=== PATIENT | female | born 1990 | race Caucasian/White ===

== ENCOUNTER 2018-07-17 07:29 | Emergency (ER) | payer OTHER, SELFPAY ==
[2018-07-17 07:30] VITALS: BP 161/82; PULSE 102; RESP 18; TEMP 36.6; O2SAT 100; BMI 34.8
--- NOTE | 2018-07-17 08:20 | CT_ITS ---
STUDY: CT BRAIN WITHOUT CONTRAST REASON FOR EXAM: Female, 27 years old. Right parietal swelling and double vision. RADIATION DOSAGE (If Supplied By Facility): CTDIvol = ( 44.99 ) mGy, DLP = ( 846.73 ) mGycm TECHNIQUE: Transaxial CT imaging of the brain was performed without administration of intravenous contrast material. Individualized dose optimization techniques were used for this CT. COMPARISON: Comparison is made with prior study dated May 01, 2011. FINDINGS: Normal soft tissue structures. Normal calvarium. Normal size ventricles and extra-axial spaces for the patient's age. Normal white matter tracts of the cerebral hemispheres. Normal basal ganglia and thalami. Normal brainstem. Normal cerebellum. Once again, there is evidence of a cavum septum pellucidum. This is a normal variant. There is no intracranial hemorrhage. There are no findings of an acute ischemic infarction. Normal visualized paranasal sinuses. CT/Brain/Head without Contrast IMPRESSION: Normal unenhanced CT scan of the brain. Electronically Signed: Salvador Del Real, at 9:32 EST , Service support ,
[2018-07-17 08:57] LABS: Absolute Lymphocyte Count 2.09 X10^3/ul (0.83-4.51); Absolute Neutrophil Count 6.1 X10^3/uL (2.0-7.7); Basophil# 0.09 X10^3/uL; Eosinophil# 0.37 X10^3/uL; Eosinophils% 3.9 % (0-5); Hematocrit 43.9 % (37-47); Hemoglobin 14.2 g/dl (12.0-15.0); Lymphocyte # 2.09 X10^3/ul (4.0); Lymphocyte % 22.2 % (19-41); Mean Corp Hgb Conc 32.3 g/gl (32-36); Mean Corpuscular Hgb 28.3 pg (27.0-32.0); Mean Corpuscular Volume 87.5 fL (81-99); Mean Platelet Vol. 9.4 fl (6.2-12.0); Monocyte# 0.74 X10^3/uL; Monocyte% 7.9 % (0-10); Neutrophil # 6.09 X10^3/uL (2.7-7.7); Neutrophil % 64.8 % (47-70); Platelet Count 173 K/mm3 (150-450); RBC Distribution Width CV 13.3 % (11.6-14.6); RBC Distribution Width SD 42.5 fl (35.1-43.9); Red Blood Count 5.02 M/mm3 (4.2-5.4); White Blood Count 9.4 K/mm3 (4.4-11.0)
[2018-07-17 08:59] LABS: POSITIVE COUNT NO; POSITIVE DIFFERENTIAL NO; POSITIVE MORPHOLOGY NO
[2018-07-17 09:15] LABS: Anion Gap 8 (5-15); BUN 9 mg/dL (7-18); BUN/Creat Ratio 13.9 RATIO (10-20); Calcium,Total 9.1 mg/dL (8.5-10.1); Chloride 109 mmol/L (98-107); Creatinine, Serum 0.65 mg/dL (0.55-1.02); EST Glomerular Filtration Rate 116 mL/min (>60); Est Glom Filt Rate - Afr Amer 141 mL/min (>60); Estimated Creatinine Clearance 145.31 ml/min; Glucose 88 mg/dL (74-106); Potassium 3.6 mmol/L (3.5-5.1); Sodium Level 142 mmol/L (136-145)
--- NOTE | 2018-07-17 09:44 | ED.DCSUM_ITS ---
- ER Visit Summary Date of Service: 07/17/18 Chief Complaint: Knot on the side of my head History of Present Illness: The patient is a 27 F with no primary care physician. She reports that a week ago she noticed that she had a knot on the right side of her head. reported that she she seems out of it. She states that if she tries to concentrate on things that she gets double vision. She states that she does not have any double vision at this time. And that the double vision alternates between horizontal and vertical double vision. She denies any numbness or weakness. No fever or chills. Physical Examination: Vitals: Stable. Afebrile. General: Well-nourished and well-developed. Head: Normocephalic atraumatic. 3 cm firm minimally swollen area right parietal area. There is no erythema or induration. Neck: Supple, no lymphadenopathy. No JVD. Nontender. Cardiovascular: Regular rate and rhythm. No murmurs. Respiratory: No respiratory distress. Clear to auscultation bilaterally. Abdominal: Soft, nontender, nondistended, normal bowel sounds. No guarding, rebound, or peritoneal signs. Back: Nontender. Extremities: Nontender, no edema. Skin: Normal color, no rash. Neurologic: Alert and oriented ?3. Cranial nerves II through XII are intact. Normal strength and sensation. Psych: Normal affect. Test Results: CBC is normal. Chem-7 is more for chloride 109. CT brain is normal. Emergency Department Course and Treatment: Patient's rested comfortably without complaints. She does not have a family history of MS. Treatment Plan: Discussed the patient at this time I do not have an expiration for symptoms. I do not think that is related to the bump on her head. She will be discharged with instructions to follow-up with her primary care physician for further evaluation and treatment. She is also given the phone number for Dr. Parker. We discussed the possibility of this being a presentation for MS initially. Return to the emergency department for any worsening symptoms. Disposition: To home in improved and stable condition. Impression: 1. Scalp pain, uncertain cause. 2. Intermittent diplopia. This note was generated with [employer] software. It may contain incorrect words, spelling, and punctuation that were not noted in review of the chart prior to signing ED Disposition - Plan for ED Patient: Disposition: Home or Assisted Living Instructions: ED Double Vision Referrals: Richard Parker MD [STAFF PHYSICIAN] - As soon as possible
== END 2018-07-17 15:05 | disposition home or self-care (01) ==
LOC: ED 08:08
PROVIDERS: Emergency Provider Emergency Medicine
DX: R51 Headache (principal); H53.2 Diplopia; R11.0 Nausea; R05 Cough; Z72.0 Tobacco use
CPT/HCPCS: 70450; 80048; 85025; 99282; A4216

== ENCOUNTER 2018-12-07 15:35 | Emergency (ER) | payer BC, SELFPAY ==
[2018-12-07 15:36] VITALS: BP 152/90; PULSE 69; RESP 15; TEMP 36.6; O2SAT 99; BMI 34.5
[2018-12-07] MEDS: Ondansetron 4 MG/2 ML Vial IV (16:02)
[2018-12-07] MEDS: Ketorolac 30 MG/ML Syringe IV (16:02)
[2018-12-07] MEDS: 0.9% Normal Saline 1,000 ML 1000 ML IV (16:02)
[2018-12-07 16:10] LABS: Absolute Lymphocyte Count 2.54 X10^3/uL (0.83-4.51); Absolute Neutrophil Count 10.6 X10^3/uL (2.0-7.7); Basophil# 0.07 X10^3/uL; Basophil% 0.5 % (0-1); Eosinophil# 0.08 X10^3/uL; Eosinophils% 0.6 % (0-5); Hematocrit 43.6 % (37-47); Hemoglobin 14.8 g/dL (12.0-15.0); Lymphocyte # 2.54 X10^3/ul (4.0); Lymphocyte % 18.2 % (19-41); Mean Corp Hgb Conc 33.9 g/dL (32-36); Mean Corpuscular Hgb 29.3 pg (27.0-32.0); Mean Corpuscular Volume 86.3 fL (81-99); Mean Platelet Vol. 9.6 fl (6.2-12.0); Monocyte# 0.55 X10^3/uL; Monocyte% 3.9 % (0-10); NRBC Flagged by Analyzer 0 % (0-5); Neutrophil # 10.61 X10^3/uL (2.7-7.7); Neutrophil % 76.1 % (47-70); Platelet Count 265 K/mm3 (150-450); RBC Distribution Width CV 12.2 % (11.6-14.6); RBC Distribution Width SD 39.1 fl (35.1-43.9); Red Blood Count 5.05 M/mm3 (4.2-5.4)
[2018-12-07 16:29] LABS: ALB/GLOB Ratio 1.2 RATIO (0.9-2.4); AST(SGOT) 27 U/L (15-37); Alanine Aminotransfer ALT/SGPT 59 U/L (13-56); Alkaline Phosphatase 83 U/L (45-117); Anion Gap 8 (5-15); BUN 8 mg/dL (7-18); BUN/Creat Ratio 11.7 RATIO (10-20); Calcium,Total 9.3 mg/dL (8.5-10.1); Chloride 106 mmol/L (98-107); Creatinine, Serum 0.68 mg/dL (0.55-1.02); EST Glomerular Filtration Rate 109 mL/min (>60); Est Glom Filt Rate - Afr Amer 132 mL/min (>60); Estimated Creatinine Clearance 137.67 ml/min; Globulin 3.4 g/dL (2.2-4.2); Glucose 102 mg/dL (74-106); Lipase 85 U/L (73-393); Potassium 3.6 mmol/L (3.5-5.1); Protein, Total 7.4 g/dL (6.4-8.2); Sodium Level 139 mmol/L (136-145)
[2018-12-07 16:39] LABS: Bacteria 0 SEEN /hpf (None Seen); Mucous, Urine 0 SEEN /hpf (<or=2+); Red Blood Cells-Urine 0 SEEN /hpf (0-5); White Blood Cells 0 SEEN /hpf (0-5)
[2018-12-07 16:49] LABS: Color, Urine Yellow (Yellow); Glucose, Dipstick Normal (Normal); Ketone-Dipstick Negative (Negative); Leukocyte Esterase-Dipstick Negative /ul (Negative); Nitrite-Dipstick Negative (Negative); Occult Blood-Urine Negative /ul (Negative); Protein-Dipstick Negative (Negative); Urine Bilirubin Dipstick Negative (Negative); Urine Clarity Clear (Clear); Urine Urobilinogen Normal (Normal)
[2018-12-07 16:59] LABS: Squamous Epithelial Cells - UA 0-5 SEEN /hpf (5-10)
[2018-12-07 17:40] VITALS: BP 139/102; PULSE 50; RESP 16; O2SAT 98
--- NOTE | 2018-12-07 17:50 | ED.VISSUMM ---
- ER Visit Summary Date of Service: 12/07/18 Chief Complaint: Abdominal pain History of Present Illness: The patient is a 28 F with no primary care physician. She reports that she has left upper quadrant abdominal pain that began 2 days ago. Is gradually gotten worse. It is a dull, aching pain that is now 10 at worst and 7-10 currently. Is worsened by straightening out her torso. Is relieved by position. She is had nausea without vomiting. No diarrhea. Her last bowel movement was yesterday. No melena or hematochezia. No dysuria or frequency. She is status post hysterectomy. She denies fever. Physical Examination: Vitals: Stable. Afebrile. General: Well-nourished and well-developed. Head: Normocephalic atraumatic. Neck: Supple, no lymphadenopathy. No JVD. Nontender. Cardiovascular: Regular rate and rhythm. No murmurs. Respiratory: No respiratory distress. Clear to auscultation bilaterally. Abdominal: Soft, mild left upper quadrant tenderness to palpation, nondistended, normal bowel sounds. No guarding, rebound, or peritoneal signs. Back: Mild tenderness palpation over lumbar spine and paraspinous musculature in the lumbar region bilaterally. Negative straight leg raise bilaterally. Extremities: Nontender, no edema. Skin: Normal color, no rash. Neurologic: Alert and oriented ?3. Cranial nerves II through XII are intact. Normal strength and sensation. Psych: Normal affect. Test Results: CBC shows a white count of 14.0 with 76 segmented neutrophils and 18 lymphocytes. Chem-7 is normal. LFTs showed ALT of 59. Lipase normal. UA is negative. Emergency Department Course and Treatment: Patient was treated with Toradol and Zofran IV. I did have a discussion with her that I do not have an excellent option for her abdominal pain. She has refused a CT. She also refused nausea or pain medications for home. Treatment Plan: Patient will be discharged instructions follow-up Dr. Garcia in 1 to 2 days if not improving. Return to the emergency department for any worsening symptoms. Disposition: To home in improved and stable condition. Impression: 1. Abdominal pain, uncertain cause. This note was generated with [employer] software. It may contain incorrect words, spelling, and punctuation that were not noted in review of the chart prior to signing ED Disposition - Plan for ED Patient: Disposition: Home or Assisted Living Instructions: ABDOMINAL PAIN, Unknown Cause, (Female) Referrals: Portia Garcia MD [STAFF PHYSICIAN] - 1-2 Days if not improving
[2018-12-07 17:57] VITALS: BP 143/93; PULSE 50; RESP 16; O2SAT 100
--- NOTE | 2018-12-07 17:57 | ED.RN ---
upon d/c patient she became tearful. she was asked if are you okay. she stated yes. I offered to advocated to the dr if there was something else she felt necessary. she stated no. pt left department without further discussion about care or concerns. mandie montenegro rn 1800
--- NOTE | 2018-12-07 18:04 | ED.RN ---
ed d/c instructions found in waste can after pt left in the room. pmi disposed in appropriate container. mandie montenegro, 180
== END 2018-12-07 18:00 | disposition home or self-care (01) ==
LOC: ED 15:59
PROVIDERS: Emergency Provider Emergency Medicine
DX: R10.12 Left upper quadrant pain (principal); R11.0 Nausea; M54.9 Dorsalgia, unspecified; R51 Headache; Z90.710 Acquired absence of both cervix and uterus
CPT/HCPCS: 80053; 81001; 83690; 85025; 96361; 96374; 96375; 99283; J7030; A4216; J2405

== ENCOUNTER 2018-12-08 22:17 | Observation (INO) | payer BC, SELFPAY ==
[2018-12-07 15:36] VITALS: BMI 34.5
[2018-12-08 22:18] VITALS: BP 143/89; PULSE 72; RESP 15; TEMP 36.5; O2SAT 100; BMI 34.2
--- NOTE | 2018-12-08 22:54 | ED.DCSUM_ITS ---
History of Present Illness Chief Complaint: General Illness Informant: Patient Onset: Yesterday Context: Sudden Onset Timing: Continuous Quality: Aching Location: Bilateral lower quadrant Current Severity: Moderate Maximum Severity: Moderate Worsened by: Nothing Relieved by: Nothing Associated Symptoms: Loss of appetite Narrative: Patient is a 28-year-old female status post hysterectomy for endometriosis who presents because of bilateral lower quadrant abdominal pain. She was seen yesterday. Note was reviewed. Work-up was unremarkable. She declined CAT scan. She returns because of persistent pain. She also states the pain is moved. She now states it is aching and not sharp. She does report loss of appetite and slight nausea. She denies fever, chills or night sweats. She denies intolerance to greasy or fried foods. There is no family history of cholelithiasis. She denies dysuria, frequency, urgency or hematuria. She denies vaginal bleeding or discharge. She denies back or flank pain. There is no history of renal or ureterolithiasis. Prior similar symptoms: Yes Recent Illness/Hospitalization: Yes - Past Medical History (1) History of endometriosis Status: Acute Past Medical History - Allergies and Home Meds Allergies/Adverse Reactions: Allergies No Known Allergies Allergy (Verified 12/08/18 22:21) Primary Care Physician: Care Physician,No Primary [Primary Care Provider] - Prior records reviewed: Yes Surgical History: hysterectomy Lives: Spouse/ Significant Other Smoking Status: Former smoker Alcohol: None Drugs: None Review of Systems General: Reports: Chills. Denies: Fever, Malaise, Subjective, Sweats, Weight loss, - Eyes: Denies: Visual changes - bilaterally, Blurred Vision - bilaterally ENT: Denies: Rhinorrhea, Sore throat Cardiovascular: Denies: Chest pain, Palpitations Respiratory: Denies: Dyspnea, Cough, Dyspnea on exertion Gastrointestinal: Reports: Abdominal pain, Nausea, - - She reports anorexia. She states she has not eaten since . Denies: Vomiting, Diarrhea, Constipation, Melena, Hematochezia Genitourinary: Denies: Dysuria, Hematuria, Frequency Musculoskeletal: Denies: Myalgias, Arthralgias, Neck pain, Back pain, Extremity Pain Skin: Denies: Rash, Wounds Neurological: Denies: Headache, Weakness, Parasthesia, Numbness Hematologic: Denies: Easy bruising, Easy bleeding Allergy: Denies: Uticaria, Swelling of the mouth, Swelling of the tongue Physical Exam Vital Signs/Narrative: Vital Signs Temp Pulse Resp BP Pulse Ox 12/08/18 22:18 97.7 F L 72 15 143/89 H 100 Inital Vital Signs reviewed: Yes General: Well nourished, Well developed, - - Appears pale and uncomfortable.. Negative for: Acute Distress Head: Normocephalic, Atraumatic Eyes: Perrl, EOMI. Negative for: Pale conjunctiva, Scleral icterus, - ENT: No rhinorrhea, TM's clear, Dry mucous membranes Neck: Supple, Nontender, No lymphadenopathy, No JVD Cardiovascular: Regular rate, Regular rhythm, No murmurs, Normal S1, Normal S2 Respiratory: No distress, CTA bilaterally, Chest nontender Abdomen: Soft, Nondistended, Normal bowel sounds, No masses, Tender, Guarding, Brewer's sign Back: Nontender, Normal Inspection. Negative for: CVA tenderness Extremities: Nontender, No edema Skin: No rash, No Trauma, Pallor. Negative for: Cyanosis, Diaphoresis, Jaundice Neurological: Alert, Oriented x3, Cranial nerves II-XII grossly intact, Normal Strength, Normal Sensation Psychological: Normal affect, Normal Mood Diagnostic/Tx/Re-eval Laboratory Results 12/08/18 12/08/18 22:50 22:50 WBC 11.7 H RBC 4.80 Hgb 14.0 Hct 41.6 MCV 86.7 MCH 29.2 MCHC 33.7 RDW Std Deviation 39.0 RDW Coeff of Elizabeth 12.2 Plt Count 250 MPV 9.7 Immature Gran % (Auto) 0.900 Neut % (Auto) 65.9 Lymph % (Auto) 25.7 [place] % (Auto) 6.0 Eos % (Auto) 0.9 Baso % (Auto) 0.6 Absolute Neuts (auto) 7.7 Absolute Lymphs (auto) 3.00 Nucleated RBC % 0 Total Bilirubin 0.20 Direct Bilirubin 0.10 AST 27 ALT 61 H Alkaline Phosphatase 80 Total Protein 6.9 Albumin 3.7 Globulin 3.2 Lipase 83 ALT is slightly elevated. Upper end of normal at 56. This is within lab error. Lipase normal. White count slightly elevated. Will reassess patient and determine if patient will need an ultrasound through the emergency department versus outpatient. Also will compare lab results to yesterday's results. White count was 14,000 yesterday. Today's number is an improvement. - Medical Decision Making With pain to palpation right upper quadrant with clinical Brewer sign hepatic, CBC and lipase were obtained. Ultrasound is not available. If needed ability to call grated cheese maker in. Patient was medicated with Zofran and Toradol. Will compare today's labs to yesterday's. Patient was reassessed at 2346. She appears in much more discomfort. 25 mg of Dilaudid was ordered. She has increased tenderness the right upper quadrant. Will attempt to control patient's pain. Will order ultrasound for a.m. Since her white count is slightly elevated and her liver enzymes are essentially unrem arkable and emergent ultrasound is not warranted at this time. Patient was reassessed at 0120. She states the pain is much better after she received the last dose of pain medicine. She does report waxing and waning discomfort. She appears in less discomfort. 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 I was informed of 0308 that patient is requesting more pain medicine. 0.5 mg of Dilaudid was ordered. Patient's history, physical findings and concerns were conveyed to the oncoming physician Dr. Dante Hernandez. He will make disposition once ultrasound has been performed and results made available for review. ED Disposition - Plan for ED Patient: Diagnosis: Biliary colic symptom Referrals: Care Physician,No Primary [Primary Care Provider] -
[2018-12-08] MEDS: Ketorolac 15 MG/ML Vial IV (23:02)
[2018-12-08 23:03] VITALS: BP 138/78; PULSE 74; RESP 14; O2SAT 98
[2018-12-08] MEDS: Ondansetron 4 MG/2 ML Vial IV (23:03)
[2018-12-08 23:07] LABS: Absolute Neutrophil Count 7.7 X10^3/uL (2.0-7.7); Basophil# 0.07 X10^3/uL; Basophil% 0.6 % (0-1); Eosinophil# 0.11 X10^3/uL; Eosinophils% 0.9 % (0-5); Hematocrit 41.6 % (37-47); Lymphocyte % 25.7 % (19-41); Mean Corp Hgb Conc 33.7 g/dL (32-36); Mean Corpuscular Hgb 29.2 pg (27.0-32.0); Mean Corpuscular Volume 86.7 fL (81-99); Mean Platelet Vol. 9.7 fl (6.2-12.0); NRBC Flagged by Analyzer 0 % (0-5); Neutrophil # 7.68 X10^3/uL (2.7-7.7); Neutrophil % 65.9 % (47-70); Platelet Count 250 K/mm3 (150-450); RBC Distribution Width CV 12.2 % (11.6-14.6); White Blood Count 11.7 K/mm3 (4.4-11.0)
[2018-12-08 23:17] LABS: AST(SGOT) 27 U/L (15-37); Alanine Aminotransfer ALT/SGPT 61 U/L (13-56); Albumin, Serum 3.7 g/dL (3.2-5.0); Alkaline Phosphatase 80 U/L (45-117); Globulin 3.2 g/dL (2.2-4.2); Lipase 83 U/L (73-393); Protein, Total 6.9 g/dL (6.4-8.2)
[2018-12-08] MEDS: HYDROmorphone 0.5 MG/0.5 ML SYRINGE IV (23:52)
[2018-12-09] VITALS (10 sets, daily range): BP systolic 115–132; BP diastolic 64–83; PULSE 51–91; RESP 14–18; TEMP 36.5–37.1; O2SAT 96–100; BMI 34.0; BMI 34.6
--- NOTE | 2018-12-09 | US_ITS ---
STUDY: ABDOMINAL ULTRASOUND - RIGHT UPPER QUADRANT REASON FOR VISIT: Female, 28 years old. 5 day history of right upper quadrant pain. TECHNIQUE: Ultrasound evaluation of the right upper quadrant was performed with real-time and static ching-scale imaging. TECHNICAL QUALITY: Adequate. COMPARISON: None. FINDINGS: Liver: The liver is enlarged and measures 20.2 cm. There is increased echogenicity consistent with fatty infiltration. The bile ducts are within normal limits. There is hepatic color flow. The direction of portal flow is hepatopetal. There is no demonstrated mass lesion. Gallbladder: There is a mildly distended gallbladder. The gallbladder wall measures 2.9 mm. There is a positive sonographic Brewer's sign. There is no pericholecystic fluid. There are no gallstones. Sludge is seen in the gallbladder lumen. Common Bile Duct (C.B.D.): The common bile duct measures 4.8 mm. Pancreas: Normal size of the head, body and tail of the pancreas. There is normal echogenicity of the pancreas. There is no demonstrated pancreatic mass or cyst. Right Kidney: Normal size of the right kidney. The right kidney measures 10.5 cm x 5.2 cm x 3.8 cm. Normal renal cortex. The right cortex measures 1.3 cm. There is no demonstrated renal mass or cyst. There is no right hydronephrosis. US/Abdomen Limited IMPRESSION: Hepatomegaly with diffuse fatty infiltration of the liver. Sludge is seen in the gallbladder lumen. Electronically Signed: Salvador Del Real, at 8:23 EDT , Service support ,
[2018-12-09] MEDS: HYDROmorphone 0.5 MG/0.5 ML SYRINGE IV ×2 (03:13→08:32)
--- NOTE | 2018-12-09 09:51 | PCM.HP.STD ---
Problem List (1) Abdominal pain Status: Acute Qualifiers: Abdominal location: generalized Qualified Code(s): R10.84 - Generalized abdominal pain History of Present Illness Date of Admission: 12/09/18 Chief Complaint: Abdominal pain The patient is a 28 year old F in the emergency room for abdominal pain. The patient reports that the pain started 4 days ago. She was in the emergency room yesterday and the day before. 2 days ago she said the pain was in her left upper quadrant today she said the pain was starting in her left lower and right lower quadrant and now it is in her right upper quadrant. The patient cannot give me a good history for exactly where her pain is but she said it is worse when standing straight up. The patient does not note any nausea or vomiting but she said she is intolerant of any food as it causes a lot of abdominal pain. She refused CT scan in the emergency room. She denies any fevers or chills. She denies any history of pain like this in the past. Past Medical History Allergies No Known Allergies Allergy (Verified 12/08/18 22:21) Home Medications: Ambulatory Orders Medication Instructions Recorded NK 12/07/18 Surgical History: hysterectomy Lives: Spouse/ Significant Other Smoking Status: Former smoker Alcohol: None Drugs: None - *Family History Maternal History Items: No pertinent history Review of Systems Constitutional: Reports: Anorexia. Denies: Fever HEENT: Denies: Difficulty Swallowing Cardiovascular: Denies: Chest Pain Respiratory: Denies: Cough, Shortness of Breath Gastrointestinal: Reports: Abdominal Pain. Denies: Constipation, Diarrhea, Hematemesis, Hematochezia, Nausea, Vomiting Genitourinary: Denies: Dysuria Musculoskeletal: Denies: Joint Tenderness Skin: Denies: Jaundice Neurological: Denies: Headaches Hematologic/ Lymphatic: Denies: Anemia VTE Information - Inpt Only VTE Present on Admission: No VTE Mechan Device Prophylaxis: SCD's Patient Problems: Active and Suspected Problems History of endometriosis (Acute) Biliary colic symptom (Acute) Abdominal pain (Acute) - Physical Exam General: Alert, Oriented x3 Neck: No JVD Lungs: Normal air movement Cardiovascular: Regular rate, Regular Rhythm Abdomen: Soft, Non-Distended, Tender - She does have right upper quadrant tenderness but I was not able to appreciate a Brewer sign. Musculoskeletal: No Muscle Wasting Neurological: Cranial nerves II-XII grossly intact Psych/Mental Status: Normal Affect Vital Signs Temp Pulse Resp BP Pulse Ox 97.7 F L 89 18 115/64 99 12/08/18 22:18 12/09/18 09:19 12/09/18 09:19 12/09/18 09:19 12/09/18 09:19 Oxygen Delivery Method Room Air Weight: 245 lb Body Mass Index (BMI) 34.2 Laboratory Tests Past 24 Hrs 12/08/18 12/08/18 22:50 22:50 WBC 11.7 H RBC 4.80 Hgb 14.0 Hct 41.6 MCV 86.7 MCH 29.2 MCHC 33.7 RDW Std Deviation 39.0 RDW Coeff of [place] 12.2 Plt Count 250 MPV 9.7 Immature Gran % (Auto) 0.900 Neut % (Auto) 65.9 Lymph % (Auto) 25.7 [place] % (Auto) 6.0 Eos % (Auto) 0.9 Baso % (Auto) 0.6 Absolute Neuts (auto) 7.7 Absolute Lymphs (auto) 3.00 Nucleated RBC % 0 Total Bilirubin 0.20 Direct Bilirubin 0.10 AST 27 ALT 61 H Alkaline Phosphatase 80 Total Protein 6.9 Albumin 3.7 Globulin 3.2 Lipase 83 Clinical Impression(s) from Imaging Studies Abdomen Ultrasound 12/09/18 00:00 IMPRESSION: Hepatomegaly with diffuse fatty infiltration of the liver. Sludge is seen in the gallbladder lumen. Electronically Signed: Salvador Del Real, at 8:23 EDT , Service support , Assessment/Plan All Active Problems History of endometriosis (Acute) Biliary colic symptom (Acute) Abdominal pain (Acute) Excessive and frequent menstruation with irregular cycle (Acute) 28-year-old female with abdominal pain 1. The patient reports her pain seems to be moving around and generalized. She has a slightly elevated white count with no left shift. Her gallbladder does have sludge but normal wall thickness and no pericholecystic fluid. I was unable to elicit any Brewer sign on my own physical exam. The patient says that this is been going on for 4 days and if she had acute cholecystitis for 4 days I would expect a more elevated white count and thickened gallbladder wall. She says that even water made her abdomen hurt so I am leaning more toward a differential of peptic ulcer disease. I will admit her and start her on Carafate and PPI and clear liquids. I will also give her a GI cocktail. If the pain persists I would heavily recommend a CT scan of the abdomen. At this time I do not believe she has acute cholecystitis. If pain persist tomorrow may consider EGD. Jeanmarie Mireles MD Pager: [facility] [address] [place] [address], [address] [place] [address] Office:
[2018-12-09] MEDS: Sucralfate 1 GM Tablet PO (12:20)
[2018-12-09] MEDS: Pantoprazole Sodium 20 MG Tablet PO ×2 (12:20→22:12)
[2018-12-09] MEDS: Mag Hydrox/Al Hydrox/Simeth 30 ML UDC PO (12:20)
--- NOTE | 2018-12-09 12:22 | NURSING ---
Spoke with René in the pharmacy regarding patient having GI cocktail ordered as well as carafate and protonix. he states the order of meds does not matter. all can ge given at same time.
[2018-12-09] MEDS: 0.9% Normal Saline 1,000 ML 100 ML IV ×2 (12:25→22:11)
[2018-12-09] MEDS: Morphine 2 MG/ML Syringe IV ×3 (13:14→22:07)
--- NOTE | 2018-12-09 17:20 | CT_ITS ---
STUDY: CT ABDOMEN AND PELVIS WITH CONTRAST REASON FOR EXAM: Female, 28 years old. Abdominal pain RADIATION DOSAGE (If Supplied By Facility): DLP = ( 1260.15 ) mGycm TECHNIQUE: Transaxial images were obtained from the dome of the diaphragm to the symphysis pubis with oral contrast. 100 ml of Isovue 300 contrast was administered. Sagittal and coronal images were reconstructed. Individualized dose optimization techniques were used for this CT. COMPARISON: None. FINDINGS: The visualized lung bases are clear. The visualized portions of the heart and pericardium are within normal limits. There are no calcified gallstones present. There is decreased hepatic attenuation. There are no suspicious hepatic lesions. The spleen is normal in size. The pancreas is within normal limits. The adrenal glands are within normal limits. There are no obstructing renal stones. There is no hydronephrosis. There are no focal renal lesions. Normal visualized stomach. There is no bowel obstruction or inflammation. The appendix is normal. The aorta is normal in caliber. There is no abdominal or pelvic free air, free fluid, or fluid collection. There are scattered mildly prominent lymph nodes in the mesentery and right lower quadrant. There are no destructive osseous lesions. There is a small fat-containing umbilical hernia. CT/Abdomen/Pelvis WITH Contrast IMPRESSION: No evidence of acute pathology in the abdomen or pelvis. Normal appendix. Scattered mildly prominent lymph nodes in the mesentery and right lower quadrant, nonspecific although can be associated with mesenteric adenitis. Small fat-containing about the hernia. Fatty liver. Electronically Signed: Theodore Tellez, at 19:43 EDT Tel , Service support ,
[2018-12-09] MEDS: 0.9% NaCl Peripheral Flush Adult/Peds IV ×2 (20:02→22:07)
[2018-12-10] MEDS: Acetaminophen 325 MG Tablet 650 MG PO (04:47)
[2018-12-10 04:52] VITALS: BP 120/80; PULSE 62; RESP 16; TEMP 36.6; O2SAT 99
[2018-12-10] MEDS: 0.9% Normal Saline 1,000 ML 100 ML IV (06:25)
[2018-12-10 06:32] LABS: Absolute Lymphocyte Count 2.29 X10^3/uL (0.83-4.51); Absolute Neutrophil Count 5.9 X10^3/uL (2.0-7.7); Basophil# 0.07 X10^3/uL; Basophil% 0.8 % (0-1); Eosinophil# 0.12 X10^3/uL; Eosinophils% 1.3 % (0-5); Hemoglobin 11.8 g/dL (12.0-15.0); Lymphocyte # 2.29 X10^3/ul (4.0); Lymphocyte % 25.5 % (19-41); Mean Corp Hgb Conc 32.8 g/dL (32-36); Mean Corpuscular Hgb 28.5 pg (27.0-32.0); Mean Platelet Vol. 9.8 fl (6.2-12.0); Monocyte# 0.56 X10^3/uL; Monocyte% 6.2 % (0-10); NRBC Flagged by Analyzer 0 % (0-5); Neutrophil # 5.87 X10^3/uL (2.7-7.7); Neutrophil % 65.5 % (47-70); Platelet Count 192 K/mm3 (150-450); RBC Distribution Width CV 12.5 % (11.6-14.6); RBC Distribution Width SD 39.7 fl (35.1-43.9); Red Blood Count 4.14 M/mm3 (4.2-5.4)
[2018-12-10 06:56] LABS: ALB/GLOB Ratio 1.1 RATIO (0.9-2.4); AST(SGOT) 25 U/L (15-37); Alanine Aminotransfer ALT/SGPT 58 U/L (13-56); Albumin, Serum 3.1 g/dL (3.2-5.0); Alkaline Phosphatase 56 U/L (45-117); Anion Gap 8 (5-15); BUN 8 mg/dL (7-18); BUN/Creat Ratio 14.9 RATIO (10-20); Calcium,Total 8.1 mg/dL (8.5-10.1); Chloride 109 mmol/L (98-107); Creatinine, Serum 0.54 mg/dL (0.55-1.02); EST Glomerular Filtration Rate 144 mL/min (>60); Est Glom Filt Rate - Afr Amer 174 mL/min (>60); Estimated Creatinine Clearance 173.36 ml/min; Globulin 2.7 g/dL (2.2-4.2); Glucose 79 mg/dL (74-106); Potassium 3.5 mmol/L (3.5-5.1); Protein, Total 5.8 g/dL (6.4-8.2); Sodium Level 143 mmol/L (136-145)
[2018-12-10 08:20] VITALS: BP 121/78; PULSE 51; RESP 16; TEMP 36.4; O2SAT 99
[2018-12-10] MEDS: Pantoprazole Sodium 20 MG Tablet PO (08:30)
--- NOTE | 2018-12-10 08:38 | PN.SURG_ITS ---
Patient Problems: Active and Suspected Problems History of endometriosis (Acute) Biliary colic symptom (Acute) Abdominal pain (Acute) Subjective: Patient reports she is feeling slightly better this morning. Still complaining of pain on the right side of the abdomen. - Physical Exam General: Alert, Oriented x3 Neck: No JVD Lungs: Normal air movement Cardiovascular: Regular rate, Regular Rhythm Abdomen: Soft, Non-Distended, Tender - Tender on the right side with no guarding or rebound tenderness. Negative Rovsing sign. No Brewer sign. Musculoskeletal: No Muscle Wasting Vital Signs Temp Pulse Resp BP Pulse Ox 98 F 62 16 120/80 99 12/10/18 04:52 12/10/18 04:52 12/10/18 04:52 12/10/18 04:52 12/10/18 04:52 Oxygen Delivery Method Room Air Weight: 248 lb 3 oz Body Mass Index (BMI) 34.6 Intake and Output for Last 24 Hours 12/08/18 12/09/18 12/10/18 23:59 23:59 23:59 Intake Total 1670 / 1670 747 / 747 Output Total 300 / 300 500 / 500 Balance 1370 / 1370 247 / 247 Laboratory Tests Past 24 Hrs 12/10/18 12/10/18 05:58 05:58 WBC 9.0 RBC 4.14 L Hgb 11.8 L Hct 36.0 L MCV 87.0 MCH 28.5 MCHC 32.8 RDW Std Deviation 39.7 RDW Coeff of Elizabeth 12.5 Plt Count 192 MPV 9.8 Immature Gran % (Auto) 0.700 Neut % (Auto) 65.5 Lymph % (Auto) 25.5 Humphreys % (Auto) 6.2 Eos % (Auto) 1.3 Baso % (Auto) 0.8 Absolute Neuts (auto) 5.9 Absolute Lymphs (auto) 2.29 Nucleated RBC % 0 Sodium 143 Potassium 3.5 Chloride 109 H Carbon Dioxide 26.0 Anion Gap 8 BUN 8 Creatinine 0.54 L Estim Creat Clear Calc 173.36 Est GFR (MDRD) Af Amer 174 Est GFR (MDRD) Non-Af 144 BUN/Creatinine Ratio 14.9 Glucose 79 Calcium 8.1 L Total Bilirubin 0.40 AST 25 ALT 58 H Alkaline Phosphatase 56 Total Protein 5.8 L Albumin 3.1 L Globulin 2.7 Albumin/Globulin Ratio 1.1 Clinical Impression(s) from Imaging Studies Abdomen/Pelvis CT 12/09/18 17:20 IMPRESSION: No evidence of acute pathology in the abdomen or pelvis. Normal appendix. Scattered mildly prominent lymph nodes in the mesentery and right lower quadrant, nonspecific although can be associated with mesenteric adenitis. Small fat-containing about the hernia. Fatty liver. Electronically Signed: Theodore Tellez, at 19:43 EDT Tel , Service support , Medical Necessity - Tobacco Use Smoking Status: Former smoker Tobacco Use: Cigarettes Assessment/Plan All Active Problems History of endometriosis (Acute) Biliary colic symptom (Acute) Abdominal pain (Acute) Excessive and frequent menstruation with irregular cycle (Acute) 28-year-old female with abdominal pain 1. Patient reports she is doing slightly better this morning. She says that she is not having any nausea or vomiting. Her white count remains normal despite having no antibiotics. I think it is unlikely that she has acute cholecystitis. CT scan showed prominent lymph nodes in the right lower quadrant that may be associated with mesenteric adenitis. I described this to her and explained mesenteric adenitis in detail. I also explained the fact that food is making her stomach hurt may be suggestive of peptic ulcer disease. Patient is already on Carafate and PPI. At this time patient does not want to do EGD and she wants to try diet. If diet makes her too painful we will perform EGD tomorrow. Continue PPI and Carafate. Trial of diet today. Jeanmarie Mireles MD Pager: [facility] [address] [place] [address], [address] [place] [address] Office:
[2018-12-10] MEDS: Sucralfate 1 GM Tablet PO (12:01)
[2018-12-10 14:28] VITALS: BP 133/77; PULSE 62; RESP 14; TEMP 36.8; O2SAT 99
--- NOTE | 2018-12-10 14:28 | DCINST_ITS ---
- Discharge Diagnoses Current Active Problems: Current Active and Chronic Problems History of endometriosis (Acute) Biliary colic symptom (Acute) Abdominal pain (Acute) You will use the following diet at home:: No restrictions, Regular Your food should be the consistency of: Regular Your liquids should be the consistency of: Regular/Thin Discharge Activity: No Restrictions Call your doctor if your incision/area has: Increased Pain/ Swelling Call your doctor if you observe: Fever of 101 or Higher Allergies/Adverse Reactions: Allergies No Known Allergies Allergy (Verified 12/08/18 22:21) Medications to take at Discharge Pantoprazole Sodium [Protonix] 20 mg PO BID 30 Days #60 tab 12/10/18 Sucralfate [Carafate] 1 gm PO 1HR_ACHS 30 Days #120 tab 12/10/18 The following prescriptions were given: Sucralfate [Carafate] 1 gm PO 1HR_ACHS 30 Days #120 tab Transmission Status: Pending to [facility] Pantoprazole Sodium [Protonix] 20 mg PO BID 30 Days #60 tab Transmission Status: Pending to [facility] Primary Care Physician: Care Physician,No Primary [Primary Care Provider] - Test Results: Test results from this visit will be discussed in further detail at your follow- up appointment, if applicable. Please Follow Up With: Jeanmarie Mireles MD When: Please call to schedule 2 week follow up appointment. [phone]
== END 2018-12-10 14:52 | disposition home or self-care (01) ==
LOC: ED 22:36 → MS3 12-09 11:17
PROVIDERS: Admitting Provider Surgery; Emergency Provider Emergency Medicine; Visit Provider Surgery
DX: K80.50 Calculus of bile duct without cholangitis or cholecystitis without obstruction (principal); R10.32 Left lower quadrant pain; R10.31 Right lower quadrant pain; Z87.891 Personal history of nicotine dependence; N92.1 Excessive and frequent menstruation with irregular cycle
CPT/HCPCS: 36415; 74177; 76705; 80053; 80076; 83690; 85025; 96361; 96374; 96375; 96376; 99218; 99285; J7030; Q9967; A4216; G0378; J2405

== ENCOUNTER 2018-12-12 01:23 | Emergency (ER) | payer BC, SELFPAY ==
[2018-12-09 10:54] VITALS: BMI 34.6
[2018-12-12 01:24] VITALS: BP 128/78; PULSE 71; RESP 18; TEMP 36.6; O2SAT 99; BMI 35.1
--- NOTE | 2018-12-12 01:56 | CT_ITS ---
HISTORY: SYNCOPE, SOB, C/O BACK PAIN TECHNIQUE: Helically acquired images were obtained of the chest following the intravenous administration of 100ML ml of Isovue 370 Iodinated contrast. as per pulmonary angiogram protocol with 2D MIP reconstructions. A radiation dose optimization technique was used for this scan. COMPARISON: None FINDINGS: # of images incl. paperwork: [id number] Lungs are clear but for trace basilar atelectasis. No effusions. Within the thoracic spinebony alignment is normal. Vertebral body height is normal. Facets are well aligned. No rib lesions are perceived. Heart is not enlarged. Thoracic aorta is normal. No aneurysms, stenoses, dissections, nor occlusions. No axillary or mediastinal adenopathy. No pulmonary emboli. Hepatomegaly and hepatic steatosis CT/CTA Chest W/WO Contrast IMPRESSION: No pulmonary embolism, aortic aneurysm, or aortic dissection. Individualized dose optimization techniques were used for this CT. at 0320 Reported and signed by: Facundo Heard MD Electronically Signed: Facundo Heard MD at 3:18 EDT Tel , Service support ,
--- NOTE | 2018-12-12 01:57 | CT_ITS ---
HISTORY: SYNCOPE, SOB, C/O BACK PAIN TECHNIQUE: Multiple axial images were obtained of the brain without intravenous contrast. A radiation dose optimization technique was used for this scan. COMPARISON: CT scan of the brain from July 17, 2018. FINDINGS: # of images incl. paperwork: 254 Cavum septum lucidum and cavum vergae remain, and are normal developmental variants Visualized portions of the paranasal sinuses and mastoid air cells are free of disease. Brain volume is normal. Mercado-white differentiation is preserved. No hydrocephalus. No acute ischemia. No acute intracranial hemorrhage. CT/Brain/Head without Contrast IMPRESSION: Normal. ASPECT 10. Individualized dose optimization techniques were used for this CT. at 0312 Reported and signed by: Facundo Heard MD Electronically Signed: Facundo Heard MD at 3:11 EDT Tel , Service support ,
--- NOTE | 2018-12-12 01:57 | EKG12_ITS ---
Test Reason : BACK PAIN Blood Pressure : / mmHG Vent. Rate : 060 BPM Atrial Rate : 060 BPM P-R Int : 148 ms QRS Dur : 078 ms QT Int : 452 ms P-R-T Axes : 018 018 024 degrees QTc Int : 452 ms Normal sinus rhythm Normal ECG Confirmed by SARAH BOO, AIDE ([id number]), publications editor HEATHER BARTH ([id number]) on 12/12/2018 1:13:46 PM Referred By: BEAN Confirmed By:DONNIE SMITH MD
--- NOTE | 2018-12-12 01:58 | ED.DCSUM_ITS ---
History of Present Illness Chief Complaint: Back Informant: Patient Onset: Today - JPTA Narrative: Patient was at work tonight. 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 She noticed that the room was tilting and then she felt off balance. She remembers feeling short of breath and having vague chest tightness. She is not sure what happened then, but apparently she passed out and collapsed to the floor. She remembers having a headache at one point that she does not have now. She no longer feels short of breath. She has been having right-sided abdominal and back pain for the last week for which she was seen in the ER twice and admitted once for. She had a negative CT of the abdomen/pelvis, surgery considered performing EGD but they ended up not doing it while she was in the hospital. Pain in her abdomen is still present, she states it never goes away but it does get worse when she eats or drinks. She has also noticed bruising on her abdomen and her right low back, she states she did not injure in either of these areas, have Lovenox shots in them or heparin or any other obvious explanation for bruising in these 2 areas. She has never had any blood clots. She occasionally gets swelling in both of her ankles. She gets tingling in all 4 of her distal extremities off and on for some time that she does not currently have. Blood clots run in her mother's side of the family, she is not aware of any hereditary clotting disorders. No recent long travel or surgery. When she was admitted recently, it was basically overnight. - Past Medical History (1) History of endometriosis Status: Resolved Past Medical History - Allergies and Home Meds Allergies/Adverse Reactions: Allergies No Known Allergies Allergy (Verified 12/08/18 22:21) Primary Care Physician: Care Physician,No Primary [Primary Care Provider] - Surgical History: hysterectomy Smoking Status: Former smoker Drugs: None - Family History Maternal Family History: Reports: - - Blood clots Review of Systems General: Reports: Malaise. Denies: Chills, Fever, Sweats Eyes: Denies: Visual changes - bilaterally, Diplopia ENT: Denies: Rhinorrhea, Sore throat Cardiovascular: Reports: Chest pain - gone. Denies: Palpitations Respiratory: Reports: Dyspnea - gone. Denies: Cough, Dyspnea on exertion Gastrointestinal: Reports: Abdominal pain, Nausea. Denies: Vomiting, Diarrhea, Constipation, Melena, Hematochezia Genitourinary: Denies: Dysuria, Hematuria, Frequency Musculoskeletal: Reports: Back pain. Denies: Extremity Pain Skin: Reports: - - bruising of unk cause. Denies: Rash, Wounds Neurological: Reports: Parasthesia - see HPI. Denies: Headache, Weakness Physical Exam Vital Signs/Narrative: Vital Signs Temp Pulse Resp BP Pulse Ox 12/12/18 01:24 97.8 F 71 18 128/78 H 99 Inital Vital Signs reviewed: Yes General: Well nourished, Well developed, Obese, No Acute Distress Head: Normocephalic, Atraumatic Eyes: Perrl, EOMI ENT: Moist mucous membranes, No rhinorrhea, TM's clear. Negative for: Nasal congestion, Sinus tenderness Neck: Supple, Nontender, No lymphadenopathy, No JVD Cardiovascular: Regular rate, Regular rhythm, No murmurs, Normal S1, Normal S2. Negative for: Tachycardia Respiratory: No distress, CTA bilaterally, Chest nontender Abdomen: Soft, Nondistended, Normal bowel sounds, Tender - mostly at RUQ; less right flank/side and right mid abd at ecchymoses Back: Normal Inspection. Negative for: Nontender - +tender mildly at area of ecchymosis right upper lumbar paraspinal area, CVA tenderness Extremities: Nontender, No edema. Negative for: Calf Tenderness Skin: Normal color, No rash, No Trauma, - - ecchymoses right mid-abd wall, and right low back; appears subacute w/ yellow discoloration Neurological: Alert, Oriented x3, Cranial nerves II-XII grossly intact, Normal Strength, Normal Sensation Psychological: Normal Mood, - - flat affect. frustrated. Diagnostic/Tx/Re-eval Impressions Chest CTA 12/12/18 01:56 IMPRESSION: No pulmonary embolism, aortic aneurysm, or aortic dissection. Individualized dose optimization techniques were used for this CT. at 0320 Reported and signed by: Facundo Heard MD Electronically Signed: Facundo Heard MD at 3:18 EDT Tel , Service support , Brain CT 12/12/18 01:57 IMPRESSION: Normal. ASPECT 10. Individualized dose optimization techniques were used for this CT. at 0312 Reported and signed by: Facundo Heard MD Electronically Signed: Facundo Heard MD at 3:11 EDT Tel , Service support , 12/12/18 01:56 CTA Chest W/WO Contrast [CT] Stat 12/12/18 01:57 CT Brain [Brain/Head without Contrast] [CT] Stat Laboratory Results 12/12/18 12/12/18 12/12/18 02:05 02:05 02:05 WBC 10.5 RBC 4.46 Hgb 12.9 Hct 38.3 MCV 85.9 MCH 28.9 MCHC 33.7 RDW Std Deviation 39.0 RDW Coeff of Elizabeth 12.5 Plt Count 247 MPV 9.5 Immature Gran % (Auto) 0.900 Neut % (Auto) 72.4 H Lymph % (Auto) 18.4 L [place] % (Auto) 6.4 Eos % (Auto) 1.2 Baso % (Auto) 0.7 Absolute Neuts (auto) 7.6 Absolute Lymphs (auto) 1.93 Nucleated RBC % 0 PT 12.8 INR 1.0 APTT 27.5 Sodium 142 Potassium 3.4 L Chloride 111 H Carbon Dioxide 26.0 Anion Gap 5 BUN 6 L Creatinine 0.64 Estim Creat Clear Calc 146.27 Est GFR (MDRD) Af Amer 141 Est GFR (MDRD) Non-Af 117 BUN/Creatinine Ratio 9.3 L Glucose 103 Calcium 8.9 Total Bilirubin 0.40 Direct Bilirubin 0.17 AST 27 ALT 64 H Alkaline Phosphatase 65 Troponin I < 0.015 Total Protein 6.7 Albumin 3.8 Globulin 2.9 Urine Color Urine Clarity Urine pH Ur Specific [place] Urine Protein Urine Glucose (UA) Urine Ketones Urine Occult Blood Urine Nitrite Urine Bilirubin Urine Urobilinogen Ur Leukocyte Esterase Urine RBC Urine WBC Ur Squamous Epith Cells Urine Bacteria Urine Mucus Urine Opiates Screen Urine Methadone Screen Ur Barbiturates Screen Ur Phencyclidine Scrn Ur Amphetamines Screen U Methamphetamin-MDMA U Benzodiazepines Scrn Urine Cocaine Screen U Cannabinoids Screen Ur Drug Screen Comment 12/12/18 12/12/18 02:05 02:05 WBC RBC Hgb Hct MCV MCH MCHC RDW Std Deviation RDW Coeff of Elizabeth Plt Count MPV Immature Gran % (Auto) Neut % (Auto) Lymph % (Auto) [place] % (Auto) Eos % (Auto) Baso % (Auto) Absolute Neuts (auto) Absolute Lymphs (auto) Nucleated RBC % PT INR APTT Sodium Potassium Chloride Carbon Dioxide Anion Gap BUN Creatinine Estim Creat Clear Calc Est GFR (MDRD) Af Amer Est GFR (MDRD) Non-Af BUN/Creatinine Ratio Glucose Calcium Total Bilirubin Direct Bilirubin AST ALT Alkaline Phosphatase Troponin I Total Protein Albumin Globulin Urine Color Yellow Urine Clarity Clear Urine pH 8.0 Ur Specific [place] 1.015 Urine Protein Negative Urine Glucose (UA) Normal Urine Ketones Negative Urine Occult Blood Negative Urine Nitrite Negative Urine Bilirubin Negative Urine Urobilinogen Normal Ur Leukocyte Esterase 25 H Urine RBC 0 SEEN Urine WBC 0-5 SEEN Ur Squamous Epith Cells 5-10 SEEN Urine Bacteria 0 SEEN Urine Mucus 0 SEEN Urine Opiates Screen NEGATIVE Urine Methadone Screen NEGATIVE Ur Barbiturates Screen NEGATIVE Ur Phencyclidine Scrn NEGATIVE Ur Amphetamines Screen NEGATIVE U Methamphetamin-MDMA NEGATIVE U Benzodiazepines Scrn NEGATIVE Urine Cocaine Screen NEGATIVE U Cannabinoids Screen NEGATIVE Ur Drug Screen Comment - Medical Decision Making Given the patient's symptoms, my concern was for pulmonary embolus, so we obtain CT angiography of the chest. It is normal and negative for pulmonary embolus. Also obtained a CT of the head, she was having a headache and syncope, looking for alternative diagnoses, it was also negative. The rest of her work-up was also unremarkable. Notably, with regards to her recent admission for abdominal pain and possibly having biliary colic, I obtain liver enzymes near normal. I gave her Zofran and meclizine for her symptoms. On reexamination, asking how she was doing, she honestly was very difficult and fairly short with me. I asked her if her dizziness and nausea were better after we treated those symptoms, she said that she was sitting and it was hard to tell. I advised her that we would get her up and around prior to discharge to see how she was feeling, and when the nurse went in to do this, she told her that she was up and walked around and was fine and just to get her out of here. I do not think she needs to be admitted for any this right now. It is possible she had vertigo and collapsed and actually did not have a syncopal episode. I recommend following up with Dr. Mireles, since if her pains in her abdomen persist, they were going to do EGD. Her bruising is of unknown cause. Her coags are normal. She just had a CT abdomen/pelvis that was unremarkable 4 days ago and I do not think that necessarily needs to be repeated since those symptoms really are no different. Will discharge her on meclizine and Zofran to use as needed and advised close outpatient follow-up. ED Disposition - Plan for ED Patient: Disposition: Home or Assisted Living Diagnosis: Syncope, Peripheral vertigo, unspecified, Cephalgia, Right-sided abdominal pain of unknown cause Instructions: SYNCOPE, Unk Cause, VERTIGO, Unspecified Prescriptions: Meclizine HCl 25 mg PO Q8H PRN #16 tab PRN Reason: Vertigo Prescription Printed Ondansetron [Zofran] 8 mg PO Q8H PRN #12 tab PRN Reason: Nausea/Vomiting Prescription Printed Referrals: Jeanmarie Mireles MD [STAFF PHYSICIAN] - (call for appt) Ten Eason MD [STAFF PHYSICIAN] - (call for appt)
[2018-12-12 02:13] LABS: Absolute Lymphocyte Count 1.93 X10^3/uL (0.83-4.51); Absolute Neutrophil Count 7.6 X10^3/uL (2.0-7.7); Bacteria 0 SEEN /hpf (None Seen); Basophil# 0.07 X10^3/uL; Basophil% 0.7 % (0-1); Eosinophil# 0.13 X10^3/uL; Eosinophils% 1.2 % (0-5); Hematocrit 38.3 % (37-47); Hemoglobin 12.9 g/dL (12.0-15.0); Lymphocyte # 1.93 X10^3/ul (4.0); Lymphocyte % 18.4 % (19-41); Mean Corp Hgb Conc 33.7 g/dL (32-36); Mean Corpuscular Hgb 28.9 pg (27.0-32.0); Mean Corpuscular Volume 85.9 fL (81-99); Mean Platelet Vol. 9.5 fl (6.2-12.0); Monocyte# 0.67 X10^3/uL; Monocyte% 6.4 % (0-10); Mucous, Urine 0 SEEN /hpf (<or=2+); NRBC Flagged by Analyzer 0 % (0-5); Neutrophil # 7.61 X10^3/uL (2.7-7.7); Neutrophil % 72.4 % (47-70); Platelet Count 247 K/mm3 (150-450); RBC Distribution Width CV 12.5 % (11.6-14.6); Red Blood Cells-Urine 0 SEEN /hpf (0-5); Red Blood Count 4.46 M/mm3 (4.2-5.4); White Blood Count 10.5 K/mm3 (4.4-11.0)
[2018-12-12 02:14] LABS: Vista UDS pH Range 7
[2018-12-12 02:17] LABS: Color, Urine Yellow (Yellow); Glucose, Dipstick Normal (Normal); Ketone-Dipstick Negative (Negative); Leukocyte Esterase-Dipstick 25 /ul (Negative); Nitrite-Dipstick Negative (Negative); Occult Blood-Urine Negative /ul (Negative); Protein-Dipstick Negative (Negative); Specific Gravity, Urine 1.015 (1.002-1.030); Urine Bilirubin Dipstick Negative (Negative); Urine Clarity Clear (Clear); Urine Urobilinogen Normal (Normal)
[2018-12-12 02:21] LABS: Partial Thromboplast Time 27.5 Seconds (24.1-36.2); Prothrombin Time (Protime)PT. 12.8 SECONDS (11.7-14.9)
[2018-12-12 02:23] LABS: Squamous Epithelial Cells - UA 5-10 SEEN /hpf (5-10); White Blood Cells 0-5 SEEN /hpf (0-5)
[2018-12-12 02:28] LABS: Amphetamine Urine VISTA NEGATIVE (<1000 ng/mL); Barbiturate Urine VISTA NEGATIVE (< 200 ng/mL); Benzodiazepine Urine VISTA NEGATIVE (< 200 ng/mL); Cocaine Urine VISTA NEGATIVE (< 300 ng/mL); Ecstacy Urine VISTA NEGATIVE (< 500 ng/mL); Methadone Urine VISTA NEGATIVE (< 300 ng/mL); PCP Urine VISTA NEGATIVE (< 25 ng/mL); THC Urine VISTA NEGATIVE (< 50 ng/mL)
[2018-12-12 02:35] LABS: AST(SGOT) 27 U/L (15-37); Alanine Aminotransfer ALT/SGPT 64 U/L (13-56); Albumin, Serum 3.8 g/dL (3.2-5.0); Alkaline Phosphatase 65 U/L (45-117); Anion Gap 5 (5-15); BUN 6 mg/dL (7-18); BUN/Creat Ratio 9.3 RATIO (10-20); Bilirubin, Direct 0.17 mg/dL (0.00-0.30); Calcium,Total 8.9 mg/dL (8.5-10.1); Chloride 111 mmol/L (98-107); Creatinine, Serum 0.64 mg/dL (0.55-1.02); EST Glomerular Filtration Rate 117 mL/min (>60); Est Glom Filt Rate - Afr Amer 141 mL/min (>60); Estimated Creatinine Clearance 146.27 ml/min; Globulin 2.9 g/dL (2.2-4.2); Glucose 103 mg/dL (74-106); Potassium 3.4 mmol/L (3.5-5.1); Protein, Total 6.7 g/dL (6.4-8.2); Sodium Level 142 mmol/L (136-145)
--- NOTE | 2018-12-12 04:08 | ED.RN ---
THIS RN ATTEMPTED TO WALK PATIENT PER DOCTOR REQUEST. PT STATES I'M FINE. I HAVE ALREADY BEEN UP. THIS RN NOTIFIED MD. MD STATES PROCEED WITH DISCHARGING PATIENT
[2018-12-12 04:30] VITALS: RESP 14
== END 2018-12-12 04:30 | disposition home or self-care (01) ==
PROVIDERS: Emergency Provider Emergency Medicine
DX: R55 Syncope and collapse (principal); H81.399 Other peripheral vertigo, unspecified ear; R10.9 Unspecified abdominal pain; R51 Headache; M54.9 Dorsalgia, unspecified; Z87.891 Personal history of nicotine dependence
CPT/HCPCS: 70450; 71275; 80048; 80076; 80307; 81001; 84484; 85025; 85610; 85730; 93005; 99285; Q9967; A4216

== ENCOUNTER 2019-11-16 20:43 | Observation (INO) | payer BC, SELFPAY ==
[2019-07-10 18:00] VITALS: BMI 35.1
[2019-11-16 20:44] VITALS: BP 133/64; PULSE 89; RESP 16; TEMP 36.5; O2SAT 99; BMI 34.3
[2019-11-16 20:49] VITALS: BMI 34.3
--- NOTE | 2019-11-16 20:50 | CT_ITS ---
STUDY: CT BRAIN WITHOUT CONTRAST REASON FOR EXAM: Female, 29 years old. AT WORK AND BODY STARTED TWITCHING, DIFFICULTY GETTING WORDS OUT, UNRESPONSIVE TO EMS, A and amp;O ON ARRIVAL RADIATION DOSAGE (If Supplied By Facility): CTDIvol = ( 44.99 ) mGy, DLP = ( 1209.77 ) mGycm TECHNIQUE: Transaxial CT imaging of the brain was performed without administration of intravenous contrast material. Study is degraded by motion artifact Individualized dose optimization techniques were used for this CT. COMPARISON: 12/12/2018 FINDINGS: Study is degraded by motion artifact. Cavum septum callosum again noted. Normal soft tissue structures. Normal calvarium. Normal size ventricles and extra-axial spaces for the patient''s age. Normal white matter tracts of the cerebral hemispheres. Normal basal ganglia and thalami. Normal brainstem. Normal cerebellum. There is no intracranial hemorrhage. There are no findings of an acute ischemic infarction. Normal visualized paranasal sinuses. CT/Brain/Head without Contrast IMPRESSION: No acute intracranial abnormality, no interval change Electronically Signed: Hai Noble MD at 21:23 EDT , Service support ,
--- NOTE | 2019-11-16 20:50 | EKG12_ITS ---
Test Reason : DYSRHYTHMIA Blood Pressure : / mmHG Vent. Rate : 076 BPM Atrial Rate : 076 BPM P-R Int : 150 ms QRS Dur : 082 ms QT Int : 384 ms P-R-T Axes : 004 015 016 degrees QTc Int : 432 ms Normal sinus rhythm Normal ECG Confirmed by JUAN BOO, SHUKRI ([id number]), supervising film or videotape editor HEATHER BARTH ([id number]) on 11/18/2019 11:02:05 AM Referred By: CL Confirmed By:SHUKRI MARTINEZ MD
--- NOTE | 2019-11-16 20:55 | ED.RN ---
mother called in and updated on patient condition at this time
[2019-11-16] MEDS: 0.9% Normal Saline 1,000 ML 999 ML IV (21:00)
[2019-11-16] MEDS: LORazepam 2 MG/ML Syringe 0.5 MG IV ×2 (21:00→22:04)
[2019-11-16 21:05] LABS: Absolute Lymphocyte Count 2.79 X10^3/uL (0.83-4.51); Absolute Neutrophil Count 6.6 X10^3/uL (2.0-7.7); Basophil# 0.08 X10^3/uL; Basophil% 0.8 % (0-1); Eosinophil# 0.23 X10^3/uL; Eosinophils% 2.2 % (0-5); Hematocrit 41.8 % (37-47); Hemoglobin 13.8 g/dL (12.0-15.0); Lymphocyte # 2.79 X10^3/ul (4.0); Lymphocyte % 26.9 % (19-41); Mean Corpuscular Hgb 29.2 pg (27.0-32.0); Mean Corpuscular Volume 88.6 fL (81-99); Monocyte# 0.61 X10^3/uL; Monocyte% 5.9 % (0-10); NRBC Flagged by Analyzer 0 % (0-5); Neutrophil # 6.64 X10^3/uL (2.7-7.7); Neutrophil % 63.9 % (47-70); Platelet Count 228 K/mm3 (150-450); RBC Distribution Width CV 12.3 % (11.6-14.6); RBC Distribution Width SD 40.3 fl (35.1-43.9); Red Blood Count 4.72 M/mm3 (4.2-5.4); White Blood Count 10.4 K/mm3 (4.4-11.0)
--- NOTE | 2019-11-16 21:06 | ED.DCSUM_ITS ---
History of Present Illness Chief Complaint: Neuro S/Sx Informant: Patient Narrative: 29-year-old female with past medical history of endometriosis presents with concern for syncope. Patient states that she was at work whenever she felt like she could not focus on what was in front of her and then had an episode of syncope. States that since that time she has had twitching. States that she has had twitching before in the past. Usually it is not persistent. States that she did have an episode like this at work 1 year ago. Denies any recent head injury. Denies any chest pain, shortness of breath, lightheadedness, dizziness, nausea, vomiting, abdominal pain, urinary symptoms. Patient states that she had a partial hysterectomy secondary to endometriosis. Past Medical History - Allergies and Home Meds Allergies/Adverse Reactions: Allergies No Known Allergies Allergy (Verified 11/16/19 20:52) Past Medical History: - - endometriosis Surgical History: hysterectomy Smoking Status: Current every day smoker Alcohol: None Drugs: None - Family History Maternal Family History: Reports: - - Blood clots Review of Systems General: Denies: Chills, Fever, Sweats Eyes: Reports: Visual changes - bilaterally. Denies: Diplopia ENT: Denies: Rhinorrhea, Sore throat Cardiovascular: Denies: Chest pain, Palpitations Respiratory: Denies: Dyspnea, Cough, Dyspnea on exertion Gastrointestinal: Denies: Abdominal pain, Nausea, Vomiting, Diarrhea, Melena, Hematochezia Genitourinary: Denies: Dysuria, Hematuria, Frequency Musculoskeletal: Denies: Back pain, Extremity Pain Skin: Denies: Rash, Wounds Neurological: Reports: - - syncope and twitching. Denies: Headache, Weakness, Numbness Physical Exam Vital Signs/Narrative: Vital Signs Temp Pulse Resp BP Pulse Ox 11/16/19 20:44 97.7 F L 89 16 133/64 H 99 Inital Vital Signs reviewed: Yes General: Well nourished, Well developed, No Acute Distress, - - twitching intermittently. Head: Normocephalic, Atraumatic Eyes: Perrl, EOMI ENT: Moist mucous membranes, No rhinorrhea Neck: Supple, Nontender Cardiovascular: Regular rate, Regular rhythm, No murmurs Respiratory: No distress, CTA bilaterally, Chest nontender Abdomen: Soft, Nontender, Nondistended, Normal bowel sounds Back: Nontender, Normal Inspection Extremities: Nontender, No edema Skin: Normal color, No rash Neurological: Alert, Oriented x3, Cranial nerves II-XII grossly intact, Normal Strength, Normal Sensation, - - No FND. Psychological: Normal affect, Normal Mood Diagnostic/Tx/Re-eval Clinical Impression(s) from Imaging Studies Brain CT 11/16/19 20:50 IMPRESSION: No acute intracranial abnormality, no interval change Electronically Signed: Hai Noble MD at 21:23 EDT , Service support , Head/Neck CTA 11/16/19 21:46 IMPRESSION: Normal CTA Head and neck with contrast. Electronically Signed: Hai Noble MD at 23:02 EDT , Service support , Laboratory Data 11/16/19 11/16/19 11/16/19 20:57 20:57 20:57 WBC 10.4 RBC 4.72 Hgb 13.8 Hct 41.8 MCV 88.6 MCH 29.2 MCHC 33.0 RDW Std Deviation 40.3 RDW Coeff of Elizabeth 12.3 Plt Count 228 MPV 10.0 Immature Gran % (Auto) 0.300 Neut % (Auto) 63.9 Lymph % (Auto) 26.9 [place] % (Auto) 5.9 Eos % (Auto) 2.2 Baso % (Auto) 0.8 Absolute Neuts (auto) 6.6 Absolute Lymphs (auto) 2.79 Nucleated RBC % 0 Sodium 142 Potassium 3.4 L Chloride 113 H Carbon Dioxide 23.0 Anion Gap 6 BUN 7 Creatinine 0.76 Estim Creat Clear Calc 122.08 Est GFR (MDRD) Af Amer 116 Est GFR (MDRD) Non-Af 96 BUN/Creatinine Ratio 9.2 L Glucose 97 Calcium 8.8 Total Bilirubin 0.20 AST 16 ALT 45 Alkaline Phosphatase 68 Troponin I < 0.015 Total Protein 6.7 Albumin 3.9 Globulin 2.8 Albumin/Globulin Ratio 1.4 Urine Color Urine Clarity Urine pH Ur Specific [place] Urine Protein Urine Glucose (UA) Urine Ketones Urine Occult Blood Urine Nitrite Urine Bilirubin Urine Urobilinogen Ur Leukocyte Esterase Urine RBC Urine WBC Ur Squamous Epith Cells Urine Bacteria Urine Mucus Urine Opiates Screen Urine Methadone Screen Ur Barbiturates Screen Ur Phencyclidine Scrn Ur Amphetamines Screen U Methamphetamin-MDMA U Benzodiazepines Scrn Urine Cocaine Screen U Cannabinoids Screen Ur Drug Screen Comment Ethyl Alcohol < 3.0 11/16/19 11/16/19 22:45 22:45 WBC RBC Hgb Hct MCV MCH MCHC RDW Std Deviation RDW Coeff of [place] Plt Count MPV Immature Gran % (Auto) Neut % (Auto) Lymph % (Auto) [place] % (Auto) Eos % (Auto) Baso % (Auto) Absolute Neuts (auto) Absolute Lymphs (auto) Nucleated RBC % Sodium Potassium Chloride Carbon Dioxide Anion Gap BUN Creatinine Estim Creat Clear Calc Est GFR (MDRD) Af Amer Est GFR (MDRD) Non-Af BUN/Creatinine Ratio Glucose Calcium Total Bilirubin AST ALT Alkaline Phosphatase Troponin I Total Protein Albumin Globulin Albumin/Globulin Ratio Urine Color Yellow Urine Clarity Sl. Cloudy Urine pH 7.0 Ur Specific [place] 1.005 Urine Protein Negative Urine Glucose (UA) Normal Urine Ketones Negative Urine Occult Blood Negative Urine Nitrite Negative Urine Bilirubin Negative Urine Urobilinogen Normal Ur Leukocyte Esterase Negative Urine RBC 0 SEEN Urine WBC 0 SEEN Ur Squamous Epith Cells 0-5 SEEN Urine Bacteria 0 SEEN Urine Mucus 0 SEEN Urine Opiates Screen NEGATIVE Urine Methadone Screen NEGATIVE Ur Barbiturates Screen NEGATIVE Ur Phencyclidine Scrn NEGATIVE Ur Amphetamines Screen NEGATIVE U Methamphetamin-MDMA NEGATIVE U Benzodiazepines Scrn NEGATIVE Urine Cocaine Screen NEGATIVE U Cannabinoids Screen NEGATIVE Ur Drug Screen Comment Ethyl Alcohol - Rhythm Strip Rhythm Strip: Sinus Rhythm Rate: 76 Ectopy: None - EKG Initial EKG Interpretation: Sinus Rhythm - Normal sinus rhythm at 76 bpm. LA interval 150 ms. QTC of 432 ms. No evidence of ST elevation or depression. Compared to previous done in December 2018 and without change. - Medical Decision Making Patient appears well nontoxic. No focal neurologic deficit. Patient has evidence of twitching as well as stuttering on exam. CT/CTA both negative. Lab work within normal limits. EKG shows no acute ischemia. Patient was given 2 separate doses of Ativan which did not resolve her symptoms. Spoke with hospitalist who will admit the patient with concern for possible focal seizures. Patient will be seen by neurologist. Patient agreeable to admission and admitted in stable condition. ED Disposition - Plan for ED Patient: Disposition: Acute Care Hospital [facility] Diagnosis: Twitching, Stuttering
[2019-11-16 21:25] LABS: ALB/GLOB Ratio 1.4 RATIO (0.9-2.4); AST(SGOT) 16 U/L (15-37); Alanine Aminotransfer ALT/SGPT 45 U/L (13-56); Albumin, Serum 3.9 g/dL (3.2-5.0); Alkaline Phosphatase 68 U/L (45-117); Anion Gap 6 (5-15); BUN 7 mg/dL (7-18); BUN/Creat Ratio 9.2 RATIO (10-20); Calcium,Total 8.8 mg/dL (8.5-10.1); Chloride 113 mmol/L (98-107); Creatinine, Serum 0.76 mg/dL (0.55-1.02); EST Glomerular Filtration Rate 96 mL/min (>60); Est Glom Filt Rate - Afr Amer 116 mL/min (>60); Estimated Creatinine Clearance 122.08 ml/min; Globulin 2.8 g/dL (2.2-4.2); Glucose 97 mg/dL (74-106); Potassium 3.4 mmol/L (3.5-5.1); Protein, Total 6.7 g/dL (6.4-8.2); Sodium Level 142 mmol/L (136-145)
[2019-11-16 21:31] VITALS: BP 128/76; PULSE 79; RESP 16; O2SAT 100
[2019-11-16 21:37] LABS: Alcohol, Blood (Medical)-Serum < 3.0 mg/dL
--- NOTE | 2019-11-16 21:46 | CT_ITS ---
STUDY: CTA HEAD AND NECK WITH CONTRAST REASON FOR EXAM: Female, 29 years old. TWITCHING, DIFFICULTY GETTING WORDS OUT RADIATION DOSAGE (If Supplied By Facility): CTDIvol = ( 25.88 ) mGy, DLP = ( 738.10 ) mGycm TECHNIQUE: CT angiography was performed with a multi-detector CT scanner. Data acquisition was obtained from the skull base through the vertex following intravenous administration of 100ML ISOVUE 370. MIP images were reconstructed from the axial data set. Post-processing of the angiographic images was performed, with multiplanar reformation and 3D reconstruction. Individualized dose optimization techniques were used for this CT. COMPARISON: No relevant priors. FINDINGS: Normal bilateral petrous carotid arteries. Normal right cavernous carotid artery with a normal supraclinoid bifurcation. Normal left cavernous carotid artery with a normal supraclinoid bifurcation. Normal right A1 segments of the anterior cerebral artery. Normal left A1 segments of the anterior cerebral artery. Normal intact anterior communicating artery (ACOM). Normal bilateral A2 segments of the anterior cerebral arteries. Normal right M1 and M2 segments of the middle cerebral arteries, with a normal M1 bifurcation. Normal left M1 and M2 segments of the middle cerebral arteries, with a normal M1 bifurcation. Normal right posterior communicating artery (PCOM). Normal left posterior communicating artery (PCOM). Normal bilateral vertebral arteries. Normal basilar artery with a normal basilar bifurcation. The visualized bilateral superior cerebellar (SCA) arteries are normal. Normal bilateral P1, P2 and visualized P3 segments of the posterior cerebral arteries. There is no demonstrated aneurysm of the [place]. There is no demonstrated abnormality of the visualized brain. AORTIC ARCH: Normal visualized aortic arch. Normal origins of the brachiocephalic, left common carotid, and left subclavian arteries. RIGHT CAROTID ARTERIES: Normal right common carotid artery (CCA). Normal right common carotid bulb. Normal origin of the right internal carotid (ICA) artery without a hemodynamically significant stenosis. Normal visualized cervical portion of the right internal carotid artery. Normal origin of the right external carotid artery (ECA). LEFT CAROTID ARTERIES: Normal left common carotid artery (CCA). Normal left common carotid bulb. Normal origin of the left internal carotid (ICA) artery without a hemodynamically significant stenosis. Normal visualized cervical portion of the left internal carotid artery. Normal origin of the left external carotid artery (ECA). VERTEBRAL ARTERIES: There is enhancement within the bilateral vertebral arteries with a small right vertebral artery, and a dominant left vertebral artery. CT/CTA Head AND Neck W/ Contrast IMPRESSION: Normal CTA Head and neck with contrast. Electronically Signed: Hai Noble MD at 23:02 EDT , Service support ,
[2019-11-16 22:08] VITALS: BP 121/69; PULSE 75; RESP 14; O2SAT 100
[2019-11-16 22:55] LABS: Bacteria 0 SEEN /hpf (None Seen); Color, Urine Yellow (Yellow); Glucose, Dipstick Normal (Normal); Ketone-Dipstick Negative (Negative); Leukocyte Esterase-Dipstick Negative /ul (Negative); Mucous, Urine 0 SEEN /hpf (<or=2+); Nitrite-Dipstick Negative (Negative); Occult Blood-Urine Negative /ul (Negative); Protein-Dipstick Negative (Negative); Red Blood Cells-Urine 0 SEEN /hpf (0-5); Specific Gravity, Urine 1.005 (1.002-1.030); Urine Bilirubin Dipstick Negative (Negative); Urine Clarity Sl. Cloudy (Clear); Urine Urobilinogen Normal (Normal); White Blood Cells 0 SEEN /hpf (0-5)
[2019-11-16 23:04] LABS: Squamous Epithelial Cells - UA 0-5 SEEN /hpf (5-10)
[2019-11-16 23:07] LABS: Amphetamine Urine VISTA NEGATIVE (<1000 ng/mL); Barbiturate Urine VISTA NEGATIVE (< 200 ng/mL); Benzodiazepine Urine VISTA NEGATIVE (< 200 ng/mL); Cocaine Urine VISTA NEGATIVE (< 300 ng/mL); Ecstacy Urine VISTA NEGATIVE (< 500 ng/mL); Methadone Urine VISTA NEGATIVE (< 300 ng/mL); PCP Urine VISTA NEGATIVE (< 25 ng/mL); THC Urine VISTA NEGATIVE (< 50 ng/mL); Vista UDS pH Range 6
[2019-11-16 23:14] VITALS: BP 127/75; PULSE 64; RESP 21
--- NOTE | 2019-11-16 23:19 | PCM.HP.STD ---
Problem List (1) Twitching Status: Acute (2) Stuttering Status: Acute History of Present Illness Date of Admission: 11/16/19 Chief Complaint: Syncope The patient is a 29 year old F with a significant history of tobacco abuse who presents emergency department with syncope. Reportedly patient had a syncopal episode at work and she was minimally responsive. Also she had a change in his vision. At emergency department patient was found to stuttering and had persistent twitches. Emergent department doctor ordered Ativan for probable seizures. However the Ativan did not help reduce her twitches. Patient reports that occasionally she has some twitches at night. She denies a history of stuttering Brain CT and head and neck CT at emergency departments was unremarkable. Past Medical History Medical History: Medical History (Last Updated 07/10/19 @ 16:41 by Radha De Leon) Abnormal bruising R23.8 Limb weakness R29.898 Chronic neck and back pain M54.2, M54.9, G89.29 Allergies No Known Allergies Allergy (Verified 11/16/19 20:52) Home Medications: Ambulatory Orders Medication Instructions Recorded NK 11/16/19 Surgical History: Surgical History (Last Updated 07/10/19 @ 16:42 by Radha De Leon) History of hysterectomy Z90.710 History of tubal ligation Z98.51 Surgical History: hysterectomy Smoking Status: Current every day smoker Tobacco Use: Cigarettes Alcohol: None Drugs: None - *Family History Maternal History Items: - - Blood clots Paternal History Items: - - Denies knowledge of paternal medical history Review of Systems Constitutional: Denies: Chills, Fever, Weight Change HEENT: Denies: Head Aches, Sinus Congestion, Sinus Drainage Cardiovascular: Denies: Chest Pain, Palpitations Respiratory: Denies: Cough, Shortness of breath at rest, Sputum production Gastrointestinal: Denies: Abdominal Pain, Nausea, Vomiting Genitourinary: Denies: Dysuria Musculoskeletal: Denies: Joint Pain, Joint Tenderness Skin: Denies: Rash, Wounds Neurological: Reports: Change in Speech. Denies: Focal weakness, Numbness, Tingling Psychiatric: Denies: Anxiety, Depression, Homicidal Ideations, Suicidal Ideations Hematologic/ Lymphatic: Denies: Easy Bruising, Easy Bleeding VTE Information - Inpt Only VTE Present on Admission: No VTE Mechan Device Prophylaxis: SCD's VTE Pharm Prophylaxis ordered?: No Patient Problems: Active and Suspected Problems (Last Updated 07/10/19 @ 16:41 by Radha De Leon) Twitching (Acute) Stuttering (Acute) - Physical Exam Vitals/I&O's: Vital Signs Temp Pulse Resp BP Pulse Ox 97.7 F L 64 21 H 127/75 H 100 11/16/19 20:44 11/16/19 23:14 11/16/19 23:14 11/16/19 23:14 11/16/19 22:08 Oxygen Delivery Method Room Air Weight: 111.69 kg Body Mass Index (BMI) 34.3 Intake and Output for Last 24 Hours 11/14/19 11/15/19 11/16/19 23:59 23:59 23:59 Intake Total 1000 / 1000 Balance 1000 / 1000 General: Alert, Oriented x3, Well developed, Well nourished, - - Generalized body twitching. HEENT: Atraumatic, PERRLA, EOMI, Normocephalic Neck: Supple, No JVD, Negative Carotid Bruits Lungs: Clear to auscultation, Normal air movement, No rhonchi, No wheeze, No rales Cardiovascular: Regular rate, Regular Rhythm, Normal S1, Normal S2, No murmurs Abdomen: Bowel Sounds Present, Soft, Non Tender Extremities: No edema, Capillary Refill Less than 3 Seconds Skin: No rashes, No breakdown Musculoskeletal: No Tenderness to Palpation of Joints or Extremities Neurological: Cranial nerves II-XII grossly intact - Except that patient is stuttering Psych/Mental Status: Depressed Laboratory Results 11/16/19 20:57: WBC 10.4, RBC 4.72, Hgb 13.8, Hct 41.8, MCV 88.6, MCH 29.2, MCHC 33.0, RDW Std Deviation 40.3, RDW Coeff of [place] 12.3, Plt Count 228, MPV 10.0, Immature Gran % (Auto) 0.300, Neut % (Auto) 63.9, Lymph % (Auto) 26.9, [place] % (Auto) 5.9, Eos % (Auto) 2.2, Baso % (Auto) 0.8, Absolute Neuts (auto) 6.6, Absolute Lymphs (auto) 2.79, Nucleated RBC % 0 11/16/19 20:57: Sodium 142, Potassium 3.4 L, Chloride 113 H, Carbon Dioxide 23.0, Anion Gap 6, BUN 7, Creatinine 0.76, Estim Creat Clear Calc 122.08, Est GFR (MDRD) Af Amer 116, Est GFR (MDRD) Non-Af 96, BUN/Creatinine Ratio 9.2 L, Glucose 97, Calcium 8.8, Total Bilirubin 0.20, AST 16, ALT 45, Alkaline Phosphatase 68, Troponin I < 0.015, Total Protein 6.7, Albumin 3.9, Globulin 2.8, Albumin/Globulin Ratio 1.4 11/16/19 20:57: Ethyl Alcohol < 3.0 11/16/19 22:45: Urine Opiates Screen NEGATIVE, Urine Methadone Screen NEGATIVE, Ur Barbiturates Screen NEGATIVE, Ur Phencyclidine Scrn NEGATIVE, Ur Amphetamines Screen NEGATIVE, U Methamphetamin-MDMA NEGATIVE, U Benzodiazepines Scrn NEGATIVE, Urine Cocaine Screen NEGATIVE, U Cannabinoids Screen NEGATIVE, Ur Drug Screen Comment 11/16/19 22:45: Urine Color Yellow, Urine Clarity Sl. Cloudy, Urine pH 7.0, Ur Specific [place] 1.005, Urine Protein Negative, Urine Glucose (UA) Normal, Urine Ketones Negative, Urine Occult Blood Negative, Urine Nitrite Negative, Urine Bilirubin Negative, Urine Urobilinogen Normal, Ur Leukocyte Esterase Negative, Urine RBC 0 SEEN, Urine WBC 0 SEEN, Ur Squamous Epith Cells 0-5 SEEN, Urine Bacteria 0 SEEN, Urine Mucus 0 SEEN Assessment/Plan All Active Problems (Last Updated 07/10/19 @ 16:41 by Radha De Leon) Twitching (Acute) Stuttering (Acute) History of endometriosis (Resolved) The patient is a 29 year old F with a significant history of tobacco abuse who presents to the emergency department with syncope; stuttering and persistent twitches Syncope; stuttering and persistent twitches Etiology of her symptoms is unclear at this time. If it were as seizures Ativan should have helped. Ativan did not help at emergency department. However because there is no clear explanation will order EEG and start patient on Keppra. Consider neurology recommendation. Nurse reported that when patient appears to be sleeping there is no twitches but when she (nurse) talks to patient and patient awakens then patient began to twitches begin again. For this reason cannot rule out psychogenic cause. MRI brain and CT a head and neck at the emergency department was nonrevealing. Get MRI brain. Check a prolactin and CPK Check iron and lead level Urine drug screen was unremarkable Get an echocardiogram because of syncope. Orthostatic per protocol for syncope. EKG was unremarkable. Hypokalemia Mild Normal saline with 40 mEq of potassium for 1 L ordered. Tobacco abuse Counseled Declined nicotine patch. DVT prophylaxis SCD. OBSV E&M: [id number] Initial observation care L3
[2019-11-17] VITALS (9 sets, daily range): BP systolic 113–134; BP diastolic 68–82; PULSE 48–93; RESP 16–18; TEMP 36.6–37.1; O2SAT 97–99; BMI 34.0; BMI 35.8
--- NOTE | 2019-11-17 00:29 | ECHOD_ITS ---
Reason For Study: Syncope/Near Syncope Procedure This was a 2D Doppler, Color Flow transthoracic echocardiogram. Exam performed portable in patient room. Left Ventricle Normal LV size. Left ventricular systolic function is normal. The estimated ejection fraction is 55 %. Normal diastology for age. No regional wall motion abnormalities noted. Right Ventricle Normal RV size. Normal systolic function. Atria Normal left atrium. Normal right atrium. Mitral Valve Normal mitral valve. Mild (1+) eccentric mitral valve insufficiency. Tricuspid Valve Normal tricuspid valve. Mild tricuspid valve insufficiency. Pulmonary artery systolic pressure is 22 mmHg. Aortic Valve Trisinus/trileaflet aortic valve. Pulmonic Valve Normal pulmonic valve. Great Vessels Normal aortic root. The pulmonary artery is normal size. Normal inferior vena cava. Pericardium/Pleural No pericardial effusion. MMode/2D Measurements & Calculations LVIDd: 4.6 cm IVSd: 0.99 cm LA dimension: 3.7 cm LVIDs: 2.9 cm LVPWd: 1.1 cm FS: 36.2 % LAV(MOD-bp): 64.2 ml LA A4 area: 21.9 cm2 RA A4 area: 17.1 cm2 LAV(MOD-bp) Indexed: 27.9 ml/m2 LAV(MOD-sp2): 53.1 ml LAV(MOD-sp4): 59.8 ml Time Measurements MV dec time: 0.27 sec Doppler Measurements & Calculations MV E max felix: 88.6 cm/sec Lat Peak E' Felix: 15.2 cm/sec MV V2 max: 94.4 cm/sec MV A max felix: 51.3 cm/sec E/E' lat: 5.8 MV max P.6 mmHg MV E/A: 1.7 MV V2 mean: 43.0 cm/sec MV mean P.92 mmHg MV V2 VTI: 40.0 cm MV P1/2t max felix: 96.3 cm/sec Ao V2 max: 147.3 cm/sec LV V1 max: 104.0 cm/sec MV P1/2t: 77.0 msec Ao max P.7 mmHg LV V1 max P.3 mmHg MV dec slope: 366.1 cm/sec2 MVA(P1/2t): 2.9 cm2 PA V2 max: 90.5 cm/sec TR max felix: 212.2 cm/sec TR max P.0 mmHg Interpretation Summary Normal LV size. Left ventricular systolic function is normal. The estimated ejection fraction is 55 %. Normal diastology for age. Structurally normal valves. Ordering Physician: Tello Back Referring Physician: Marleni PCP Performed By: Dirk Pozo RCS
--- NOTE | 2019-11-17 00:29 | MRI_ITS ---
STUDY: MRI BRAIN WITHOUT CONTRAST REASON FOR EXAM: Female, 29 years old. seizure, UNCONTROLLED JERKING MOVEMENTS, SPEECH DIFFICULTY TECHNIQUE: Standardized multiplanar fat and water weighted pulse sequences were obtained. COMPARISON: 11/16/2019 CT of the head. FINDINGS: Normal size of the ventricles and extra-axial spaces for the patient''s age. Normal white matter tracts of the supratentorial brain. Normal bilateral basal ganglia. Normal thalami. There is no extra-axial fluid accumulation. Normal flow voids within the major intracranial circulation suggesting patency by spin echo criteria. Normal sella turcica, pituitary gland, infundibular stalk, optic chiasm and hypothalamus. Normal tectal plate and pineal gland. Normal midbrain, lang and medulla. Normal cerebellum. MRI/Brain without Contrast IMPRESSION: Unremarkable unenhanced MRI of the brain. Electronically Signed: Yajaira Powell MD at 10:20 EDT Tel , Service support ,
[2019-11-17 00:50] LABS: Prolactin 27.9 ng/mL
[2019-11-17] MEDS: Acetaminophen 325 MG Tablet 650 MG PO (01:17)
[2019-11-17] MEDS: Potassium Chloride 40 MEQ in 0.9% Normal Saline 1,000 ML 100 MEQ IV (01:24)
[2019-11-17 02:10] LABS: Iron 72 ug/dL (50-170)
[2019-11-17 05:46] LABS: Absolute Lymphocyte Count 2.76 X10^3/uL (0.83-4.51); Absolute Neutrophil Count 5.7 X10^3/uL (2.0-7.7); Basophil# 0.06 X10^3/uL; Basophil% 0.6 % (0-1); Eosinophil# 0.21 X10^3/uL; Eosinophils% 2.3 % (0-5); Hematocrit 40.2 % (37-47); Lymphocyte # 2.76 X10^3/ul (4.0); Lymphocyte % 29.6 % (19-41); Mean Corp Hgb Conc 32.3 g/dL (32-36); Mean Corpuscular Hgb 29.5 pg (27.0-32.0); Mean Corpuscular Volume 91.2 fL (81-99); Mean Platelet Vol. 10.1 fl (6.2-12.0); Monocyte# 0.57 X10^3/uL; Monocyte% 6.1 % (0-10); NRBC Flagged by Analyzer 0 % (0-5); Neutrophil # 5.69 X10^3/uL (2.7-7.7); Neutrophil % 61.1 % (47-70); Platelet Count 201 K/mm3 (150-450); RBC Distribution Width CV 12.6 % (11.6-14.6); RBC Distribution Width SD 41.6 fl (35.1-43.9); Red Blood Count 4.41 M/mm3 (4.2-5.4); White Blood Count 9.3 K/mm3 (4.4-11.0)
[2019-11-17 06:04] LABS: Anion Gap 6 (5-15); BUN 5 mg/dL (7-18); BUN/Creat Ratio 8.6 RATIO (10-20); Calcium,Total 8.2 mg/dL (8.5-10.1); Chloride 114 mmol/L (98-107); Creatinine, Serum 0.58 mg/dL (0.55-1.02); EST Glomerular Filtration Rate 130 mL/min (>60); Est Glom Filt Rate - Afr Amer 157 mL/min (>60); Estimated Creatinine Clearance 159.96 ml/min; Glucose 91 mg/dL (74-106); Potassium 3.8 mmol/L (3.5-5.1); Sodium Level 143 mmol/L (136-145)
[2019-11-17] MEDS: LORazepam 2 MG/ML Syringe 1 MG IV (08:30)
--- NOTE | 2019-11-17 10:40 | CASEMGMT ---
According to the [facility] website, the following are in-network tertiary facilities: [facility], [place], [facility], [place], [facility], [facility], [facility], [place], [facility], and . Vern JOINER CM
--- NOTE | 2019-11-17 11:38 | DCINST_ITS ---
- Discharge Diagnoses Current Active Problems: Current Active and Chronic Problems (Last Updated 07/10/19 @ 16:41 by Radha De Leon) Twitching (Acute) Stuttering (Acute) You will use the following diet at home:: No restrictions Your food should be the consistency of: Regular Your liquids should be the consistency of: Regular/Thin Discharge Activity: Return to Normal Activity Call your doctor if you observe: Dizziness, Fainting spells Allergies/Adverse Reactions: Allergies No Known Allergies Allergy (Verified 11/16/19 20:52) Medications to take at Discharge NK 11/16/19 Primary Care Physician: Care Physician,No Primary [Primary Care Provider] - Test Results: Test results from this visit will be discussed in further detail at your follow- up appointment, if applicable.
--- NOTE | 2019-11-17 11:40 | DS.PCM_ITS ---
Discharge Date and Diagnosis - Problem List Patient Problems: Active and Suspected Problems (Last Updated 07/10/19 @ 16:41 by Radha De Leon) Twitching (Acute) Stuttering (Acute) Date of Admission: 11/16/19 Date of Discharge: 11/17/19 - Primary Discharge Diagnosis Acute Problems: Active Problems (Last Updated 07/10/19 @ 16:41 by Radha De Leon) Twitching (Acute) Stuttering (Acute) Hospital Course and Treatment Imaging Results: STUDY: MRI BRAIN WITHOUT CONTRAST REASON FOR EXAM: Female, 29 years old. seizure, UNCONTROLLED JERKING MOVEMENTS, SPEECH DIFFICULTY TECHNIQUE: Standardized multiplanar fat and water weighted pulse sequences were obtained. COMPARISON: 11/16/2019 CT of the head. FINDINGS: Normal size of the ventricles and extra-axial spaces for the patient''s age. Normal white matter tracts of the supratentorial brain. Normal bilateral basal ganglia. Normal thalami. There is no extra-axial fluid accumulation. Normal flow voids within the major intracranial circulation suggesting patency by spin echo criteria. Normal sella turcica, pituitary gland, infundibular stalk, optic chiasm and hypothalamus. Normal tectal plate and pineal gland. Normal midbrain, lang and medulla. Normal cerebellum. MRI/Brain without Contrast IMPRESSION: Unremarkable unenhanced MRI of the brain. Pt deferred Neuro consult Procedures: EKG, - - MRI, EEG Summary of Care Provided: Ms Dickson is a 29 year old F with a significant history of tobacco abuse who presented to the emergency department with syncope. She reportedly patient had a syncopal episode at work and she was minimally responsive. She reported a change in her vision as well. In the ED she was found to stuttering and had persistent twitches. She was given Ativan for questionable seizures, however the Ativan did not help reduce her twitches. She reported that she occasionally she has some twitches at night. She denied a history of stuttering Brain CT and head and neck CT in the ED was unremarkable. She was placed on tele and has no abnormalities other than bradycardia. An ECHO was done and showed an EF of 55% and no abnormalities. An MRI was done and showed no abnormalities. Her EEG showed no abnormalities and many documented twitches were noted. Her Lab work was unremarkable. Upon exam today she had persistent stuttering and twitching. She was very resistant to talk to me after we reviewed her results. I informed her that I wanted to have a neurologist see her and states that she just want to go home. She was told she will need to s/o AMA and risks were reviewed. She states that is what she wants to do. I encouraged her to come back to the ED if her sx persist or don't improve. Patient Problems: Active and Suspected Problems (Last Updated 07/10/19 @ 16:41 by Radha De Leon) Twitching (Acute) Stuttering (Acute) - Physical Exam Vitals/I&O's: Vital Signs Temp Pulse Resp BP Pulse Ox 98.7 F 58 L 16 113/68 98 11/17/19 06:10 11/17/19 07:30 11/17/19 06:10 11/17/19 06:10 11/17/19 07:20 Oxygen Delivery Method Room Air Weight: 116.5 kg Body Mass Index (BMI) 35.8 Intake and Output for Last 24 Hours 11/15/19 11/16/19 11/17/19 23:59 23:59 23:59 Intake Total 1000 / 1000 1196.67 / 1196.67 Balance 1000 / 1000 1196.67 / 1196.67 General: Alert, Oriented x3, Well developed, Well nourished, Non-Cooperative, - - tearful at times HEENT: Atraumatic, PERRLA, EOMI, Normocephalic, EAC Clear Oral: Moist Mucosa, No Gingival or Mucosal Lesions/ Ulcerations Lungs: Clear to auscultation, Normal air movement, No rhonchi, No wheeze, No rales Cardiovascular: Regular rate, Regular Rhythm, Normal S1, Normal S2, No murmurs, No rub noted, No Gallop Abdomen: Bowel Sounds Present, Non Tender, Non-Distended, No hernias noted Extremities: No clubbing, No cyanosis, No edema, Capillary Refill Less than 3 Seconds, No Calf Tenderness, Peripheral Pulses Normal Skin: No rashes, No breakdown Musculoskeletal: No Tenderness to Palpation of Joints or Extremities Neurological: Deep Tendon Reflexes 2+/4 and Symmetrical, - - A&O x 4 Psych/Mental Status: Flat Affect, Depressed, - - tearful Laboratory Results 11/16/19 20:57: WBC 10.4, RBC 4.72, Hgb 13.8, Hct 41.8, MCV 88.6, MCH 29.2, MCHC 33.0, RDW Std Deviation 40.3, RDW Coeff of Elizabeth 12.3, Plt Count 228, MPV 10.0, Immature Gran % (Auto) 0.300, Neut % (Auto) 63.9, Lymph % (Auto) 26.9, [place] % (Auto) 5.9, Eos % (Auto) 2.2, Baso % (Auto) 0.8, Absolute Neuts (auto) 6.6, Absolute Lymphs (auto) 2.79, Nucleated RBC % 0 11/16/19 20:57: Sodium 142, Potassium 3.4 L, Chloride 113 H, Carbon Dioxide 23.0, Anion Gap 6, BUN 7, Creatinine 0.76, Estim Creat Clear Calc 122.08, Est GFR (MDRD) Af Amer 116, Est GFR (MDRD) Non-Af 96, BUN/Creatinine Ratio 9.2 L, Glucose 97, Calcium 8.8, Total Bilirubin 0.20, AST 16, ALT 45, Alkaline Phosphatase 68, Troponin I < 0.015, Total Protein 6.7, Albumin 3.9, Globulin 2.8, Albumin/Globulin Ratio 1.4 11/16/19 20:57: Ethyl Alcohol < 3.0 11/16/19 20:57: CK Isoenzymes Pending, CK-MM (CK-3) Pending, CK-MB (CK-2) Pending, CK-BB (CK-1) Pending 11/16/19 20:57: Prolactin 27.9 11/16/19 20:57: Iron 72 11/16/19 22:45: Urine Opiates Screen NEGATIVE, Urine Methadone Screen NEGATIVE, Ur Barbiturates Screen NEGATIVE, Ur Phencyclidine Scrn NEGATIVE, Ur Amphetamines Screen NEGATIVE, U Methamphetamin-MDMA NEGATIVE, U Benzodiazepines Scrn NEGATIVE, Urine Cocaine Screen NEGATIVE, U Cannabinoids Screen NEGATIVE, Ur Drug Screen Comment 11/16/19 22:45: Urine Color Yellow, Urine Clarity Sl. Cloudy, Urine pH 7.0, Ur Specific [place] 1.005, Urine Protein Negative, Urine Glucose (UA) Normal, Urine Ketones Negative, Urine Occult Blood Negative, Urine Nitrite Negative, Urine Bilirubin Negative, Urine Urobilinogen Normal, Ur Leukocyte Esterase Negative, Urine RBC 0 SEEN, Urine WBC 0 SEEN, Ur Squamous Epith Cells 0-5 SEEN, Urine Bacteria 0 SEEN, Urine Mucus 0 SEEN 11/17/19 05:26: WBC 9.3, RBC 4.41, Hgb 13.0, Hct 40.2, MCV 91.2, MCH 29.5, MCHC 32.3, RDW Std Deviation 41.6, RDW Coeff of Elizabeth 12.6, Plt Count 201, MPV 10.1, Immature Gran % (Auto) 0.300, Neut % (Auto) 61.1, Lymph % (Auto) 29.6, [place] % (Auto) 6.1, Eos % (Auto) 2.3, Baso % (Auto) 0.6, Absolute Neuts (auto) 5.7, Absolute Lymphs (auto) 2.76, Nucleated RBC % 0 11/17/19 05:26: Sodium 143, Potassium 3.8, Chloride 114 H, Carbon Dioxide 23.0, Anion Gap 6, BUN 5 L, Creatinine 0.58, Estim Creat Clear Calc 159.96, Est GFR (MDRD) Af Amer 157, Est GFR (MDRD) Non-Af 130, BUN/Creatinine Ratio 8.6 L, Glucose 91, Calcium 8.2 L 11/17/19 05:26: Lead Pending Current Medications Acetaminophen (Tylenol) 650 mg PO Q6H PRN PRN PRN Reason: Pain Score 1-10/Temp > 100.7 F Last Admin: 11/17/19 01:17 Dose: 650 mg Documented by: Dextrose ([id number] Syringe) 0 gm IV X1 PRN; Protocol PRN Reason: Hypoglycemia Glucagon () 1 mg IM .X1 PRN PRN Reason: Hypoglycemia Levetiracetam 500 mg/ Sodium (Chloride) 105 mls @ 400 mls/hr IV Q12 ALAN Last Infusion: 11/17/19 11:32 Dose: Infused Documented by: Ondansetron HCl (Zofran) 4 mg IV Q8H PRN PRN PRN Reason: NAUSEA/VOMITING Sodium Chloride () 10 - 40 ml IV UD PRN PRN Reason: SALINE FLUSH Discharge Activity: Return to Normal Activity Call your doctor if you observe: Dizziness, Fainting spells Home Medications: Medications to take at Discharge NK 11/16/19 Primary Care Physician: Care Physician,No Primary [Primary Care Provider] - Medical Necessity - Tobacco Use Smoking Status: Current every day smoker Tobacco Use: Cigarettes Meaningful Use Info Meaningful Use Diagnoses (Choose all that apply): None applicable
[2019-11-18 16:08] LABS: Creatine Kinase MB 0 % (0-3); Creatine Kinase MM 100 % (97-100); Macro I 0 % (Not Observed); Macro II 0 % (Not Observed)
[2019-11-18 20:36] LABS: Creatine Kinase BB 0 % (0); Creatine Kinase,Total,Serum 114 U/L (32-182)
[2019-11-19 04:56] LABS: Lead, Blood Adult 16+yrs < 1.0 ug/dL (0-4)
== END 2019-11-17 11:39 | disposition left against medical advice (07) ==
LOC: ED 21:26 → PCU 11-17 00:22
PROVIDERS: Admitting Provider Hospitalist; Emergency Provider Emergency Medicine; Visit Provider Internal Medicine
DX: R55 Syncope and collapse (principal); R25.3 Fasciculation; R47.89 Other speech disturbances; F17.210 Nicotine dependence, cigarettes, uncomplicated; E87.6 Hypokalemia
CPT/HCPCS: 36415; 70450; 70496; 70498; 70551; 80048; 80053; 80307; 80320; 81001; 82550; 82552; 83540; 83655; 84146; 84484; 85025; 93005; 93306; 95819; 96361; 96365; 96366; 96375; 96376; 99218; 99285; J7030; Q9957; Q9967; A4216; G0378; G0480

== ENCOUNTER → 2020-04-26 22:36 | Emergency (ER) | payer OTHER, BC, SELFPAY ==
[2019-11-17 00:46] VITALS: BMI 35.8
[2020-04-26 22:37] VITALS: BP 140/77; PULSE 104; RESP 18; TEMP 35.8; O2SAT 100; BMI 33.5
--- NOTE | 2020-04-26 22:43 | RAD_ITS ---
STUDY: X-RAY - RIGHT HAND REASON FOR EXAM: Female, 29 years old. RIGHT HAND INJURY 2 WEEKS AGO AT WORK. PAIN AND SWELLING HASN''T GONE DOWN. TECHNIQUE: 3 view(s) of the hand. COMPARISON: None. FINDINGS: Normal radiocarpal articulation. Normal distal radioulnar joint. Normal visualized carpal bones. Normal carpal articulations Normal carpometacarpal articulation of the thumb. Normal second through fifth carpometacarpal joints. Normal metacarpi. Normal metacarpophalangeal joint of the thumb. Normal interphalangeal joint of the thumb. Normal proximal and distal phalanges of the thumb. Normal metacarpophalangeal joints of the second through fifth fingers. Normal proximal and distal interphalangeal joints of the second through fifth fingers. Normal phalanges of the second through fifth fingers. The soft tissue structures are unremarkable. RAD/Hand Min 3 Views IMPRESSION: Normal x-ray examination of the hand. Electronically Signed: Helga Colon MD at 23:13 EST Tel , Service support ,
--- NOTE | 2020-04-26 23:20 | ED.DCSUM_ITS ---
History of Present Illness Chief Complaint: Upper Extremity Injury Narrative: 29-year-old female states that a little over a week ago she was at work at [employer] pulling a liver down with her right hand when she felt a pop. 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 states it has been discolored over the dorsum of her hand since. 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 She notes increased pain. She has an appointment on with her doctor. Past Medical History - Allergies and Home Meds Allergies/Adverse Reactions: Allergies No Known Allergies Allergy (Verified 11/16/19 20:52) Primary Care Physician: Care Physician,No Primary [Primary Care Provider] - Surgical History: hysterectomy Smoking Status: Current every day smoker - Family History Maternal Family History: Reports: - - Blood clots Paternal Family History: Reports: - - Denies knowledge of paternal medical history Review of Systems General: Denies: Chills, Fever, Sweats Eyes: Denies: Visual changes - bilaterally, Diplopia ENT: Denies: Rhinorrhea, Sore throat Cardiovascular: Denies: Chest pain, Palpitations Respiratory: Denies: Dyspnea, Cough, Dyspnea on exertion Gastrointestinal: Denies: Abdominal pain, Nausea, Vomiting, Diarrhea, Melena, Hematochezia Genitourinary: Denies: Dysuria, Hematuria, Frequency Musculoskeletal: Reports: Swelling, Extremity Pain. Denies: Back pain Skin: Denies: Rash, Wounds Neurological: Denies: Headache, Weakness, Numbness Physical Exam Vital Signs/Narrative: Vital Signs Temp Pulse Resp BP Pulse Ox 04/26/20 22:37 96.5 F L 104 H 18 140/77 H 100 Inital Vital Signs reviewed: Yes General: Well nourished, Well developed, No Acute Distress Head: Normocephalic, Atraumatic Eyes: Perrl, EOMI ENT: Moist mucous membranes, No rhinorrhea Neck: Supple, Nontender Cardiovascular: Regular rate, Regular rhythm, No murmurs Respiratory: No distress, CTA bilaterally, Chest nontender Abdomen: Soft, Nontender, Nondistended, Normal bowel sounds Back: Nontender, Normal Inspection Extremities: No edema, - - Peers to be a hematoma of the dorsum of the right hand along the second metacarpal. There is a mix of different colored skin some greenish-yellow and some purple. Skin: Normal color, No rash Neurological: Alert, Oriented x3, Cranial nerves II-XII grossly intact, Normal Strength, Normal Sensation Psychological: Normal affect, Normal Mood Diagnostic/Tx/Re-eval Clinical Impression(s) from Imaging Studies Hand X-Ray 04/26/20 22:43 IMPRESSION: Normal x-ray examination of the hand. Electronically Signed: Helga Colon MD at 23:13 EST Tel , Service support , - Medical Decision Making Interpretation of the three-view plain films of the left hand are negative for fracture. Use an Jose wrap and continued ice. She has an appointment already scheduled with her Workmen's Comp. doctor on . She is already on limited use of hand instructions and she can follow those guidelines. ED Disposition - Plan for ED Patient: Disposition: Home or Assisted Living Diagnosis: Spontaneous hematoma of hand Instructions: ED Hematoma Additional Instructions: Follow-up with your Workmen's Comp. doctors as scheduled on
== END | disposition home or self-care (01) ==
PROVIDERS: Emergency Provider Emergency Medicine
DX: S60.222A Contusion of left hand, initial encounter (principal); X50.9XXA Other and unspecified overexertion or strenuous movements or postures, initial encounter; Y93.9 Activity, unspecified; Y92.9 Unspecified place or not applicable; Y99.0 Civilian activity done for income or pay; F17.200 Nicotine dependence, unspecified, uncomplicated
CPT/HCPCS: 73130; 99282

== ENCOUNTER → 2020-05-31 06:30 | Outpatient (CLI) | payer OTHER, SELFPAY ==
[2020-04-26 22:37] VITALS: BMI 33.5
--- NOTE | 2020-05-31 06:40 | MRI_ITS ---
STUDY: MRI RIGHT HAND REASON FOR EXAM: Right hand contusion, bruising at first metacarpal, pain with bending finger. TECHNIQUE: Standardized fat and water weighted pulse sequences were obtained in all 3 orthogonal planes. COMPARISON: Radiographs 04/26/2020. FINDINGS: Normal metacarpals and visualized phalanges. Normal flexor and extensor tendons. Normal carpometacarpal joints. Normal metacarpophalangeal joints. Normal second through fifth proximal interphalangeal joints and interphalangeal joint of the first digit. There is mild edema in the abductor pollicis brevis muscle (inversion recovery axial images 5-8). There is mild edema in the subcutis adipose space dorsal to the first and second carpometacarpal articulations and proximal first and second metacarpals. There is no hematoma. MRI/Upper Ext/No Jt/ wo IMPRESSION: Low-grade strain of the abductor pollicis brevis muscle. Mild edema in the dorsal radial subcutis adipose space of the proximal right hand. Otherwise, unremarkable MRI of the right hand. Electronically Signed: Chon Au MD at 8:40 EST Tel , Service support ,
== END ==
PROVIDERS: Referring Provider Family Medicine; Visit Provider Family Medicine
DX: S60.221A Contusion of right hand, initial encounter (principal); X58.XXXA Exposure to other specified factors, initial encounter; Y93.9 Activity, unspecified; Y92.9 Unspecified place or not applicable; Y99.9 Unspecified external cause status
CPT/HCPCS: 73218

== ENCOUNTER 2020-08-19 23:09 | Emergency (ER) | payer OTHER, SELFPAY ==
[2020-04-26 22:37] VITALS: BMI 33.5
[2020-08-19 23:09] VITALS: BP 144/84; PULSE 88; RESP 16; TEMP 36.4; O2SAT 100; BMI 34.9
--- NOTE | 2020-08-19 23:34 | RAD_ITS ---
STUDY: X-RAY - RIGHT CLAVICLE REASON FOR EXAM: Female, 29 years old. trauma TECHNIQUE: 2 view(s) of the clavicle. COMPARISON: None. FINDINGS: Normal clavicle. Normal acromioclavicular articulation. Normal visualized sternoclavicular articulation. Normal visualized pulmonary apex. RAD/Clavicle IMPRESSION: Normal x-ray examination of the clavicle. Electronically Signed: Perry Ponce DO at 0:03 EDT Tel , Service support ,
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
== END 2020-08-19 23:50 | disposition home or self-care (01) ==
PROVIDERS: Emergency Provider Emergency Medicine
DX: S20.211A Contusion of right front wall of thorax, initial encounter (principal); W50.0XXA Accidental hit or strike by another person, initial encounter; Y93.9 Activity, unspecified; Y92.9 Unspecified place or not applicable; Y99.9 Unspecified external cause status; F17.200 Nicotine dependence, unspecified, uncomplicated
CPT/HCPCS: 73000; 99282

== ENCOUNTER 2023-02-02 02:20 | Observation (INO) | payer BC, SELFPAY ==
[2023-02-02] VITALS (10 sets, daily range): BP systolic 104–131; BP diastolic 60–81; PULSE 46–90; RESP 14–20; TEMP 36.2–36.8; O2SAT 96–100; BMI 32.3; BMI 30.7
--- NOTE | 2023-02-02 02:43 | CT_ITS ---
INDICATION: Seizure EXAMINATION: CT BRAIN - CT Head or Brain W/O Contrast Injection TECHNIQUE: Multiple axial images were obtained of the head without intravenous contrast. A radiation dose optimization technique was used for this scan. IV Contrast dosage and agent: None. RADIATION DOSAGE (If Supplied By Facility): CTDIvol = ( 44.99 ) mGy, DLP = ( 846.73 ) mGycm COMPARISON: CT head 11/16/2019 FINDINGS: BRAIN: No acute bleed. No edema. Mercado-white matter differentiation is maintained. VENTRICLES AND SULCI: Not dilated. EXTRA-AXIAL: No hemorrhage, fluid collection, or mass. CALVARIUM / SKULL BASE: Unremarkable. FACE/SINUSES: Unremarkable. SOFT TISSUES: Unremarkable. CT/Brain/Head without Contrast IMPRESSION: No acute abnormality. Electronically Signed: Dina Corona MD at 3:22 EDT ,
--- NOTE | 2023-02-02 02:44 | EKG12_ITS ---
Test Reason : SEIZURE Blood Pressure : / mmHG Vent. Rate : 066 BPM Atrial Rate : 066 BPM P-R Int : 182 ms QRS Dur : 082 ms QT Int : 408 ms P-R-T Axes : 044 009 017 degrees QTc Int : 427 ms Normal sinus rhythm with sinus arrhythmia Normal ECG Confirmed by SARAH BOO, AIDE ([id number]), associate editor FILI TEIXEIRA ([id number]) on 02/06/2023 11:36:22 AM Referred By: Confirmed By:DONNIE SMITH MD
--- NOTE | 2023-02-02 02:45 | EDS_ITS ---
HPI History of Present Illness Chief Complaint: Seizure Narrative Narrative: 32-year-old female presents via EMS with questionable seizure activity. Her history and physical is limited secondary to postictal state and the fact that she received 5 of Versed. Her is at the bedside currently. He states that she has had history of these seizure-like activities. She has had at least 12 in the last week. There are periods of time where she goes without having them, but they come back. He states that she had work-up including EEG and sleep study as she sometimes twitches in her sleep, which did not show any irregularities. EMS states that they were called for seizure activity. She was sitting in a chair, but was found on the ground. She had her eyes forced closed, but was twitching so she was administered Versed. While in the emergency department during examination she will open her eyes and she uttered an obscenity. [facility] Medical History Abnormal bruising Chronic neck and back pain Limb weakness Home Medications NK 02/02/23 [History Last Taken Unknown] Allergy/AdvReac Type Severity Reaction Status Date / Time No Known Allergies Allergy Verified 02/02/23 03:43 Surgical History History of hysterectomy History of tubal ligation Social History Smoking Status: Never smoker alcohol intake: current ROS ROS ED ROS Narrative Limited secondary to drowsiness and possible postictal state. Constitutional: No fever, no chills. HEENT: No sore throat. No neck pain. No loss of vision. No rhinorrhea. Cardiovascular: No chest pain. No palpitations. No pedal edema. Respiratory: No cough, no shortness of breath. Abdominal: No abdominal pain. No nausea. No vomiting. Genitourinary: No dysuria. No hematuria. Musculoskeletal: No myalgias. No arthralgias. Neurologic: No headaches. No dizziness. No lightheadedness. Reported seizure activity. Skin: No rash. No change in color. Psychiatric: No depression. No anxiety. EXAM Physical Exam Narrative Exam Narrative: Afebrile. Vital signs noted. HEENT: Normocephalic. Atraumatic. PERRL, EOMI. Neck soft and supple. No point tenderness or step off. Cardiovascular: Regular rate and rhythm. No murmurs, rubs, or gallops marisela reciated. Respiratory: No tachypnea. Lungs clear to auscultation bilaterally. Gastrointestinal: Abdomen soft, nontender, with normoactive bowel sounds. No rebound or guarding. Neurological: Drowsy. Will open eyes. Possibly postictal. Nonfocal, nonlateralizing. Skin: No rash. Normal color. No pallor. Musculoskeletal: No pedal edema. Full range of motion extremities. Const Vital Signs: 02/02/23 02:21 02/02/23 03:43 Temperature 97.1 F L Temperature Source Temporal Pulse Rate 90 59 L Respiratory Rate 17 15 Blood Pressure 128/79 H 113/80 Blood Pressure Mean 95 91 Pulse Ox 98 100 Oxygen Delivery Method Room Air MDM MDM MDM Narrative Medical decision making narrative: I reviewed the patient's prior records. She was admitted back in 2019 for twitc justine episodes and syncopal episode while at work. I did review her EEG at that time which was unremarkable although she did have twitching episodes during it. In the differential diagnosis is seizure activity versus syncope versus pseudoseizure/psychogenic seizures. I reviewed her laboratory work from today and she has normal white count of 9.8, hemoglobin normal at 12.3, platelet count normal at 239. Her electrolyte panel shows sodium normal at 142 and hypokalemia of 3.0 which was replaced orally. Chloride is slightly elevated at 111 which I think is nonspecific, BUN normal at 8, creatinine 0.71, lactic acid is elevated 2.3 but prolactin is normal at 35.5. AST low at 10 which I also think is nonspecific. Upon repeat examination, around 3:15 in the morning, RN informed me that patient is awake and talking. EKG was obtained and interpreted by myself independently as normal sinus rhythm with sinus arrhythmia at 66 bpm without ectopy or acute ST changes. No STEMI. I reviewed the radiology report of the CT of her brain which shows no evidence of acute hemorrhage or fracture. No mass. Her urinalysis is pending, but microanalysis shows no evidence of infection. Urine for drugs of abuse is also pending, but it has been negative in the past. In discussion with the patient and her , she states that she was told that it is all in my head but given her increasing seizure like activity over the past week, I do feel that since she has not had an EEG since 2019 that she needs to be observed with probable neurological consultation. I discussed patient with Dr. Obregon for assignment to observation on [facility]. Patient is in stable condition. History & Record Review Discussion w/independent historian: Patient and Family Additional record(s) reviewed:: Prior ED visit and Prior labs Lab Data Attestation: I reviewed the patient's lab results. Labs: Laboratory Results - last 24 hr 02/02/23 02/02/23 02:39 03:35 WBC 9.8 RBC 4.16 L Hgb 12.3 Hct 36.9 L MCV 88.7 MCH 29.6 MCHC 33.3 RDW Std Deviation 41.2 RDW Coeff of Elizabeth 12.7 Plt Count 239 MPV 9.7 Immature Gran % (Auto) 0.400 Neut % (Auto) 65.2 Lymph % (Auto) 25.5 [place] % (Auto) 5.5 Eos % (Auto) 2.6 Baso % (Auto) 0.8 Absolute Neuts (auto) 6.4 Absolute Lymphs (auto) 2.49 Nucleated RBC % 0 Sodium 142 Potassium 3.0 L Chloride 111 H Carbon Dioxide 25.0 Anion Gap 6 BUN 8 Creatinine 0.71 Estim Creat Clear Calc 123.01 Est GFR (MDRD) Af Amer 122 Est GFR (MDRD) Non-Af 101 BUN/Creatinine Ratio 11.3 Glucose 120 H Lactic Acid 2.3 H* Calcium 8.8 Total Bilirubin 0.30 AST 10 L ALT 26 Alkaline Phosphatase 56 Total Protein 6.5 Albumin 3.8 Globulin 2.7 Albumin/Globulin Ratio 1.4 Prolactin 35.5 Serum , Qual NEGATIVE Urine Color Yellow Urine Clarity Clear Urine pH 7.0 Ur Specific [place]ub[place] 1.005 Urine Protein Negative Urine Glucose (UA) Normal Urine Ketones Negative Urine Occult Blood Negative Urine Nitrite Negative Urine Bilirubin Negative Urine Urobilinogen Normal Ur Leukocyte Esterase Negative Urine RBC 0 SEEN Urine WBC 0 SEEN Ur Squamous Epith Cells 0 SEEN Urine Bacteria 0 SEEN Urine Mucus 0 SEEN Ur Drug Screen Comment Radiography Diagnostic Testing: Clinical Impression(s) from Imaging Studies Brain CT 02/02/23 02:43 IMPRESSION: No acute abnormality. Electronically Signed: Dina Corona MD at 3:22 EDT , Management Discussion w/another healthcare provider: Hospitalist (Dr. Obregon) Discharge Plan Dx/Rx/DC Orders Clinical Impression: Seizure-like activity, Hypokalemia, Lactic acidosis Disposition Disposition: Acute Care Hospital [facility] [place]
[2023-02-02] MEDS: 0.9% Normal Saline (1000mL) 1,000 ML 1000 ML IV (02:50)
[2023-02-02 02:52] LABS: Absolute Lymphocyte Count 2.49 X10^3/uL (0.83-4.51); Absolute Neutrophil Count 6.4 X10^3/uL (2.0-7.7); Basophil# 0.08 X10^3/uL; Basophil% 0.8 % (0-1); Eosinophil# 0.25 X10^3/uL; Eosinophils% 2.6 % (0-5); Hematocrit 36.9 % (37-47); Hemoglobin 12.3 g/dL (12.0-15.0); Lymphocyte # 2.49 X10^3/ul (0.83-4.51); Lymphocyte % 25.5 % (19-41); Mean Corp Hgb Conc 33.3 g/dL (32-36); Mean Corpuscular Hgb 29.6 pg (27.0-32.0); Mean Corpuscular Volume 88.7 fL (81-99); Mean Platelet Vol. 9.7 fl (6.2-12.0); Monocyte# 0.54 X10^3/uL; Monocyte% 5.5 % (0-10); NRBC Flagged by Analyzer 0 % (0-5); Neutrophil # 6.36 X10^3/uL (2.7-7.7); Neutrophil % 65.2 % (47-70); Platelet Count 239 K/mm3 (150-450); RBC Distribution Width CV 12.7 % (11.6-14.6); RBC Distribution Width SD 41.2 fl (35.1-43.9); Red Blood Count 4.16 M/mm3 (4.2-5.4); White Blood Count 9.8 K/mm3 (4.4-11.0)
[2023-02-02 03:15] LABS: ALB/GLOB Ratio 1.4 RATIO (0.9-2.4); AST(SGOT) 10 U/L (15-37); Alanine Aminotransfer ALT/SGPT 26 U/L (13-56); Albumin, Serum 3.8 g/dL (3.2-5.0); Alkaline Phosphatase 56 U/L (45-117); Anion Gap 6 (5-15); BUN 8 mg/dL (7-18); BUN/Creat Ratio 11.3 RATIO (10-20); Calcium,Total 8.8 mg/dL (8.5-10.1); Chloride 111 mmol/L (98-107); Creatinine, Serum 0.71 mg/dL (0.55-1.02); EST Glomerular Filtration Rate 101 mL/min (>60); Est Glom Filt Rate - Afr Amer 122 mL/min (>60); Estimated Creatinine Clearance 123.01 ml/min; Globulin 2.7 g/dL (2.2-4.2); Glucose 120 mg/dL (74-106); Prolactin 35.5 ng/mL; Protein, Total 6.5 g/dL (6.4-8.2); Sodium Level 142 mmol/L (136-145)
[2023-02-02 03:20] LABS: Lactic Acid 2.3 mmol/L (0.4-1.9)
[2023-02-02 03:23] LABS: Internal QC Validated? YES +Cl - CLEAR BKGD; Pregnancy, Serum, hCG Quali. NEGATIVE Negative
[2023-02-02 03:40] LABS: Bacteria 0 SEEN /hpf (None Seen); Mucous, Urine 0 SEEN /hpf (<or=2+); Red Blood Cells-Urine 0 SEEN /hpf (0-5); Squamous Epithelial Cells - UA 0 SEEN /hpf (5-10); White Blood Cells 0 SEEN /hpf (0-5)
[2023-02-02] MEDS: Potassium Chloride Oral Tablet 20 MEQ 40 MEQ PO (03:40)
[2023-02-02] MEDS: 0.9% Normal Saline (1000mL) 1,000 ML 999 ML IV (03:41)
[2023-02-02 04:00] LABS: Color, Urine Yellow (Yellow); Glucose, Dipstick Normal (Normal); Ketone-Dipstick Negative (Negative); Leukocyte Esterase-Dipstick Negative /ul (Negative); Nitrite-Dipstick Negative (Negative); Occult Blood-Urine Negative /ul (Negative); Protein-Dipstick Negative (Negative); Specific Gravity, Urine 1.005 (1.002-1.030); Urine Bilirubin Dipstick Negative (Negative); Urine Clarity Clear (Clear); Urine Urobilinogen Normal (Normal)
--- NOTE | 2023-02-02 04:18 | HP.PCM.HOS_ITS ---
HPI - General General Date of Admission: 02/02/23 Date of Service: 02/02/23 Chief Complaint: Seizure-like activity HPI Narrative GALE NEVILLE, is a 32 F with no significant past medical history who presented to [facility] ED on 10/02/2022 with concern for seizure-like activity. Patient seen at bedside, present. Patient sitting up in bed, alert but appears fatigued. Mildly slow responses with apparent decreased concentration, but patient notably was just given Versed for possible seizure activity. Patient was able to discuss with me some of her past medical history with regard to her seizure-like activity. Otherwise, most history was obtained from patient's . Patient had episodes like this back in 2019. Work-up for true seizure disorder at that time was negative. He does not think he was ever put on antiepileptic medications. Had minimal concerns for few years, but now has a recurrence of what appears to be seizure activity over the last several weeks to a few months. states that she will close her eyes tightly, have significant twitching of her arms followed by what appears to be poor muscle tone. She then seems to be foggy and fatigued after this for some time. He is concerned about the increased frequency of these events that she is having. He otherwise denies any acute concerns for the patient. States she has no history of drug use. Does not take any medications. No other acute concerns at this time. Vitals in ED unremarkable. Labs with mild hypokalemia 3.0, lactate 2.3, otherwise benign. UA was negative. CT head without contrast with no acute abnormalities. [facility] Medical History Abnormal bruising Chronic neck and back pain Limb weakness Home Medications NK 02/02/23 [History Last Taken Unknown] Allergy/AdvReac Type Severity Reaction Status Date / Time No Known Allergies Allergy Verified 02/02/23 03:43 Surgical History History of hysterectomy History of tubal ligation Social History Smoking Status: Never smoker alcohol intake: current ROS Review of Systems ROS Unobtainable: due to mental status Vital Signs Vital Signs Vital Signs: 02/02/23 02:21 02/02/23 03:43 Temperature 97.1 F L Temperature Source Temporal Pulse Rate 90 59 L Respiratory Rate 17 15 Blood Pressure 128/79 H 113/80 Blood Pressure Mean 95 91 Pulse Ox 98 100 Oxygen Delivery Method Room Air Weight Weight: 102.4 kg Body Mass Index (BMI) 32.3 Physical Exam Const alert Constitutional Narrative: Alert but fatigued appearing, short answers to questions, sitting comfortably in bed, no acute distress. General Appearance: cooperative and comfortable HEENT normocephalic, head/scalp atraumatic, hearing grossly normal bilaterally, nasal mucous membranes and turbinates normal and moist oral mucous membranes Eyes PERRL, EOMs intact bilaterally and conjunctivae normal Neck full ROM, no lymphadenopathy and supple Lymph Lymphatic: no lymphadenopathy noted Chest inspection of chest normal Resp normal respiratory effort, normal air movement, no use of accessory muscles and clear to auscultation bilaterally Cardio regular rate, regular rhythm, no murmurs and peripheral pulses 2+ throughout GI normal to inspection, nondistended, normoactive bowel sounds, soft to palpation, non-tender and non-distended Back/Spine normal ROM Extremity normal to inspection, full ROM and no pedal edema Skin no rashes or lesions noted Psych mental status grossly normal Results Lab / Micro Data 02/02/23 02:39 02/02/23 02:39 Labs: Laboratory Results - last 24 hr 02/02/23 02:39: WBC 9.8, RBC 4.16 L, Hgb 12.3, Hct 36.9 L, MCV 88.7, MCH 29.6, MCHC 33.3, RDW Std Deviation 41.2, RDW Coeff of Elizabeth 12.7, Plt Count 239, MPV 9.7, Immature Gran % (Auto) 0.400, Neut % (Auto) 65.2, Lymph % (Auto) 25.5, [place] % (Auto) 5.5, Eos % (Auto) 2.6, Baso % (Auto) 0.8, Absolute Neuts (auto) 6.4, Absolute Lymphs (auto) 2.49, Nucleated RBC % 0, Sodium 142, Potassium 3.0 L, Chloride 111 H, Carbon Dioxide 25.0, Anion Gap 6, BUN 8, Creatinine 0.71, Estim Creat Clear Calc 123.01, Est GFR (MDRD) Af Amer 122, Est GFR (MDRD) Non-Af 101, BUN/Creatinine Ratio 11.3, Glucose 120 H, Lactic Acid 2.3 H*, Calcium 8.8, Total Bilirubin 0.30, AST 10 L, ALT 26, Alkaline Phosphatase 56, Total Protein 6.5, Albumin 3.8, Globulin 2.7, Albumin/Globulin Ratio 1.4, Prolactin 35.5, Serum , Qual NEGATIVE 02/02/23 03:35: Urine Color Yellow, Urine Clarity Clear, Urine pH 7.0, Ur Specific [place] 1.005, Urine Protein Negative, Urine Glucose (UA) Normal, Urine Ketones Negative, Urine Occult Blood Negative, Urine Nitrite Negative, Urine Bilirubin Negative, Urine Urobilinogen Normal, Ur Leukocyte Esterase Negative, Urine RBC 0 SEEN, Urine WBC 0 SEEN, Ur Squamous Epith Cells 0 SEEN, Urine Bacteria 0 SEEN, Urine Mucus 0 SEEN, Ur Drug Screen Comment Radiology Impression Brain CT 02/02/23 02:43 IMPRESSION: No acute abnormality. Electronically Signed: Dina Corona MD at 3:22 EDT , Assessment & Plan Assessment/Plan (1) Seizure-like activity: PLAN: Plan Patient is a 32-year-old female with no significant past medical history who presented to [facility] ED on 10/02/2022 with concern for seizure-like activity. 1. Concern for seizure-like activity Patient able to answer most questions appropriately on my interview but was somewhat slowed responses. helped for gathering history. Patient had history of what appeared to be a multiple episodes of seizures back in 2019. Saw a neurologist at that time, true seizures were ruled out, was not started on any antiepileptic medication. now states that patient has had about 12 episodes of possible seizure activity in the last week. Patient will close her eyes tightly and has significant twitching, followed by abating of twitching with apparent significant fatigue and possible postictal state. Last episode was this evening while she was working. Labs notable for lactate 2.3. Brain CT showed no acute abnormalities. ? Admit under observation status to [facility]. Neurology consulted. Spot EEG ordered. PT/OT/case management consulted. DVT prophylaxis: Ambulation CODE STATUS: Full code, verified Expected disposition: Home, 1 to 2 days Total clinical time spent by myself addressing the patient's medical issues, reviewing all the data, and collaborating with patient's care team: 40 minutes. Charges/Coding Visit Charges Inpatient E&M: 80995 Init Hosp L1
[2023-02-02] MEDS: Ibuprofen 600 MG Tablet PO (04:49)
[2023-02-02 04:50] LABS: Amphetamine Urine VISTA NEGATIVE (<1000 ng/mL); Barbiturate Urine VISTA NEGATIVE (< 200 ng/mL); Benzodiazepine Urine VISTA POSITIVE (< 200 ng/mL); Cocaine Urine VISTA NEGATIVE (< 300 ng/mL); Ecstacy Urine VISTA NEGATIVE (< 500 ng/mL); Methadone Urine VISTA NEGATIVE (< 300 ng/mL); PCP Urine VISTA NEGATIVE (< 25 ng/mL); THC Urine VISTA NEGATIVE (< 50 ng/mL); Vista UDS pH Range 7
[2023-02-02 04:55] LABS: Magnesium 2.3 mg/dL (1.6-2.6)
[2023-02-02 06:49] LABS: Reflex Lactate? Y
[2023-02-02] MEDS: levETIRAcetam IV 500 MG in 0.9% Normal Saline (100mL Bag) 100 ML 400 MG IV ×2 (10:13→21:18)
[2023-02-02] MEDS: 0.9% Saline Lock 10 ML Syringe IV (10:17)
--- NOTE | 2023-02-02 14:08 | PN_ITS ---
Subjective Subjective Patient seen and examined. She had no active complaints. She was admitted with a complaint of seizure like activity. Patient doesnt have much recollection of what happened. She hasnt had any such seizure activity since admission. She is awaiting neurology evaluation. Objective Data Objective Data Vital Signs: Vital Signs Temp Pulse Resp BP Pulse Ox O2 Del Method 98.3 F 55 L 18 127/76 H 99 Room Air 02/02/23 07:56 02/02/23 07:56 02/02/23 07:56 02/02/23 07:56 02/02/23 07:56 02/02/23 07:56 Oxygen Delivery Method Room Air Weight: 225 lb 12.054 oz Body Mass Index (BMI) 32.3 Intake & Output: Intake and Output for Last 24 Hours 01/31/23 02/01/23 02/02/23 23:59 23:59 23:59 Intake Total 1999 Balance 1999 Lab / Micro Data 02/02/23 02:39 02/02/23 02:39 Labs: Laboratory Results - last 24 hr 02/02/23 02:39: WBC 9.8, RBC 4.16 L, Hgb 12.3, Hct 36.9 L, MCV 88.7, MCH 29.6, MCHC 33.3, RDW Std Deviation 41.2, RDW Coeff of Elizabeth 12.7, Plt Count 239, MPV 9.7, Immature Gran % (Auto) 0.400, Neut % (Auto) 65.2, Lymph % (Auto) 25.5, [place] % (Auto) 5.5, Eos % (Auto) 2.6, Baso % (Auto) 0.8, Absolute Neuts (auto) 6.4, Absolute Lymphs (auto) 2.49, Nucleated RBC % 0, Sodium 142, Potassium 3.0 L, Chloride 111 H, Carbon Dioxide 25.0, Anion Gap 6, BUN 8, Creatinine 0.71, Estim Creat Clear Calc 123.01, Est GFR (MDRD) Af Amer 122, Est GFR (MDRD) Non-Af 101, BUN/Creatinine Ratio 11.3, Glucose 120 H, Lactic Acid 2.3 H*, Calcium 8.8, Magnesium 2.3, Total Bilirubin 0.30, AST 10 L, ALT 26, Alkaline Phosphatase 56, Total Protein 6.5, Albumin 3.8, Globulin 2.7, Albumin/Globulin Ratio 1.4, Prolactin 35.5, Serum , Qual NEGATIVE 02/02/23 03:35: Urine Color Yellow, Urine Clarity Clear, Urine pH 7.0, Ur Specific [place] 1.005, Urine Protein Negative, Urine Glucose (UA) Normal, Urine Ketones Negative, Urine Occult Blood Negative, Urine Nitrite Negative, Urine Bilirubin Negative, Urine Urobilinogen Normal, Ur Leukocyte Esterase Negative, Urine RBC 0 SEEN, Urine WBC 0 SEEN, Ur Squamous Epith Cells 0 SEEN, Urine Bacteria 0 SEEN, Urine Mucus 0 SEEN, Urine Opiates Screen NEGATIVE, Urine Methadone Screen NEGATIVE, Ur Barbiturates Screen NEGATIVE, Ur Phencyclidine Scrn NEGATIVE, Ur Amphetamines Screen NEGATIVE, MDMA (Ecstasy) Screen NEGATIVE, U Benzodiazepines Scrn POSITIVE H, Urine Cocaine Screen NEGATIVE, U Cannabinoids Screen NEGATIVE, Ur Drug Screen Comment Radiography Diagnostic Testing: Radiology Impression Brain CT 02/02/23 02:43 IMPRESSION: No acute abnormality. Electronically Signed: Dina Corona MD at 3:22 EDT , Physical Exam Const alert, oriented x3 and no apparent distress General Appearance: cooperative and well developed HEENT normocephalic, head/scalp atraumatic, moist oral mucous membranes and oropharynx normal Eyes PERRL and EOMs intact bilaterally Neck no lymphadenopathy, supple and no JVD Lymph Lymphatic: no lymphadenopathy noted and no lymphedema noted Resp normal respiratory effort, normal air movement and clear to auscultation bilaterally Cardio regular rate, regular rhythm, S1 normal heart sound, S2 normal heart sound and no murmurs Palpation: normal PMI GI normal to inspection, nondistended, normoactive bowel sounds, soft to palpation, non-tender and non-distended Extremity normal capillary refill, no clubbing, cyanosis or edema and no calf tenderness Skin General Skin Exam: no breakdown and turgor normal Neuro CN's II-XII intact bilaterally, no focal motor deficits, no sensory deficits noted and deep tendon reflexes 2+ bilaterally Motor Exam: strength 5/5 throughout and general weakness Psych thought process normal, cooperative and affect normal Appearance: appropriate Assessment & Plan Assessment/Plan (1) Seizure-like activity: PLAN: #Seizure like activity * Had seizure-like activity at work. Patient has no recollection of this. * Seems she had similar episodes back in 2027 and saw a neurologist. Seizures were ruled out and she had not been started on any seizure-like medications. * Placed on IV Keppra 5 5 mg twice daily. * CT of the brain shows no acute intracranial pathology. Neurology consulted. Await recs. * EEG ordered and pending. * Fall precautions. Seizure precautions * * #Hypokalemia: K is 3. Was replaced in the ED. Will trend. #Lactic acidosis: likely due to seizure like activity. Should resolve with hydration with IVF. DVT prophylaxis; SCDs Charges/Coding Visit Charges Inpatient E&M: 31768 Subs Hosp L2
[2023-02-03] MEDS: Acetaminophen 325 MG Tablet 650 MG PO (02:30)
[2023-02-03 03:00] VITALS: BP 136/79; PULSE 44; RESP 16; TEMP 36.4; O2SAT 100
[2023-02-03 08:43] LABS: Absolute Lymphocyte Count 3.59 X10^3/uL (0.83-4.51); Absolute Neutrophil Count 4.9 X10^3/uL (2.0-7.7); Basophil# 0.09 X10^3/uL; Eosinophil# 0.28 X10^3/uL; Hematocrit 38.4 % (37-47); Hemoglobin 12.3 g/dL (12.0-15.0); Lymphocyte # 3.59 X10^3/ul (0.83-4.51); Lymphocyte % 38.4 % (19-41); Mean Corpuscular Hgb 29.2 pg (27.0-32.0); Mean Corpuscular Volume 91.2 fL (81-99); Monocyte# 0.48 X10^3/uL; Monocyte% 5.1 % (0-10); NRBC Flagged by Analyzer 0 % (0-5); Neutrophil # 4.88 X10^3/uL (2.7-7.7); Neutrophil % 52.1 % (47-70); Platelet Count 220 K/mm3 (150-450); RBC Distribution Width CV 13.1 % (11.6-14.6); RBC Distribution Width SD 43.5 fl (35.1-43.9); Red Blood Count 4.21 M/mm3 (4.2-5.4); White Blood Count 9.4 K/mm3 (4.4-11.0)
[2023-02-03 09:03] LABS: Anion Gap 4 (5-15); BUN 6 mg/dL (7-18); BUN/Creat Ratio 9.8 RATIO (10-20); Calcium,Total 8.6 mg/dL (8.5-10.1); Chloride 115 mmol/L (98-107); Creatinine, Serum 0.61 mg/dL (0.55-1.02); EST Glomerular Filtration Rate 120 mL/min (>60); Est Glom Filt Rate - Afr Amer 145 mL/min (>60); Estimated Creatinine Clearance 147.98 ml/min; Glucose 89 mg/dL (74-106); Potassium 3.8 mmol/L (3.5-5.1); Sodium Level 143 mmol/L (136-145)
[2023-02-03 09:20] VITALS: BP 127/78; PULSE 65; RESP 16; TEMP 36; O2SAT 97
[2023-02-03 09:27] LABS: Thyroid Stim Hormone (TSH) 1.96 uIU/mL (0.358-3.74)
--- NOTE | 2023-02-03 11:32 | MRI_ITS ---
EXAM: MR HEAD WITHOUT AND WITH INTRAVENOUS CONTRAST CLINICAL INDICATION: seizure LIKE ACTIVITY LOST CONSCIOUSNESS AT WORK TECHNIQUE: Multiplanar and multisequence MR images of the brain were obtained without and with intravenous contrast. CONTRAST: IV 20ml CLARISCAN COMPARISON: No relevant prior studies available. FINDINGS: BRAIN AND EXTRA-AXIAL SPACES: Cavum septi pellucidi and cavum vergae noted which are normal variants. Small focus of increased T2 signal intensity within the bifrontal white matter are nonspecific and of uncertain etiology. No abnormal contrast enhancement. No evidence of mesial temporal sclerosis. No intra- or extra-axial hemorrhage. No evidence of acute infarct. No intracranial mass or mass effect. There is preservation of the ching/white matter interface. Posterior fossa structures are unremarkable. Ventricles are appropriate for age. No hydrocephalus. Basal cisterns are patent. SELLA: Normal. Normal sella turcica, pituitary gland, infundibular stalk, optic chiasm and hypothalamus. AUDITORY SYSTEM: Normal. The internal auditory canals are patent. BONES/JOINTS: Intact calvarium. SINUSES: Unremarkable as visualized. Clear. MASTOID AIR CELLS: Unremarkable as visualized. Clear. ORBITS: Unremarkable as visualized. Both globes, extraocular muscles, optic nerves and retrobulbar fat appear unremarkable. VASCULATURE: Unremarkable as visualized. Normal flow voids in the major intracranial circulation. MRI/Brain W/WO Contrast IMPRESSION: No acute intracranial abnormality. As above. Electronically Signed: Tre Ceja MD at 14:16 EDT ,
--- NOTE | 2023-02-03 14:00 | PN_ITS ---
Subjective Subjective Patient seen and examined. She had no complaints and had an uneventful night. Review of systems is otherwise negative. She was reviewed by neurology yesterday and recommendation was for her to be on Keppra. Patient however refusing to take keppra because she says she has read about the side effects and doesnt want to take it. She wants an alternative medication. Objective Data Objective Data Vital Signs: Vital Signs Temp Pulse Resp BP Pulse Ox O2 Del Method 96.8 F L 65 16 127/78 H 97 Room Air 02/03/23 09:20 02/03/23 09:20 02/03/23 09:20 02/03/23 09:20 02/03/23 09:20 02/03/23 09:20 Oxygen Delivery Method Room Air Weight: 220 lb 7.396 oz Body Mass Index (BMI) 30.7 Intake & Output: Intake and Output for Last 24 Hours 02/01/23 02/02/23 02/03/23 23:59 23:59 23:59 Intake Total 2965 / 2965 120 / 120 Balance 2965 / 2965 120 / 120 Lab / Micro Data 02/03/23 07:23 02/03/23 07:23 Labs: Laboratory Results - last 24 hr 02/03/23 07:23: WBC 9.4, RBC 4.21, Hgb 12.3, Hct 38.4, MCV 91.2, MCH 29.2, MCHC 32.0, RDW Std Deviation 43.5, RDW Coeff of Elizabeth 13.1, Plt Count 220, MPV 10.0, Immature Gran % (Auto) 0.400, Neut % (Auto) 52.1, Lymph % (Auto) 38.4, [place] % (Auto) 5.1, Eos % (Auto) 3.0, Baso % (Auto) 1.0, Absolute Neuts (auto) 4.9, Absolute Lymphs (auto) 3.59, Nucleated RBC % 0, Sodium 143, Potassium 3.8, Chloride 115 H, Carbon Dioxide 24.0, Anion Gap 4 L, BUN 6 L, Creatinine 0.61, Estim Creat Clear Calc 147.98, Est GFR (MDRD) Af Amer 145, Est GFR (MDRD) Non-Af 120, BUN/Creatinine Ratio 9.8 L, Glucose 89, Calcium 8.6, TSH 1.96 Physical Exam Const alert, oriented x3 and no apparent distress General Appearance: cooperative HEENT normocephalic, head/scalp atraumatic, hearing grossly normal bilaterally, nasal mucous membranes and turbinates normal, moist oral mucous membranes and oropharynx normal Eyes PERRL, EOMs intact bilaterally and conjunctivae normal Neck full ROM, no lymphadenopathy, supple and no JVD Lymph Lymphatic: no lymphadenopathy noted and no lymphedema noted Chest inspection of chest normal Resp normal respiratory effort, normal air movement, no use of accessory muscles and clear to auscultation bilaterally Cardio regular rate, regular rhythm, S1 normal heart sound, S2 normal heart sound, no murmurs and peripheral pulses 2+ throughout Palpation: normal PMI GI normal to inspection, nondistended, normoactive bowel sounds, soft to palpation, non-tender and non-distended Back/Spine normal ROM Extremity normal to inspection, full ROM, normal capillary refill, no clubbing, cyanosis or edema, no calf tenderness and no pedal edema Skin no rashes or lesions noted General Skin Exam: no breakdown and turgor normal Neuro CN's II-XII intact bilaterally, no focal motor deficits, no sensory deficits noted and deep tendon reflexes 2+ bilaterally Motor Exam: strength 5/5 throughout and general weakness Psych mental status grossly normal, thought process normal, cooperative and affect normal Appearance: appropriate Assessment & Plan Assessment/Plan (1) Seizure-like activity: PLAN: #Seizure like activity * Had seizure-like activity at work. Patient has no recollection of this. * Seems she had similar episodes back in 2027 and saw a neurologist. Seizures were ruled out and she had not been started on any seizure-like medications. * Placed on IV Keppra 5 5 mg twice daily. * CT of the brain shows no acute intracranial pathology. Neurology consulted. Await recs. * EEG showed no evidence of seizures. * MRI of brain ordered and pending * Fall precautions. Seizure precautions * neurology consulted again to give rec's about meds. * #Hypokalemia: resolved. K is 3.8 today #Lactic acidosis: likely due to seizure like activity. Should resolve with hydration with IVF. DVT prophylaxis; SCDs Disposition: for likely dc today once neurology gives rec's about medication. Charges/Coding Visit Charges Inpatient E&M: 49098 Subs Hosp L2
[2023-02-03 17:50] VITALS: BP 130/66; PULSE 61; RESP 16; TEMP 36.2; O2SAT 100
--- NOTE | 2023-02-03 17:55 | NURSING ---
Pt questioning why she is not getting discharged this evening. Explained that MD states she is going to discuss options with her tomorrow related to medication because the neurologist is recommending that the pt stay on keppra. Pt is dissatisfied she has to stay another night just to talk with the MD tomorrow. This RN stating that unfortunately I cannot career guidance counselor her on medication options. Presented pt with the choice to leave AMA or stay. She is contemplating. Dr. Crowder stating via backline that a phone conversation would not be sufficient as the pt may not be able to understand her properly.
[2023-02-03 23:15] VITALS: BP 139/75; PULSE 52; RESP 16; TEMP 36.7; O2SAT 100
[2023-02-03] MEDS: LORazepam 2 MG/ML Syringe IV (23:15)
[2023-02-03] MEDS: levETIRAcetam IV 500 MG in 0.9% Normal Saline (100mL Bag) 100 ML 400 MG IV (23:16)
--- NOTE | 2023-02-03 23:31 | CT_ITS ---
INDICATION: Fall, rule out intracranial bleed EXAMINATION: CT BRAIN - CT Head or Brain W/O Contrast Injection TECHNIQUE: Multiple axial images were obtained of the head without intravenous contrast. A radiation dose optimization technique was used for this scan. IV Contrast dosage and agent: None. RADIATION DOSAGE (If Supplied By Facility): CTDIvol = ( 44.99 ) mGy, DLP = ( 863.60 ) mGycm COMPARISON: CT head 02/02/2023 FINDINGS: BRAIN: No acute bleed. No edema. [place]-white matter differentiation is maintained. VENTRICLES AND SULCI: Not dilated. EXTRA-AXIAL: No hemorrhage, fluid collection, or mass. CALVARIUM / SKULL BASE: Unremarkable. FACE/SINUSES: Unremarkable. SOFT TISSUES: Unremarkable. CT/Brain/Head without Contrast IMPRESSION: No acute abnormality. Electronically Signed: Dina Corona MD at 0:16 EDT ,
[2023-02-04 00:02] LABS: Bedside Glucose 99 mg/dL (74-106)
[2023-02-04 04:10] VITALS: BP 117/72; PULSE 58; RESP 15; TEMP 36.4; O2SAT 99
[2023-02-04 05:00] LABS: Absolute Lymphocyte Count 3.44 X10^3/uL (0.83-4.51); Absolute Neutrophil Count 6.6 X10^3/uL (2.0-7.7); Basophil# 0.09 X10^3/uL; Basophil% 0.8 % (0-1); Eosinophil# 0.24 X10^3/uL; Eosinophils% 2.2 % (0-5); Hematocrit 37.1 % (37-47); Hemoglobin 12.3 g/dL (12.0-15.0); Lymphocyte # 3.44 X10^3/ul (0.83-4.51); Lymphocyte % 31.1 % (19-41); Mean Corp Hgb Conc 33.2 g/dL (32-36); Mean Corpuscular Hgb 29.4 pg (27.0-32.0); Mean Corpuscular Volume 88.8 fL (81-99); Mean Platelet Vol. 9.7 fl (6.2-12.0); Monocyte# 0.67 X10^3/uL; Monocyte% 6.1 % (0-10); NRBC Flagged by Analyzer 0 % (0-5); Neutrophil # 6.59 X10^3/uL (2.7-7.7); Neutrophil % 59.4 % (47-70); Platelet Count 238 K/mm3 (150-450); RBC Distribution Width CV 12.7 % (11.6-14.6); RBC Distribution Width SD 41.8 fl (35.1-43.9); Red Blood Count 4.18 M/mm3 (4.2-5.4); White Blood Count 11.1 K/mm3 (4.4-11.0)
[2023-02-04 06:05] LABS: Anion Gap 4 (5-15); BUN 7 mg/dL (7-18); BUN/Creat Ratio 11.5 RATIO (10-20); Calcium,Total 8.5 mg/dL (8.5-10.1); Chloride 114 mmol/L (98-107); Creatinine, Serum 0.61 mg/dL (0.55-1.02); EST Glomerular Filtration Rate 121 mL/min (>60); Est Glom Filt Rate - Afr Amer 147 mL/min (>60); Estimated Creatinine Clearance 147.98 ml/min; Glucose 89 mg/dL (74-106); Potassium 3.7 mmol/L (3.5-5.1); Sodium Level 142 mmol/L (136-145)
[2023-02-04 10:30] VITALS: BP 140/83; PULSE 69; RESP 16; TEMP 36.4; O2SAT 100
--- NOTE | 2023-02-04 15:10 | PN_ITS ---
Subjective Subjective Patient seen and examined. She had no active complaints. Nurse tells me there was concern that she had a seizure overnight, as she was found down on the floor in the bathroom. Review of systems is otherwise negative. I did speak to patient and let her know that I spoke to the neurologist yesterday who still recommended that she should be on Keppra due to the reduced side effects profile. Patient however still insisting that she will not take it because her took Keppra and had a change in his personality and she really does not want to take Keppra. We will consult neurology to review patient to give alternate recommendations. Objective Data Objective Data Vital Signs: Vital Signs Temp Pulse Resp BP Pulse Ox O2 Del Method 97.5 F L 69 16 140/83 H 100 Room Air 02/04/23 10:30 02/04/23 10:30 02/04/23 10:30 02/04/23 10:30 02/04/23 10:30 02/04/23 10:30 Oxygen Delivery Method Room Air Weight: 220 lb 7.396 oz Body Mass Index (BMI) 30.7 Intake & Output: Intake and Output for Last 24 Hours 02/02/23 02/03/23 02/04/23 23:59 23:59 23:59 Intake Total 2965 / 2965 465 / 465 Balance 2965 / 2965 465 / 465 Lab / Micro Data 02/04/23 04:35 02/04/23 04:35 Labs: Laboratory Results - last 24 hr 02/03/23 23:40: POC Glucose 99 02/04/23 04:35: WBC 11.1 H, RBC 4.18 L, Hgb 12.3, Hct 37.1, MCV 88.8, MCH 29.4, MCHC 33.2, RDW Std Deviation 41.8, RDW Coeff of Elizabeth 12.7, Plt Count 238, MPV 9.7, Immature Gran % (Auto) 0.400, Neut % (Auto) 59.4, Lymph % (Auto) 31.1, [place] % (Auto) 6.1, Eos % (Auto) 2.2, Baso % (Auto) 0.8, Absolute Neuts (auto) 6.6, Absolute Lymphs (auto) 3.44, Nucleated RBC % 0, Sodium 142, Potassium 3.7, Chloride 114 H, Carbon Dioxide 24.0, Anion Gap 4 L, BUN 7, Creatinine 0.61, Estim Creat Clear Calc 147.98, Est GFR (MDRD) Af Amer 147, Est GFR (MDRD) Non-Af 121, BUN/Creatinine Ratio 11.5, Glucose 89, Calcium 8.5 Radiography Diagnostic Testing: Radiology Impression Brain CT 02/03/23 23:31 IMPRESSION: No acute abnormality. Electronically Signed: Dina Corona MD at 0:16 EDT , Physical Exam Const alert, oriented x3 and no apparent distress General Appearance: cooperative, comfortable and well developed HEENT normocephalic, head/scalp atraumatic, hearing grossly normal bilaterally, nasal mucous membranes and turbinates normal, moist oral mucous membranes and oropharynx normal Eyes PERRL, EOMs intact bilaterally and conjunctivae normal Neck full ROM, no lymphadenopathy, supple and no JVD Lymph Lymphatic: no lymphadenopathy noted and no lymphedema noted Chest inspection of chest normal Resp normal respiratory effort, normal air movement, no use of accessory muscles and clear to auscultation bilaterally Cardio regular rate, regular rhythm, S1 normal heart sound, S2 normal heart sound, no murmurs and peripheral pulses 2+ throughout Palpation: normal PMI GI normal to inspection, nondistended, normoactive bowel sounds, soft to palpation, non-tender and non-distended Back/Spine normal ROM Extremity normal to inspection, full ROM, normal capillary refill, no clubbing, cyanosis or edema, no calf tenderness and no pedal edema Skin no rashes or lesions noted General Skin Exam: no breakdown and turgor normal Neuro CN's II-XII intact bilaterally, no focal motor deficits, no sensory deficits noted and deep tendon reflexes 2+ bilaterally Motor Exam: strength 5/5 throughout and general weakness Psych mental status grossly normal, thought process normal, cooperative and affect normal Appearance: appropriate Assessment & Plan Assessment/Plan (1) Seizure-like activity: PLAN: #Seizure like activity * Had seizure-like activity at work. Patient has no recollection of this. * Seems she had similar episodes back in 2027 and saw a neurologist. Seizures were ruled out and she had not been started on any seizure-like medications. * Placed on IV Keppra 500 mg twice daily. * CT of the brain shows no acute intracranial pathology. Neurology consulted. Await recs. * EEG showed no evidence of seizures. * MRI of brain showed no acute pathology * Fall precautions. Seizure precautions * neurology consulted again to give rec's about meds. I spoke to the sawyer rologist on the phone yesterday and he still recommended that patient should be on Keppra. I spoke to patient about this but she is adamant that she does not want to take Keppra. In light of her having a questionable seizure again overnight. And patient's absolute refusal to take Keppra on outpatient basis, neurology consulted to review patient and discussed with her about the seizure medications. * #Hypokalemia: resolved. #Lactic acidosis: likely due to seizure like activity. Respolved DVT prophylaxis; SCDs Disposition: for likely dc today once neurology gives rec's about medication. Charges/Coding Visit Charges Inpatient E&M: 91740 Subs Hosp L2
[2023-02-04 16:04] VITALS: BP 132/76; PULSE 54; RESP 16; TEMP 36.5; O2SAT 100
[2023-02-04] MEDS: levETIRAcetam IV 500 MG in 0.9% Normal Saline (100mL Bag) 100 ML 400 MG IV (21:02)
[2023-02-04 21:05] VITALS: BP 127/72; PULSE 60; RESP 16; TEMP 36.7; O2SAT 100
[2023-02-04] MEDS: LORazepam 2 MG/ML Syringe IV (23:37)
[2023-02-04 23:40] VITALS: BP 128/78; PULSE 62; RESP 18; TEMP 36.7; O2SAT 98
[2023-02-04] MEDS: 0.9% Saline Lock 10 ML Syringe IV (23:42)
[2023-02-05] MEDS: Acetaminophen 325 MG Tablet 650 MG PO (03:03)
[2023-02-05 03:05] VITALS: BP 119/74; PULSE 59; RESP 16; TEMP 36.6; O2SAT 99
[2023-02-05 06:55] LABS: Absolute Lymphocyte Count 3.37 X10^3/uL (0.83-4.51); Absolute Neutrophil Count 6.6 X10^3/uL (2.0-7.7); Basophil# 0.08 X10^3/uL; Basophil% 0.7 % (0-1); Eosinophil# 0.23 X10^3/uL; Eosinophils% 2.1 % (0-5); Hematocrit 38.8 % (37-47); Hemoglobin 12.7 g/dL (12.0-15.0); Lymphocyte # 3.37 X10^3/ul (0.83-4.51); Lymphocyte % 30.7 % (19-41); Mean Corp Hgb Conc 32.7 g/dL (32-36); Mean Corpuscular Hgb 29.1 pg (27.0-32.0); Mean Corpuscular Volume 88.8 fL (81-99); Mean Platelet Vol. 9.9 fl (6.2-12.0); Monocyte# 0.68 X10^3/uL; Monocyte% 6.2 % (0-10); NRBC Flagged by Analyzer 0 % (0-5); Neutrophil # 6.57 X10^3/uL (2.7-7.7); Neutrophil % 59.8 % (47-70); Platelet Count 252 K/mm3 (150-450); RBC Distribution Width CV 12.6 % (11.6-14.6); Red Blood Count 4.37 M/mm3 (4.2-5.4)
[2023-02-05 07:19] LABS: Anion Gap 7 (5-15); BUN 6 mg/dL (7-18); BUN/Creat Ratio 9.9 RATIO (10-20); Calcium,Total 8.7 mg/dL (8.5-10.1); Chloride 112 mmol/L (98-107); EST Glomerular Filtration Rate 122 mL/min (>60); Est Glom Filt Rate - Afr Amer 148 mL/min (>60); Estimated Creatinine Clearance 150.45 ml/min; Glucose 79 mg/dL (74-106); Potassium 3.6 mmol/L (3.5-5.1); Sodium Level 143 mmol/L (136-145)
[2023-02-05 09:38] VITALS: BP 125/82; PULSE 65; RESP 16; TEMP 36.6; O2SAT 99
[2023-02-05] MEDS: Thiamine Hydrochloride 100 MG Tablet PO (09:40)
[2023-02-05] MEDS: levETIRAcetam IV 500 MG in 0.9% Normal Saline (100mL Bag) 100 ML 400 MG IV (11:03)
[2023-02-05] MEDS: 0.9% Saline Lock 10 ML Syringe IV (11:04)
--- NOTE | 2023-02-05 12:04 | DCINST_ITS ---
Discharge Instructions Diet Discharge Diet: No restrictions Activity Discharge Activity: - (Seizure precautions: included) Follow Up Care Test Results: Test results from this visit will be discussed in further detail at your follow- up appointment, if applicable. Discharge Plan Admission Admit Date/Time: 02/02/23 04:26 Primary Reason for Your Visit: Seizures Attending Provider: Cynthia Wheeler Primary Care Provider: Care Physician,No Primary Consulting Providers: Dinesh Obregon; Flori Crowder Instructions Patient Instructions: ED Seizure New Onset Unknown ... Additional Instructions / Restrictions: DISCHARGE INSTRUCTIONS PLEASE READ *Please take this with you to your next doctors appointment* -You will be discharged on [id number] mg twice daily -Please follow-up with neurology upon discharge, please call Dr. Greer's office upon discharge to schedule an establish care appointment for your seizures ( [phone]) SEIZURE DISCHARGE INSTRUCTIONS: - Seizures are unpredictable. Do not do anything that might cause danger to you or other people if you have another seizure. Do not drive, ride a bike, climb ladders/heights, hold a baby or operate dangerous equipment etc. - Do not drive until you are cleared to do so by your doctor -Avoid unsupervised activities that may pose danger of sudden loss of consciousness including bathing, swimming alone, working at heights, and/or operating heavy machinery. - Do not take a bath alone. Take shower instead - Do not spend time alone until your healthcare provider says that you are no longer in danger of having another seizure - Tell your close friends and relatives about your seizure. Teach them what to do for you if it happens again - Take your medicine as prescribed, missing doses increases your risk of having repeat seizure -Follow regular sleep schedule such that you get at least 60 hours of restful sleep every night. This is especially important when you are sick or have a cold, flu, or another type of infection - Do not drink alcoholic beverages until your doctor says it is okay. Do not ever use recreational drugs -For future seizures if you are alone: If you feel a seizure coming on, lie down on a bed or the floor or with something soft under your head and lie on your left side, not in your back. Also make sure you are not near any objects that may injure you during seizure. Call 911 if you can. - For future seizures if someone is with you: Depression should help you get into a safe position and then they should call 911. They should not try to force anything into your mouth once the seizure begins. They should not put their fingers in your mouth. -After seizure you may be drowsy or confused. That person should stay with you until you are fully awake. That person should not offer you anything to eat or drink during that time. Call 911 or go to the emergency department. -Call your healthcare provider right away if you have any of these: Another seizure, a fever of 100.4 ?F or higher, abnormal irritability, drowsiness, or confusion, head or neck pain that gets worse -Please call your primary care provider's office upon discharge to schedule a hospital follow up within 1 week. -If you do not have a primary care physician of list of local primary care physicians can be provided for you upon discharge. Please ask for this list prior to discharge -For any concerning signs or symptoms please call 911 or proceed to the nearest emergency department Discharge Orders/Prescriptions Prescriptions: New levetiracetam [Keppra] 500 mg tablet 500 mg PO BID Qty: 30 1RF Referrals / Follow Up: Cain Greer MD [Non-Staff -Ordering Privileges] - ( -Please follow-up with neurology upon discharge, please call Dr. Greer's office upon discharge to schedule an establish care appointment for your seizures (ph [phone])) Care Physician,No Primary [Primary Care Provider] - ( -If you do not have a primary care physician of list of local primary care physicians can be provided for you upon discharge. Please ask for this list prior to discharge ) Disposition Disposition (needs filled in before D/C Order can be placed): Home, Self Care
--- NOTE | 2023-02-05 12:08 | PCM.DC.SUM ---
Providers Date of Admission: 02/02/23 Date of Discharge: 02/05/23 Primary Care Physician: No Primary Care Phys Reason For Visit: SEIZURE LIKE ACTIVITY Diagnosis Discharge Diagnosis (1) Seizure disorder: Status: Acute Code(s): G40.909 - Epilepsy, unspecified, not intractable, without status epilepticus Plan #Seizure d/o #Hx hysterectomy and endometriosis Medications at Discharge Home Medications levetiracetam 500 mg tablet (Keppra) 500 mg PO BID #30 tabs 02/05/23 Hospital Course Summary of Care Provided Minutes Spent on Discharge: 32 Hospital Course: GALE NEVILLE, is a 32 F with no significant past medical history who presented to [facility] ED on 02/02/2023 with concern for seizure-like activity. She had seizure-like activity at work and had no recollection of that, had been seen by neurology back in 2018 and they did not find any seizures so she has not started medication. Given the activity she was started on Keppra 500 mg IV twice daily and neurology consulted, CT and MRI with no acute brain pathology, EEG with no evidence of seizures however they do think that underlying pathology was seizure. Patient reported knowing multiple people who had adverse reactions to Keppra and was very against taking this, neurology reconsulted and refused to make additional recommendations for seizure medications given her age and side effect profile so they were reconsulted. Patient had 2 more seizure-like episodes when she refused the Keppra and ultimately was agreeable to taking this. Patient does not want to take this long-term, discussed with her in the morning and she reports that given that she cannot be late for work tonight or of any further delays she would like to be discharged with a prescription for Keppra which she will take in the short-term with plan ultimately for transitioning with an outpatient provider which is reasonable. Suspect that Depakote was avoided given she has a reproductive age however she has a hysterectomy and this could be considered moving forward but after risks and benefits discussed with patient she will DC home with Keppra and seizure precautions. On day of discharge she had no physical complaints. Discharge instructions as follows: -You will be discharged on [id number] mg twice daily -Please follow-up with neurology upon discharge, please call Dr. Greer's office upon discharge to schedule an establish care appointment for your seizures (ph [phone]) SEIZURE DISCHARGE INSTRUCTIONS: - Seizures are unpredictable. Do not do anything that might cause danger to you or other people if you have another seizure. Do not drive, ride a bike, climb ladders/heights, hold a baby or operate dangerous equipment etc. - Do not drive until you are cleared to do so by your doctor -Avoid unsupervised activities that may pose danger of sudden loss of consciousness including bathing, swimming alone, working at heights, and/or operating heavy machinery. - Do not take a bath alone. Take shower instead - Do not spend time alone until your healthcare provider says that you are no longer in danger of having another seizure - Tell your close friends and relatives about your seizure. Teach them what to do for you if it happens again - Take your medicine as prescribed, missing doses increases your risk of having repeat seizure -Follow regular sleep schedule such that you get at least 60 hours of restful sleep every night. This is especially important when you are sick or have a cold, flu, or another type of infection - Do not drink alcoholic beverages until your doctor says it is okay. Do not ever use recreational drugs -For future seizures if you are alone: If you feel a seizure coming on, lie down on a bed or the floor or with something soft under your head and lie on your left side, not in your back. Also make sure you are not near any objects that may injure you during seizure. Call 911 if you can. - For future seizures if someone is with you: Depression should help you get into a safe position and then they should call 911. They should not try to force anything into your mouth once the seizure begins. They should not put their fingers in your mouth. -After seizure you may be drowsy or confused. That person should stay with you until you are fully awake. That person should not offer you anything to eat or drink during that time. Call 911 or go to the emergency department. -Call your healthcare provider right away if you have any of these: Another seizure, a fever of 100.4 ?F or higher, abnormal irritability, drowsiness, or confusion, head or neck pain that gets worse -Please call your primary care provider's office upon discharge to schedule a hospital follow up within 1 week. -If you do not have a primary care physician of list of local primary care physicians can be provided for you upon discharge. Please ask for this list prior to discharge -For any concerning signs or symptoms please call 911 or proceed to the nearest emergency department Physical Exam Narrative General: Alert, oriented, no apparent distress HEENT: Atraumatic, normocephalic Eyes: Anicteric, normal conjunctiva, extraocular movements grossly intact Neck: Supple Respiratory: Clear to auscultation bilaterally, normal respiratory effort Cardiovascular: Regular rate and rhythm GI: Soft, nontender, nondistended Extremities: No edema Musculoskeletal: Moving all extremities Neuro: No overt focal neurological deficits Skin: No rashes appreciated Psych: Cooperative Weight / BMI Weight Weight: 100 kg Body Mass Index (BMI) 30.7 ABG / Lab / Microbiology Data 02/05/23 05:43 02/05/23 05:43 Laboratory: Laboratory Results - last 24 hr 02/05/23 05:43: WBC 11.0, RBC 4.37, Hgb 12.7, Hct 38.8, MCV 88.8, MCH 29.1, MCHC 32.7, RDW Std Deviation 41.0, RDW Coeff of Elizabeth 12.6, Plt Count 252, MPV 9.9, Immature Gran % (Auto) 0.500, Neut % (Auto) 59.8, Lymph % (Auto) 30.7, Ida % (Auto) 6.2, Eos % (Auto) 2.1, Baso % (Auto) 0.7, Absolute Neuts (auto) 6.6, Absolute Lymphs (auto) 3.37, Nucleated RBC % 0, Sodium 143, Potassium 3.6, Chloride 112 H, Carbon Dioxide 24.0, Anion Gap 7, BUN 6 L, Creatinine 0.60, Estim Creat Clear Calc 150.45, Est GFR (MDRD) Af Amer 148, Est GFR (MDRD) Non-Af 122, BUN/Creatinine Ratio 9.9 L, Glucose 79, Calcium 8.7 D/C Instructions Discharge Diet: No restrictions Meaningful Use Info Meaningful Use Diagnoses (Choose all that apply): None applicable Discharge Plan Admission Admit Date/Time: 02/02/23 04:26 Primary Reason for Your Visit: Seizures Attending Provider: Cynthia Wheeler Primary Care Provider: Care Physician,No Primary Consulting Providers: Dinesh Obregon; Flori Crowder Instructions Patient Instructions: ED Seizure New Onset Unknown ... Additional Instructions / Restrictions: DISCHARGE INSTRUCTIONS PLEASE READ *Please take this with you to your next doctors appointment* -You will be discharged on [id number] mg twice daily -Please follow-up with neurology upon discharge, please call Dr. Greer's office upon discharge to schedule an establish care appointment for your seizures ) SEIZURE DISCHARGE INSTRUCTIONS: - Seizures are unpredictable. Do not do anything that might cause danger to you or other people if you have another seizure. Do not drive, ride a bike, climb ladders/heights, hold a baby or operate dangerous equipment etc. - Do not drive until you are cleared to do so by your doctor -Avoid unsupervised activities that may pose danger of sudden loss of consciousness including bathing, swimming alone, working at heights, and/or operating heavy machinery. - Do not take a bath alone. Take shower instead - Do not spend time alone until your healthcare provider says that you are no longer in danger of having another seizure - Tell your close friends and relatives about your seizure. Teach them what to do for you if it happens again - Take your medicine as prescribed, missing doses increases your risk of having repeat seizure -Follow regular sleep schedule such that you get at least 60 hours of restful sleep every night. This is especially important when you are sick or have a cold, flu, or another type of infection - Do not drink alcoholic beverages until your doctor says it is okay. Do not ever use recreational drugs -For future seizures if you are alone: If you feel a seizure coming on, lie down on a bed or the floor or with something soft under your head and lie on your left side, not in your back. Also make sure you are not near any objects that may injure you during seizure. Call 911 if you can. - For future seizures if someone is with you: Depression should help you get into a safe position and then they should call 911. They should not try to force anything into your mouth once the seizure begins. They should not put their fingers in your mouth. -After seizure you may be drowsy or confused. That person should stay with you until you are fully awake. That person should not offer you anything to eat or drink during that time. Call 911 or go to the emergency department. -Call your healthcare provider right away if you have any of these: Another seizure, a fever of 100.4 ?F or higher, abnormal irritability, drowsiness, or confusion, head or neck pain that gets worse -Please call your primary care provider's office upon discharge to schedule a hospital follow up within 1 week. -If you do not have a primary care physician of list of local primary care physicians can be provided for you upon discharge. Please ask for this list prior to discharge -For any concerning signs or symptoms please call 911 or proceed to the nearest emergency department Discharge Orders/Prescriptions Prescriptions: New levetiracetam [Keppra] 500 mg tablet 500 mg PO BID Qty: 30 1RF Referrals / Follow Up: Cain Greer MD [Non-Staff -Ordering Privileges] - ( -Please follow-up with neurology upon discharge, please call Dr. Greer's office upon discharge to schedule an establish care appointment for your seizures (ph [phone])) Care Physician,No Primary [Primary Care Provider] - ( -If you do not have a primary care physician of list of local primary care physicians can be provided for you upon discharge. Please ask for this list prior to discharge ) Disposition Disposition (needs filled in before D/C Order can be placed): Home, Self Care Charges/Coding Visit Charges Inpatient E&M: 32001 Disch Hosp >30min
--- NOTE | 2023-02-05 13:39 | PHA.DC.MC.R ---
Pharmacy [facility] has performed discharge medication reconciliation and counseling for this patient. The patient's discharge medication list was reviewed for discrepancies and discrepancies were resolved. The patient was counseled on the following discharge medications and changes in medications for homegoing were reviewed. The Reason for Use, instructions for use, and potential side effects were reviewed for all new medications. The patient's questions regarding all of their medications were answered. 1. Levetiracetam 500 mg PO BID The patient and patient's were able to verbally demonstrate an understanding of their discharge medications. Medications at Discharge Home Medications levetiracetam 500 mg tablet (Keppra) 500 mg PO BID #30 tabs 02/05/23
[2023-02-05 13:50] VITALS: BP 116/75; PULSE 83; RESP 16; O2SAT 100
== END 2023-02-05 14:03 | disposition home or self-care (01) ==
LOC: ED 04:22 → MS3 06:38 → PCU 16:27
PROVIDERS: Student in an Organized Health Care Education/Training Program; Admitting Provider Hospitalist; Emergency Provider Emergency Medicine; Visit Provider Internal Medicine
DX: G40.909 Epilepsy, unspecified, not intractable, without status epilepticus (principal); E87.6 Hypokalemia; E87.20 Acidosis, unspecified; Z79.899 Other long term (current) drug therapy
CPT/HCPCS: 36415; 70450; 70553; 80048; 80053; 80307; 81001; 82962; 83605; 83735; 84146; 84443; 84703; 85025; 92610; 93005; 95819; 96361; 96365; 96366; 96375; 96376; 99221; 99285; A9575; J7030; A4216; G0378

== ENCOUNTER 2023-06-28 03:51 | Emergency (ER) | payer BC, SELFPAY ==
[2023-06-28 03:53] VITALS: BP 142/81; PULSE 102; RESP 18; TEMP 36.3; O2SAT 100; BMI 35.4
--- NOTE | 2023-06-28 04:17 | RAD_ITS ---
INDICATION: seizure EXAMINATION/TECHNIQUE: X-RAY - XR Chest 1 View AP portable. 4:27 AM COMPARISON: None. FINDINGS: LINES/DEVICES: None. LUNGS: No consolidation. No pneumothorax. MEDIASTINUM: Unremarkable. CARDIAC SILHOUETTE: Not enlarged. BONES AND SOFT TISSUES: No acute abnormalities. RAD/Chest 1 View (Portable) IMPRESSION: No evidence of active intrathoracic disease. Electronically Signed: Dina Corona MD at 4:58 EST ,
[2023-06-28] MEDS: 0.9% Normal Saline (1000mL) 1,000 ML 999 ML IV (04:26)
[2023-06-28 04:33] LABS: Absolute Lymphocyte Count 2.77 X10^3/uL (0.83-4.51); Absolute Neutrophil Count 6.9 X10^3/uL (2.0-7.7); Basophil# 0.06 X10^3/uL; Basophil% 0.6 % (0-1); Eosinophil# 0.08 X10^3/uL; Eosinophils% 0.8 % (0-5); Hemoglobin 13.1 g/dL (12.0-15.0); Lymphocyte # 2.77 X10^3/ul (0.83-4.51); Lymphocyte % 26.5 % (19-41); Mean Corp Hgb Conc 32.8 g/dL (32-36); Mean Corpuscular Hgb 28.6 pg (27.0-32.0); Mean Corpuscular Volume 87.3 fL (81-99); Mean Platelet Vol. 9.7 fl (6.2-12.0); Monocyte# 0.61 X10^3/uL; Monocyte% 5.8 % (0-10); NRBC Flagged by Analyzer 0 % (0-5); Neutrophil # 6.89 X10^3/uL (2.7-7.7); Platelet Count 247 K/mm3 (150-450); RBC Distribution Width CV 12.3 % (11.6-14.6); RBC Distribution Width SD 39.3 fl (35.1-43.9); Red Blood Count 4.58 M/mm3 (4.2-5.4); White Blood Count 10.4 K/mm3 (4.4-11.0)
--- OUTSIDE RECORDS SUMMARY | 2023-06-28 04:38 | XMS RPT_ITS | CCD ---
Author Name Unknown Address [address] [place] [address] Organization [facility] Care Team Providers Care Refrigeration Service Inspector Name Role Phone JOHANNA CRUZ Attending Unavailable JOHANNA CRUZ Referring Unavailable NO PRIMARY CARE, Primary Care Unavailable MIRTA DRAKE DO Admitting Unavailable MIRTA DRAKE DO Attending Unavailable MIRTA DRAKE DO Primary Care Unavailable NO, DOCTOR ON Consulting Unavailable NO, DOCTOR ON Referring Unavailable SILVER JIMÉNEZ Attending Unavailable SILVER JIMÉNEZ Primary Care Unavailable SILVER JIMÉNEZ Admitting Unavailable Unavailable Primary Care Provider Unavailgeneva e RYLEE MONAE Attending Unavailable OMAYRA ADDISON Referring Unavailable OMAYRA ADDISON Attending Unavailable RYLEE MONAE Referring Unavailable Medications Current Medications Medication Drug Class(es) Dates Sig (Normalized) Sig (Original) levETIRAcetam 1000 mg oral tablet (4 sources) Start: 04-18-2023 End: 10-15-2023 take 1 tablet by mouth twice daily levETIRAcetam (KEPPRA) 1,000 mg tablet Indications: Convulsions, unspecified convulsion type (HCC) Take 1 tablet by mouth two times a day. 180 tablet 1 04/18/2023 10/15/2023 Active Problems Active Problems Problem Classification Problem Date Documented Da te Episodic/Chronic Epilepsy; convulsions (6 sources) Seizure; Translations: [Unspecified convulsions] Onset: 02-06-2023 03-26-2023 Episodic Miscellaneous mental health disorders (3 sources) Dissociative convulsions; Translations: [Conversion disorder with seizures or convulsions] Onset: 11-22-2019 11-24-2019 Chronic Other nutritional; endocrine; and metabolic disorders (3 sources) Obesity; Translations: [Obesity, unspecified] Onset: 11-23-2019 11-24-2019 Chronic Residual codes; unclassified (1 source) Amnesia; Translations: [Other amnesia] 04-27-2023 Episodic Substance-related disorders (3 sources) Tobacco dependence syndrome; Translations: [Nicotine dependence, cigarettes, with unspecified nicotine-induced disorders] Onset: 11-20-2013 05-09-2021 Chronic Past or Other Problems Problem Classification Problem Date Documented Da te Episodic/Chronic Other lower respiratory disease (3 sources) H/O: asthma; Translations: [Personal history of other diseases of the respiratory system] Onset: 11-20-2013 05-09-2021 Episodic Other non-traumatic joint disorders (3 sources) Pain in right knee; Translations: [Pain in joint, lower leg] Onset: 10-28-2013 10-28-2013 Episodic Results Test Name Value Interpretation Reference Range Facil ity Encounters Encounter Date Encounter Type Care Provider Facility Start: 04-27-2023 Emergency department patient visit Facility:[facility] Start: 04-27-2023 End: 04-27-2023 [facility] Facility:[facility] Start: 04-27-2023 End: 04-27-2023 Patient encounter procedure Nuha BENDER Work Phone: [facility] Procedures Date Procedure Procedure Detail Performing Clinician Start: 03-26-2023 Follow-up visit Follow Up OMAYRA SINGH Plan of Treatment Date Care Activity Detail Author Start: 03-26-2023 End: 06-25-2023 levETIRAcetam [Mass/volume] in Serum or Plasma LEVETIRACETAM Lab Routine Convulsions, unspecified convulsion type (HCC) Expected: 03/26/2023, Expires: 06/25/2023 [facility] Work Phone: Immunizations Immunization Date Immunization Notes Care Provider Fa ciliguillermo 12-12-2001 chicken pox (disease) Omayra Addison PA-C Work Phone: [facility] Work Phone: 11-15-2001 diphtheria and tetan us toxoids, adsorbed for pediatric use Omayra Addison PA-C Work Phone: [facility] Work Phone: 01-06-1997 measles, mumps and rubella virus vaccine Omayra Addison PA-C Work Phone: [facility] Work Phone: 01-06-1997 trivalent poliovirus vaccine, live, oral Omayra Addison PA-C Work Phone: [facility] Work Phone: 11-15-1993 diphtheria, tetanus toxoids and pertussis vaccine Omayra Addison PA-C Work Phone: [facility] Work Phone: 11-15-1993 haemophilus influenz ae type b vaccine, HbOC conjugate Omayra Addison PA-C Work Phone: [facility] Work Phone: 11-15-1993 trivalent poliovirus vaccine, live, oral Omayra Addison PA-C Work Phone: [facility] Work Phone: 09-18-1991 diphtheria, tetanus toxoids and pertussis vaccine Omayra Addison PA-C Work Phone: [facility] Work Phone: 09-18-1991 haemophilus influenz ae type b vaccine, HbOC conjugate Omayra Addison PA-C Work Phone: [facility] Work Phone: 09-18-1991 trivalent poliovirus vaccine, live, oral Omayra Addison PA-C Work Phone: [facility] Work Phone: 05-14-1991 chicken pox (disease) Omayra Addison PA-C Work Phone: [facility] Work Phone: 1990 diphtheria, tetanus toxoids and pertussis vaccine Omayra Addison PA-C Work Phone: [facility] Work Phone: 1990 haemophilus influenz ae type b vaccine, HbOC conjugate Omayra Addison PA-C Work Phone: [facility] Work Phone: 1990 trivalent poliovirus vaccine, live, oral Omayra Addison PA-C Work Phone: [facility] Work Phone: 1990 diphtheria, tetanus toxoids and acellular pertussis vaccine Omayra Addison PA-C Work Phone: [facility] Work Phone: Payers Date Payer Category Payer Unknown [employer] PPO [id number] 2021-Present [phone] [address] [place] [address] PPO [id number] 2021 Unknown [id number] 1990 Unknown [id number] 1990 Unknown [id number] Unknown [id number] Unknown [id number] Social History Date Type Detail Facility [facility]11[facility] Start: 11-11-2013 History of tobacco use Cigarette Smo ker [facility] Start: 02-06-2023 Tobacco use and exposure Forme r smokeless tobacco user [facility] History of tobacco use [facility] Start: 02-06-2023 End: 04-27-2023 Alcohol intake Current non-drinker of alcohol (finding) [facility] Start: 02-06-2023 End: 03-19-2023 History of Social function [facility] Start: 02-06-2023 End: 03-19-2023 Tobacco use panel [facility] Adult Depression Scr eening Assessment 0 [facility] Start: 02-06-2023 Tobacco Comment smokes 2-3 pac ks per week [facility] Start: 1990 Sex Assigned At Not on file [facility] Start: 04-27-2023 [facility] Start: 11-11-2013 History of tobacco use Current smoke r [facility] Start: 04-27-2023 Tobacco use and exposure User of smokeless tobacco [facility] Start: 04-27-2023 Tobacco Comment Nicotine pouches [facility] Clinical Notes 02-05-2015 to 04-27-2023 Nuha Day PA - 04/27/2023 7:48 AM ESTPatient Omayra Otero PA-C - 03/26/2023 8:30 AM EST Note Date & Type Note Facility 04-27-2023 Note HNO ID: [id number] Author: Nuha Day PA Service: ? Author Type: Physician Studio Operator Type: Progress Notes Filed: 04/27/2023 7:50 AM Note Text: 32-year-old female with history of seizure disorder presents for seizure and some memory loss. Patient states she had a seizure at work 4 days ago. She fell and hit her head on the ground. She states that the next day during work, she forgot 6 hours of it and does not recall working for 6 hours. No numbness, tingling, weakness, vision changes or headache. Due to memory loss, head injury and seizure, recommended patient be evaluated in the emergency room. Discussed EMS, but patient's friend states she will drive her. Patient is neurologically intact here. Normal gait. Patient unsure which ER they are going to go to. [facility] 04-27-2023 History of Presen t illness Narrative 32-year-old female with history of seizure disorder presents for seizure and some memory loss. Patient states she had a seizure at work 4 days ago. She fell and hit her head on the ground. She states that the next day during work, she forgot 6 hours of it and does not recall working for 6 hours. No numbness, tingling, weakness, vision changes or headache. Due to memory loss, head injury and seizure, recommended patient be evaluated in the emergency room. Discussed EMS, but patient's friend states she will drive her. Patient is neurologically intact here. Normal gait. Patient unsure which ER they are going to go to. documented in this encounter [facility] 03-26-2023 Note HNO ID: [id number] Author: Omayra Addison PA-C Service: ? Author Type: Physician Studio Operator Type: Progress Notes Filed: 03/26/2023 8:54 AM Note Text: [facility] Patient Name: Gale Dickson Date of : 1990 ESTABLISHED EPILEPSY CLINIC NOTE 03/26/2023 8:30 AM Reason for Visit: Follow Up and Seizures Clinical Summary: Ms. Dickson is a 32 year old right-handed female seen in [facility]. We had a visit using: Independent Space I received consent from the patient to perform the visit using this platform. There is no one accompanying the patient during today's visit. HISTORY OF PRESENT ILLNESS Handedness: right-handed Age of onset: 29 years Interval History Seizure medication: Keppra 500mg BID Side effects: none Seizures: She had a couple episodes at work one night, but missed her medication that evening. She does not remember them, and only remembers she felt strange before she had STEPHANIE. She looked at her fitbit and her HR decreased at the time she felt strange. Her coworker saw her pass out, and her micrographics services supervisor said she was convulsing, foaming at the mouth, and it clustered x2. She recovered in ~5 minutes and she finished out her shift. Her said she also had a couple last night. She does not remember, but woke up today sore and tongue hurt (the back). She had a drink the day before, and had not been drinking since these seizures started. Other health: She has noticed the drop in HR around her seizures. No drop in HR otherwise. She has not seen cardiology in the past. No other new health concerns. Total # of Current Anti-seizure Medications: 1 Side Effects to Current Anti-seizure Medications: none Seizure Frequency at First Visit: 2 per week Number of seizure types: 1 Hx of generalized tonic-clonic seizures: No Tongue bite: No Urine or Bowel Incontinence: No Postictal Deficits: No Status Epilepticus or clusters: No Postictal Agitation: No Seizure-related driving accidents: No Driving: No Lives Alone: No ED Visits in Last 3 Months: No Hospitalizations in Last 3 Months: No Highest Level of Education: High school graduate (includes GED) Current Vocation: She works 3rd shift at a [employer] CURRENT OUTPATIENT ANTISEIZURE MEDICATIONS (as of the start of the encounter) levETIRAcetam (KEPPRA) 500 mg tablet Take 1 tablet by mouth two times a day. Prior Anti-seizure Therapies: Trial Adequacy: Max Daily Dose Achieved: Side Effects: Effectiveness: Comments: Levetiracetam Episode Description: SEIZURE TYPE 1: Paroxysmal event Description: Non epileptic spell- EMU confirmed. Loss of awareness: Duration: Frequency: Last occurred: Patient Entered Data: EPILEPSY SCORE 03/19/2023 4:39 PM 03/19/2023 4:32 PM PHQ-9 SCORE 3 [None-Minimal Depression] - ART 2 SCORE 0 [Negative Anxiety Screen] - ART 7 SCORE - - QOLIE-10 SCORE (0=worst; 100=best QoL - higher scores represent better function) 14 - LSSS SCORE (0- no seizures 100- most severe possible seizures) 45 - C-SSRS SCREEN - - On average, how many hours of sleep do you get in a 24-hour period? 4 - PROMIS Sleep Disturbance T-SCORE - 62 [moderate] Have you been diagnosed with Sleep Apnea? 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 Those resolved after diagnosis without CBT, however in summer 2022 she developed new episodes different than her previously diagnosed PNES. Now, she described convulsive episodes lasting several minutes with loss of awareness and no warning whereas before, she would have episodes of jerking/movements with retained awareness and some warning prior. She was started on Keppra, and her episodes responded. No side effects to Keppra. She had follow up monitoring with VEEG, but no episodes or interictal activity was recorded. She was continued on Keppra for potential seizure treatment. Interval Impression: Since discharge aGle was doing well, except two evenings of breakthrough seizures, one in relation to missing Keppra and another possibly secondary to alcohol consumption. We discussed possibly a little extra protection with increased Keppra dosing would be warranted. If episodes continue or worsen, further monitoring for diagnosis may be needed. PLAN: - Increase Keppra to 750mg BID. Rx escripted. - LAB: LEV level 1 week after increase - Seizure safety/precautions - Further monitoring for diagnosis if seizures continue/ increase in frequency - Follow up: [address] Ray Foote I discussed the risks, benefits and alternatives of the medical plan with the patient. Questions were answered. The patient agreed with the plan as discussed. FOLLOW-UP: Return in about 3 months (around 06/26/2023). I spent a total of 25 minutes on the date of the service which included: prep (more content not included)... [facility] 03-26-2023 Instructions Omayra Addison PA-C - 03/26/2023 8:51 AM EST Please increase Keppra to 750mg twice daily: -You can use up your 500mg tabs by taking 1.5 tablets twice daily -[facility] - once you pick those up you will take 1 pill twice daily Please stop into a [facility] lab to have your level drawn in ~1 week, around 04/02/2023 Let the office know if you have further seizures or issues with medication documented in this encounter [facility] 03-26-2023 History of Presen t illness Narrative [facility] Patient Name: Gale Dickson Date of : 1990 ESTABLISHED EPILEPSY CLINIC NOTE 03/26/2023 8:30 AM Reason for Visit: Follow Up and Seizures Clinical Summary: Ms. Dickson is a 32 year old right-handed female seen in [facility]. We had a visit using: Independent Space I received consent from the patient to perform the visit using this platform. There is no one accompanying the patient during today's visit. HISTORY OF PRESENT ILLNESS Handedness: right-handed Age of onset: 29 years Interval History Seizure medication: Keppra 500mg BID Side effects: none Seizures: She had a couple episodes at work one night, but missed her medication that evening. She does not remember them, and only remembers she felt strange before she had STEPHANIE. She looked at her fitbit and her HR decreased at the time she felt strange. Her coworker saw her pass out, and her micrographics services supervisor said she was convulsing, foaming at the mouth, and it clustered x2. She recovered in ~5 minutes and she finished out her shift. Her said she also had a couple last night. She does not remember, but woke up today sore and tongue hurt (the back). She had a drink the day before, and had not been drinking since these seizures started. Other health: She has noticed the drop in HR around her seizures. No drop in HR otherwise. She has not seen cardiology in the past. No other new health concerns. Total # of Current Anti-seizure Medications: 1 Side Effects to Current Anti-seizure Medications: none Seizure Frequency at First Visit: 2 per week Number of seizure types: 1 Hx of generalized tonic-clonic seizures: No Tongue bite: No Urine or Bowel Incontinence: No Postictal Deficits: No Status Epilepticus or clusters: No Postictal Agitation: No Seizure-related driving accidents: No Driving: No Lives Alone: No ED Visits in Last 3 Months: No Hospitalizations in Last 3 Months: No Highest Level of Education: High school graduate (includes GED) Current Vocation: She works 3rd shift at a [employer] CURRENT OUTPATIENT ANTISEIZURE MEDICATIONS (as of the start of the encounter) levETIRAcetam (KEPPRA) 500 mg tablet Take 1 tablet by mouth two times a day. Prior Anti-seizure Therapies: Trial Adequacy: Max Daily Dose Achieved: Side Effects: Effectiveness: Comments: Levetiracetam Episode Description: SEIZURE TYPE 1: Paroxysmal event Description: Non epileptic spell- EMU confirmed. Loss of awareness: Duration: Frequency: Last occurred: Patient Entered Data: EPILEPSY SCORE 03/19/2023 4:39 PM 03/19/2023 4:32 PM PHQ-9 SCORE 3 [None-Minimal Depression] - ART 2 SCORE 0 [Negative Anxiety Screen] - ART 7 SCORE - - QOLIE-10 SCORE (0=worst; 100=best QoL - higher scores represent better function) 14 - LSSS SCORE (0- no seizures 100- most severe possible seizures) 45 - C-SSRS SCREEN - - On average, how many hours of sleep do you get in a 24-hour period? 4 - PROMIS Sleep Disturbance T-SCORE - 62 [moderate] Have you been diagnosed with Sleep Apnea? 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 Those resolved after diagnosis without CBT, however in summer 2022 she developed new episodes different than her previously diagnosed PNES. Now, she described convulsive episodes lasting several minutes with loss of awareness and no warning whereas before, she would have episodes of jerking/movements with retained awareness and some warning prior. She was started on Keppra, and her episodes responded. No side effects to Keppra. She had follow up monitoring with VEEG, but no episodes or interictal activity was recorded. She was continued on Keppra for potential seizure treatment. Interval Impression: Since discharge Gale was doing well, except two evenings of breakthrough seizures, one in relation to missing Keppra and another possibly secondary to alcohol consumption. We discussed possibly a little extra protection with increased Keppra dosing would be warranted. If episodes continue or worsen, further monitoring for diagnosis may be needed. PLAN: - Increase Keppra to 750mg BID. Rx escripted. - LAB: LEV level 1 week after increase - Seizure safety/precautions - Further monitoring for diagnosis if seizures continue/ increase in frequency - Follow up: [address] Ray Foote I discussed the risks, benefits and alternatives of the medical plan with the patient. Questions were answered. The patient agreed with the plan as discussed. FOLLOW-UP: Return in about 3 months (around 06/26/2023). I spent a total of 25 minutes on the date of the service which included: preparing to see the patient [id number] patient care completing clinical documentation ordering medications, tests, or procedures Omayra Addison PA-C documented in this encounter [facility] 02-24-2023 Note HNO ID: [id number] Author: Note, Interface Service: ? Author Type: ? Type: Progress Notes Filed: 02/24/2023 1:55 AM Note Text: Epic Scheduled Downtime: 02/24/2023 1:00:00 AM to 02/24/2023 1:28:00 AM [facility] 02-18-2023 Note HNO ID: [id number] Author: Karyn Varela MD Service: Neurology Adult Epilepsy Author Type: Physician Type: Progress Notes Filed: 02/18/2023 9:45 PM Note Text: NEUROLOGY EPILEPSY MONITORING UNIT (EMU) PROGRESS NOTE SERVICE DATE: 02/18/2023 SERVICE TIME: 8:47 AM Subjective No complaints. No seizures overnight. Sleep deprived until 5 AM. New Problems Since Admission: None Home Anti-Epileptic Drugs: LEV 500 mg BID Anti Epileptic Drugs Here: None Objective 02/17/23 1605 02/17/23 1929 02/17/23 2316 02/18/23 0448 BP: 120/73 127/65 126/89 108/64 Pulse: (!) 46 (!) 58 65 (!) 54 Resp: 16 16 16 16 Temp: 36.8 ?C (98.3 ?F) 36.9 ?C (98.4 ?F) 36.4 ?C (97.6 ?F) 36.5 ?C (97.7 ?F) TempSrc: Oral Oral Oral Oral SpO2: 100% 100% 100% 100% Weight: Height: EKG, Telemetry, EEG, Monitors AND Alarms are on: Yes Written order: Remains standing. Seizure Detection Software on: Yes channel layer has been Notified: Yes labeling associate has been Notified: Yes EXAM: Mental Status: Alert and oriented to person, place and time. Able to follow 1 and 2 step commands. Cranial Nerves: Pupils equal and reactive to light, extraocular muscles intact. No nystagmus, face symmetric. Motor: Moves all extremities equally. Sensation: Intact to light touch. Coordination: No dysmetria Exam otherwise unchanged. DATA: Diagnostic tests reviewed for today's visit: Most recent labs and imaging results. Assessment Active Hospital Problems Seizure-like activity (HCC) (POA: Yes) Assessment: Gale Dickson 32 year old right handed female with a PMH of headaches and PNES admitted for diagnostic evaluation of new seizure-like episodes. Patient of Dr. Foote last seen on 02/06/2023 by Rylee Monae CNP.Was previously admitted to the EMU from 11/22/2019- 11/24/2019 which captured 2 typical events without EEG change and was diagnosed with PNES. Now having new episodes described as cessation of activity and staring with loss of awareness followed by fall to the ground with movement of her upper body like she is doing crunches lasting between 2.5 minutes up to 15 minutes. She estimates a total of 25 episodes since onset with last episode two weeks ago. Was recently admitted to [facility] for these episodes and started on LEV 500 mg BID. Since starting LEV she has not had any additional episodes. Plan: - Continuous VEEG for seizure monitoring - ASM plan: LEV 500 mg BID - HELD on admission - Seizure rescue plan: Ativan 2 mg IV for seizure >3 minutes or 3 or more seizures in 8 hours (if NO IV access give Midazolam 5 mg intramuscular) - Seizure and fall precautions - Neurochecks and vitals Q4H - Continuous telemetry and pulse ox monitoring - Admission labs pending - DVT ppx: ICPs bilaterally Plan of care discussed with Provider, RN, Patient . SIGNATURE: Tiny Espinosa PA-C PATIENT NAME: Gale Dickson DATE: February 18, 2023 TIME: 8:47 AM EPILEPSY CENTER STAFF NOTE [facility] [place] STAFF PHYSICIAN NOTE OF PERSONAL INVOLVEMENT IN CARE Patient seen on rounds this morning. I have reviewed the progress note obtained and documented by the physician behavioral modification assistant and I personally participated in the dougherty components. I have discussed the case and management of the patient's care. The following comments revise or confirm relevant dougherty components of the note. S: No seizures overnight. The day's recording was personally reviewed and the results of the evaluation to date are summarized below. VIDEO-EEG MONITORING PRELIMINARY SUMMARY: Interictal findings: normal Ictal findings: none IMPRESSION: This is a 32yo RH woman with headache, prior diagnosis of PNES in 2020, here with new episodes which she has no memory of, cannot describe. She feels levetiracetam has decreased the frequency of her episodes. She requests discharge tomorrow. PLAN: Continue video-EEG as we restart levetiracetam 500 mg BID for possible seizures, as this video-EEG evaluation as been inconclusive and episodes seem to have responded to levetiracetam. She will f/u with Dr. Foote in Epilepsy Clinic. Anticipate discharge tomorrow by 10am. If patient is having seizures or seizure-like episodes, ictal EEG changes should be confirmed before administering Ativan: call EEG reader on-call ([phone]) or EEG fellow on-call (pager [phone]). For clinical issues, call Epilepsy On-Call Pager [phone]. Karyn Varela MD Epilepsy Staff Date of Service: 02/18/2023 [facility] 02-17-2023 Note HNO ID: [id number] Author: Karyn Varela MD Service: Neurology Adult Epilepsy Author Type: Physician Type: Progress Notes Filed: 02/17/2023 8:41 PM Note Text: NEUROLOGY EPILEPSY MONITORING UNIT ([facility]) PROGRESS NOTE SERVICE DATE: 02/17/2023 SERVICE TIME: 11:38 AM Subjective No complaints. No seizures overnight. New Problems Since Admission: None Home Anti-Epileptic Drugs: LEV 500 mg BID Anti Epileptic Drugs Here: NONE - Held 10/7 PM Objective 02/17/23 0400 02/17/23 0747 02/17/23 1118 02/17/23 1121 BP: 123/64 123/71 Pulse: (!) 42 (!) 40 (!) 43 Resp: 16 17 Temp: 36.3 ?C (97.3 ?F) 36.8 ?C (98.2 ?F) TempSrc: Oral Oral SpO2: 99% 100% 100% Weight: 94 kg (207 lb 3.7 oz) Height: EKG, Telemetry, EEG, Monitors AND Alarms are on: Yes Written order: Remains standing. Seizure Detection Software on: Yes channel layer has been Notified: Yes labeling associate has been Notified: Yes EXAM: Mental Status: Alert and oriented to person, place and time. Able to follow 1 and 2 step commands. Cranial Nerves: Pupils equal and reactive to light, extraocular muscles intact. No nystagmus, face symmetric. Motor: Moves all extremities equally. Sensation: Intact to light touch. Coordination: No dysmetria Exam otherwise unchanged. DATA: Component Latest Ref Rng AND Units 02/16/2023 02/17/2023 WBC 3.70 - 11.00 k/uL 10.73 RBC 3.90 - 5.20 m/uL 4.21 Hemoglobin 11.5 - 15.5 g/dL 12.5 Hematocrit 36.0 - 46.0 % 36.5 MCV 80.0 - 100.0 fL 86.7 MCH 26.0 - 34.0 pg 29.7 MCHC 30.5 - 36.0 g/dL 34.2 RDW-CV 11.5 - 15.0 % 12.7 Platelet Count 150 - 400 k/uL 243 MPV 9.0 - 12.7 fL 9.8 Neut% % 60.8 Abs Neut (ANC) 1.45 - 7.50 k/uL 6.52 Lymph% % 29.9 Abs Lymph 1.00 - 4.00 k/uL 3.21 [place]% % 6.6 Abs [place] <0.87 k/uL 0.71 Eosin% % 1.5 Abs Eosin <0.46 k/uL 0.16 Baso% % 0.7 Abs Baso <0.11 k/uL 0.08 Immature Gran % % 0.5 IMMATURE GRANS (ABS) <0.10 k/uL 0.05 NRBC /100 WBC 0.0 Absolute nRBC <0.01 k/uL <0.01 DTYPE Auto Protein, Total 6.3 - 8.0 g/dL 5.9 (L) Albumin 3.9 - 4.9 g/dL 4.1 Calcium 8.5 - 10.2 mg/dL 9.1 Bilirubin, Total 0.2 - 1.3 mg/dL 0.6 Alkaline Phosphatase 34 - 123 U/L 58 AST 13 - 35 U/L 14 ALT 7 - 38 U/L 10 Glucose 74 - 99 mg/dL 80 BUN 7 - 21 mg/dL 6 (L) Creatinine 0.58 - 0.96 mg/dL 0.63 Sodium 136 - 144 mmol/L 141 Potassium 3.7 - 5.1 mmol/L 3.8 Chloride 97 - 105 mmol/L 106 (H) CO2 22 - 30 mmol/L 23 Anion Gap 9 - 18 mmol/L 12 eGFR >=60 mL/min/1.73mA? 121 Magnesium 1.7 - 2.3 mg/dL 2.3 Phosphorus 2.7 - 4.8 mg/dL 3.7 HCG Qualitative, Urine Negative Negative Diagnostic tests reviewed for today's visit: Most recent labs Assessment Active Hospital Problems Seizure-like activity (HCC) (POA: Yes) Assessment: Gale Dickson 32 year old right handed female with a PMH of headaches and PNES admitted for diagnostic evaluation of new seizure-like episodes. Patient of Dr. Foote last seen on 02/06/2023 by Rylee Monea CNP.Was previously admitted to the EMU from 11/22/2019- 11/24/2019 which captured 2 typical events without EEG change and was diagnosed with PNES. Now having new episodes described as cessation of activity and staring with loss of awareness followed by fall to the ground with movement of her upper body like she is doing crunches lasting between 2.5 minutes up to 15 minutes. She estimates a total of 25 episodes since onset with last episode two weeks ago. Was recently admitted to [facility] for these episodes and started on LEV 500 mg BID. Since starting LEV she has not had any additional episodes. Plan: - Continuous VEEG for seizure monitoring - ASM plan: LEV 500 mg BID - HELD on admission - Seizure rescue plan: Ativan 2 mg IV for seizure >3 minutes or 3 or more seizures in 8 hours (if NO IV access give Midazolam 5 mg intramuscular) - Seizure and fall precautions - Neurochecks and vitals Q4H - Continuous telemetry and pulse ox monitoring - Admission labs pending - DVT ppx: ICPs bilaterally Plan of care discussed with Provider, RN, Patient . SIGNATURE: Robin Malloy PA-C PATIENT NAME: Gale Dickson DATE: February 17, 2023 TIME: 11:39 AM [facility] STAFF NOTE [facility] STAFF PHYSICIAN NOTE OF PERSONAL INVOLVEMENT IN CARE Patient seen on rounds this morning. I have reviewed the progress note obtained and documented by the physician behavioral modification assistant and I personally participated in the dougherty components. I have discussed the case and management of the patient's care. The following comments revise or confirm relevant dougherty components of the note. S: No seizures overnight. The day's recording was personally reviewed and the results of the evaluation to date are summarized below. VIDEO-EEG MONITORING PRELIMINARY SUMMARY: Interictal findings: normal Ictal findings: none (more content not included)... [facility] 02-06-2023 Note HNO ID: [id number] Author: Rylee Monae APRN.DIRECTOR SOCIAL SERVICE Service: ? Author Type: Nurse Practitioner Type: Progress Notes Filed: 02/06/2023 11:05 AM Note Text: Please route this encounter to the EMU Scheduling Pool ( P EMU ) or PMU Scheduling Pool ( P PMU ) through LOS AND Follow up PHASE 1.0 AND 1.5 ORDER SYNOPSIS Patient: Gale Dickson ([id number]) Best contact number: [phone] Insurance: Payor: JEROD / Plan: BLUE ACCESS PPO / Product Type: PPO / ----- Scheduling Team: Please call for adult patients: Vilma Alicea ([phone]) Siobhan Quinn ([phone]) Geri Nova ([phone]) Nitza Tan([phone]) Georgiana Mtz([phone]) Please call for pediatric patients: Nitza Tan ([phone]) Vilma Alicea ([phone]) Siobhan Quinn ([phone]) Geri Nova ([phone]),Georgiana Mtz([phone]) ----- 02/06/2023 Admission Type EMU Adult Number of Days requested 4 Location [facility] Admit Priority Routine PURPOSE 02/06/2023 Patient Being Considered for Epilepsy Surgery? No VEEG recommended to assess seizure burden, address new AND concerning syymptom-sign complex, and/or clarify syndromic epilepsy diagnosis? Yes 02/06/2023 Sphenoidal monitoring No Electrode placement Standard Appointments and Tests EPIL VEEG ADMIT TO EMU/PMU Comments: If patient cannot find time to schedule EMU admission, we can consider at-home Stratus Consultations None Please route this encounter to the EMU Scheduling pool ( P EMU ) or PMU Scheduling pool ( P PMU ) through LOS AND Follow up Scheduling coordinators: For all VNS patients being scheduled for [facility], please schedule VNS off/on office visits. [facility] 02-06-2023 Note HNO ID: [id number] Author: Rylee Monae APRN.KEITH Service: ? Author Type: Nurse Practitioner Type: Progress Notes Filed: 02/06/2023 10:50 AM Note Text: [facility] Patient Name: Gale Dickson Date of : 1990 ESTABLISHED EPILEPSY CLINIC NOTE 02/06/2023 10:00 AM Reason for Visit: Seizures Clinical Summary: Ms. Dickson is a 32 year old right-handed female seen in [facility]. At today's visit, the patient is accompanied by: her friend, nikos Classification Summary HISTORY OF PRESENT ILLNESS Handedness: right-handed Age of onset: 29 years Seizure History and Evolution 29 year old woman evaluated for spells. Two episodes she describes- first was evaluated at [facility]- records sent over this AM and scanned into the record. The first episode she felt things were moving side to side and could not focus. She had a feeling of numbness in the back of her neck and she had problem where she could not stop her hands/arm and legs jerking. This started at 8 PM Sunday and continued till 10 AM the next morning. She also associated with it she had problem getting words out and talking. She had another episode- she was coming home from work. She felt thinks moving side to side in her vision. She felt like she could not focus and paresthesias in the back of her head and she could not control her arms and legs and that went away, the symptoms lasted about 1 hour or so. She was aware and did not lose awareness. The first episode her boss was concerned that she may have transiently pass out and was unresponsive. No prior history of similar episodes. No associated with headache or pain. No specific triggers that she identifies. No prior history of fainting, seizures or neurological problems. In the third grade she did get dizzy spells at that time. No family history of neurological disease. No family history of syncope or fainting. No positional orthostatic provocation of the symptoms. Interval Seizure History Ms. Dickson was last seen in January [address] Foote following an EMU admission from 11/22/2019- 11/24/2019 that confirmed PNES. During that evaluation, she had 2 typical events without EEG change: 1E on 11/22 at 1528: bilateral upper extremity jerking and 2E on 11/22 at 2051: states different parts of her head fall asleep> vision vibrating> bilateral upper extremity jerking. After this evaluation, the diagnosis and follow up with Psychology was discussed. Today, Ms. Dickson states that over the past 4 weeks, she estimates that she has had at least 25 seizures. She was recently admitted to [facility] for the same, discharged yesterday. She does not recall her seizures, her best friend describes that she will stop interacting with people, gets a blank stare and then starts convulsing. The next thing she knows, she is surrounded by people. 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 She states that her previous episodes were preceded being a feeling that one was going to occur, and she would often retain her awareness during them. Now she is having episodes that occur without warning and during which she loses awareness. No loss of bowel or bladder. She has hit her hit against the floor during these seizures, bit the inside of her lip but denies any tongue bites. After her evaluation in 2019 and subsequent diagnosis of PNES, she denies pursuing any CBT treatment as recommended but does endorse that her episodes improved. She went almost 3 years without any episodes until her current episodes began about 1 month ago. She denies any clear life changes that correlate with these new episodes. She continues to work at her same job, take her of 2 kids (ages 8 and 7). She lives with her . No recent illness, no changes in diet, no new medications though she was started on Keppra 500mg BID at the [facility] this week. Of note, her had tried LEV for seizures and gave him mood side effects so she is concerned for the same in her. Total # of Current Anti-seizure Medications: Side Effects to Current Anti-seizure Medications: Seizure Frequency at First Visit: 2 per week Longest Seizure-free Interval: Number of seizure types: 1 Hx of generalized tonic-clonic seizures: No Tongue bite: No Urine or Bowel Incontinence: No Postictal Deficits: No Status Epilepticus or clusters: No Postictal Agitation: No Seizure-related driving accidents: No Driving: No Lives Alone: No Highest Level of Education: High school graduate (includes GED) CURRENT OUTPATIENT ANTISEIZURE MEDICATIONS (as of the start of the encounter) None Prior Anti-seizure Therapies: Trial Adequacy: Max Daily Dose Achieved: Side Effects: Effectiveness: Comments: Comorbidities: Episode Description: SEIZURE TYPE 1: Paroxysma (more content not included)... [facility] documented as of this encounter (statuses as of 03/26/2023) [facility] History of Past illness Narrative* Problem Noted Date Diagnosed Date Resolved Date Short interval between pregn ancies affecting in first trimester, antepartum 02/05/2015 11/23/2019 Encounter for supervision of normal first in first trimester 02/05/2015 04/13/2015 Dizziness 08/13/2014 11/23/2019 Last Assessment & Plan: Started 5/6 days ago, Was taking care of the baby when she noticed some dizziness and then she felt unstable And the room spinning around her Like she is going to fall down Sometimes she feels like she is going to puke This happens every times she moves her head too fast. Or if she changes direction when she walks. She does not have any leg pain, no vaginal bleeding Breast feeding but drinks a lot of water. She is not very stressed at this point. Recent hemoglobin was 14. She has no chest pain or SOB above her normal. Anemia in 05/19/2014 11/23/19 20 Nausea and vomiting in 11/20/2013 12/08/2013 Overview: 11/20/2013Patient is complaining of nausea and vomiting in . Advised patient to call/come in if she is unable to keep any food or fluids down in a 24-hour period. Patient declines a prescription for the nausea. Recommended vitamin B6 100 mg daily.TKRN documented as of this encounter (statuses as of 04/17/2023) [facility] History of Past illness Narrative* Problem Noted Date Diagnosed Date Resolved Date Short interval between pregn ancies affecting in first trimester, antepartum 02/05/2015 11/23/2019 Encounter for supervision of normal first in first trimester 02/05/2015 04/13/2015 Dizziness 08/13/2014 11/23/2019 Last Assessment & Plan: Started 5/6 days ago, Was taking care of the baby when she noticed some dizziness and then she felt unstable And the room spinning around her Like she is going to fall down Sometimes she feels like she is going to puke This happens every times she moves her head too fast. Or if she changes direction when she walks. She does not have any leg pain, no vaginal bleeding Breast feeding but drinks a lot of water. She is not very stressed at this point. Recent hemoglobin was 14. She has no chest pain or SOB above her normal. Anemia in 05/19/2014 11/23/19 20 Nausea and vomiting in 11/20/2013 12/08/2013 Overview: 11/20/2013Patient is complaining of nausea and vomiting in . Advised patient to call/come in if she is unable to keep any food or fluids down in a 24-hour period. Patient declines a prescription for the nausea. Recommended vitamin B6 100 mg daily.TKRN documented as of this encounter (statuses as of 04/27/2023) [facility] Convulsions, unspecified convulsion type (HCC)- Primary [facility] encounter [facility] Diagnosis Seizures (HCC)- Primary Other convulsions Memory loss documented in this encounter [facility] Summary Purpose Family History No Family History Records FoundNo Family History Records FoundNo Family History Records FoundNo Family History Records FoundNo Family History Records FoundNo Family History Records Found Advance Directives No Advanced Directives Records FoundNo Advanced Directives Records FoundNo Advanced Directives Records FoundNo Advanced Directives Records FoundNo Advanced Directives Records FoundNo Advanced Directives Records Found Additional Source Comments INFORMATION SOURCE (unrecogn ized section and content) DATE CREATED AUTHOR AUTHOR'S ORGANIZ ATION 12/05/2019 [facility] DATE CREATED AUTHOR AUTHOR'S ORGANIZ ATION 12/05/2019 [facility] DATE CREATED AUTHOR AUTHOR'S ORGANIZ ATION 05/18/2020 [facility] DATE CREATED AUTHOR AUTHOR'S ORGANIZ ATION 04/29/2023 [facility] DATE CREATED AUTHOR AUTHOR'S ORGANIZ ATION 04/29/2023 [facility] Source Comments (unrecognize d section and content) In the event this informatio n is protected by the Federal Confidentiality of Alcohol and Drug Abuse Patient Records regulations: The Federal rules restrict any use of the information to criminally investigate or prosecute any alcohol or drug abuse patient.[facility] the event this information is protected by the Federal Confidentiality of Alcohol and Drug Abuse Patient Records regulations: The Federal rules restrict any use of the information to criminally investigate or prosecute any alcohol or drug abuse patient.[facility] the event this information is protected by the Federal Confidentiality of Alcohol and Drug Abuse Patient Records regulations: The Federal rules restrict any use of the information to criminally investigate or prosecute any alcohol or drug abuse patient.[facility] Reason for Visit (unrecogniz ed section and content) FOR RECORDS PERTAINING TO PATIENTS WHO ARE OR HAVE BEEN ENROLLED IN A CHEMICAL DEPENDENCY/SUBSTANCEABUSE PROGRAM, SOME INFORMATION MAY BE OMITTED. This clinical summary was aggregated from multiple sources. Caution should be exercised in using it in the provision of clinical care. This summary normalizes information from multiple sources, and as a consequence, information in this document may materially change the coding, format and clinical context of patient data. In addition, data may be omitted in some cases. CLINICAL DECISIONS SHOULD BE BASED ON THE PRIMARY CLINICAL RECORDS. [facility]. provides no warranty or guarantee of the accuracy or completeness of information in this document.
[2023-06-28 04:50] LABS: Anion Gap 6 (5-15); BUN 8 mg/dL (7-18); BUN/Creat Ratio 9.3 RATIO (10-20); Calcium,Total 9.2 mg/dL (8.5-10.1); Chloride 108 mmol/L (98-107); Creatinine, Serum 0.86 mg/dL (0.55-1.02); EST Glomerular Filtration Rate 81 mL/min (>60); Est Glom Filt Rate - Afr Amer 97 mL/min (>60); Glucose 105 mg/dL (74-106); Potassium 3.5 mmol/L (3.5-5.1); Sodium Level 141 mmol/L (136-145)
[2023-06-28 04:51] VITALS: BP 121/73; PULSE 91; RESP 16; O2SAT 97
[2023-06-28 04:55] LABS: Lactic Acid 1.9 mmol/L (0.4-1.9)
[2023-06-28 05:33] LABS: Bacteria 0 SEEN /hpf (None Seen); Mucous, Urine 0 SEEN /hpf (<or=2+); Red Blood Cells-Urine 0 SEEN /hpf (0-5); White Blood Cells 0 SEEN /hpf (0-5)
--- NOTE | 2023-06-28 05:35 | EDS_ITS ---
HPI History of Present Illness Chief Complaint: Seizure Informant: patient and EMS Narrative Narrative: Patient is a 32-year-old female with past medical history of seizure-like activity. Reportedly she was at work this evening where and she began having bouts of shaking and confusion concerning for breakthrough seizure. Secondary to his EMS was called and they provide Valium. Upon arrival to the ER the patient is lethargic but will answer questions and there is no Active seizure activity noted. Patient states has been taking her Keppra as directed and otherwise denies any history of injury or sick symptoms [facility] Medical History (Updated 06/28/23 @ 05:[address] Carlos Duarte, DO) Abnormal bruising Chronic neck and back pain Lactic acidosis Limb weakness Home Medications levetiracetam 500 mg tablet (Keppra) 500 mg PO BID #30 tabs 02/05/23 [Rx Last Taken Unknown] Allergy/AdvReac Type Severity Reaction Status Date / Time No Known Allergies Allergy Verified 06/28/23 03:58 Surgical History History of dental surgery History of hysterectomy History of tubal ligation Social History Smoking Status: Never smoker alcohol intake: current ROS ROS ED Constitutional Constitutional ED: Denies chills or fever(s) ENT ENT ED: Denies rhinorrhea or sore throat Cardiovascular Cardiovascular: Denies chest pain or palpitations Respiratory/Chest Respiratory/Chest: Denies cough or dyspnea Gastrointestinal Gastrointestinal: Denies abdominal pain, diarrhea, nausea or vomiting Genitourinary Genitourinary ED: Denies dysuria Musculoskeletal Musculoskeletal: Denies back pain, myalgias or neck pain Integumentary Denies rash Neurologic Neurologic: Reports other Details: Positive seizure ; Denies headache(s) Hematologic/Lymphatic Hematologic/Lymphatic: Denies easy bleeding or easy bruising EXAM Physical Exam Const Vital Signs: 06/28/23 03:53 06/28/23 04:51 06/28/23 05:40 Temperature 97.4 F L 97.2 F L Temperature Source Oral Pulse Rate 102 H 91 91 Respiratory Rate 18 16 15 Blood Pressure 142/81 H 121/73 H 104/68 Blood Pressure Mean 101 89 80 Pulse Ox 100 97 98 Oxygen Delivery Method Room Air Room Air Positive well nourished and well developed General Appearance ED: well developed; Negative for pallor HEENT Reports moist mucous membranes HEENT Narrative: No signs of infection noted in the posterior pharynx No tongue or cheek biting noted Eyes EOMs intact bilaterally Eyes Narrative: Pupils are dilated and slightly sluggish to respond to light consistent with a recent Versed administration Neck supple Neck Narrative: No nuchal rigidity or meningeal signs No bony deformity or step-off of the cervical spine no midline pain on palpation Chest Wall palpation of chest normal Resp normal respiratory effort and clear to auscultation bilaterally Cardio regular rate and regular rhythm Rate: other Other Details: Radial and carotid pulses are equal and symmetric No carotid bruit noted GI normal to inspection, nondistended, normoactive bowel sounds, non-tender, non- distended and no masses Auscultation: normoactive bowel sounds Palpation: soft Back/Spine Back/Spine Narrative: No bony deformity or step-off of the thoracic or lumbar spine no midline pain on palpation Extremity normal to inspection Extremity Narrative: No bony deformity or joint effusion or signs of trauma Neuro oriented x3 and CN's II-XII intact bilaterally Neuro Narrative: Patient is obtunded with GCS of 14 but will awake to voice. Otherwise cranial nerves II through XII are grossly intact without focal neurologic deficit Sensorium / Orientation: orientation impaired Psych Psych Narrative: Patient has a depressed/flat affect Skin no rashes or lesions noted Skin Narrative: No overlying soft tissue changes to suggest trauma or infection General Skin Exam: Negative for jaundice or pallor MDM MDM MDM Narrative Medical decision making narrative: Patient arrived to the ER mildly hypertensive and tachycardic and was obtunded with GCS of 14 but protecting her airway so there is no need for emergent intubation. This is consistent with potential postictal phase as well as recent administration of Versed. Based on report from EMS the patient had breakthrough seizures there is concern for infective process as a cause versus [place] abnormality versus medication noncompliance. Secondary to this basic labs were obtained which revealed no clinically significant findings. Chart review revealed that patient was admitted to the hospital January of 2023 for similar event and at that time had a normal CT MRI and EEG. 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 As time passed the patient's mental status returned to baseline she had a GCS of 15 and her neuroexam was normal. Therefore at this time with improvement of mental status negative workup stable vitals and the fact that she has undergone studies for this in the past without obvious finding did not feel there is need for admission and patient will be discharged home History & Record Review Discussion w/independent historian: EMS personnel and Patient Lab Data Attestation: I reviewed the patient's lab results. Labs: Laboratory Results - last 24 hr 06/28/23 06/28/23 06/28/23 04:03 04:25 05:29 WBC 10.4 RBC 4.58 Hgb 13.1 Hct 40.0 MCV 87.3 MCH 28.6 MCHC 32.8 RDW Std Deviation 39.3 RDW Coeff of [place] 12.3 Plt Count 247 MPV 9.7 Immature Gran % (Auto) 0.300 Neut % (Auto) 66.0 Lymph % (Auto) 26.5 [place] % (Auto) 5.8 Eos % (Auto) 0.8 Baso % (Auto) 0.6 Absolute Neuts (auto) 6.9 Absolute Lymphs (auto) 2.77 Nucleated RBC % 0 Sodium 141 Potassium 3.5 Chloride 108 H Carbon Dioxide 27.0 Anion Gap 6 BUN 8 Creatinine 0.86 Estim Creat Clear Calc 111.70 Est GFR (MDRD) Af Amer 97 Est GFR (MDRD) Non-Af 81 BUN/Creatinine Ratio 9.3 L Glucose 105 Lactic Acid 1.9 Calcium 9.2 Urine Color Yellow Urine Clarity Sl. Cloudy Urine pH 6.5 Ur Specific [place] 1.020 Urine Protein Negative Urine Glucose (UA) Normal Urine Ketones Negative Urine Occult Blood Negative Urine Nitrite Negative Urine Bilirubin Negative Urine Urobilinogen Normal Ur Leukocyte Esterase Negative Urine RBC 0 SEEN Urine WBC 0 SEEN Ur Squamous Epith Cells 5-10 SEEN Urine Bacteria 0 SEEN Urine Mucus 0 SEEN Urine Opiates Screen NEGATIVE Urine Methadone Screen NEGATIVE Ur Barbiturates Screen NEGATIVE Ur Phencyclidine Scrn NEGATIVE Ur Amphetamines Screen NEGATIVE MDMA (Ecstasy) Screen NEGATIVE U Benzodiazepines Scrn POSITIVE H Urine Cocaine Screen NEGATIVE U Cannabinoids Screen NEGATIVE Ur Drug Screen Comment Radiography Diagnostic Testing: Clinical Impression(s) from Imaging Studies Chest X-Ray 06/28/23 04:17 IMPRESSION: No evidence of active intrathoracic disease. Electronically Signed: Dina oCrona MD at 4:58 EST , Chest x-ray as interpreted by the emergency medicine physician reveals no acute infiltrate pneumothorax or pleural effusion Discharge Plan Triage Chief Complaint: Seizure ED Provider: Carlos Duarte Dx/Rx/DC Orders Clinical Impression: Breakthrough seizure Instructions: How Seizures Affect the Body, Self-Care for Seizures Prescriptions: No Action levetiracetam [Keppra] 500 mg tablet 500 mg PO BID Qty: 30 1RF Primary Care Provider: Care Physician,No Primary Referrals: Cain Greer MD [Non-Staff -Ordering Privileges] - Care Physician,No Primary [Primary Care Provider] - Activity Restrictions/Additional Instructions: Please continue your Keppra as directed by your doctor and follow-up with neurology for repeat evaluation. If you have any further concerns or worsening of symptoms please return for repeat evaluation Disposition Disposition: Home, Self Care Discharge Date/Time: 06/28/23 05:41
[2023-06-28 05:40] VITALS: BP 104/68; PULSE 91; RESP 15; TEMP 36.2; O2SAT 98
[2023-06-28 05:47] LABS: Color, Urine Yellow (Yellow); Glucose, Dipstick Normal (Normal); Ketone-Dipstick Negative (Negative); Leukocyte Esterase-Dipstick Negative /ul (Negative); Nitrite-Dipstick Negative (Negative); Occult Blood-Urine Negative /ul (Negative); Protein-Dipstick Negative (Negative); Urine Bilirubin Dipstick Negative (Negative); Urine Clarity Sl. Cloudy (Clear); Urine Urobilinogen Normal (Normal); Urine pH 6.5 (5.0 - 8.0)
[2023-06-28 05:51] LABS: Squamous Epithelial Cells - UA 5-10 SEEN /hpf (5-10)
[2023-06-28 06:00] LABS: Amphetamine Urine VISTA NEGATIVE (<1000 ng/mL); Barbiturate Urine VISTA NEGATIVE (< 200 ng/mL); Benzodiazepine Urine VISTA POSITIVE (< 200 ng/mL); Cocaine Urine VISTA NEGATIVE (< 300 ng/mL); Ecstacy Urine VISTA NEGATIVE (< 500 ng/mL); Methadone Urine VISTA NEGATIVE (< 300 ng/mL); PCP Urine VISTA NEGATIVE (< 25 ng/mL); THC Urine VISTA NEGATIVE (< 50 ng/mL); Vista UDS pH Range 6
== END 2023-06-28 05:41 | disposition home or self-care (01) ==
PROVIDERS: Emergency Provider Emergency Medicine; Visit Provider Emergency Medicine
DX: R56.9 Unspecified convulsions (principal); F32.A Depression, unspecified; Z79.899 Other long term (current) drug therapy
CPT/HCPCS: 71045; 80048; 80177; 80307; 81001; 83605; 85025; 96360; 99283; J7030; A4216

== ENCOUNTER 2024-03-25 02:27 | Emergency (ER) | payer BC, SELFPAY ==
[2024-03-25 02:31] VITALS: BP 122/70; PULSE 72; RESP 16; TEMP 36.6; O2SAT 99; BMI 21.2
[2024-03-25 03:53] LABS: Anion Gap 8 (5-15); BUN 5 mg/dL (7-18); Calcium,Total 8.8 mg/dL (8.5-10.1); Chloride 112 mmol/L (98-107); Creatinine, Serum 0.72 mg/dL (0.55-1.02); EST Glomerular Filtration Rate 99 mL/min (>60); Est Glom Filt Rate - Afr Amer 120 mL/min (>60); Estimated Creatinine Clearance 104.04 ml/min; Glucose 123 mg/dL (74-106); Potassium 2.6 mmol/L (3.5-5.1); Sodium Level 142 mmol/L (136-145)
[2024-03-25] MEDS: Potassium Chloride Oral Tablet 20 MEQ 40 MEQ PO (04:16)
[2024-03-25 04:23] LABS: Magnesium 1.9 mg/dL (1.6-2.6)
[2024-03-25 04:49] VITALS: BP 113/77; PULSE 88; RESP 19; TEMP 36.8; O2SAT 98
== END 2024-03-25 04:50 | disposition home or self-care (01) ==
PROVIDERS: Emergency Provider Emergency Medicine; PCP Nurse Practitioner Family; Visit Provider Emergency Medicine
DX: R40.4 Transient alteration of awareness (principal); R00.2 Palpitations; R20.2 Paresthesia of skin; E87.6 Hypokalemia
CPT/HCPCS: 80048; 83735; 93005; 99285

== ENCOUNTER → 2024-06-09 | Outpatient (CLI) | payer BC, SELFPAY ==
[2024-06-09 10:04] LABS: ALB/GLOB Ratio 1.2 RATIO (0.9-2.4); AST(SGOT) 16 U/L (15-37); Alanine Aminotransfer ALT/SGPT 18 U/L (13-56); Albumin, Serum 3.9 g/dL (3.2-5.0); Alkaline Phosphatase 55 U/L (45-117); Anion Gap 8 (5-15); BUN 8 mg/dL (7-18); BUN/Creat Ratio 11.3 RATIO (10-20); Calcium,Total 9.4 mg/dL (8.5-10.1); Chloride 110 mmol/L (98-107); Creatinine, Serum 0.71 mg/dL (0.55-1.02); EST Glomerular Filtration Rate 101 mL/min (>60); Est Glom Filt Rate - Afr Amer 122 mL/min (>60); Globulin 3.2 g/dL (2.2-4.2); Glucose 95 mg/dL (74-106); Potassium 3.5 mmol/L (3.5-5.1); Protein, Total 7.1 g/dL (6.4-8.2); Sodium Level 141 mmol/L (136-145)
== END | disposition home or self-care (01) ==
LOC: LAB 08:51
PROVIDERS: PCP Nurse Practitioner Family; Referring Provider Internal Medicine Cardiovascular Disease; Visit Provider Internal Medicine Cardiovascular Disease
DX: R55 Syncope and collapse (principal); R00.0 Tachycardia, unspecified; Z86.39 Personal history of other endocrine, nutritional and metabolic disease
CPT/HCPCS: 36415; 80053; 84443

== ENCOUNTER → 2024-06-26 | Outpatient (CLI) | payer BC, SELFPAY ==
--- NOTE | 2024-06-26 12:39 | STRESSREP ---
Stress Test Report Date: 06/26/2024 Procedure: Exercise tolerance test/imaging study Indications: Syncope Consent: Per the patient Procedure: The patient exercised on a Cole protocol for 9 minutes achieving a peak heart rate of 176 bpm (94% predicted maximal heart rate) with a peak blood pressure 162/64 mmHg and a peak MET capacity of 10.1 METs. The baseline ECG demonstrated sinus rhythm. The peak exercise ECG demonstrated no ischemic changes. Rare PVCs noted during exercise and in recovery. The functional capacity was considered good. There was no complaint of chest discomfort during exercise or recovery. The examination was discontinued secondary to target heart rate being achieved. The patient was injected with 11.8 mCi of technetium 99m Cardiolite and subsequently rest SPECT Cardiolite nuclear imaging was obtained in the horizontal long, vertical long, and short axis views. Post-exercise, the patient was injected with 34.4 mCi of technetium 99m Cardiolite and subsequently stress SPECT Cardiolite nuclear imaging was obtained in the horizontal long, vertical long, and short axis views. A gated Cardiolite study at peak stress was obtained. Rest and stress SPECT Cardiolite nuclear imaging status post realignment, normalization, and attenuation correction, demonstrates the appearance of relative uniform tracer uptake and myocardial perfusion appearing within normal limits. There is end systolic thickening and brightening. The gated Cardiolite study demonstrates myocardial thickening and inward wall motion. The reported LVEF is 66%. Impression: 1. Technically adequate (percent predicted maximal heart rate greater than 85%) exercise tolerance test 2. Peak exercise ECG with no ischemic changes 3. Rare PVCs during exercise and in recovery including a couplet. 4. Rest and stress SPECT Cardiolite nuclear imaging demonstrate relative uniform tracer uptake and myocardial perfusion appearing within normal limits. 5. The gated Cardiolite study reports an LVEF of 66%. This note was generated with [email or web address] software. It may contain incorrect words, spelling, and punctuation that were not noted in checking the note before signing.
== END | disposition home or self-care (01) ==
LOC: CVS 06:43
PROVIDERS: PCP Nurse Practitioner Family; Referring Provider Internal Medicine Cardiovascular Disease; Visit Provider Internal Medicine Cardiovascular Disease
DX: R42 Dizziness and giddiness (principal); R55 Syncope and collapse; R00.2 Palpitations; R00.0 Tachycardia, unspecified
CPT/HCPCS: 78452; 93017; A9500; A4216

== ENCOUNTER → 2024-07-29 | Outpatient (CLI) | payer BC, SELFPAY ==
[2024-07-29 09:35] LABS: Absolute Lymphocyte Count 2.43 X10^3/uL (0.83-4.51); Absolute Neutrophil Count 6.9 X10^3/uL (2.0-7.7); Basophil# 0.11 X10^3/uL; Basophil% 1.1 % (0-1); Hematocrit 40.7 % (37-47); Hemoglobin 13.5 g/dL (12.0-15.0); Lymphocyte # 2.43 X10^3/ul (0.83-4.51); Lymphocyte % 24.1 % (19-41); Mean Corp Hgb Conc 33.2 g/dL (32-36); Mean Corpuscular Hgb 29.3 pg (27.0-32.0); Mean Corpuscular Volume 88.3 fL (81-99); Mean Platelet Vol. 9.2 fl (6.2-12.0); Monocyte# 0.49 X10^3/uL; Monocyte% 4.9 % (0-10); NRBC Flagged by Analyzer 0 % (0-5); Neutrophil # 6.86 X10^3/uL (2.7-7.7); Neutrophil % 68.1 % (47-70); Platelet Count 285 K/mm3 (150-450); RBC Distribution Width CV 12.7 % (11.6-14.6); RBC Distribution Width SD 41.1 fl (35.1-43.9); Red Blood Count 4.61 M/mm3 (4.2-5.4); White Blood Count 10.1 K/mm3 (4.4-11.0)
[2024-07-29 10:18] LABS: Anion Gap 9 (5-15); BUN 8 mg/dL (4-19); BUN/Creat Ratio 11.2 RATIO (10-20); Calcium,Total 9.5 mg/dL (7.6-11.0); Carbon Dioxide 23.9 mmol/L (21.0-32.0); Chloride 106 mmol/L (98-108); Creatinine, Serum 0.68 mg/dL (0.70-1.20); EST Glomerular Filtration Rate 118 (>60); Glucose 94 mg/dL (70-99); Potassium 3.7 mmol/L (3.3-5.1); Sodium Level 139 mmol/L (133-145)
--- NOTE | 2024-07-30 07:36 | PCM.TILTTABL ---
Staff Staff: Kayli Winn and Shelley Yates Summary Pre Test Resting HR: 71 Pre Test Resting BP: 103/69 Minimum Test HR: 62 Maximum Test HR: 144 Minimum Test BP: 105/66 Maximum Test BP: 127/83 Reason for Test Termination: Reached Maximum Test Time Physician Tilt Table Report Patient's Physicians Primary Care Physician: Linnette Reed Indications/Diagnosis: Recurrent syncope Procedure Comments: The patient was brought to the noninvasive lab in the postabsorptive nonsedated state. Initial vitals were obtained. Initial EKG demonstrated sinus rhythm with a rate of 71 bpm and blood pressure of 119/72 mmHg. Occasional premature ventricular complexes were noted. The patient was then put in the 70 degree head upright tilt position the patient maintained sinus rhythm throughout the recording with normal blood pressures. Patient did not demonstrate any significant symptomatology. Patient was maintained in this position for 20 minutes. After that the patient was put back in the recumbent position and given 0.4 mg of sublingual nitroglycerin and put in the head upright tilt position. Heart rate went up from 103 244 with a blood pressure briefly dropping from 135 systolic 214 systolic. No symptoms were noted. After 10 minutes the patient was put back in the recumbent position and recovered. Continuous EKG monitoring was performed. EKG monitoring demonstrated sinus rhythm with sinus tachycardia and mild upsloping ST depression. No other symptomatology was noted. The peak blood pressure was noted. Summary: Negative head upright tilt table test.
[2024-07-30 07:40] VITALS: BP 103/69; BP 105/66; BP 127/83
== END | disposition home or self-care (01) ==
LOC: CVS 08:53
PROVIDERS: PCP Nurse Practitioner Family; Referring Provider Internal Medicine Cardiovascular Disease; Visit Provider Internal Medicine Cardiovascular Disease
DX: R42 Dizziness and giddiness (principal); R55 Syncope and collapse; R00.0 Tachycardia, unspecified
CPT/HCPCS: 36415; 80048; 85025; 93660; A4216

== ENCOUNTER → 2024-09-03 | Outpatient (CLI) | payer BC, SELFPAY ==
[2024-09-03 15:31] LABS: Basophil# 0.07 X10^3/uL; Basophil% 0.7 % (0-1); Eosinophil# 0.06 X10^3/uL; Eosinophils% 0.6 % (0-5); Hematocrit 38.5 % (37-47); Hemoglobin 12.9 g/dL (12.0-15.0); Lymphocyte % 23.3 % (19-41); Mean Corp Hgb Conc 33.5 g/dL (32-36); Mean Corpuscular Hgb 29.8 pg (27.0-32.0); Mean Corpuscular Volume 88.9 fL (81-99); Mean Platelet Vol. 9.6 fl (6.2-12.0); Monocyte# 0.47 X10^3/uL; Monocyte% 4.8 % (0-10); NRBC Flagged by Analyzer 0 % (0-5); Neutrophil # 6.96 X10^3/uL (2.7-7.7); Neutrophil % 70.3 % (47-70); Platelet Count 282 K/mm3 (150-450); RBC Distribution Width CV 12.7 % (11.6-14.6); RBC Distribution Width SD 41.5 fl (35.1-43.9); Red Blood Count 4.33 M/mm3 (4.2-5.4); White Blood Count 9.9 K/mm3 (4.4-11.0)
[2024-09-03 15:38] LABS: Ferritin 99 ng/mL (22-378); Iron 80 ug/dL (50-170); Magnesium 2.3 mg/dL (1.5-2.2)
[2024-09-03 15:41] LABS: ALB/GLOB Ratio 2.2 RATIO (0.9-2.4); AST(SGOT) 20 U/L (<=31); Alanine Aminotransfer ALT/SGPT 15 U/L (<=34); Albumin, Serum 4.6 g/dL (3.5-5.0); Alkaline Phosphatase 56 U/L (35-104); Anion Gap 14 (5-15); BUN 10 mg/dL (4-19); BUN/Creat Ratio 14.6 RATIO (10-20); Calcium,Total 9.5 mg/dL (7.6-11.0); Carbon Dioxide 21.3 mmol/L (21.0-32.0); Chloride 106 mmol/L (98-108); Creatinine, Serum 0.68 mg/dL (0.70-1.20); EST Glomerular Filtration Rate 118 (>60); Globulin 2.1 g/dL (2.2-4.2); Glucose 87 mg/dL (70-99); Potassium 3.9 mmol/L (3.3-5.1); Protein, Total 6.7 g/dL (5.9-8.4); Sodium Level 141 mmol/L (133-145); Total Bilirubin 0.38 mg/dL (0.00-1.30)
== END | disposition home or self-care (01) ==
LOC: BFHLAB 13:35
PROVIDERS: PCP Nurse Practitioner Family; Visit Provider Nurse Practitioner Family
DX: Z00.01 Encounter for general adult medical examination with abnormal findings (principal); R55 Syncope and collapse
CPT/HCPCS: 36415; 80053; 82728; 83540; 83735; 84439; 84443; 85025

== ENCOUNTER 2024-10-27 00:01 | Emergency (ER) | payer BC, SELFPAY ==
[2024-10-27] VITALS (9 sets, daily range): BP systolic 86–106; BP diastolic 39–65; PULSE 40–52; RESP 14–18; TEMP 36.5–36.7; O2SAT 98–100; BMI 24.7
--- NOTE | 2024-10-27 00:05 | EKG12_ITS ---
Test Reason : DYSRHYTHMIA Blood Pressure : */* mmHG Vent. Rate : 42 BPM Atrial Rate : 42 BPM P-R Int : 168 ms QRS Dur : 90 ms QT Int : 524 ms P-R-T Axes : 0 12 7 degrees QTcB Int : 437 ms Marked sinus bradycardia with sinus arrhythmia Abnormal ECG Confirmed by SHUKRI MARTINEZ MD ([id number]), metropolitan editor HEATHER BARTH ([id number]) on 10/28/2024 7:38:17 AM Referred By: EVAN Confirmed By: SHUKRI MARTINEZ MD
--- NOTE | 2024-10-27 00:33 | EDS_ITS ---
HPI History of Present Illness Chief Complaint: Syncope Informant: patient Onset/Context/Timing Onset: Today Current Severity: Gone Maximum Severity: Moderate Narrative Narrative: 34-year-old female past medical history of syncope. She tells me she has passed out 2030 times in the last several years. Currently is undergoing a workup for that. Prior emergency department workups have been negative. She recently wore an event monitor for a week or so. She is seeing Dr. Adorno of cardiology. Said she had a similar episode 2 weeks ago. Tonight she was at work on break felt coming on she said her heart rate gets low she is lightheaded. She was laying down so she did not fall or injure herself. She has never done this while she was driving. She has no other cardiac history. Denies any chest pain. No recent illness. Prior similar symptoms: Yes Recent Illness/Hospitalization: No PFSH PFSH Medical History Unspecified convulsions Short interval between pregnancies affecting in first trimester, antepartum Psychogenic nonepileptic seizure Dizziness Asthma Anemia in Tobacco use Dependent edema Tachycardia Overweight (BMI 25.0-29.9) BMI 26.0-26.9,adult Lactic acidosis Chronic neck and back pain Limb weakness Abnormal bruising Home Medications ?Medication ?Instructions ?Recorded ?Last Taken ?Type NK 08/12/24 Unknown History Allergy/AdvReac Type Severity Reaction Status Date / Time levetiracetam Allergy Intermediate Rash Verified 10/27/24 00:02 Family History Grandmother Cancer Aunt Cancer Mother Asthma Diabetes prediabetic Father Asthma Brother Asthma Surgical History History of dental surgery History of hysterectomy History of tubal ligation Social History Smoking Status: Former smoker alcohol intake: current caffeine: Yes Type: coffee ROS ROS ED ROS Narrative Denies recent illness. Constitutional Constitutional ED: Denies chills or fever(s) Eyes Eyes: Denies blurry vision ENT ENT ED: Denies ear pain Cardiovascular Cardiovascular: Denies chest pain Respiratory/Chest Respiratory/Chest: Denies cough Gastrointestinal Gastrointestinal: Denies abdominal pain Genitourinary Genitourinary ED: Denies dysuria Musculoskeletal Musculoskeletal: Denies arthralgias Integumentary Denies abscess Neurologic Neurologic: Denies headache(s) Psychiatric Psychiatric: Denies anxiety Endocrine Endocrinology: Denies cold intolerance Hematologic/Lymphatic Hematologic/Lymphatic: Reports none Allergic/Immunologic Allergic/Immunologic ED: Denies mouth swelling, tongue swelling or urticaria EXAM Physical Exam Narrative Exam Narrative: Failure female vital signs stable afebrile. Currently her blood pressure is 106/58. Her heart rates 40s but while he is in the room examiner went from 40 to about 60. HEENT exam pupils round react to light. Mytrex membranes. No trauma. Neck nontender no trauma. Back nontender no trauma. Lungs clear. Heart initially was sinus bradycardia analysis normal sinus rhythm rate of 60. No murmur. Chest wall ribs nontender. Abdomen soft nontender. Moving all 4 extremities. Nontender no edema. Normal strength. Normal range of motion. Neurologically she is awake alert. No focal motor deficits. Benign exam. Const Vital Signs: 10/27/24 00:01 10/27/24 00:01 10/27/24 01:33 Temperature 97.7 F L Temperature Source Oral Pulse Rate 40 L 41 L Respiratory Rate 16 14 Respiratory Effort Normal Non-Labored Respiratory Pattern Normal Blood Pressure 106/58 L Blood Pressure Mean 74 Pulse Ox 98 100 Oxygen Delivery Method Room Air 10/27/24 02:02 Temperature Temperature Source Pulse Rate 43 L Respiratory Rate 18 Respiratory Effort Respiratory Pattern Blood Pressure 91/52 L Blood Pressure Mean 65 Pulse Ox 100 Oxygen Delivery Method Room Air Positive well nourished and well developed; Negative for obese, cachectic, contractures or unkempt General Appearance ED: well developed and NAD; Negative for unkempt, cachectic, contractures, cyanotic, diaphoretic or pallor Nutritional Appearance: Negative for cachectic or obese HEENT Reports moist mucous membranes Negative for trauma or tenderness Eyes PERRL and EOMs intact bilaterally General Eye ED: Negative for pale conjunctiva or scleral icterus Neck no lymphadenopathy, supple and no JVD General: Negative for tenderness Chest Wall inspection of chest normal and palpation of chest normal Resp normal respiratory effort and clear to auscultation bilaterally Cardio S1 normal heart sound, S2 normal heart sound and no murmurs Rate: bradycardia GI normal to inspection, nondistended, normoactive bowel sounds, non-tender, non- distended and no masses Auscultation: normoactive bowel sounds Palpation: soft; Negative for tender, guarding or rebound tenderness present Back/Spine no CVA tenderness General Back: Negative for CVA tenderness Cervical Spine: Negative for cervical spine tenderness Thoracic Spine / Upper Back: Negative for thoracic spinal tenderness or para spinal muscle tenderness Lumbar Spine / Lower Back: Negative for lumbar spinal tenderness Extremity normal to inspection General Extremety ED: Negative for edema or tenderness General Extremity: Negative for edema Neuro oriented x3 and CN's II-XII intact bilaterally Sensorium / Orientation: alert; Negative for orientation impaired, lethargic or stuporous Motor Exam: strength 5/5 throughout Psych mental status grossly normal Appearance: Negative for unkempt Attitude: No agitated Mood & Affect: Negative for depressed, anxious or tearful Skin no rashes or lesions noted, no wounds and skin turgor normal General Skin Exam: elasticity normal; Negative for jaundice or pallor Lesions: No lesion noted Rashes: No rashes noted Trauma: Negative for abrasion Wounds: Negative for wounds noted MDM MDM MDM Narrative Medical decision making narrative: 34-year-old female history of syncopal episodes of the last several years multiple episodes. She was bradycardic when initially presented now she is in a sinus rhythm. Her prior labs CBC and chemistries have all been unremarkable. EKG tonight initially was a sinus bradycardia rate of 42. Currently she is a sinus rhythm in the 60s. I do not really think labs are be of any benefit tonight. She has had this worked up multiple times. She is currently seeing cardiology. Repeat exam patient is doing well at 2:37 AM. Currently her heart rates between 40 and 60. Blood pressures around the 100. When I get her up and ambulate her and see how she does if she does well should be discharged to home. She has had 20-30 of the syncopal episodes. She has a known history of bradycardia. 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 History & Record Review Discussion w/independent historian: Patient Additional record(s) reviewed:: Prior inpatient record, Prior outpatient record, Prior ED visit and Prior labs Rhythm Strip Rhythm Strip: Sinus bradycardia Rate: 42 Ectopy: None EKG Initial EKG: Attestation: I personally reviewed and interpreted this EKG as follows: Interpretation: Sinus Rhythm and No Acute Injury Pattern Comments: Sinus bradycardia rate of 42 no acute signs of DE or ischemia. Discharge Plan Triage Chief Complaint: Syncope ED Provider: Cm Jimenez Dx/Rx/DC Orders Clinical Impression: Syncope, Bradycardia Instructions: ED Bradycardia Prescriptions: No Action NK Primary Care Provider: Kayli Machado Referrals: Levy Adorno MD [Med Staff - Active Staff] - As soon as possible Kayli Machado, [employer] [Primary Care Provider] - Activity Restrictions/Additional Instructions: Follow-up with your manpower development specialist manager. Need to discuss with them if they would consider a pacemaker. I am not saying you need 1 but he cannot keep passing out. This seems to be secondary to your heart rate dropping which caused your blood pressure to drop and you pass out. I would not drive for the time being in case this would happen while you are driving nor when I swim. Print Language: Chilean Disposition Disposition: Home, Self Care
--- OUTSIDE RECORDS SUMMARY | 2024-10-27 00:33 | XMS RPT_ITS | CCD ---
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 Dinesh Obregon Attending Provider [phone] Dr. Dinesh Obregon Admit Provider Dr. Dinesh Obregon Other Provider Dr. Flori Crowder Attending Provider Dr. Flori Crowder Other Provider Unavailable Primary Care Provider Unavailgeneva e GAMA ADDISON Attending Unavailable RYLEE MONAE Referring Unavailable RYLEE MONAE Attending Unavailable SELF Referring Unavailable SHELBY FOOTE Attending Unavailable GAMA ADDISON Referring Unavailable Unavailable Primary Care Provider Unavailabl e Unavailable Primary Care Provider Unavailabl e UNGERER, LINNETTE MICROWAVE TECHNICIAN Admitting Unavailable UNGERER, LINNETTE MICROWAVE TECHNICIAN Primary Care Unavailable UNGERER, LINNETTE MICROWAVE TECHNICIAN Consulting Unavailable UNGERER, LINNETTE MICROWAVE TECHNICIAN Attending Unavailable PROVIDER, UNKNOWN Consulting Unavailable UNGERER, LINNETTE MICROWAVE TECHNICIAN Admitting Unavailable UNGERER, LINNETTE MICROWAVE TECHNICIAN Primary Care Unavailable UNGERER, LINNETTE MICROWAVE TECHNICIAN Consulting Unavailable UNGERER, LINNETTE MICROWAVE TECHNICIAN Attending Unavailable PROVIDER, UNKNOWN Consulting Unavailable UNGERER, LNINETTE MICROWAVE TECHNICIAN Admitting Unavailable UNGERER, LINNETTE MICROWAVE TECHNICIAN Primary Care Unavailable UNGERER, LINNETTE MICROWAVE TECHNICIAN Consulting Unavailable UNGERER, LINNETTE MICROWAVE TECHNICIAN Attending Unavailable PROVIDER, UNKNOWN Consulting Unavailable Ungerer MICROWAVE TECHNICIAN-C, MICROWAVE TECHNICIAN. Linnette Primary Care Provider Ungerer MICROWAVE TECHNICIAN-C, MICROWAVE TECHNICIANRobby Linnette Referring Provider [phone] Kyree BOO, Dr. Lockett Attending Provider Kyree BOO, Dr. Lockett Referring Provider Kyree BOO, Dr. Lockett Other Provider [phone] Julián BOO, Dr. Martinez Attending Provider Kyree, Levy Consulting Unavailable Ungerer, Linnette Primary Care Unavailable Julián, Juan Attending Unavailable Kyree, Levy Referring Unavailable Kyree, Levy Attending Unavailable Kyree, Levy Consulting Unavailable Kyree, Levy Referring Unavailable Ungerer, Linnette Primary Care Unavailable Kyree, Levy Attending Unavailable Ungerer, Linnette Primary Care Unavailable Ungerer, Linnette Referring Unavailable Julián, [place] Referring Unavailable Julián, Juan Attending Unavailable Carter, Gale Primary Care Unavailable Kyree, Levy Referring Unavailable Kyree, Levy Attending Unavailable Ungerer, Linnette Primary Care Unavailable Carter, Gale Attending Unavailable Carter, Gale Primary Care Unavailable Kyree, Levy Attending Unavailable Ungerer, Linnette Primary Care Unavailable Kyree, Levy Referring Unavailable Kyree, Levy Referring Unavailable Kyree, Levy Attending Unavailable Ungerer, Linnette Primary Care Unavailable Estuardo Roland Attending Unavailable Ungerer, Linnette Primary Care Unavailable Ungerer, Linnette Referring Unavailable Kyree, Levy Attending Unavailable Ungerer, Linnette Primary Care Unavailable Ungerer, Linnette Primary Care Unavailable Julián, Juan Attending Unavailable Kyree, Levy Referring Unavailable Allergies Allergy Classification Reported Allergen(s) Allergy Type Date of Onset Reaction(s) Facility (1 source) levETIRAcetam Drug Allergy 06-05-2024 Rash [facility] (1 source) levETIRAcetam Drug Allergy 08-12-2024 [facility] Repository Medications Current Medications Medication Drug Class(es) Dates Sig (Normalized) Sig (Original) levETIRAcetam 1000 mg oral tablet (12 sources) Start: 08-03-2023 End: 08-02-2024 take 2 tablets by mouth twice daily levETIRAcetam (KEPPRA) 1,000 mg tablet Indications: Convulsions, unspecified convulsion type (HCC) Take 2 tablets by mouth two times a day. 360 tablet 3 08/03/2023 08/02/2024 Active Start: 04-27-2023 End: 08-03-2023 take 1.5 tablets by mouth twice daily levETIRAcetam (KEPPRA) 1,000 mg tablet Indications: Convulsions, unspecified convulsion type (HCC) Take 1.5 tablets by mouth two times a day. 270 tablet 1 04/27/2023 08/03/2023 Discontinued Start: 04-18-2023 End: 10-15-2023 take 1 tablet by mouth twice daily levETIRAcetam (KEPPRA) 1,000 mg tablet Indications: Convulsions, unspecified convulsion type (HCC) Take 1 tablet by mouth two times a day. 180 tablet 1 04/18/2023 10/15/2023 Active Start: 03-26-2023 End: 03-25-2024 take 1 tablet by mouth twice daily levETIRAcetam (KEPPRA) 750 mg tablet Indications: Convulsions, unspecified convulsion type (HCC) Take 1 tablet by mouth two times a day. 180 tablet 3 03/26/2023 03/25/2024 Active Start: 02-05-2023 End: 05-08-2024 take 1 tablet by mouth twice daily Levetiracetam (Keppra) 500 mg tablet Discontinued 500 mg PO TWICE A DAY February 05, 2023 12:00am May 08, 2024 5:26pm Comment on above: Take 1 tablet by lyn two times a day. Take 2 tablets by mo [facility] two times a day. Take 1.5 tablets by mouth two times a day. [place] (Nk) (1 source) Start: 02-02-2023 [place] (Nk) Active February 02, 2023 12:00am zonisamide 100 mg oral capsule (3 sources) Anti-epileptic Agent Start: 08-15-2023 take 1 capsule by mouth once daily zonisamide (ZONEGRAN) 100 mg capsule Take 1 capsule by mouth once daily. 30 capsule 3 08/15/2023 Active Comment on above: Take 1 capsule by mo [facility] once daily. Completed/Discontinued Medications Medication Drug Class(es) Dates Sig (Normalized) Sig (Original) azithromycin 250 mg oral tablet (4 sources) Macrolide Antimicrobial Start: 10-01-2022 End: 02-02-2023 Azithromycin (Zithromax Z-Roberto) 250 mg tablet Discontinued 0 PO .COMPLEX 6 October 01, 2022 12:00am February 02, 2023 3:43am For 250 mg dose pack: take 500 mg today (day 1), then 250 mg for 4 days (days 2-5) PO meclizine hydrochloride 25 mg oral tablet (4 sources) Antiemetic Start: 12-12-2018 End: 07-10-2019 take 1 tablet by mouth every eight hours as needed Meclizine 25 MG tablet Discontinued 25 mg PO Q8H as needed for Vertigo December 12, 2018 12:00am July 10, 2019 5:40pm ondansetron 8 mg oral tablet (4 sources) Serotonin-3 Receptor Antagonist Start: 12-12-2018 End: 07-10-2019 take 1 tablet by mouth every eight hours as needed for nausea Ondansetron Hcl 8 MG tablet Discontinued 8 mg PO Q8H as needed for Nausea/Vomiting December 12, 2018 12:00am July 10, 2019 5:40pm oseltamivir 75 mg oral capsule (4 sources) Neuraminidase Inhibitor Start: 07-10-2019 End: 07-15-2019 take 1 capsule by mouth twice daily Oseltamivir 75 mg capsule Discontinued 75 mg PO TWICE A DAY 10 5 July 10, 2019 1:00am July 14, 2019 1:00am July 15, 2019 1:09am pantoprazole 20 mg delayed release oral tablet (4 sources) Proton Pump Inhibitor Start: 12-10-2018 End: 07-10-2019 take 1 tablet by mouth twice daily Pantoprazole 20 MG tablet Discontinued 20 mg PO TWICE A DAY 60 December 10, 2018 12:00am July 10, 2019 5:40pm polymyxin b [id number] unt/ml / trimethoprim 1 mg/ml ophthalmic solution (4 sources) Dihydrofolate Reductase Inhibitor Antibacterial, Polymyxin-class Antibacterial Start: 10-01-2022 End: 10-11-2022 Polymyxin B Sulf-Trimethoprim 10,000 unit- 1 mg/mL drops Discontinued 1 - 2 NMA OPHTHALMIC .Q3-6H 10 October 01, 2022 12:00am October 10, 2022 12:00am October 11, 2022 12:04am while awake; do not exceed 6 doses in 24 hours potassium chloride 20 meq extended release oral tablet (1 source) Start: 03-25-2024 End: 05-08-2024 take 2 tablets by mouth once daily Potassium Chloride 20 mEq tablet extended release Discontinued 40 meq PO DAILY 10 March 25, 2024 1:00am May 08, 2024 5:26pm sucralfate 1000 mg oral tablet (4 sources) Aluminum Complex Start: 12-10-2018 End: 01-11-2019 take 1 tablet by mouth 1 hour(s) before mealtime Sucralfate 1 GM tablet Discontinued 1 g PO ONE HOURS BEFORE MEALS & BED 120 December 10, 2018 12:00am January 08, 2019 12:00am January 11, 2019 12:08am Problems Active Problems Problem Classification Problem Date Documented Date Episodic/Chronic Abdominal pain (8 sources) Abdominal pain - cause unknown; Translations: [Unspecified abdominal pain] 12-13-2018 Episodic Asthma (1 source) Asthma; Translations: [Unspecified asthma, uncomplicated] 05-08-2024 Chronic Biliary tract disease (4 sources) Biliary colic; Translations: [Calculus of bile duct without cholangitis or cholecystitis without obstruction] 11-17-2019 Episodic Cardiac dysrhythmias (8 sources) Tachycardia, unspecified; Translations: [Palpitations] Onset: 03-22-2024 06-05-2024 Episodic Coagulation and hemorrhagic disorders (4 sources) Hematoma; Translations: [Spontaneous ecchymoses] 04-30-2020 Episodic Conditions associated with dizziness or vertigo (8 sources) Peripheral vertigo; Translations: [Other peripheral vertigo, unspecified ear] Onset: 08-13-2014 Resolved: 11-23-2019 12-13-2018 Episodic Developmental disorders (4 sources) Stuttering; Translations: [Childhood onset fluency disorder] 11-17-2019 Chronic Epilepsy; convulsions (4 sources) Seizure disorder; Translations: [Epilepsy, unspecified, intractable, without status epilepticus] 06-28-2023 Chronic Epilepsy; convulsions (19 sources) Neurological finding; Translations: [Unspecified convulsions] Onset: 09-26-2023 09-22-2023 Episodic Fluid and electrolyte disorders (14 sources) Hypokalemia; Translations: [Hypokalemia] Onset: 04-02-2024 02-02-2023 Episodic Headache; including migraine (4 sources) Headache; Translations: [Headache] 12-13-2018 Episodic Heart valve disorders (3 sources) Cardiac murmur, unspecified; Translations: [Cardiac murmur, unspecified] Onset: 03-22-2024 Episodic Inflammation; infection of eye (except that caused by tuberculosis or sexually transmitteddisease) (4 sources) Conjunctivitis; Translations: [Unspecified conjunctivitis] 10-01-2022 Episodic Influenza (4 sources) Influenza due to Influenza B virus; Translations: [Influenza due to other identified influenza virus with other respiratory manifestations] 11-17-2019 Episodic Menstrual disorders (4 sources) Menometrorrhagia; Translations: [Excessive and frequent menstruation with irregular cycle] 11-17-2019 Chronic Miscellaneous mental health disorders (9 sources) Dissociative convulsions; Translations: [Conversion disorder with seizures or convulsions] Onset: 11-22-2019 11-24-2019 Chronic Other female genital disorders (4 sources) History of gynecological disorder; Translations: [Personal history of other diseases of the female genital tract] 12-12-2018 Episodic Other nervous system disorders (4 sources) Spasmodic movement; Translations: [Fasciculation] 11-17-2019 Episodic Other nervous system disorders (1 source) Paresthesia; Translations: [Paresthesia of skin] 04-02-2024 Episodic Other nutritional; endocrine; and metabolic disorders (7 sources) Obesity; Translations: [Obesity, unspecified] Onset: 11-23-2019 11-24-2019 Chronic Other nutritional; endocrine; and metabolic disorders (2 sources) H/O: metabolic disorder; Translations: [Personal history of other endocrine, nutritional and metabolic disease] 06-05-2024 Episodic Other nutritional; endocrine; and metabolic disorders (1 source) Body mass index 25-29 - overweight; Translations: [Overweight] 05-08-2024 Episodic Other nutritional; endocrine; and metabolic disorders (1 source) Overweight in adulthood with body mass index of 25 or more but less than 30; Translations: [Body mass index (BMI) 26.0-26.9, adult] 05-08-2024 Episodic Other nutritional; endocrine; and metabolic disorders (1 source) Overweight; Translations: [Overweight] Onset: 08-15-2024 Episodic Other upper respiratory infections (4 sources) Upper respiratory infection; Translations: [Acute upper respiratory infection, unspecified] 10-01-2022 Episodic Residual codes; unclassified (1 source) Amnesia; Translations: [Other amnesia] 04-27-2023 Episodic Residual codes; unclassified (1 source) Unresponsive ; Translations: [Transient alteration of awareness] 04-02-2024 Episodic Residual codes; unclassified (1 source) Dependent edema; Translations: [Edema, unspecified] 05-08-2024 Episodic Residual codes; unclassified (1 source) Tobacco use and exposure - finding; Translations: [Tobacco use] 05-08-2024 Episodic Substance-related disorders (7 sources) Tobacco dependence syndrome; Translations: [Nicotine dependence, cigarettes, with unspecified nicotine-induced disorders] Onset: 11-20-2013 05-09-2021 Chronic Superficial injury; contusion (4 sources) Contusion of chest; Translations: [Contusion of unspecified front wall of thorax, initial encounter] 08-20-2020 Episodic Syncope (7 sources) Syncope; Translations: [Syncope and collapse] Onset: 08-07-2024 12-13-2018 Episodic Past or Other Problems Problem Classification Problem Date Documented Da te Episodic/Chronic Other complications of (1 source) Anemia of ; Translations: [Anemia complicating , unspecified trimester] Onset: 05-19-2014 Resolved: 11-23-2019 11-23-2019 Chronic Other complications of (1 source) Vomiting of , unspecified; Translations: [Unspecified vomiting of , unspecified as to episode of care or not applicable] Onset: 11-20-2013 Resolved: 12-08-2013 05-09-2021 Episodic Other complications of (1 source) Complication occurring during ; Translations: [Supervision of other high risk pregnancies, first trimester] Onset: 02-05-2015 Resolved: 11-23-2019 11-23-2019 Episodic Other lower respiratory disease (7 sources) H/O: asthma; Translations: [Personal history of other diseases of the respiratory system] Onset: 11-20-2013 05-09-2021 Episodic Other non-traumatic joint disorders (7 sources) Pain in right knee; Translations: [Pain in joint, lower leg] Onset: 10-28-2013 10-28-2013 Episodic Other and delivery including normal (1 source) Normal ; Translations: [Encounter for supervision of normal first , first trimester] Onset: 02-05-2015 Resolved: 04-13-2015 04-13-2015 Episodic Residual codes; unclassified (1 source) Transient alteration of awareness; Translations: [Transient alteration of awareness] Onset: 04-20-2024 Episodic Results Test Name Value Interpretation Reference Range Facility CBC W/Diff, Automatedon 08-13 Absolute Lymph 2.30 X10 3/uL Normal 0.83-4.51 [facility] Comment on above: Performed By: #### L 500.4050, L503.6150, L501.9520, L100.0100, L503.6550, L501.5200, L506.0400 #### [facility] [address] [place], [address] Absolute Neut 7.0 X10 3/uL Normal 2.0-7.7 [facility] Comment on above: Performed By: #### L 500.4050, L503.6150, L501.9520, L100.0100, L503.6550, L501.5200, L506.0400 #### [facility] [address] [place], [address] Basophils/100 WBC (Bld) 0.7 % Normal 0-1 [facility] Comment on above: Performed By: #### L 500.4050, L503.6150, L501.9520, L100.0100, L503.6550, L501.5200, L506.0400 #### [facility] [address] [place], [address] Eosinophils/100 WBC (Bld) 0.6 % Normal 0-5 [facility] Comment on above: Performed By: #### L 500.4050, L503.6150, L501.9520, L100.0100, L503.6550, L501.5200, L506.0400 #### [facility] [address] [place], [address] Erythrocyte distribution width (RBC) [Ratio] 12.7 % Normal 11.6-14.6 [facility] Comment on above: Performed By: #### L 500.4050, L503.6150, L501.9520, L100.0100, L503.6550, L501.5200, L506.0400 #### [facility] [address] [place], [address] Hematocrit (Bld) [Volume fraction] 38.5 % Normal 37-47 [facility] Comment on above: Performed By: #### L 500.4050, L503.6150, L501.9520, L100.0100, L503.6550, L501.5200, L506.0400 #### [facility] [address] [place], [address] Hemoglobin (Bld) [Mass/Vol] 12.9 g/dL Normal 12.0-15.0 [facility] Comment on above: Performed By: #### L 500.4050, L503.6150, L501.9520, L100.0100, L503.6550, L501.5200, L506.0400 #### [facility] [address] [place], [address] IG% 0.300 Normal 0.0-0.9 [facility] Comment on above: Result Comment: IG% - Immature Granulocytes (promyelocytes, myelocytes and metamyelocytes) > 1% indicates that a LEFT SHIFT is Present. Performed By: #### L 500.4050, L503.6150, L501.9520, L100.0100, L503.6550, L501.5200, L506.0400 #### [facility] [address] [place], [address] Lymphocytes/100 WBC (Bld) 23.3 % Normal 19-41 [facility] Comment on above: Performed By: #### L 500.4050, L503.6150, L501.9520, L100.0100, L503.6550, L501.5200, L506.0400 #### [facility] [address] [place], [address] MCH (RBC) [Entitic mass] 29.8 pg Normal 27.0-32.0 [facility] Comment on above: Performed By: #### L 500.4050, L503.6150, L501.9520, L100.0100, L503.6550, L501.5200, L506.0400 #### [facility] [address] [place], [address] MCHC (RBC) [Mass/Vol] 33.5 g/dL Normal 32-36 [facility] Comment on above: Performed By: #### L 500.4050, L503.6150, L501.9520, L100.0100, L503.6550, L501.5200, L506.0400 #### [facility] [address] [place], [address] MCV (RBC) [Entitic vol] 88.9 fL Normal 81-99 [facility] Comment on above: Performed By: #### L 500.4050, L503.6150, L501.9520, L100.0100, L503.6550, L501.5200, L506.0400 #### [facility] [address] [place], [address] Monocytes/100 WBC (Bld) 4.8 % Normal 0-10 [facility] Comment on above: Performed By: #### L 500.4050, L503.6150, L501.9520, L100.0100, L503.6550, L501.5200, L506.0400 #### [facility] [address] [place], [address] Neutrophils/100 WBC (Bld) 70.3 % High 47-70 [facility] Comment on above: Performed By: #### L 500.4050, L503.6150, L501.9520, L100.0100, L503.6550, L501.5200, L506.0400 #### [facility] [address] [place], [address] Nucleated RBC (Bld) [#/Vol] 0 10*3/uL Normal 0-5 [facility] Comment on above: Performed By: #### L 500.4050, L503.6150, L501.9520, L100.0100, L503.6550, L501.5200, L506.0400 #### [facility] [address] [place], [address] Platelet mean volume (Bld) [Entitic vol] 9.6 fL Normal 6.2-12.0 [facility] Comment on above: Performed By: #### L 500.4050, L503.6150, L501.9520, L100.0100, L503.6550, L501.5200, L506.0400 #### [facility] [address] [place], [address] Platelets (Bld) [#/Vol] 282 10*3/uL Normal 150-450 [facility] Comment on above: Performed By: #### L 500.4050, L503.6150, L501.9520, L100.0100, L503.6550, L501.5200, L506.0400 #### [facility] [address] [place], [address] RBC (Bld) [#/Vol] 4.33 10*6/uL Normal 4.2-5.4 [facility] Comment on above: Performed By: #### L 500.4050, L503.6150, L501.9520, L100.0100, L503.6550, L501.5200, L506.0400 #### [facility] [address] [place], [address] RDW SD 41.5 fl Normal 35.1-43.9 [facility] Comment on above: Performed By: #### L 500.4050, L503.6150, L501.9520, L100.0100, L503.6550, L501.5200, L506.0400 #### [facility] [address] [place], [address] WBC (Bld) [#/Vol] 9.9 10*3/uL Normal 4.4-11.0 [facility] Comment on above: Performed By: #### L 500.4050, L503.6150, L501.9520, L100.0100, L503.6550, L501.5200, L506.0400 #### [facility] [address] [place], [address] Comprehensive Metabolic Prof [facility] 09-03-2024 Albumin [Mass/Vol] 4.6 g/dL Normal 3.5-5.0 [facility] Comment on above: Performed By: #### L 500.4050, L503.6150, L501.9520, L100.0100, L503.6550, L501.5200, L506.0400 ####[facility] [address] [place], [address] Albumin/Globulin [Mass ratio] 2.2 {ratio} Normal 0.9-2.4 [facility] Comment on above: Performed By: #### L 500.4050, L503.6150, L501.9520, L100.0100, L503.6550, L501.5200, L506.0400 ####[facility] [address] [place], [address] ALK PHOS 56 U/L Normal 35-104 [facility] Comment on above: Performed By: #### L 500.4050, L503.6150, L501.9520, L100.0100, L503.6550, L501.5200, L506.0400 ####[facility] [address] [place], [address] ALT [Catalytic activity/Vol] 15 U/L Normal <=34 [facility] Comment on above: Performed By: #### L 500.4050, L503.6150, L501.9520, L100.0100, L503.6550, L501.5200, L506.0400 ####[facility] [address] [place], [address] AST [Catalytic activity/Vol] 20 U/L Normal <=31 [facility] Comment on above: Performed By: #### L 500.4050, L503.6150, L501.9520, L100.0100, L503.6550, L501.5200, L506.0400 ####[facility] [address] [place], [address] Bilirubin [Mass/Vol] 0.38 mg/dL Normal 0.00-1.30 [facility] Comment on above: Performed By: #### L 500.4050, L503.6150, L501.9520, L100.0100, L503.6550, L501.5200, L506.0400 ####[facility] [address] [place], [address] BUN/CRE 14.6 RATIO Normal 10-20 [facility] Comment on above: Performed By: #### L 500.4050, L503.6150, L501.9520, L100.0100, L503.6550, L501.5200, L506.0400 ####[facility] [address] [place], [address] Calcium [Mass/Vol] 9.5 mg/dL Normal 7.6-11.0 [facility] Comment on above: Performed By: #### L 500.4050, L503.6150, L501.9520, L100.0100, L503.6550, L501.5200, L506.0400 ####[facility] [address] [place], [address] Chloride [Moles/Vol] 106 mmol/L Normal 98-108 [facility] Comment on above: Performed By: #### L 500.4050, L503.6150, L501.9520, L100.0100, L503.6550, L501.5200, L506.0400 ####[facility] [address] [place], [address] CO2 [Moles/Vol] 21.3 mmol/L Normal 21.0-32.0 [facility] Comment on above: Performed By: #### L 500.4050, L503.6150, L501.9520, L100.0100, L503.6550, L501.5200, L506.0400 ####[facility] [address] [place], [address] Creatinine [Mass/Vol] 0.68 mg/dL Low 0.70-1.20 [facility] Comment on above: Performed By: #### L 500.4050, L503.6150, L501.9520, L100.0100, L503.6550, L501.5200, L506.0400 ####[facility] [address] [place], [address] GAP 14 Normal 5-15 [facility] Comment on above: Performed By: #### L 500.4050, L503.6150, L501.9520, L100.0100, L503.6550, L501.5200, L506.0400 ####[facility] [address] [place], [address] GFR/1.73 sq M.predicted among non-blacks MDRD (S/P/Bld) [Vol rate/Area] 118 mL/min/{1.73_m2} Normal >60 [facility] Comment on above: Result Comment: mL/m in/1.73m2 CKD-EPI Creatinine Equation (2020) Performed By: #### L 500.4050, L503.6150, L501.9520, L100.0100, L503.6550, L501.5200, L506.0400 ####[facility] [address] [place], [address] Globulin (S) [Mass/Vol] 2.1 g/dL Low 2.2-4.2 [facility] Comment on above: Performed By: #### L 500.4050, L503.6150, L501.9520, L100.0100, L503.6550, L501.5200, L506.0400 ####[facility] [address] [place], [address] Glucose [Mass/Vol] 87 mg/dL Normal 70-99 [facility] Comment on above: Performed By: #### L 500.4050, L503.6150, L501.9520, L100.0100, L503.6550, L501.5200, L506.0400 ####[facility] [address] [place], [address] Potassium [Moles/Vol] 3.9 mmol/L Normal 3.3-5.1 [facility] Comment on above: Result Comment: Hemo lysis present, Results??could be affected. ?? Performed By: #### L 500.4050, L503.6150, L501.9520, L100.0100, L503.6550, L501.5200, L506.0400 ####[facility] [address] [place], [address] Sodium [Moles/Vol] 141 mmol/L Normal 133-145 [facility] Comment on above: Performed By: #### L 500.4050, L503.6150, L501.9520, L100.0100, L503.6550, L501.5200, L506.0400 ####[facility] [address] [place], [address] T PROT 6.7 g/dL Normal 5.9-8.4 [facility] Comment on above: Performed By: #### L 500.4050, L503.6150, L501.9520, L100.0100, L503.6550, L501.5200, L506.0400 ####[facility] [address] [place], [address] Urea nitrogen [Mass/Vol] 10 mg/dL Normal 4-19 [facility] Comment on above: Performed By: #### L 500.4050, L503.6150, L501.9520, L100.0100, L503.6550, L501.5200, L506.0400 ####[facility] [address] [place], [address] Ferritinon 09-03-2024 Ferritin [Mass/Vol] 99 ng/mL Normal 22-378 [facility] Comment on above: Performed By: #### L 500.4050, L503.6150, L501.9520, L100.0100, L503.6550, L501.5200, L506.0400 ####[facility] [address] [place], [address] Ironon 09-03-2024 Iron [Mass/Vol] 80 ug/dL Normal 50-170 [facility] Comment on above: Performed By: #### L 500.4050, L503.6150, L501.9520, L100.0100, L503.6550, L501.5200, L506.0400 ####[facility] [address] [place], [address] Magnesiumon 09-03-2024 Magnesium [Mass/Vol] 2.3 mg/dL High 1.5-2.2 [facility] Comment on above: Performed By: #### L 500.4050, L503.6150, L501.9520, L100.0100, L503.6550, L501.5200, L506.0400 ####[facility] [address] [place], [address] T4 Free Directon 09-03-2024 T4 FREE DIRECT 1.30 ng/dL Normal 0.76-1.46 [facility] Comment on above: Performed By: #### L 500.4050, L503.6150, L501.9520, L100.0100, L503.6550, L501.5200, L506.0400 ####[facility] [address] [place], [address] Thyroid Stim Hormone (TSH)on 09-03-2024 TSH 2.250 uIU/mL Normal 0.300-4.200 [facility] Comment on above: Performed By: #### L 500.4050, L503.6150, L501.9520, L100.0100, L503.6550, L501.5200, L506.0400 ####[facility] [address] [place], [address] Cardiology Visit Reporton Cardiology Visit Report [facility] [address] [place], [place] [address] OFFICE VISIT Date of Service: 08/12/24 MR#: [id number] Acct: [id number] Name: GALE DICKSON Rep #: [id number] : 1990 Provider: Dr. Levy Adorno MD Age/Sex: 33/F Location[place] [facility] Status: Signed HPI HPI History of Present Illness Details: This lady with history of syncopal episodes is here for follow-up visit. Since he last saw us, he has had 1 syncopal episode. According to her, she felt tingling and weak and then passed out. No seizures. Patient has had a negative tilt table test reported. Echocardiogram showed normal left ventricular and right ventricular systolic function. No major valvular abnormalities were noted. She has had a normal exercise stress Myoview. She walked on the treadmill for 9 minutes according to the Cole protocol. Rare PVCs were noted during exercise. Denies any chest pains or shortness of breath. 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 Accompanied by: Friend Is patient in pain?: No Allergies levetiracetam Allergy (Intermediate, Verified 08/12/24 14:37) Rash Medications ???Medication ???Instructions ???Recorded ???Confirmed ???Type NK 08/12/24 08/12/24 History Have you fallen in the past year?: Yes (syncope) [facility] Medical History Abnormal bruising Anemia in Asthma BMI 26.0-26.9,adult Chronic neck and back pain Dependent edema Dizziness Lactic acidosis Limb weakness Overweight (BMI 25.0-29.9) Psychogenic nonepileptic seizure Short interval between pregnancies affecting in first trimester, antepartum Tachycardia Tobacco use Unspecified convulsions Surgical History History of dental surgery History of hysterectomy History of tubal ligation Family History Grandmother Cancer Aunt Cancer Mother Asthma Diabetes prediabetic Father Asthma Brother Asthma Social History Smoking Status: Current every day smoker alcohol intake: current caffeine: Yes Type: coffee ROS Const Const: Positive for weight loss (not trying); Negative for fatigue, weakness, headache(s) or weight gain ENT ENT: Negative for headache(s), dizziness, Nosebleed/epistaxis or balance problems Cardio Chest Pain: No Character: tightness Palpitations: No Edema: Bilateral (BLE) Muscle aches with walking: None Resp Respiratory: Positive for SOB with activity, SOB at rest and SOB orthopnea SOB lying down GI GI: Positive for nausea; Negative vomiting or heartburn Musc Musc: Negative for muscle aches/ myalgia, muscle weakness, joint pain or balance problems Neuro Neuro: Positive for lightheadedness, near syncope and syncope; Negative for dizziness, headache(s) or weakness Endo Endo: Negative for fatigue Cardiology Exam Const Appearance: comfortable and no acute distress Nutritional Appearance: well nourished Neck Neck: no JVD Carotids: Negative bruit Chest Auscultation: Bilateral: Clear to Auscultation Cardio Rate: regular rate Rhythm: regular rhythm Heart sounds: S1 normal and S2 normal Neuro General: patient alert, patient awake and patient oriented x3 Extremities Lower Extremity Edema: None: Bilateral Assessment and Plan Assessment and Plan (1) Syncope: Status: Chronic Plan: Normal LV systolic function on echocardiogram. Normal tilt table test. Event monitoring report from PCPs office describes patient with symptoms of lightheadedness when he had sinus tachycardia at a heart rate of 110-1 15. Fainted when heart rate was sinus bradycardia at heart rate of 40 to 50 bpm. Discussed with patient in detail. Her workup so far has been negative. I believe her syncopal episodes are likely vasovagal. However I offered her a loop recorder to definitively rule out significant cardiac arrhythmias. Per patient, she is going to think about it. (2) Palpitations: Status: Chronic Plan: No major arrhythmias noted on event monitoring. Plan Details Follow Up: 6 Months Coding Level of Care Code Off vis,est,level 3 Diagnoses Syncope R55 Palpitations R00.2 Coding Level of Care Code Off vis,est,level 3 Diagnoses Syncope R55 Palpitations R00.2 Clinical Quality Measures Falls Risk Screening/Assistive Devices Have you fallen in the past year?: Yes (syncope) 08/12/24 6452 (more content not included)... Normal [facility] Tilt Tableon 07-30-2024 Tilt Table [facility] [address] [place] [address] 07/30/24 0736 MR#: [id number] Acct: [id number] Name: GALE DICKSON Rep #: [id number] : 1990 33 From: Juan Gallego MD Attending Dr: Dr. Levy Adorno MD Status: REG CLI Ordering Dr: Levy Adorno MD Date: 07/30/24 Location: [facility] Sex: F C Admitted: Staff Staff: Gale Winn and Fili Yates Summary Pre Test Resting HR: 71 Pre Test Resting BP: 103/69 Minimum Test HR: 62 Maximum Test HR: 144 Minimum Test BP: 105/66 Maximum Test BP: 127/83 Reason for Test Termination: Reached Maximum Test Time Physician Tilt Table Report Patient's Physicians Primary Care Physician: Linnette Lopez Indications/Diagnosis: Recurrent syncope Procedure Comments: The patient was brought to the noninvasive lab in the postabsorptive nonsedated state. Initial vitals were obtained. Initial EKG demonstrated sinus rhythm with a rate of 71 bpm and blood pressure of 119/72 mmHg. Occasional premature ventricular complexes were noted. The patient was then put in the 70 degree head upright tilt position the patient maintained sinus rhythm throughout the recording with normal blood pressures. Patient did not demonstrate any significant symptomatology. Patient was maintained in this position for 20 minutes. After that the patient was put back in the recumbent position and given 0.4 mg of sublingual nitroglycerin and put in the head upright tilt position. Heart rate went up from 103 244 with a blood pressure briefly dropping from 135 systolic 214 systolic. No symptoms were noted. After 10 minutes the patient was put back in the recumbent position and recovered. Continuous EKG monitoring was performed. EKG monitoring demonstrated sinus rhythm with sinus tachycardia and mild upsloping ST depression. No other symptomatology was noted. The peak blood pressure was noted. Summary: Negative head upright tilt table test. 07/30/24 0740 Date Juan Gallego MD CC: MICROWAVE TECHNICIAN-C MICROWAVE TECHNICIAN. Linnette Lopez; Dr. Levy Adorno MD Date Dictated: 07/30/24735 Date Transcribed: 07/30/24735 [employer] Member: [place] Signed Normal [facility] Absolute neutrophil countOrd ered By: Levy Adorno on 07-29-2024 Neutrophils (Bld) [#/Vol] 6.9 10*3/uL 2.0-7.7 [facility] Anion gap in Serum or Plasma Ordered By: Levy Adorno on 07-29-2024 Anion gap [Moles/Vol] 9 mmol/L - [facility] BUN/creatinine ratioOrdered By: Levy Adorno on 07-29-2024 Urea nitrogen/Creatinine [Mass ratio] 11.2 mg/mg 03-02 [facility] Basic Metabolic Profile (BMP )on 07-29-2024 BUN/CRE 11.2 RATIO Normal 03-02 [facility] Comment on above: Order Comment: for t ilt table Performed By: #### L 500.2500, L100.0100 #### [facility] [address] [place], [address] Calcium [Mass/Vol] 9.5 mg/dL Normal 7.6-11.0 [facility] Comment on above: Order Comment: for t ilt table Performed By: #### L 500.2500, L100.0100 #### [facility] [address] [place], [address] Chloride [Moles/Vol] 106 mmol/L Normal 98-108 [facility] Comment on above: Order Comment: for t ilt table Performed By: #### L 500.2500, L100.0100 #### [facility] [address] [place], [address] CO2 [Moles/Vol] 23.9 mmol/L Normal 21.0-32.0 [facility] Comment on above: Order Comment: for t ilt table Performed By: #### L 500.2500, L100.0100 #### [facility] [address] [place], [address] Creatinine [Mass/Vol] 0.68 mg/dL Low 0.70-1.20 [facility] Comment on above: Order Comment: for t ilt table Performed By: #### L 500.2500, L100.0100 #### [facility] [address] [place], [address] GAP 9 Normal 5-15 [facility] Comment on above: Order Comment: for t ilt table Performed By: #### L 500.2500, L100.0100 #### [facility] [address] [place], [address] GFR/1.73 sq M.predicted among non-blacks MDRD (S/P/Bld) [Vol rate/Area] 118 mL/min/{1.73_m2} Normal >60 [facility] Comment on above: Order Comment: for t ilt table Result Comment: mL/m in/1.73m2 CKD-EPI Creatinine Equation (2020) Performed By: #### L 500.2500, L100.0100 #### [facility] [address] [place], [address] Glucose [Mass/Vol] 94 mg/dL Normal 70-99 [facility] Comment on above: Order Comment: for t ilt table Performed By: #### L 500.2500, L100.0100 #### [facility] [address] [place], [address] Potassium [Moles/Vol] 3.7 mmol/L Normal 3.3-5.1 [facility] Comment on above: Order Comment: for t ilt table Performed By: #### L 500.2500, L100.0100 #### [facility] [address] [place], [address] Sodium [Moles/Vol] 139 mmol/L Normal 133-145 [facility] Comment on above: Order Comment: for t ilt table Performed By: #### L 500.2500, L100.0100 #### [facility] [address] [place], [address] Urea nitrogen [Mass/Vol] 8 mg/dL Normal 4-19 [facility] Comment on above: Order Comment: for t ilt table Performed By: #### L 500.2500, L100.0100 #### [facility] [address] [place], [address] Basophil percentageOrdered B y: Levy Adorno on 07-29-2024 Basophils/100 WBC (Bld) 1.1 % High 0-1 [facility] CBC W/Diff, Automatedon 07-12 Absolute Lymph 2.43 X10 3/uL Normal 0.83-4.51 [facility] Comment on above: Order Comment: Comme nts: for tilt table Performed By: #### L 500.2500, L100.0100 #### [facility] [address] [place], [address] Absolute Neut 6.9 X10 3/uL Normal 2.0-7.7 [facility] Comment on above: Order Comment: Comme nts: for tilt table Performed By: #### L 500.2500, L100.0100 #### [facility] [address] [place], [address] Basophils/100 WBC (Bld) 1.1 % High 0-1 [facility] Comment on above: Order Comment: Comme nts: for tilt table Performed By: #### L 500.2500, L100.0100 #### [facility] [address] [place], [address] Eosinophils/100 WBC (Bld) 1.0 % Normal 0-5 [facility] Comment on above: Order Comment: Comme nts: for tilt table Performed By: #### L 500.2500, L100.0100 #### [facility] [address], [address] Erythrocyte distribution width (RBC) [Ratio] 12.7 % Normal 11.6-14.6 [facility] Comment on above: Order Comment: Comme nts: for tilt table Performed By: #### L 500.2500, L100.0100 #### [facility] [address] [place], [address] Hematocrit (Bld) [Volume fraction] 40.7 % Normal 37-47 [facility] Comment on above: Order Comment: Comme nts: for tilt table Performed By: #### L 500.2500, L100.0100 #### [facility] [address] [place], [address] Hemoglobin (Bld) [Mass/Vol] 13.5 g/dL Normal 12.0-15.0 [facility] Comment on above: Order Comment: Comme nts: for tilt table Performed By: #### L 500.2500, L100.0100 #### [facility] [address] [place], [address] IG% 0.800 Normal 0.0-0.9 [facility] Comment on above: Order Comment: Comme nts: for tilt table Result Comment: IG% - Immature Granulocytes (promyelocytes, myelocytes and metamyelocytes) > 1% indicates that a LEFT SHIFT is Present. Performed By: #### L 500.2500, L100.0100 #### [facility] [address] [place], [address] Lymphocytes/100 WBC (Bld) 24.1 % Normal 19-41 [facility] Comment on above: Order Comment: Comme nts: for tilt table Performed By: #### L 500.2500, L100.0100 #### [facility] [address] [place], [address] MCH (RBC) [Entitic mass] 29.3 pg Normal 27.0-32.0 [facility] Comment on above: Order Comment: Comme nts: for tilt table Performed By: #### L 500.2500, L100.0100 #### [facility] [address] [place], [address] MCHC (RBC) [Mass/Vol] 33.2 g/dL Normal 32-36 [facility] Comment on above: Order Comment: Comme nts: for tilt table Performed By: #### L 500.2500, L100.0100 #### [facility] [address] [place], [address] MCV (RBC) [Entitic vol] 88.3 fL Normal 81-99 [facility] Comment on above: Order Comment: Comme nts: for tilt table Performed By: #### L 500.2500, L100.0100 #### [facility] [address] [place], [address] Monocytes/100 WBC (Bld) 4.9 % Normal 0-10 [facility] Comment on above: Order Comment: Comme nts: for tilt table Performed By: #### L 500.2500, L100.0100 #### [facility] [address] [place], [address] Neutrophils/100 WBC (Bld) 68.1 % Normal 47-70 [facility] Comment on above: Order Comment: Comme nts: for tilt table Performed By: #### L 500.2500, L100.0100 #### [facility] [address] [place], [address] Nucleated RBC (Bld) [#/Vol] 0 10*3/uL Normal 0-5 [facility] Comment on above: Order Comment: Comme nts: for tilt table Performed By: #### L 500.2500, L100.0100 #### [facility] [address] [place], [address] Platelet mean volume (Bld) [Entitic vol] 9.2 fL Normal 6.2-12.0 [facility] Comment on above: Order Comment: Comme nts: for tilt table Performed By: #### L 500.2500, L100.0100 #### [facility] [address] [place], [address] Platelets (Bld) [#/Vol] 285 10*3/uL Normal 150-450 [facility] Comment on above: Order Comment: Comme nts: for tilt table Performed By: #### L 500.2500, L100.0100 #### [facility] [address] [place], [address] RBC (Bld) [#/Vol] 4.61 10*6/uL Normal 4.2-5.4 [facility] Comment on above: Order Comment: Comme nts: for tilt table Performed By: #### L 500.2500, L100.0100 #### [facility] [address] [place], [address] RDW SD 41.1 fl Normal 35.1-43.9 [facility] Comment on above: Order Comment: Comme nts: for tilt table Performed By: #### L 500.2500, L100.0100 #### [facility] [address] [place], [address] WBC (Bld) [#/Vol] 10.1 10*3/uL Normal 4.4-11.0 [facility] Comment on above: Order Comment: Comme nts: for tilt table Performed By: #### L 500.2500, L100.0100 #### [facility] [address] [place], [address] Carbon dioxide, total [Moles /volume] in Central venous bloodOrdered By: Levy Adorno on 07-29-2024 CO2 [Moles/Vol] 23.9 mmol/L 21.0-32.0 [facility] Chloride assayOrdered By: John Adorno on 07-29-2024 Chloride [Moles/Vol] 106 mmol/L 98-108 [facility] Eosinophil percentageOrdered By: Levy Adorno on 07-29-2024 Eosinophils/100 WBC (Bld) 1.0 % 0-5 [facility] Erythrocyte distribution wid th ratioOrdered By: Levy Adorno on 07-29-2024 Erythrocyte distribution width (RBC) [Ratio] 12.7 % 11.6-14.6 [facility] Erythrocyte distribution wid th standard deviationOrdered By: Levy Adorno on 07-29-2024 Erythrocyte distribution width (RBC) [Entitic vol] 41.1 fL 35.1-43.9 [facility] GFR/1.73 sq M.predicted bertha g non-blacks MDRD (S/P/Bld) [Vol rate/Area]Ordered By: Levy Adorno on 07-29-2024 Estimated GFR (MDRD) Non-Af Amer 118 >60 [facility] Comment on above: mL/min/1.73m2 CKD-EP I Creatinine Equation (2020) Hematocrit Auto (Bld) [Volum e fraction]Ordered By: Levy Adoron on 07-29-2024 Hematocrit (Bld) [Volume fraction] 40.7 % 37-47 [facility] Hemoglobin measurementOrdere d By: Levyyumiko Adorno on 07-29-2024 Hemoglobin (Bld) [Mass/Vol] 13.5 g/dL 12.0-15.0 [facility] Immature granulocytes/100 WB C Auto (Bld)Ordered By: eLvy Adorno on 07-29-2024 Immature granulocytes/100 WBC (Bld) 0.800 % 0.0-0.9 [facility] Comment on above: IG% - Immature Granu locytes (promyelocytes, myelocytes and metamyelocytes) > 1% indicates that a LEFT SHIFT is Present. Lymphocytes Auto (Unsp spec) [#/Vol]Ordered By: Levy Adorno on 07-29-2024 Lymphocytes (Bld) [#/Vol] 2.43 10*3/uL 0.83-4.51 [facility] Lymphocytes/100 WBC Auto (Un sp spec)Ordered By: Levy Adorno on 07-29-2024 Lymphocytes/100 WBC (Bld) 24.1 % 19-41 [facility] MCV (mean corpuscular volume ) determinationOrdered By: Levy Adorno on 07-29-2024 MCV (RBC) [Entitic vol] 88.3 fL 81-99 [facility] Mean corpuscular hemoglobin (MCH) determinationOrdered By: Levy Adorno on 07-29-2024 MCH (RBC) [Entitic mass] 29.3 pg 27.0-32.0 [facility] Mean corpuscular hemoglobin concentration (MCHC) determinationOrdered By: Levy Adorno on 07-29-2024 MCHC (RBC) [Mass/Vol] 33.2 g/dL 32-36 [facility] Mean platelet volume determi nationOrdered By: Levy Adorno on 07-29-2024 Platelet mean volume (Bld) [Entitic vol] 9.2 fL 6.2-12.0 [facility] Monocyte percentageOrdered B y: Levy Adorno on 07-29-2024 Monocytes/100 WBC (Bld) 4.9 % 0-10 [facility] Neutrophil percentageOrdered By: Levy Adorno on 07-29-2024 Neutrophils/100 WBC (Bld) 68.1 % 47-70 [facility] Nucleated red blood cell per centageOrdered By: Levy Adorno on 07-29-2024 Nucleated RBC/100 WBC (Bld) [Ratio] 0 % 0-5 [facility] Platelet countOrdered By: John Adorno on 07-29-2024 Platelets (Bld) [#/Vol] 285 10*3/uL 150-450 [facility] Potassium (Unsp spec) [Mass/ Vol]Ordered By: Levy Adorno on 07-29-2024 Potassium [Moles/Vol] 3.7 mmol/L 3.3-5.1 [facility] RBC Auto (Bld) [#/Vol]Ordere d By: Levy Adorno on 07-29-2024 RBC (Bld) [#/Vol] 4.61 10*6/uL 4.2-5.4 [facility] Serum creatinine measurement (mass/volume)Ordered By: Levy Adorno on 07-29-2024 Creatinine [Mass/Vol] 0.68 mg/dL Low 0.70-1.20 [facility] Serum glucose measurement (m ass/volume)Ordered By: Levy Adorno on 07-29-2024 Glucose [Mass/Vol] 94 mg/dL 70-99 [facility] Serum or plasma calcium buddy urement (mass/volume)Ordered By: Levy Adorno on 07-29-2024 Calcium [Mass/Vol] 9.5 mg/dL 7.6-11.0 [facility] Serum or plasma urea nitroge n measurement (mass/volume)Ordered By: Levy Adorno on 07-29-2024 Urea nitrogen [Mass/Vol] 8 mg/dL 4-19 [facility] Sodium levelOrdered By: Yared Adorno on 07-29-2024 Sodium [Moles/Vol] 139 mmol/L 133-145 [facility] White blood cell (WBC) count Ordered By: Levy Adorno on 07-29-2024 WBC (Bld) [#/Vol] 10.1 10*3/uL 4.4-11.0 [facility] Stress Reporton 06-26-2024 Stress Report [facility] [address] [place] [address] MR#: [id number] Acct: [id number] Name: GALE DICKSON Rep #: [id number] : 1990 33 From: Levy Adorno MD Primary Care: MICROWAVE TECHNICIANSARA JaureguiC Status: REG CLI Referring Dr: Levy Adorno MD Sex: F C Stress Test Report Date: 06/26/2024 Procedure: Exercise tolerance test/imaging study Indications: Syncope Consent: Per the patient Procedure: The patient exercised on a Cole protocol for 9 minutes achieving a peak heart rate of 176 bpm (94% predicted maximal heart rate) with a peak blood pressure 162/64 mmHg and a peak MET capacity of 10.1 METs. The baseline ECG demonstrated sinus rhythm. The peak exercise ECG demonstrated no ischemic changes. Rare PVCs noted during exercise and in recovery. The functional capacity was considered good. There was no complaint of chest discomfort during exercise or recovery. The examination was discontinued secondary to target heart rate being achieved. The patient was injected with 11.8 mCi of technetium 99m Cardiolite and subsequently rest SPECT Cardiolite nuclear imaging was obtained in the horizontal long, vertical long, and short axis views. Post-exercise, the patient was injected with 34.4 mCi of technetium 99m Cardiolite and subsequently stress SPECT Cardiolite nuclear imaging was obtained in the horizontal long, vertical long, and short axis views. A gated Cardiolite study at peak stress was obtained. Rest and stress SPECT Cardiolite nuclear imaging status post realignment, normalization, and attenuation correction, demonstrates the appearance of relative uniform tracer uptake and myocardial perfusion appearing within normal limits. There is end systolic thickening and brightening. The gated Cardiolite study demonstrates myocardial thickening and inward wall motion. The reported LVEF is 66%. Impression: 1. Technically adequate (percent predicted maximal heart rate greater than 85%) exercise tolerance test 2. Peak exercise ECG with no ischemic changes 3. Rare PVCs during exercise and in recovery including a couplet. 4. Rest and stress SPECT Cardiolite nuclear imaging demonstrate relative uniform tracer uptake and myocardial perfusion appearing within normal limits. 5. The gated Cardiolite study reports an LVEF of 66%. This note was generated with [employer] software. It may contain incorrect words, spelling, and punctuation that were not noted in checking the note before signing. 06/26/24 1241 Date Levy Adorno MD CC: MICROWAVE TECHNICIANKaryC BECK. Linnette Lopez; Dr. Levy Adorno MD Date Dictated: 06/26/24 1239 Date Transcribed: 06/26/24 1239 [employer] Member: JOHN Signed Normal [facility] Albumin to globulin ratioOrd ered By: Levy Adorno on 06-09-2024 Albumin/Globulin [Mass ratio] 1.2 {ratio} Normal 0.9-2.4 [facility] Comment on above: Performed By: #### L 501.9520, L500.4050 #### [facility] [address] [place], [address] Bilirubin, totalOrdered By: Levy Adorno on 06-09-2024 Bilirubin [Mass/Vol] 0.60 mg/dL Normal 0.20-1.00 [facility] Comment on above: For patients on eltr ombopag therapy, use of [facility] [place] TBIL is not recommended. Result Comment: For patients on eltrombopag therapy, use of [facility] [place] TBIL is not recommended. Performed By: #### L 501.9520, L500.4050 #### [facility] [address] [place], [address] Blood urea nitrogen (BUN)/cr eatinine ratioOrdered By: Levy Adorno on 06-09-2024 Urea nitrogen/Creatinine [Mass ratio] 11.3 mg/mg 03-02 [facility] Carbon dioxide measurementOr dered By: Levy Adorno on 06-09-2024 CO2 [Moles/Vol] 23.0 mmol/L Normal 21.0-32.0 [facility] Comment on above: Performed By: #### L 501.9520, L500.4050 #### [facility] [address] [place], [address] Chloride measurementOrdered By: Levy Adorno on 06-09-2024 Chloride [Moles/Vol] 110 mmol/L High 98-107 [facility] Comment on above: Performed By: #### L 501.9520, L500.4050 #### [facility] [address] [place], [address] Comprehensive Metabolic Prof ilon 06-09-2024 ALK P 55 U/L Normal 45-117 [facility] Comment on above: Performed By: #### L 501.9520, L500.4050 #### [facility] [address] [place], [address] BUN/CRE 11.3 RATIO Normal 03-02 [facility] Comment on above: Performed By: #### L 501.9520, L500.4050 #### [facility] [address] [place], [address] CA,Total 9.4 mg/dL Normal 8.5-10.1 [facility] Comment on above: Performed By: #### L 501.9520, L500.4050 #### [facility] [address] [place], [address] EST GFR - AA 122 mL/min Normal >60 [facility] Comment on above: Result Comment: Afri can Faroese GFR Calc Performed By: #### L 501.9520, L500.4050 #### [facility] [address] [place], [address] GAP 8 Normal 5-15 [facility] Comment on above: Performed By: #### L 501.9520, L500.4050 #### [facility] [address] [place], [address] GFR/1.73 sq M.predicted among non-blacks MDRD (S/P/Bld) [Vol rate/Area] 101 mL/min/{1.73_m2} Normal >60 [facility] Comment on above: Result Comment: Non- GFR Calc Performed By: #### L 501.9520, L500.4050 #### [facility] [address] [place], [address] T PROT 7.1 g/dL Normal 6.4-8.2 [facility] Comment on above: Performed By: #### L 501.9520, L500.4050 #### [facility] [address] [place], [address] Comprehensive Metabolic Prof ilOrdered By: Levy Adorno on 06-09-2024 AST [Catalytic activity/Vol] 16 U/L Normal 15-37 [facility] Comment on above: Performed By: #### L 501.9520, L500.4050 #### [facility] [address] [place], [address] Estimated glomerular filtrat ion rate (GFR) AmericanOrdered By: Levy Adorno on 06-09-2024 Estimated GFR (MDRD) Amer 122 mL/min >60 [facility] Comment on above: GFR Calc Glomerular filtration rate ( GFR) estimationOrdered By: Levy Adorno on 06-09-2024 Estimated GFR (MDRD) Non-Af Amer 101 mL/min >60 [facility] Comment on above: Non- GFR Calc Glucose measurementOrdered B y: Levy Adorno on 06-09-2024 Glucose [Mass/Vol] 95 mg/dL Normal 74-106 [facility] Comment on above: Performed By: #### L 501.9520, L500.4050 #### [facility] [address] [place], [place], [address] Potassium measurementOrdered By: Levy Adorno on 06-09-2024 Potassium [Moles/Vol] 3.5 mmol/L Normal 3.5-5.1 [facility] Comment on above: Performed By: #### L 501.9520, L500.4050 #### [facility] [address] [place], [place], [id number] Serum anion gap measurementO rdered By: Levy Adorno on 06-09-2024 Anion gap [Moles/Vol] 8 mmol/L 5-15 [facility] Serum globulin measurementOr dered By: Levy Adorno on 06-09-2024 Globulin (S) [Mass/Vol] 3.2 g/dL Normal 2.2-4.2 [facility] Comment on above: Performed By: #### L 501.9520, L500.4050 #### [facility] [address] [place], [address] Serum or plasma alanine gross otransferase (ALT) measurementOrdered By: Levy Adorno on 06-09-2024 ALT [Catalytic activity/Vol] 18 U/L Normal 13-56 [facility] Comment on above: Performed By: #### L 501.9520, L500.4050 #### [facility] [address] [place], [address] Serum or plasma albumin buddy urement (mass/volume)Ordered By: Levy Adorno on 06-09-2024 Albumin [Mass/Vol] 3.9 g/dL Normal 3.2-5.0 [facility] Comment on above: Performed By: #### L 501.9520, L500.4050 #### [facility] [address] [place], [address] Serum or plasma alkaline lorin sphatase measurementOrdered By: Levy Adorno on 06-09-2024 ALP [Catalytic activity/Vol] 55 U/L 45-117 [facility] Serum or plasma calcium buddy urement (mass/volume)Ordered By: Levy Adorno on 06-09-2024 Calcium [Mass/Vol] 9.4 mg/dL 8.5-10.1 [facility] Serum or plasma creatinine m easurement (mass/volume)Ordered By: Levy Adorno on 06-09-2024 Creatinine [Mass/Vol] 0.71 mg/dL Normal 0.55-1.02 [facility] Comment on above: The validity of the calculated GFR & GFRAA in patients over 70 years has not been determined. Clinical correlation is essential. Result Comment: The validity of the calculated GFR GFRAA in patients over 70 years has not been determined. Clinical correlation is essential. Performed By: #### L 501.9520, L500.4050 #### [facility] [address] [place], [address] Serum or plasma urea nitroge n measurement (mass/volume)Ordered By: Levy Adorno on 06-09-2024 Urea nitrogen [Mass/Vol] 8 mg/dL Normal 7-18 [facility] Comment on above: Performed By: #### L 501.9520, L500.4050 #### [facility] [address] [place], [address] Sodium levelOrdered By: Yared Adorno on 06-09-2024 Sodium [Moles/Vol] 141 mmol/L Normal 136-145 [facility] Comment on above: Performed By: #### L 501.9520, L500.4050 #### [facility] [address] [place], [place], [address] TSH QnOrdered By: Levy bruner on 06-09-2024 Thyroid Stimulating Hormone (TSH) 2.570 uIU/mL 0.358-3.740 [facility] Thyroid Stim Hormone (TSH)on 06-09-2024 TSH 2.570 uIU/mL Normal 0.358-3.740 [facility] Comment on above: Performed By: #### L 501.9520, L500.4050 #### [facility] [address] [place], [place], [address] Total proteinOrdered By: Rukhsana Adorno on 06-09-2024 Protein [Mass/Vol] 7.1 g/dL 6.4-8.2 [facility] 12 Lead EKG performed by [facility] on 06-05-2024 12 Lead EKG performed by [facility] [address] [place] [address] 12 Lead EKG performed by [facility] 06/05/24 0837 MR#: [id number] Acct: [id number] Name: GALE DICKSON Rep #: [id number] : 1990 33 From: Levy Adorno MD Attending Dr: Dr. Levy Adorno MD Status: DEP AMB Ordering Dr: Levy Adorno MD Date: 06/05/24 [place] [facility] Sex: F C Admitted: BMS/12 Lead EKG performed by [facility] ECG Report Interpretation Sinus Rhythm -RSR(V1) -nondiagnostic. -Left atrial enlargement. - Negative precordial T-waves -Normal for age. BORDERLINEElectronically signed on 06/09/2024 at 11:[address] Levy Adorno [employer] Version [employer]10 06/09/24 1140 Date Levy Adorno MD CC: MICROWAVE TECHNICIAN-C MICROWAVE TECHNICIANRobby Linnette Lopez Date Dictated: 06/05/24836 Date Transcribed: 06/05/24836 [employer] Member: JOHN Signed Normal [facility] Cardiology Visit Reporton Cardiology Visit Report [facility] [address] [place] [address] OFFICE VISIT Date of Service: 06/05/24 MR#: [id number] Acct: [id number] Name: GALE DICKSON Rep #: [id number] : 1990 Provider: Dr. Levy Adorno MD Age/Sex: 33/F Location[place] [facility] Status: Signed HPI HPI History of Present Illness Details: This lady has no significant past medical history. She was previously worked up for possible seizure disorder. According to the patient, she had workup done by neurology and was told that she did not have any seizure disorder. Patient has been referred to us for her history of recurrent syncopal episodes. According to the patient, for the past 2 years or so, she has been having recurrent syncopal episodes. According to her, lately these have been happening 2-3 times a week. Per her, she feels her heart racing and then feels tingling/numbness in her hands and face. Subsequent to that, she passes out. According to her, she has had a few falls but now that she is very well aware of her symptoms, she lays herself down. According to her, she usually regains consciousness in 2 to 3 minutes. No history of bladder or bowel incontinence. She does admit to having tongue bite on a few occasions. Denies any chest pains either at rest or with exertion. She does complain of palpitations almost on a daily basis. According to her, she has had her rhythm monitored for couple of weeks late last year. No orthopnea. No PND. Occasional ankle edema. Denies EtOH or illicit substance abuse. Patient has had echocardiogram done March of last year. It showed normal LV systolic function. No major valvular abnormalities were noted. 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 Required: No Accompanied by: Self Is patient in pain?: No Allergies levetiracetam Allergy (Intermediate, Verified 06/05/24 09:49) Rash Have you fallen in the past year?: Yes (multiple; no major injury) [facility] Medical History Abnormal bruising Anemia in Asthma BMI 26.0-26.9,adult Chronic neck and back pain Dependent edema Dizziness Lactic acidosis Limb weakness Overweight (BMI 25.0-29.9) Psychogenic nonepileptic seizure Short interval between pregnancies affecting in first trimester, antepartum Tachycardia Tobacco use Unspecified convulsions Surgical History History of dental surgery History of hysterectomy History of tubal ligation Family History Grandmother Cancer Aunt Cancer Mother Asthma Diabetes prediabetic Father Asthma Brother Asthma Social History Smoking Status: Current every day smoker alcohol intake: current caffeine: Yes Type: coffee ROS Const Const: Positive for headache(s); Negative for fatigue, weakness or weight gain ENT ENT: Positive for headache(s); Negative for dizziness, Nosebleed/epistaxis or balance problems Cardio Chest Pain: No Palpitations: Yes (variable symptoms, persistent) feels like its: fast, skipping and thumping Edema: Bilateral Muscle aches with walking: None Resp Respiratory: Positive for other (SOB with elevated HR per pt); Negative for SOB with activity, SOB at rest or SOB orthopnea SOB lying down GI GI: Positive for nausea (occasional); Negative vomiting or heartburn Musc Musc: Positive for muscle aches/ myalgia; Negative for muscle weakness, joint pain or balance problems Neuro Neuro: Positive for lightheadedness (1-3x weekly; no clear precipitating factor), near syncope, syncope and headache(s); Negative for dizziness or weakness Endo Endo: Negative for fatigue Cardiology Exam Const Appearance: comfortable and no acute distress Nutritional Appearance: well nourished Neck Neck: no JVD Carotids: Negative bruit Chest Auscultation: Bilateral: Clear to Auscultation Cardio Rate: regular rate Rhythm: regular rhythm Heart sounds: S1 normal and S2 normal Neuro General: patient alert, patient awake and patient oriented x3 Extremities Lower Extremity Edema: None: Bilateral Supplemental Info Supplemental Information Echocardiogram 04/02/2024: Conclusion: 1. Left ventricle is normal in size and thickness. Systolic ejection fraction 55-60% with normal wall motion. 2. Aortic valve is trileaflet. There is mild thickening of the leaflets. There is no ob (more content not included)... Normal [facility] 36on 04-08-2024 36 Patient has been rescheduled Normal [facility] 36 Lm for patient to [facility] the office back, please transfer her back to the office when she calls back. Normal [facility] 36on 04-07-2024 36 Lm for patient to [facility] the office back, please transfer her back to the office when she calls back. Normal [facility] BMP with eGFRon 04-02-2024 AGE 33 years Normal [facility] Comment on above: Performed By: #### 2 [id number] #### [facility],[address] [place] [address] Anion gap [Moles/Vol] 14 mmol/L Normal - [facility] Comment on above: Performed By: #### 2 49452 #### [facility],[address] [place] [address] BMP with eGFR Normal [facility] Comment on above: Result Comment: BASI C METABOLIC PANEL Performed By: #### 2 79826 #### [facility],[address] [place] [address] Calcium [Mass/Vol] 9.4 mg/dL Normal 8.5 - 10.1 [facility] Comment on above: Performed By: #### 2 59189 #### [facility],[address] [place] [address] Chloride [Moles/Vol] 106 mmol/L Normal 98 - 107 [facility] Comment on above: Performed By: #### 2 71293 #### [facility],[address] [place] [address] CO2 [Moles/Vol] 27.1 mmol/L Normal 21.0 - 32.0 [facility] Comment on above: Performed By: #### 2 53982 #### [facility],[address] [place], [place] [address] Creatinine [Mass/Vol] 0.76 mg/dL Normal 0.55 - 1.02 [facility] Comment on above: Performed By: #### 2 98887 #### [facility],[address] [place], [place] [address] GFR/1.73 sq M.predicted among non-blacks MDRD (S/P/Bld) [Vol rate/Area] mL/min/{1.73_m2} Normal 60 - 999 [facility] Comment on above: Performed By: #### 2 12623 #### [facility],[address] [place] [address] Result Comment: ACCO RDING TO THE NATIONAL KIDNEY DISEASE EDUCATION PROGRAM(NKDE), A NORMAL eGFR IS A VALUE GREATER THAN OR EQUAL TO 60 ML/MIN/1.73 SQ METERS. CHRONIC KIDNEY DISEASE: <60mL/MIN/1.73 SQ METERS KIDNEY FAILURE: <15mL/MIN/1.73 SQ METERS THIS TEST SHOULD ONLY BE USED FOR PATIENTS 18 YEARS OF AGE AND OLDER. Glucose [Mass/Vol] 87 mg/dL Normal 74 - 106 [facility] Comment on above: Performed By: #### 2 93609 #### [facility],[address] [place] [address] Potassium [Moles/Vol] 4.0 mmol/L Normal 3.5 - 5.1 [facility] Comment on above: Performed By: #### 2 23578 #### [facility],[address] [place] [address] Sodium [Moles/Vol] 143 mmol/L Normal 136 - 145 [facility] Comment on above: Performed By: #### 2 03531 #### [facility],[address] [place] [address]013 Urea nitrogen [Mass/Vol] 5 mg/dL Low 7 - 18 [facility] Comment on above: Performed By: #### 2 51922 #### [facility],[address] [place] [address]94 CV ECHO COMPLETE CV ECHO COMPLETE [address] [address] Patient: GALE DICKSON Phone#: : 1990 Age: 33 Gender: F Pt. Type: Out Account: [id number] Location: [facility] Ordering: LINNETTE LOPEZ Exam Date: 04/02/2024/8:04 Family Phys: Charge Code: 079013 Physician: Furnas Order #: [id number] Dose#: PROCEDURE: ECHOCARDIOGRAM WITH DOPPLER AND COLOR FLOW HISTORY: Patient is a 33-year-old female with murmur INDICATIONS: MURMUR COMPARISON: None. TECHNIQUE: A 2-D ultrasound, color spectral Doppler and M-mode evaluation of the heart and great vessels. PATIENT MEASUREMENTS: Height (in.): 71 BSA: 2.3 Weight (lbs.): 185 BP: 137/77 Creative Assistant: MCKENZIE M MODE 2D MEASUREMENTS AND CALCULATIONS: LVIDd: 5.03 cm LVIDs: 2.83 cm IVSd: 0.67 cm LVPWd: 0.83 cm LVOT diam: 2.2 cm FS: 43.77 % Ao Root diam: 2.58 cm LA diam: 3.5 cm LA Volume Index: 27.1 mL/m2 LA A4 Area: 19.81 cm2 RA A4 Area: 15.3 cm2 RVDd: 3.13 cm TAPSE: 22 mm DOPPLER MEASUREMENTS AND CALCULATIONS MITRAL MV E MAX lizzette: 0.69 m/s MV A MAX lizzette: 0.35 m/s MV E-A ratio: 2.00 MV V2 max: 0.82 m/s MV max P.68 mm[Hg] MV V2 mean: 0.41 m/s MV mean P.83 mm[Hg] Continued Report - Page 2 of 3 Patient: GALE DICKSON Phone#: : 1990 Age: 33 Gender: F Pt. Type: Out Account: [id number] Location: 052 Ordering: LINNETTE CASTBeckie Exam Date: 04/02/2024/8:04 Family Phys: Charge Code: 296504 Physician: Furnas Order #: [id number] Dose#: MV V2 VTI: 29.05 cm Lat Peak E' Lizzette 16 cm/sec Septal Peak E' LIZZETTE 12 cm/sec E/E' lateral 4.23 E/E' medial 6 AORTIC Ao V2 max: 1.53 m/s Ao max P.34 mm[Hg] Ao V2 mean: 1.10 m/s Ao mean P.51 mm[Hg] Ao V2 VTI: 35.17 cm LV V1 Max 1.14 m/s LV V1 Max PG 5.15 mm[Hg] LV V1 Mean PG 3.13 mm[Hg] LV V1 mean 0.83 m/s LV V1 VTI 25.72 cm PULMONIC PA V2 Max 0.99 m/s PA Max PG 3.94 mm[Hg] TRICUSPID TR Max Lizzette 2.18 m/s TR max PG 18.94 mm[Hg] RVSP 22 mm Hg 2D/M-MODE AND COLOR FLOW LEFT VENTRICLE: Left ventricle is normal in size and thickness. Systolic ejection fraction 55-60% with normal wall motion. Diastolic function is normal. WALL MOTION: 1 - Basal anterior: Normal. 7 - Mid anterior: Normal. 13 - Apical anterior: Normal. 2 - Basal anteroseptal: Normal. 8 - Mid anteroseptal: Normal. 14 - Apical septal: Normal. 3 - Basal inferoseptal: Normal. 9 - Mid inferoseptal: Normal. 15 - Apical inferior: Normal. 4 - Basal inferior: Normal. 10-Mid inferior: Normal. 16 - Apical lateral: Normal. 5 - Basal inferolateral: Normal. 11-Mid inferolateral: Normal. 6 - Basal anterolateral: Normal. 12-Mid anterolateral: Normal. RIGHT VENTRICLE: Right ventricle is normal in size and systolic function LEFT ATRIUM: Left atrium is normal in size RIGHT ATRIUM: Right atrium is normal size ATRIAL SEPTUM: There is no large interatrial shunt seen. PFO was not assessed MITRAL VALVE: Mitral valve appears normal structure. There is trivial regurgitation no stenosis seen. Continued Report - Page 3 of 3 Patient: GALE DICKSON Phone#: : 1990 Age: 33 Gender: F Pt. Type: Out Account: [id number] Location: [facility] Ordering: LINNETTE LOPEZ Exam Date: 04/02/2024/8:04 Family Phys: Charge Code: 968013 Physician: Furnas Order #: [id number] Dose#: TRICUSPID VALVE: Tricuspid valve is normal structure. There is trivial regurgitation no stenosis seen AORTIC VALVE: Aortic valve is trileaflet. There is mild thickening of the leaflets. There is no obvious mass seen. There is no stenosis or regurgitation seen. PULMONIC VALVE: Pulmonic valve is normal structure. There is no regurgitation or stenosis seen AORTIC ROOT: Aortic root is normal in size. AORTIC ARCH: Aortic arch is normal in size. DESC THORACIC AORTA: Descending aorta is normal size. Doppler shows normal systolic diastolic flow IVC/SVC: IVC is normal in size with more than 50% collapse of inspiration. Estimated atrial pressure is 3 mm Hg. PULMONARY VEINS: Normal pulmonic vein flow. PERICARDIUM: There is small loculated pericardial effusion seen in the posterior right and left ventricle CONCLUSION: 1. Left ventricle is normal in size and thickness. Systolic ejection fraction 55-60% with normal wall motion. 2. Aortic valve is trileaflet. There is mild thickening of the leaflets. There is no obvious mass is seen. There is no aortic valve dysfunction seen. 3. Right ventricle is normal in size and systolic function. 4. Estimated right ventricular systolic pressure is 22 mm Hg. Dictated by: VENESSA OG MD on 04/02/2024 at 11:13 Approved by: VENESSA OG MD on 04/02/2024 at 12:09 Normal [facility] 12 Lead EKGon 03-25-2024 12 Lead EKG [facility] [address] [place] [address] 12 Lead EKG 03/25/24 0412 MR#: [id number] Acct: [id number] Name: GALE DICKSON Rep #: [id number] : 1990 33 From: Juan Gallego MD Attending Dr: Status: DEP ER Ordering Dr: Estuardo Roland DO Date: 03/25/24 Location: ED Sex: F C Admitted: Test Reason : DYSRHYTHMIA Blood Pressure : */* mmHG Vent. Rate : 57 BPM Atrial Rate : 57 BPM P-R Int : 160 ms QRS Dur : 78 ms QT Int : 428 ms P-R-T Axes : 25 36 32 degrees QTcB Int : 416 ms Sinus bradycardia Otherwise normal ECG Confirmed by JUAN GALLEGO MD ([id number]), order editor FILI YATES ([id number]) on 03/25/2024 6:43:27 AM Referred By: Confirmed By: JUAN GALLEGO MD 03/25/24 0643 Date Juan Gallego MD CC: MICROWAVE TECHNICIAN-C BECK. Linnette Lopez; Dr. Estuardo Roland DO Signed Normal [facility] Basic Metabolic Profile (BMP )on 03-25-2024 BUN/CRE 7.0 RATIO Low 10-20 [facility] Comment on above: Performed By: #### L 500.2500 #### [facility] [address] [place], [address] CA,Total 8.8 mg/dL Normal 8.5-10.1 [facility] Comment on above: Performed By: #### L 500.2500 #### [facility] [address] [place], [address] Chloride [Moles/Vol] 112 mmol/L High 98-107 [facility] Comment on above: Performed By: #### L 500.2500 #### [facility] [address] [place], [address] CO2 [Moles/Vol] 22.0 mmol/L Normal 21.0-32.0 [facility] Comment on above: Performed By: #### L 500.2500 #### [facility] [address] [place], [address] Creatinine [Mass/Vol] 0.72 mg/dL Normal 0.55-1.02 [facility] Comment on above: Result Comment: The validity of the calculated GFR GFRAA in patients over 70 years has not been determined. Clinical correlation is essential. Performed By: #### L 500.2500 #### [facility] [address] [place], [address] ECRCL 104.04 ml/min Normal [facility] Comment on above: Performed By: #### L 500.2500 #### [facility] [address] [place], [address] EST GFR - AA 120 mL/min Normal >60 [facility] Comment on above: Result Comment: Afri can Faroese GFR Calc Performed By: #### L 500.2500 #### [facility] [address] [place], [address] GAP 8 Normal 5-15 [facility] Comment on above: Performed By: #### L 500.2500 #### [facility] [address] [place], [address] GFR/1.73 sq M.predicted among non-blacks MDRD (S/P/Bld) [Vol rate/Area] 99 mL/min/{1.73_m2} Normal >60 [facility] Comment on above: Result Comment: Non- GFR Calc Performed By: #### L 500.2500 #### [facility] [address] [place], [address] Glucose [Mass/Vol] 123 mg/dL High 74-106 [facility] Comment on above: Result Comment: Fast ing Glucose result from 100 to 125 mg/dL suggests IMPAIRED HOMEOSTASIS per A.D.A. criteria. Performed By: #### L 500.2500 #### [facility] [address] [place], [address] Potassium [Moles/Vol] 2.6 mmol/L Invalid Interpretation Code 3.5-5.1 [facility] Comment on above: Result Comment: Crit ical Result(s) Called at: 03:50:06 03/25/2024 by: Nancy REGALADO. Results read back by same. Performed By: #### L 500.2500 #### [facility] [address] [place], [address] Sodium [Moles/Vol] 142 mmol/L Normal 136-145 [facility] Comment on above: Performed By: #### L 500.2500 #### [facility] [address] [place], [address] Urea nitrogen [Mass/Vol] 5 mg/dL Low 7-18 [facility] Comment on above: Performed By: #### L 500.2500 #### [facility] [address] [place], [place], [address] Emergency Department Summary on 03-25-2024 Emergency Department Summary [facility] Medical Records Department [address] [place] [address] Emergency Department Summary 03/25/24 MR#: [id number] Acct: [id number] Name: GALE DICKSON Rep #: [id number] : 1990 33 From: Estuardo Roland DO PCP: ASHOK Gorman Status:DEP ER Location: ED HPI History of Present Illness Chief Complaint: Seizure Informant: patient and EMS Narrative Narrative: 3-year-old female presenting to the emergency room with possible seizure. Patient states that she was at work when she had another one of her episodes. She states that she began to feel her heart racing for about an hour and then gets tingling of her face and her hands. She states she usually sits down and then loses responsiveness during which time some people say that she twitches. She states that she is not confused afterwards and is usually able to continue on about her day. Tonpoly she had 2 episodes within a couple hours while at work and EMS was called both times. Patient states that she was taking Keppra up until several months ago when she developed a rash so she stopped taking it. She has been seeing her doctor who feels that this may not be seizure activity and she is supposed to see a neurologist at the end of April. She states that she has had EEGs but never showed seizure activity. She has never lost control of bowel or bladder or injured herself. She states that she recently had blood work done on the ninth of this month that showed a slightly low potassium at 3.3 and she has not yet had a chance to fill that prescription. She does not really wish to be on any seizure medication. She would like to get going soon because she needs to get her children on the bus (currently 0300 hrs.). [facility] Medical History Lactic acidosis Chronic neck and back pain Limb weakness Abnormal bruising Home Medications ???Medication ???Instructions ???Recorded ???Last Taken ???Type levetiracetam 500 mg tablet 500 mg PO BID #30 tabs 02/05/23 Unknown Rx (Keppra) potassium chloride 20 mEq 40 meq (2 x 20 mEq) PO DAILY 5 03/25/24 Unknown Rx tablet,extended release days #10 tabs Allergy/AdvReac Type Severity Reaction Status Date / Time levetiracetam Allergy Intermediate Rash Verified 03/25/24 02:33 Surgical History History of dental surgery History of hysterectomy History of tubal ligation Social History Smoking Status: Never smoker alcohol intake: current ROS ROS ED Constitutional Constitutional ED: Denies chills or weight loss Eyes Eyes: Denies change in vision or diplopia ENT ENT ED: Denies ear pain, rhinorrhea or sore throat Cardiovascular Cardiovascular: Reports racing heartbeat and other Details: See history of present illness ; Denies chest pain, orthopnea or palpitations Respiratory/Chest Respiratory/Chest: Denies cough, dyspnea or orthopnea Gastrointestinal Gastrointestinal: Denies abdominal pain, diarrhea, nausea or vomiting Genitourinary Genitourinary ED: Denies dysuria, hematuria or urinary frequency Musculoskeletal Musculoskeletal: Denies arthralgias or myalgias Integumentary Denies abscess or rash Neurologic Neurologic: Reports paresthesias; Denies headache(s) or weakness Psychiatric Psychiatric: Denies anxiety, depression, suicidal ideation or suicidal thoughts Endocrine Endocrinology: Denies polydipsia, polyphagia or polyuria Allergic/Immunologic Allergic/Immunologic ED: Denies mouth swelling, tongue swelling or urticaria EXAM Physical Exam Const Vital Signs: 03/25/24 02:31 03/25/24 04:49 Temperature 98 F 98.2 F Temperature Source Oral Pulse Rate 72 88 Respiratory Rate 16 19 H Blood Pressure 122/70 H 113/77 Blood Pressure Mean 87 89 Pulse Ox 99 98 Oxygen Delivery Method Room Air Positive well nourished and well developed General Appearance ED: well developed HEENT Reports normocephalic, head/scalp atraumatic and moist mucous membranes Eyes PERRL and EOMs intact bilaterally Neck no lymphadenopathy, supple and no JVD Resp normal respiratory effort and clear to auscultation bilaterally Cardio regular rate, regular rhythm and no murmurs GI normal to inspection, nondistended, normoactive bowel sounds and non-tender Palpation: soft Back/Spine no CVA tenderness and normal ROM Extremity normal to inspection General Extremety ED: Negative for edema General Extremity: Negative for edema Neuro oriented x3 and CN's II-XII intact bilaterally Sensorium / Orientation: alert Motor Exam: strength 5/5 throughout Psych mental status grossly normal Mood Affect: Negative for depressed or tearful Skin n (more content not included)... Normal [facility] Magnesiumon 03-25-2024 Magnesium [Mass/Vol] 1.9 mg/dL Normal 1.6-2.6 [facility] Comment on above: Performed By: #### L [phone] #### [facility] [address] [place], [place], [id number] CBC + DIFFon 03-22-2024 Baso # 0.02 x10EE3/UL Normal 0.00 - 0.10 [facility] Comment on above: Performed By: #### 2 88184 #### [facility],[address] [place] [address] 14520 Basophils/100 WBC (Bld) 0.3 % Normal 0.0 - 2.0 [facility] Comment on above: Performed By: #### 2 05418 #### [facility],[address] [place] [address] 38378 CBC + DIFF Normal [facility] Comment on above: Result Comment: CBC- COMPLETE BLOOD COUNT Performed By: #### 2 12140 #### [facility],[address] [place] [address] 17910 EO # 0.10 x10EE3/UL Normal 0.00 - 0.50 [facility] Comment on above: Performed By: #### 2 91839 #### [facility],[address] [place] [address] 28634 Eosinophils/100 WBC (Bld) 1.5 % Normal 0.0 - 7.0 [facility] Comment on above: Performed By: #### 2 88754 #### [facility],[address] [place] [address] 76591 Erythrocyte distribution width (RBC) [Ratio] 14.2 % Normal 12.0 - 15.6 [facility] Comment on above: Performed By: #### 2 18654 #### [facility],[address] [place] [address] 81396 Hematocrit (Bld) [Volume fraction] 40.0 % Normal 34.0 - 46.0 [facility] Comment on above: Performed By: #### 2 37879 #### [facility],[address] [place] [address] 52600 Hemoglobin (Bld) [Mass/Vol] 13.2 g/dL Normal 12.0 - 16.0 [facility] Comment on above: Performed By: #### 2 13180 #### [facility],[address] [place] [address] Lymph # 2.85 x10EE3/UL High 0.80 - 2.80 [facility] Comment on above: Performed By: #### 2 56507 #### [facility],[address] [place] [address] Lymphocytes/100 WBC (Bld) 40.5 % Normal 20.0 - 45.0 [facility] Comment on above: Performed By: #### 2 95996 #### [facility],[address] [place] [address] MANUAL DIFF N/A Normal [facility] Comment on above: Performed By: #### 2 83902 #### [facility],[address] [place], [place] [phone] MCH (RBC) [Entitic mass] 29 pg Normal 27 - 33 [facility] Comment on above: Performed By: #### 2 89939 #### [facility],[address] [place] [address] MCHC 33 X10 3 Normal 32 - 36 [facility] Comment on above: Performed By: #### 2 09591 #### [facility],[address] [place] [address] 84223 MCV (RBC) [Entitic vol] 88 fL Normal 80 - 99 [facility] Comment on above: Performed By: #### 2 34586 #### [facility],[address] [place] [address] 82433 Yell # 0.45 x10EE3/UL Normal 0.20 - 1.00 [facility] Comment on above: Performed By: #### 2 29068 #### [facility],[address] [place] [address] 41471 MONOS % 6.4 % Normal 0.0 - 10.0 [facility] Comment on above: Performed By: #### 2 91940 #### [facility],[address] [place] [address] 59575 Morphology Nye (Bld) [Interp] N/A Normal [facility] Comment on above: Performed By: #### 2 79156 #### [facility],[address] [place] [address] 50997 Neut # 3.60 x10EE3/UL Normal 1.50 - 7.10 [facility] Comment on above: Performed By: #### 2 98275 #### [facility],[address] [place] [address] 32055 Neutrophils/100 WBC (Bld) 51.3 % Normal 46.0 - 76.0 [facility] Comment on above: Performed By: #### 2 26317 #### [facility],[address] [place] [address] 44964 PLATELET 265 x10EE3/UL Normal 150 - 450 [facility] Comment on above: Performed By: #### 2 85024 #### [facility],[address] [place] [address] 37955 Platelet mean volume (Bld) [Entitic vol] 7.3 fL Normal 6.6 - 10.5 [facility] Comment on above: Result Comment: AUTO MATED DIFFERENTIAL Performed By: #### 2 95519 #### [facility],[address] [place] [address] 51783 RBC 4.56 x 10EE6/UL Normal 4.10 - 5.30 [facility] Comment on above: Performed By: #### 2 09099 #### [facility],[address] [place] [address] 91460 WBC 7.0 x 10EE3/UL Normal 4.5 - 10.8 [facility] Comment on above: Performed By: #### 2 91914 #### [facility],[address] [place] [address] 45021 CMP with eGFRon 03-22-2024 AGE 33 years Normal [facility] Comment on above: Performed By: #### 2 43817 #### [facility],[address] [place] [address] 41064 Albumin [Mass/Vol] 3.8 g/dL Normal 3.4 - 5.0 [facility] Comment on above: Performed By: #### 2 03671 #### [facility],[address] [place] [address] 14287 Albumin/Globulin [Mass ratio] 1.4 {ratio} Normal 0.9 - 1.6 [facility] Comment on above: Performed By: #### 2 84871 #### [facility],[address] [place] [address] 61833 ALK PHOS 50 U/L Normal 46 - 116 [facility] Comment on above: Performed By: #### 2 12792 #### [facility],[address] [place] [address] 68424 ALT [Catalytic activity/Vol] 22 U/L Normal 16 - 63 [facility] Comment on above: Performed By: #### 2 28959 #### [facility],[address] [place] [address] 13707 Anion gap [Moles/Vol] 10 mmol/L Normal 10 - 20 [facility] Comment on above: Performed By: #### 2 36327 #### [facility],[address] [place] [address] 75167 AST [Catalytic activity/Vol] 12 U/L Low 13 - 39 [facility] Comment on above: Performed By: #### 2 43262 #### [facility],[address] [place] [address] 50281 B/C RATIO 6 ratio Normal 0 - 30 [facility] Comment on above: Performed By: #### 2 23298 #### [facility],[address] [place] [address] 15832 Bilirubin [Mass/Vol] 0.6 mg/dL Normal 0.2 - 1.0 [facility] Comment on above: Performed By: #### 2 71265 #### [facility],[address] [place] [address] 98860 Calcium [Mass/Vol] 9.3 mg/dL Normal 8.5 - 10.1 [facility] Comment on above: Performed By: #### 2 62297 #### [facility],[address] [place] [address] 32314 Chloride [Moles/Vol] 109 mmol/L High 98 - 107 [facility] Comment on above: Performed By: #### 2 99765 #### [facility],[address] [place], [place] [phone] CMP with eGFR Normal [facility] Comment on above: Result Comment: COMP REHENSIVE METABOLIC PANEL Performed By: #### 2 06784 #### [facility],[address] [place] [address] 34972 CO2 [Moles/Vol] 27.5 mmol/L Normal 21.0 - 32.0 [facility] Comment on above: Performed By: #### 2 72018 #### [facility],[address] [place], [place] [phone] Creatinine [Mass/Vol] 0.72 mg/dL Normal 0.55 - 1.02 [facility] Comment on above: Performed By: #### 2 23476 #### [address] [address] GFR/1.73 sq M.predicted among non-blacks MDRD (S/P/Bld) [Vol rate/Area] mL/min/{1.73_m2} Normal 60 - 999 [facility] Comment on above: Performed By: #### 2 69486 #### [facility],[address] [place], [place] [id number] Result Comment: ACCO RDING TO THE NATIONAL KIDNEY DISEASE EDUCATION PROGRAM(NKDE), A NORMAL eGFR IS A VALUE GREATER THAN OR EQUAL TO 60 ML/MIN/1.73 SQ METERS. CHRONIC KIDNEY DISEASE: <60mL/MIN/1.73 SQ METERS KIDNEY FAILURE: <15mL/MIN/1.73 SQ METERS THIS TEST SHOULD ONLY BE USED FOR PATIENTS 18 YEARS OF AGE AND OLDER. Globulin (S) [Mass/Vol] 2.7 g/dL Normal 1.5 - 3.8 [facility] Comment on above: Performed By: #### 2 73245 #### [address] [address] Glucose [Mass/Vol] 94 mg/dL Normal 74 - 106 [facility] Comment on above: Performed By: #### 2 55311 #### [address] [address] Potassium [Moles/Vol] 3.3 mmol/L Low 3.5 - 5.1 [facility] Comment on above: Performed By: #### 2 05888 #### [address] [address] Protein [Mass/Vol] 6.5 g/dL Normal 6.4 - 8.2 [facility] Comment on above: Performed By: #### 2 56445 #### [address] [address] Sodium [Moles/Vol] 143 mmol/L Normal 136 - 145 [facility] Comment on above: Performed By: #### 2 13135 #### [address] [address] Urea nitrogen [Mass/Vol] 4 mg/dL Low 7 - 18 [facility] Comment on above: Performed By: #### 2 67056 #### [address] [address] T4-FREE (FREE THYROXINE)on 05-22-2023 Free T4 [Mass/Vol] 0.98 ng/dL Normal 0.76 - 1.46 [facility] Comment on above: Result Comment: P otential of falsely elevated results when biotin concentrations are > 10 ng/mL. Performed By: #### 2 56497 #### [facility],[address] [place] [address] 73685 TSHon 03-22-2024 TSH Qn 2.70 m[IU]/L Normal 0.35 - 3.74 [facility] Comment on above: Performed By: #### 2 39816 #### [facility],[address] [place] [address] 34637 36on 02-22-2024 36 I spoke with pt Having our staff contact pts to get her scheduled with Dr. Gore [facility] 36on 02-21-2024 36 Name of Caller: Balwinder calderon Contact Reason for Appointment: Seizures Thien states that at his last appointment with Herlinda they discussed the patient's seizures and Herlinda advised to call the office to schedule an appointment for the patient to be seen. Thien states that the patient has had several seizures in few months and has called twice to schedule. Thien states that each time the patient called she was advised that the providers are not accepting new patients. Thien states that he would like to know if Herlinda would be willing to take the patient and if so call either the patient or Thien to schedule. Please advise. [place] [facility] [place] CNPNon 08-24-2023 CNPN Telephone (NIQ) -- GALE DICKSON ([id number]) 1990 F Date Time Provider Department 08/24/23 SHELBY FOOTE NIQ During your visit today, we recorded the following information about you: Teresa Boswell 08/24/2023 10:57 AM Signed Good Morning Sharonda Kraus emailed us to confirm that they should proceed with this stratus EEG with no video. Can you please confirm the ?no video? request for 120 hour AEEG. Typically we do all in-home AEEG?s with video unless patient refuses, despite education on the benefit for the interpreting physician reading the exam and the pruning remanufacturing technician reviews. Thank you Teresa Allergies As of Date: 08/24/2023 (No Known Allergies) Date Reviewed: 04/27/2023 Reviewed by: Dena Lou RN - Fully Assessed Reason for Visit: Orders [681] Primary Visit Diagnosis:Seizure-like activity (HCC) [R56.9] Order(s):EPIL AMBULATORY EEG [[id number]] Order #: [id number]: 1 FUTURE Prescriptions as of 08/28/2023 - zonisamide (ZONEGRAN) 100 mg capsule Take 1 capsule by mouth once daily. - levETIRAcetam (KEPPRA) 1,000 mg tablet Take 2 tablets by mouth two times a day. Problem List As Of Date 08/24/2023 Noted Resolved Right knee pain [M25.561] 10/28/2013 History of asthma [Z87.09] 11/20/2013 Cigarette nicotine dependence with nicotine-ind*11/20/2013 Nausea and vomiting in [O21.9] 11/20/2013 12/08/2013 Anemia in [O99.019] 05/19/2014 11/23/2019 Dizziness [R42] 08/13/2014 11/23/2019 Short interval between pregnancies affecting pr*02/05/2015 11/23/2019 Encounter for supervision of normal first pregn*02/05/2015 04/13/2015 Psychogenic nonepileptic seizure [F44.5] 11/22/2019 Class 1 obesity in adult [E66.9] 11/23/2019 Seizure-like activity (HCC) [R56.9] 02/16/2023 Encounter Status:Closed by TERESA BOSWELL on 08/28/23 [facility] 36on 08-23-2023 36 Called Gale to reschedule her appointment with Dr. Salguero from 08/20/2023. No answer. LVM instructing her to call back and reschedule. [facility] 36on 08-14-2023 36 Called Gale regard ing request to reschedule her new patient appointment from 08/20/[address] Salguero. No answer. Unable to LVM. Normal [facility] Absolute lymphocyte countOrd ered By: Carlos Duarte on 06-28-2023 Lymphocytes Auto (Unsp spec) [#/Vol] 2.77 10*3/uL 0.83-4.51 [facility] Automated lymphocyte count a s percentage of total leukocytesOrdered By: Carlos Duarte on 06-28-2023 Lymphocytes/100 WBC Auto (Unsp spec) 26.5 % 19-41 [facility] Basophil percentageOrdered B y: Carlos Duarte on 06-28-2023 Lactate [Moles/Vol] 1.9 mmol/L 0.4-2.0 [facility] Basophils/100 WBC (Bld) 0.6 % 0-1 [facility] Chloride [Moles/Vol] 108 mmol/L 98-107 [facility] Eosinophils/100 WBC (Bld) 0.8 % 0-5 [facility] Glucose [Mass/Vol] 105 mg/dL 74-106 [facility] Comment on above: Fasting Glucose resu lt from 100 to 125 mg/dL suggests IMPAIRED HOMEOSTASIS per A.D.A. criteria. Hemoglobin (Bld) [Mass/Vol] 13.1 g/dL 12.0-15.0 [facility] Monocytes/100 WBC (Bld) 5.8 % 0-10 [facility] Neutrophils (Bld) [#/Vol] 6.9 10*3/uL 2.0-7.7 [facility] Neutrophils/100 WBC (Bld) 66.0 % 47-70 [facility] Potassium [Moles/Vol] 3.5 mmol/L 3.5-5.1 [facility] Sodium [Moles/Vol] 141 mmol/L 136-145 [facility] WBC (Bld) [#/Vol] 10.4 10*3/uL 4.4-11.0 [facility] Determination of erythrocyte mean corpuscular volume (MCV)Ordered By: Carlos Duarte on 06-28-2023 MCV (RBC) [Entitic vol] 87.3 fL 81-99 [facility] Erythrocyte distribution wid th ratioOrdered By: Carlos Duarte on 06-28-2023 Erythrocyte distribution width (RBC) [Ratio] 12.3 % 11.6-14.6 [facility] Erythrocyte distribution wid th standard deviationOrdered By: Carlos Duarte on 06-28-2023 Erythrocyte distribution width (RBC) [Entitic vol] 39.3 fL 35.1-43.9 [facility] Hematocrit Auto (Bld) [Volum e fraction]Ordered By: Carlos Duarte on 06-28-2023 Hematocrit (Bld) [Volume fraction] 40.0 % 37-47 [facility] Immature granulocytes/100 WB C Auto (Bld)Ordered By: Carlos Duarte on 06-28-2023 Immature granulocytes/100 WBC (Bld) 0.300 % 0.0-0.9 [facility] Comment on above: IG% - Immature Granu locytes (promyelocytes, myelocytes and metamyelocytes) > 1% indicates that a LEFT SHIFT is Present. Laboratory - Chemistry and C hemistry - challengeOrdered By: Carlos Duarte on 06-28-2023 CO2 [Moles/Vol] 27.0 mmol/L 21.0-32.0 [facility] Urea nitrogen/Creatinine [Mass ratio] 9.3 mg/mg 10-20 [facility] Laboratory - Hematology and Cell countsOrdered By: Carlos Duarte on 06-28-2023 MCH (RBC) [Entitic mass] 28.6 pg 27.0-32.0 [facility] MCHC (RBC) [Mass/Vol] 32.8 g/dL 32-36 [facility] Nucleated RBC/100 WBC (Bld) [Ratio] 0 % 0-5 [facility] Platelet mean volume (Bld) [Entitic vol] 9.7 fL 6.2-12.0 [facility] Platelets (Bld) [#/Vol] 247 10*3/uL 150-450 [facility] No Panel InformationOrdered By: Carlos Duarte on 06-28-2023 Urine Drug Screen Comment [facility] Comment on above: CONFIRMATORY TESTING FOR ALL POSITIVE URINE DRUG SCREENRESULTS WILL ONLY BE SENT OUT UPON PHYSICIAN ORDER. VISTA Urine Drug Screen methods provide only preliminaryanalytical test results. A more specific alternate chemicalmethod must be used in order to obtain a confirmedanalytical result. Gas chromatography/mass spectrometery(GC/MS) is the preferred confirmatory method. Clinicalconsideration and professional judgement should be appliedto any drug of abuse test result, particularly whenpreliminary positive results are used. URINE TCA TESTING MUST BE ORDERED SEPARATELY. USE TESTMNEMONIC: [facility] Estimated Creatinine Clearance Calc 111.70 ml/min [facility] Estimated GFR (MDRD) Amer 97 mL/min >60 [facility] Comment on above: GFR Calc Estimated GFR (MDRD) Non-Af Amer 81 mL/min >60 [facility] Comment on above: Non- GFR Calc RBC Auto (Bld) [#/Vol]Ordere d By: Carlos Duarte on 06-28-2023 RBC (Bld) [#/Vol] 4.58 10*6/uL 4.2-5.4 [facility] Serum or plasma calcium buddy urement (mass/volume)Ordered By: Carlos Duarte on 06-28-2023 Calcium [Mass/Vol] 9.2 mg/dL 8.5-10.1 [facility] Serum or plasma creatinine m easurement (mass/volume)Ordered By: Carlos Duarte on 06-28-2023 Creatinine [Mass/Vol] 0.86 mg/dL 0.55-1.02 [facility] Comment on above: The validity of the calculated GFR & GFRAA in patients over 70 years has not been determined. Clinical correlation is essential. Serum or plasma urea nitroge n measurement (mass/volume)Ordered By: Carlos Duarte on 06-28-2023 Urea nitrogen [Mass/Vol] 8 mg/dL - [facility] Thin prep Papanicolaou smear with manual screeningOrdered By: Carlos Duarte on 06-28-2023 Thin prep Papanicolaou smear with manual screening 6 - [facility] ALLIED HEALTHon 04-27-2023 ALLIED HEALTH HNO ID: [id number] Author: Facundo Moore, [place] Service: Radiology Author Type: Technologist Type: Allied Health Filed: 04/27/2023 9:25 AM Note Text: Radiology Service Progress Note PATIENT NAME: Gale Dickson DATE OF SERVICE: April 27, 2023 TIME: 9:25 AM PATIENT IDENTITY VERIFICATION COMPLETED USING TWO (2) IDENTIFIERS: Name and Date of confirmed by patient verbally. FALL SCREENING: Has the patient had 2 falls in the last year or 1 fall with injury or currently using an Ambulatory Assistive Device (Walker, Cane, Wheelchair, Crutches, etc.)? Emergency Room Patient: Screened in ED PATIENT GENDER DATA: Female. status: : No status: NO. PATIENT RELEVANT IMPLANT DATA REVIEWED: Not Applicable RADIOLOGY DEPARTMENT: CT; Exam(s) Completed: Brain PERIPHERAL IV DATA: Not applicable SIGNED BY: ANNIA Joseph April 27, 2023 9:25 AM Normal [facility] CNOVon 04-27-2023 CN Office Visit (UCWSTR ) -- GALE DICKSON ([id number]) 1990 F Date Time Provider Department 04/27/23 7:45 AM [facility] During your visit today, we recorded the following information about you: Hamzah Kaur PA 04/27/2023 7:50 AM Signed 32-year-old female with history of seizure disorder [...] ER they are going to go to. Allergies As of Date: 04/27/2023 (No Known Allergies) Date Reviewed: 02/19/2023 Reviewed by: Marisa Lutz RN - Fully Assessed Primary Visit Diagnosis:Seizures (HCC) [R56.9] Other Visit Diagnosis:Memory loss [R41.3] Prescriptions as of 04/27/2023 - levETIRAcetam (KEPPRA) 1,000 mg tablet Take 1 tablet by mouth two times a day. Problem List As Of Date 04/27/2023 Noted Resolved Right knee pain [M25.561] 10/28/2013 History of asthma [Z87.09] 11/20/2013 Cigarette nicotine dependence with nicotine-ind*11/20/2013 Nausea and vomiting in [O21.9] 11/20/2013 12/08/2013 Anemia in [O99.019] 05/19/2014 11/23/2019 Dizziness [R42] 08/13/2014 11/23/2019 Short interval between pregnancies affecting pr*02/05/2015 11/23/2019 Encounter for supervision of normal first pregn*02/05/2015 04/13/2015 Psychogenic nonepileptic seizure [F44.5] 11/22/2019 Class 1 obesity in adult [E66.9] 11/23/2019 Seizure-like activity (HCC) [R56.9] 02/16/2023 Encounter Status:Closed by HAMZAH KAUR on 04/27/[address] [facility] CT BRAIN WO IVCONon 04-27-20 CT BRAIN WO IVCON * * *Final Report* * * DATE OF EXAM: Apr 27 2023 9:24AM [facility] 0504 - CT BRAIN WO IVCON / PROCEDURE REASON: Head trauma, moderate-severe * * * * Physician Interpretation * * * * EXAMINATION: CT BRAIN WO IVCON CLINICAL HISTORY: Seizure; head injury TECHNIQUE: Serial axial images without IV contrast were obtained from the vertex to the foramen magnum. MQ: CTBWO_3 CT Radiation dose: Integrated Dose-Length Product (DLP) for this visit = 706.22 mGy*cm CT Dose Reduction Employed: No dose reduction techniques were required COMPARISON: None. RESULT: Meter Engineer (topogram) images: Post-operative change: None. Acute change: No evidence of an acute infarct or other acute parenchymal process. Hemorrhage: No evidence of acute intracranial hemorrhage. ECASS hemorrhagic transformation score: Not Applicable Mass Lesion / Mass Effect: There is no evidence of an intracranial mass or extraaxial fluid collection. No significant mass effect. Chronic change: None apparent. Parenchyma: There is no significant volume loss. The brain parenchyma is otherwise within normal limits for age. Ventricles: The ventricles are within normal limits of size and configuration for age. Cavum septum.. Paranasal sinuses and skull base: The visualized paranasal sinuses are grossly clear. The skull base and imaged soft tissues are unremarkable. IMPRESSION: No acute intracranial abnormality is seen. Unremarkable CT brain. Airport Operations Crew Member: PSCB Transcribe Date/Time: Apr 27 2023 9:36A Dictated by : RENNY PALACIOS MD This examination was interpreted and the report reviewed and electronically signed by: RENNY PALACIOS MD on Apr 27 2023 9:39AM EST [id number] Normal [facility] ED NOTEon 04-27-2023 ED NOTE HNO ID: [id number] Author: Dena Lou RN Service: Nursing Author Type: Registered Nurse Type: ED Notes Filed: 04/27/2023 8:43 AM Note Text: Pt arrives with report of head pain s/p fall Sunday at work. Pt reports having a seizure causing the fall. Pt reports pain at 5/10, no OTC meds taken for pain. Pt has been on Keppra 1000mg which was increased from 750 about one week ago. Normal [facility] ED PROV NOTEon 04-27-2023 ED PROV NOTE HNO ID: [id number] Author: Ten Candelario DO Service: Emergency Medicine Author Type: Physician Type: ED Provider Notes Filed: 04/27/2023 9:54 AM Note Text: ED Provider Note Patient Name: Gale Dickson : 1990 SERVICE DATE: 04/27/23 History Patient presents with: Fall 32-year-old female with a history of seizure activity, on Keppra presents after a fall 3 days ago and a head injury after seizure. Patient states that 3 days ago she was at work. She had told a coworker that she was going to sit on the ground but then reportedly fell and hit her head on the ground and had seizure activity. Was not initially seen at that time. She had her left posterior occiput region. Continues to have headache. No current numbness or weakness. No known blood thinner usage. Recently she is increased her Keppra from 750 mg twice a day to 1000 mg twice a day PAST MEDICAL HISTORY Diagnosis Date Anemia in 05/19/2014 Asthma CILDHOOD ASTHMA Cigarette nicotine dependence with nicotine-induced disorder Dizziness 08/13/2014 Psychogenic nonepileptic seizure Seizure-like activity (HCC) 02/16/2023 Short interval between pregnancies affecting in first trimester, antepartum 02/05/2015 Unspecified convulsions (HCC) 11/22/2019 PAST SURGICAL HISTORY Procedure Laterality Date HYSTERECTOMY HX NONE TUBAL LIGATION HX 05/14/2015 bilateral salpingectomy FAMILY HISTORY Problem Relation Age of Onset Asthma Mother Diabetes Mother prediabetic Hypertension Father Asthma Brother Asthma Brother Breast Cancer Maternal Grandmother Cancer Paternal Grandfather skin cancer Breast Cancer Paternal Aunt Cancer Maternal Aunt LUNG CANCER Social History Tobacco Use Smoking status: Former Years: 2 Types: Cigarettes Start date: 11/11/2013 Smokeless tobacco: Current Tobacco comments: Nicotine pouches Substance and Sexual Activity Alcohol use: No Drug use: No Comment: no illicit drug use reported. Sexual activity: Yes Partners: Male ALLERGIES No Known Allergies Review of Systems Constitutional: Negative for chills and fever. Respiratory: Negative for cough and shortness of breath. Gastrointestinal: Negative for nausea and vomiting. Neurological: Positive for seizures and headaches. Negative for weakness and numbness. Physical Exam Vitals [04/27/23 0837] BP Pulse Temp Temp src Resp SpO2 Weight Height 131/87 57 36.4 ?C (97.6 ?F) Temporal 14 100 % 99.8 kg (220 lb) 1.829 m (6') Physical Exam Vitals and nursing note reviewed. Constitutional: General: She is not in acute distress. Appearance: Normal appearance. She is not ill-appearing. HENT: Head: Normocephalic and atraumatic. Eyes: Extraocular Movements: Extraocular movements intact. Pupils: Pupils are equal, round, and reactive to light. Neck: Comments: No midline C-spine tenderness or step-offs. Does have some tenderness over the right paraspinal muscles. Cardiovascular: Rate and Rhythm: Normal rate and regular rhythm. Pulmonary: Effort: Pulmonary effort is normal. No respiratory distress. Musculoskeletal: General: No deformity. Neurological: General: No focal deficit present. Mental Status: She is alert. Mental status is at baseline. Comments: Extraocular motor intact. PERRL. Cranial nerves II to XII intact. No ataxia with [id number]. 5/5 strength in bilateral upper and lower extremities. She is alert and oriented. No deficits. Diagnostic Testing ED Labs Ordered and Reviewed - No data to display Procedures ED Course / Clinical Impression Clinical Impressions as of 04/27/23 0953 Closed head injury, initial encounter Seizure-like activity (HCC) MDM / Disposition / Plan Patient evaluated after head injury. This happened 3 days ago. She continues to have a headache. It seems that she had a seizure at that time. In reviewing her chart it appears that she has a history of reported nonepileptic seizure. She is on Keppra. Plan this time will be to obtain a CT of her brain. If this is unremarkable I do feel she would be safe to be discharged home. CT imaging was unremarkable. Patient made aware of the results. At this time I do feel she is safe to be discharged home. Advised to continue her Keppra and to follow-up with her outpatient team. Given seizure precautions regarding driving, heights and swimming or bathing. Patient was in agreement with the plan and discharged. Disposition The patient was discharged. Counseled patient regarding radiology results and suspected diagnosis. SIGNATURE: DO Kary Wiley PAUL 04/27/23 0954 Normal [facility] levETIRAcetam SerPl-mCncon 1 06-17-2022 levETIRAcetam [Mass/Vol] 23.5 ug/mL Normal 12.0-46.[address] [facility] Comment on above: Order Comment: Speci men Type: BLOOD SPECIMENOrdering Facility: [facility] Address: [address] [place] [address] [place] [address] Result Comment: This test is not suitable for patients receiving treatment with the drug brivaracetam (Briviact). The drug causes an interference that may lead to falsely elevated levetiracetam results. Reference ranges and high/low indicator flags are provided as general guidelines only. The treating physician must determine appropriate target levels/dosing based on the specific clinical situation. This test was developed and its performance characteristics determined by [facility] ([facility]). It has not been cleared or approved by the FDA. [facility] is regulated under CLIA as qualified to perform high-complexity testing. This test is used for clinical purposes. It should not be regarded as investigational or for research. Performed By: #### 3 0471-7 ####[facility] [id number] [address] OF [facility] CNPNon 02-26-2023 CNPN Telephone (NIQ) -- GALE DICKSON ([id number]) 1990 F Date Time Provider Department 02/26/23 SHELBY FOOTE NIQ During your visit today, we recorded the following information about you: Larry 02/26/2023 3:18 PM Signed Pt called in stating that she will need a refill on keppra before her next appt with ZEINAB. Scheduled for visit 03/26 and will be running out George Vora RN 02/26/2023 3:51 PM Signed Spoke with patient and informed 30 day refill order has been sent. Allergies As of Date: 02/26/2023 (No Known Allergies) Date Reviewed: 02/19/2023 Reviewed by: Marisa Lutz RN - Fully Assessed Reason for Visit: Patient Request [0000] Order(s):levETIRAcetam (KEPPRA) 500 mg tabletTake 1 tablet by mouth two times a day.Disp: 60 tabletRfl: 0 Prescriptions as of 02/26/2023 - levETIRAcetam (KEPPRA) 500 mg tablet Take 1 tablet by mouth two times a day. Problem List As Of Date 02/26/2023 Noted Resolved Right knee pain [M25.561] 10/28/2013 History of asthma [Z87.09] 11/20/2013 Cigarette nicotine dependence with nicotine-ind*11/20/2013 Nausea and vomiting in [O21.9] 11/20/2013 12/08/2013 Anemia in [O99.019] 05/19/2014 11/23/2019 Dizziness [R42] 08/13/2014 11/23/2019 Short interval between pregnancies affecting pr*02/05/2015 11/23/2019 Encounter for supervision of normal first pregn*02/05/2015 04/13/2015 Psychogenic nonepileptic seizure [F44.5] 11/22/2019 Class 1 obesity in adult [E66.9] 11/23/2019 Seizure-like activity (HCC) [R56.9] 02/16/2023 Prescriptions ordered this encounter Disp Refills Start End LEVETIRACETAM 500 MG TABLET 60 t* 0 02/26/2023 03/28/2023 Route: ORAL Sig: Take 1 tablet by mouth two times a day. Medications Discontinued During This Encounter Prescriptions - levETIRAcetam (KEPPRA) 500 mg tablet (Discontinued) Take 500 mg by mouth two times a day. Encounter Status:Closed by GEORGE VORA [facility] HNO [facility]: [id number] Author: Karyn Varela MD Service: Neurology Adult Epilepsy Author Type: Physician Type: Discharge Summary Filed: 02/19/2023 7:59 PM Note Text: DISCHARGE SUMMARY PATIENT NAME: Gale Dickson ADMISSION DATE: 02/16/2023 DISCHARGE DATE: 02/19/2023 ADMITTING SERVICE: Epilepsy ATTENDING PHYSICIAN: Karyn Varela MD Code Status: Not on file Referring/Secondary Physician: Shelby Foote MD Highest Readmission Risk Score: 5 The 30 day readmissions risk score is derived from an internally validated risk model which evaluates patient level characteristics, utilization history, medication orders and lab results up until the day of discharge. Patients with a score of 40 or above are considered highest risk for readmission. Specific patient level drivers will be listed at the bottom of the summary. The 30 day readmissions risk score is derived from an internally validated risk model which evaluates patient level characteristics, utilization history, medication orders and lab results up until the day of discharge. Patients with a score of 40 or above are considered highest risk for readmission. Specific patient level drivers will be listed at the bottom of the summary. REASON FOR HOSPITALIZATION: Diagnosis of Events IMPORTANT TESTS AND PROCEDURES: Continuous Video EEG HOSPITAL COURSE: Gale Dickson is a 32 year old female who presented to the [facility] EMU on 02/16/2023 for diagnosis. PMH of headaches and PNES admitted for [...] two weeks ago. Was recently admitted to [facility] for these episodes and started on LEV 500 mg BID. Since starting LEV she has not had any additional episodes. Medications were discontinued during the admission. Patient noted to have no events captured and no seizures captured. Please see separate video-EEG report for details. Prior to discharge, antiepileptic medications were restarted at home dosing without changes: Keppra 500 mg twice daily . Seizure and fall precautions were reiterated and patient was discharged home in stable condition. Principal Problem: Seizure-like activity (HCC) (POA: Yes) Resolved Problems: * No resolved hospital problems. * Transitions of Care Critical Issues: SPECIALIST FOLLOW-UP: Dr. Foote DOUGH[place] MEDICATION CHANGES: Continue keppra 500 mg BID LABS AND PROCEDURES PENDING AT DISCHARGE: Finalized Video EEG Report CONSULTING TEAMS DURING HOSPITALIZATION: None Treatment Team: Attending Provider: Leeroy Vincent MD PATIENT CONDITION AT DISCHARGE: Stable DISCHARGE DISPOSITION: Home with Self Care EXAM: Mental Status: Alert and oriented to person, place, and time. Able to follow 1 and 2 step commands. 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 No nystagmus, face symmetric. Motor: Moves all extremities equally. Sens: Intact to light touch. Exam otherwise unchanged. INFORMATION PROVIDED TO PATIENT: Seizure first aid Seizure tracking DIET: Resume pre-hospital diet ACTIVITY: Seizure Precautions: no bathing or swimming unsupervised, no driving, no use of heavy machinery, no use of sharp moving objects (i.e. power tools), avoid heights. If active epilepsy, driving will need to be cleared by an Epileptologist. Driving laws vary state to state, refer to state law for restrictions. ALLERGIES No Known Allergies DISCHARGE MEDICATION: Medication List CONTINUE taking these medications KEPPRA 500 mg tablet Generic drug: levETIRAcetam PLAN OF CARE: Plan of care discussed with Provider, RN, Patient FUTURE APPOINTMENTS: Future Appointments Date Time Provider Department Center 03/26/2023 9:00 AM Rylee Monae APRN.[employer] [facility] 06/22/2023 10:20 AM Shelby Foote MD, PhD [facility] Please follow up with your Epileptologist. Dr. Shelby Foote [address] [place] [address] The patient's risk for 30-day readmission is determined using the following contributing factors: The patient's risk for 30-day readmission is determined using the following contributing factors: Pt variables contributing to increased readmission risk: 9.1 First Resulted Calcium During Admission 6 Most Recent BUN Result 5 Active Medication Orders 1 Insurance - Private Coverage 1 Discharge Disposition - Home 1 History of Anemia I have perfor (more content not included)... Normal [facility] NURSING PROGon 02-19-2023 NURSING PROG HNO ID: [id number] Author: Marisa Lutz RN Service: Nursing Author Type: Registered Nurse Type: Nursing Progress Note Filed: 02/20/2023 7:10 AM Note Text: Other: Discharge instructions presented to pt. Pt verbalized understanding. Pt assisted off the unit safely via staff. Normal [facility] HCG Preg Ur Qlon 02-17-2023 HCG ( test) Ql (U) Negative Normal Negative [facility] Comment on above: Order Comment: Speci men Type: URINE SPECIMENOrdering Facility: [facility] Address: [address] [place] [address] Result Comment: This test is intended to aid in the early detection of . Very dilute urine samples, as indicated by a low specific gravity, may not contain lead generation representative levels of hCG. This test detects intact hCG only. This test does not reliably detect hCG degradation products, including free-beta subunit and beta-core fragment. Therefore, this test may show reduced reactivity in urine after 8 weeks gestation. A number of conditions other than , including trophoblastic disease and certain non-trophoblastic neoplasms cause elevated levels of hCG. As with any assay employing mouse antibodies, the possibility exists for interference by human anti-mouse antibodies (HAMA) in the specimen. The test provides a presumptive diagnosis for . Performed By: #### 2 106-3 ####[facility] [id number] [place] [address] [place] TOX SCREEN ROUT URon 07-2 023 Amphetamines Confirm (U) [Mass/Vol] Negative Normal Negative [facility] Comment on above: Order Comment: Speci men Type: URINE SPECIMENOrdering Facility: [facility] Address: [address] [place] [address] Result Comment: Cuto ff threshold at 1000 ng/mL. Performed By: #### U TOX2 ####[facility] [id number] [place] [address] [place] BARBITURATES, URINE Negative Normal Negative [facility] Comment on above: Order Comment: Speci men Type: URINE SPECIMENOrdering Facility: [facility] Address: [address] [place] [address] Result Comment: Cuto ff threshold at 200 ng/mL. Performed By: #### U TOX2 ####[facility] [id number] [place] [address] [place] BENZODIAZEPINES, UR Negative Normal Negative [facility] Comment on above: Order Comment: Speci men Type: URINE SPECIMENOrdering Facility: [facility] Address: [address] [place] [address] Result Comment: Cuto ff threshold at 200 ng/mL. Performed By: #### U TOX2 ####[facility] [id number] [place] [address] [place] Cannabinoids Screen Ql (U) Negative Normal Negative [facility] Comment on above: Order Comment: Speci men Type: URINE SPECIMENOrdering Facility: [facility] Address: [address] [place] [address] Result Comment: Cuto ff threshold at 50 ng/mL. Performed By: #### U TOX2 ####[facility] [id number] [place] [address] [place] Cocaine Ql (U) Negative Normal Negative [facility] Comment on above: Order Comment: Speci men Type: URINE SPECIMENOrdering Facility: [facility] Address: [address] [place] [address] Result Comment: Cuto ff threshold at 300 ng/mL. Performed By: #### U TOX2 ####[facility] [id number] [place] [address] [place] Ethanol (U) [Mass/Vol] <11 Normal <11 Cl [facility] Comment on above: Order Comment: Speci men Type: URINE SPECIMENOrdering Facility: [facility] Address: [address] [place] [address] Performed By: #### U TOX2 ####[facility] [id number] [place] [address] [place] Opiates Screen Ql (U) Negative Normal Negative [facility] Comment on above: Order Comment: Speci men Type: URINE SPECIMENOrdering Facility: [facility] Address: [address] [place] [address] Result Comment: Cuto ff threshold at 300 ng/mL. Performed By: #### U TOX2 ####[facility] [id number] [place] [address] [place] oxyCODONE cutoff Screen (U) [Mass/Vol] Negative Normal Negative [facility] Comment on above: Order Comment: Speci men Type: URINE SPECIMENOrdering Facility: [facility] Address: [address] [place] [address] Result Comment: Cuto ff threshold at 100 ng/mL. Performed By: #### U TOX2 ####[facility] [id number] [place] [address] [place] Phencyclidine Ql (U) Negative Normal Negative [facility] Comment on above: Order Comment: Speci men Type: URINE SPECIMENOrdering Facility: [facility] Address: [address] [place] [address] Result Comment: Cuto ff threshold at 25 ng/mL. Performed By: #### U TOX2 ####[facility] [id number] [place] [address] [place] CBC W Auto Differential pane l (Bld)on 02-16-2023 Basophils (Bld) [#/Vol] 0.08 10*3/uL Normal <0.[address] [facility] Comment on above: Order Comment: Speci men Type: BLOOD SPECIMENOrdering Facility: [facility] Address: [address] [place] [address] Performed By: #### 5 7021-8 ####[facility] [id number] [place] [address] [place] Basophils/100 WBC (Bld) 0.7 % Normal [facility] Comment on above: Order Comment: Speci men Type: BLOOD SPECIMENOrdering Facility: [facility] Address: [address] [place] [address] Performed By: #### 5 7021-8 ####[facility] LABIA [id number] [place] [address] [place] Differential cell count method Nom (Bld) Auto Normal [facility] Comment on above: Order Comment: Speci men Type: BLOOD SPECIMENOrdering Facility: [facility] Address: [address] [place] [address] Performed By: #### 5 7021-8 ####[facility] [id number] [place] [address] [place] Eosinophils (Bld) [#/Vol] 0.16 10*3/uL Normal <0.[address] [facility] Comment on above: Order Comment: Speci men Type: BLOOD SPECIMENOrdering Facility: [facility] Address: [address] [place] [address] Performed By: #### 5 7021-8 ####[facility] [id number] [place] [address] [place] Eosinophils/100 WBC (Bld) 1.5 % Normal [facility] Comment on above: Order Comment: Speci men Type: BLOOD SPECIMENOrdering Facility: [facility] Address: [address] [place] [address] Performed By: #### 5 7021-8 ####[facility] [id number] [place] [address] [place] Erythrocyte distribution width (RBC) [Ratio] 12.7 % Normal 11.5-15.[address] [facility] Comment on above: Order Comment: Speci men Type: BLOOD SPECIMENOrdering Facility: [facility] Address: [address] [place] [address] Performed By: #### 5 7021-8 ####[facility]CL[facility] [id number] [place] [address] [place] Hematocrit (Bld) [Volume fraction] 36.5 % Normal 36.0-46.[address] [facility] Comment on above: Order Comment: Speci men Type: BLOOD SPECIMENOrdering Facility: [facility] Address: [address] [place] [address] Performed By: #### 5 7021-8 ####[facility]CLIA [id number] [place] [address] [place] Hemoglobin (Bld) [Mass/Vol] 12.5 g/dL Normal 11.5-15.[address] [facility] Comment on above: Order Comment: Speci men Type: BLOOD SPECIMENOrdering Facility: [facility] Address: [address] [place] [address] Performed By: #### 5 7021-8 ####[facility]CL[facility] [id number] [place] [address] [place] Immature granulocytes (Bld) [#/Vol] 0.05 10*3/uL Normal <0.[address] [facility] Comment on above: Order Comment: Speci men Type: BLOOD SPECIMENOrdering Facility: [facility] Address: [address] [place] [address] Performed By: #### 5 7021-8 ####[facility]CL[facility] [id number] [place] [address] [place] Immature granulocytes/100 WBC (Bld) 0.5 % Normal [facility] Comment on above: Order Comment: Speci men Type: BLOOD SPECIMENOrdering Facility: [facility] Address: [address] [place] [address] Performed By: #### 5 7021-8 ####[facility] LABIA [id number] [place] [address] [place] Lymphocytes (Bld) [#/Vol] 3.21 10*3/uL Normal 1.00-4.[address] [facility] Comment on above: Order Comment: Speci men Type: BLOOD SPECIMENOrdering Facility: [facility] Address: [address] [place] [address] Performed By: #### 5 7021-8 ####[facility] LABCLIA [id number] [place] [address] [place] Lymphocytes/100 WBC (Bld) 29.9 % Normal [facility] Comment on above: Order Comment: Speci men Type: BLOOD SPECIMENOrdering Facility: [facility] Address: [address] [place] [address] Performed By: #### 5 7021-8 ####[facility] LABCLIA [id number] [place] [address] [place] MCH (RBC) [Entitic mass] 29.7 pg Normal 26.0-34.[address] [facility] Comment on above: Order Comment: Speci men Type: BLOOD SPECIMENOrdering Facility: [facility] Address: [address] [place] [address] Performed By: #### 5 7021-8 ####[facility] LABIA [id number] [place] [address] [place] MCHC (RBC) [Mass/Vol] 34.2 g/dL Normal 30.5-36.0 [facility] Comment on above: Order Comment: Speci men Type: BLOOD SPECIMENOrdering Facility: [facility] Address: [address] [place] [address] Performed By: #### 5 7021-8 ####[facility] LABIA [id number] [place] [address] [place] MCV (RBC) [Entitic vol] 86.7 fL Normal 80.0-100.[address] [facility] Comment on above: Order Comment: Speci men Type: BLOOD SPECIMENOrdering Facility: [facility] Address: [address] [place] [address] Performed By: #### 5 7021-8 ####[facility] LABIA [id number] [place] [address] [place] Monocytes (Bld) [#/Vol] 0.71 10*3/uL Normal <0.[address] [facility] Comment on above: Order Comment: Speci men Type: BLOOD SPECIMENOrdering Facility: [facility] Address: [address] [place] [address] Performed By: #### 5 7021-8 ####[facility] LABIA [id number] [place] [address] [place] Monocytes/100 WBC (Bld) 6.6 % Normal [facility] Comment on above: Order Comment: Speci men Type: BLOOD SPECIMENOrdering Facility: [facility] Address: [address] [place] [address] Performed By: #### 5 7021-8 ####[facility] LABCLIA [id number] [place] [address] [place] Neutrophils (Bld) [#/Vol] 6.52 10*3/uL Normal 1.45-7.[address] [facility] Comment on above: Order Comment: Speci men Type: BLOOD SPECIMENOrdering Facility: [facility] Address: [address] [place] [address] Performed By: #### 5 7021-8 ####[facility] LABCLIA [id number] [place] [address] [place] Neutrophils/100 WBC (Bld) 60.8 % Normal [facility] Comment on above: Order Comment: Speci men Type: BLOOD SPECIMENOrdering Facility: [facility] Address: [address] [place] [address] Performed By: #### 5 7021-8 ####[facility] LABCLIA [id number] [place] [address] [place] Nucleated RBC (Bld) [#/Vol] 10*3/uL Normal <0.[address] [facility] Comment on above: Order Comment: Speci men Type: BLOOD SPECIMENOrdering Facility: [facility] Address: [address] [place] [address] Performed By: #### 5 7021-8 ####[facility] LABCLIA [id number] [place] [address] [place] Nucleated RBC/100 WBC (Bld) [Ratio] 0.0 /[address] [facility] Comment on above: Order Comment: Speci men Type: BLOOD SPECIMENOrdering Facility: [facility] Address: [address] [place] [address] Performed By: #### 5 7021-8 ####[facility] LABCLIA [id number] [place] [address] [place] Platelet mean volume (Bld) [Entitic vol] 9.8 fL Normal 9.0-12.[address] [facility] Comment on above: Order Comment: Speci men Type: BLOOD SPECIMENOrdering Facility: [facility] Address: [address] [place] [address] Performed By: #### 5 7021-8 ####[facility] LABCLIA [id number] [place] [address] [place] Platelets (Bld) [#/Vol] 243 10*3/uL Normal 150-[address] [facility] Comment on above: Order Comment: Speci men Type: BLOOD SPECIMENOrdering Facility: [facility] Address: [address] [place] [address] Performed By: #### 5 7021-8 ####[facility] LABCLIA [id number] [place] [address] [place] RBC (Bld) [#/Vol] 4.21 10*6/uL Normal 3.90-5.20 [facility] Comment on above: Order Comment: Speci men Type: BLOOD SPECIMENOrdering Facility: [facility] Address: [address] [place] [address] Performed By: #### 5 7021-8 ####[facility] LABIA [id number] [place] [address] [place] WBC (Bld) [#/Vol] 10.73 10*3/uL Normal 3.70-11.00 [facility] Comment on above: Order Comment: Speci men Type: BLOOD SPECIMENOrdering Facility: [facility] Address: [address] [place] [address] Performed By: #### 5 7021-8 ####[facility] LABIA [id number] [place] [address] [place] Comprehensive metabolic 2000 panelon 02-16-2023 Albumin [Mass/Vol] 4.1 g/dL Normal 3.9-4.9 [facility] Comment on above: Order Comment: Speci men Type: BLOOD SPECIMENOrdering Facility: [facility] Address: [address] [place] [address] Performed By: #### 2 4323-8, , 2776-05 ####[facility] LABCLIA [id number] [place] [address] [place] ALP [Catalytic activity/Vol] 58 U/L Normal 34-[address] [facility] Comment on above: Order Comment: Speci men Type: BLOOD SPECIMENOrdering Facility: [facility] Address: [address] [place] [address] Performed By: #### 2 4323-8, , 2776-05 ####[facility] LABCLIA [id number] [place] [address] [place] ALT [Catalytic activity/Vol] 10 U/L Normal 7-[address] [facility] Comment on above: Order Comment: Speci men Type: BLOOD SPECIMENOrdering Facility: [facility] Address: [address] [place] [address] Performed By: #### 2 4323-8, , 2776-05 ####[facility] LABIA [id number] [place] [address] [place] Anion gap [Moles/Vol] 12 mmol/L Normal 9-18 [facility] Comment on above: Order Comment: Speci men Type: BLOOD SPECIMENOrdering Facility: [facility] Address: [address] [place] [address] Performed By: #### 2 4323-8, , 2776-05 ####[facility] LABCLIA [id number] [place] [address] [place] AST [Catalytic activity/Vol] 14 U/L Normal 13-[address] [facility] Comment on above: Order Comment: Speci men Type: BLOOD SPECIMENOrdering Facility: [facility] Address: [address] [place] [address] Performed By: #### 2 4323-8, , 2776-05 ####[facility] LABCLIA [id number] [address] [address] [place] Bilirubin [Mass/Vol] 0.6 mg/dL Normal 0.2-1.3 [facility] Comment on above: Order Comment: Speci men Type: BLOOD SPECIMENOrdering Facility: [facility] Address: [address] [place] [address] Performed By: #### 2 432-8, , 2776-05 ####[facility] LABCLIA [id number] [place] [address] [place] Calcium [Mass/Vol] 9.1 mg/dL Normal 8.5-10.2 [facility] Comment on above: Order Comment: Speci men Type: BLOOD SPECIMENOrdering Facility: [facility] Address: [address] [place] [address] Performed By: #### 2 432-8, , 2776-05 ####[facility] LABCLIA [id number] [place] [address] [place] Chloride [Moles/Vol] 106 mmol/L High 97-105 [facility] Comment on above: Order Comment: Speci men Type: BLOOD SPECIMENOrdering Facility: [facility] Address: [address] [place] [id number] Performed By: #### 2 4323-8, , 2776-05 ####[facility] LABCLIA [id number] [address] [address] [place] CO2 [Moles/Vol] 23 mmol/L Normal 22-[address] [facility] Comment on above: Order Comment: Speci men Type: BLOOD SPECIMENOrdering Facility: [facility] Address: [address] [place] [address] Performed By: #### 2 4323-8, , 2776-05 ####[facility] LABIA [id number] [place] [address] [place] Creatinine [Mass/Vol] 0.63 mg/dL Normal 0.58-0.96 [facility] Comment on above: Order Comment: Spechector pulido Type: BLOOD SPECIMENOrdering Facility: [facility] Address: [address] [place] [address] Performed By: #### 2 4323-8, , 2776-05 ####[facility] LABIA [id number] [place] [address] [place] Creatinine and Glomerular filtration rate.predicted panel (S/P/Bld) 121 mL/min/1.73m??? Normal >=[address] [facility] Comment on above: Order Comment: John pulido Type: BLOOD SPECIMENOrdering Facility: [facility] Address: [address] [place] [address] Result Comment: Terra mated Glomerular Filtration Rate (eGFR) is calculated using the 2020 CKD-EPI creatinine equation. This equation utilizes serum creatinine, sex, and age as parameters. The creatinine assay has traceable calibration to isotope dilution-mass spectrometry. Refer to KDIGO guidelines for clinical interpretation. In patients with unstable renal function, e.g. those with acute kidney injury, the eGFR may not accurately reflect actual GFR. Performed By: #### 2 4323-8, 91473-8, 2776-05 ####[facility] [id number] [place] [address] [place] Glucose [Mass/Vol] 80 mg/dL Normal 74-99 [facility] Comment on above: Order Comment: Speci men Type: BLOOD SPECIMENOrdering Facility: [facility] Address: [address] [place] [address] Result Comment: The [place] [employer] (ADA) provides guidance for cutoff values for fasting glucose and random glucose. The ADA defines fasting as no caloric intake for at least 8 hours. Fasting plasma glucose results between 100 to 125 mg/dL indicate increased risk for diabetes (prediabetes). Fasting plasma glucose results greater than or equal to 126 mg/dL meet the criteria for diagnosis of diabetes. In the absence of unequivocal hyperglycemia, results should be confirmed by repeat testing. In a patient with classic symptoms of hyperglycemia or hyperglycemic crisis, random plasma glucose results greater than or equal to 200 mg/dL meet the criteria for diagnosis of diabetes. Reference: Standards of Medical Care in Diabetes 2016, [place] [employer]. Diabetes Care. 2016.39(Suppl 1). Performed By: #### 2 4323-8, , 2776-05 ####[facility] LABCLIA [id number] [place] [address] [place] Potassium [Moles/Vol] 3.8 mmol/L Normal 3.7-5.1 [facility] Comment on above: Order Comment: Speci men Type: BLOOD SPECIMENOrdering Facility: [facility] Address: [address] [place] [address] Performed By: #### 2 4328, , 2776-05 ####[facility] LABCLIA [id number] [place] [address] [place] Protein [Mass/Vol] 5.9 g/dL Low 6.3-8.0 [facility] Comment on above: Order Comment: Speci men Type: BLOOD SPECIMENOrdering Facility: [facility] Address: [address] [place] [address] Performed By: #### 2 432-8, , 2776-05 ####[facility] LABCLIA [id number] [place] [address] [place] Sodium [Moles/Vol] 141 mmol/L Normal 136-144 [facility] Comment on above: Order Comment: Speci men Type: BLOOD SPECIMENOrdering Facility: [facility] Address: [address] [place] [address] Performed By: #### 2 4323-8, , 2776-05 ####[facility] LABCLIA [id number] [address] [address] [place] Urea nitrogen [Mass/Vol] 6 mg/dL Low 7-[address] [facility] Comment on above: Order Comment: Speci men Type: BLOOD SPECIMENOrdering Facility: [facility] Address: [address] [place] [address] Performed By: #### 2 4323-8, 30932-2, 2777-1 ####[facility] LABCLIA [id number] [id number] [place] HISTORY PHYSICALon 3 HISTORY PHYSICAL HNO ID: [id number] Author: Karyn Varela MD Service: Neurology Adult Epilepsy Author Type: Physician Type: HANDP Filed: 02/17/2023 8:39 PM Note Text: NEURO EPILEPSY ADMIT NOTE SERVICE DATE: 02/16/2023 SERVICE TIME: 11:13 AM NIGHT AND WEEKEND COVERAGE: After 5 pm and over the weekends, please page [phone] to contact the epilepsy resident/fellow/provider international exchange coordinator ATTENDING PHYSICIAN: Karyn Varela MD HOSPITAL UNIT: 1 - Adult Epilepsy Monitoring Unit (EMU) SERVICE: Adult Epilepsy Subjective CHIEF COMPLAINT: Seizure-like episodes Patient Major Comorbidities: Headaches and PNES Portions of the following history were excerpted from that EPIC documentation and chart review. Additional comments have been made where appropriate. It has been reviewed in its entirety with the patient. PRESENT ILLNESS: This is a 32 year old right handed female with a PMH of headaches and PNES admitted for diagnostic evaluation of new seizure-like episodes. Patient of Dr. Foote last seen on 02/06/2023 by Rylee Monae CNP. Was previously admitted to the EMU from 11/22/2019- 11/24/2019 which captured 2 typical events without EEG change: 1E on 11/22 at 1528: bilateral upper extremity jerking and 2E on 11/22 at 2051: states different parts of her head fall asleep> vision vibrating> bilateral upper extremity jerking and was diagnosed with PNES. At recent office visit she reported these episodes have resolved (did not go through CBT) but she has developed a new type of episode about a month ago described as cessation of activity and staring with loss of awareness followed by fall to the ground with movement of her upper body like she is doing crunches lasting between 2.5 minutes up to 15 minutes. Afterwards she may feel fine or will feel like she has been hit by a truck. She has no memory of these events. She estimates a total of 25 episodes since onset with last episode two weeks ago. She has no warning with these episodes and they are distinctly different than her prior episodes. She denies TB or UI. No known triggers for events, denies recent life changes. Was recently admitted to [facility] for these episodes and started on LEV 500 mg BID. Since starting LEV she has not had any additional episodes. Recommendation was made for EMU admission for diagnosis of new episodes. SEIZURE HISTORY: From Last Office Visit (02/06/2023) with Rylee Monae CNP: 29 year old woman evaluated for spells. [...] No positional orthostatic provocation of the symptoms. Ms. Dickson was last seen in January [...] 25 seizures. She was recently admitted to [facility] for the same, discharged yesterday. She does [...] Now she is having episodes that occur w (more content not included)... Normal [facility] Magnesium [facility] 02-16 Magnesium [Mass/Vol] 2.3 mg/dL Normal 1.7-2.3 [facility] Comment on above: Order Comment: Speci men Type: BLOOD SPECIMENOrdering Facility: [facility] Address: [address] [place] [address] Performed By: #### 2 4323-8, , 2776-05 ####[facility] LABCLIA [id number] [address] [address] [place] [facility] Phosphate [Mass/Vol] 3.7 mg/dL Normal 2.7-4.8 [facility] Comment on above: Order Comment: Speci men Type: BLOOD SPECIMENOrdering Facility: [facility] Address: [address] [place] [address] Performed By: #### 2 4323-8, , 2776-05 ####[facility] LABCLIA [id number] [address] [address] [place] CNOVon 02-06-2023 CNOV Office Visit (NE50MN ) -- GALE DICKSON ([id number]) 1990 F Date Time Provider Department 02/06/23 10:00 AM RYLEE MONAE NE50MN During your visit today, we recorded the following information about you: Pulse Blood pressure Weight Height 74/minute 146/90 99.8 kg 1.829 m Rylee Monae APRN.[employer] 02/06/2023 10:20 AM Signed Please continue taking your same doses of anti seizure medication. Please do not hesitate to call our office with any questions, concerns or to report seizure activity. Rylee Monae APRN.[employer] 02/06/2023 10:50 AM Signed [facility] Patient Name: Gale Dickson Date of : 1990 ESTABLISHED EPILEPSY CLINIC NOTE 02/06/2023 10:00 AM Reason for Visit: Seizures Clinical Summary: Ms. Dickson is a 32 year old right-handed female seen in [facility]. At today's visit, the patient [...] extremity jerking and 2E on 11/22 at 2050: states different parts of her head fall asleep> vision vibrating> bilateral upper extremity jerking. After this evaluation, the diagnosis and follow up with Psychology was discussed. Today, Ms. Dickson states that over the past 4 weeks, she estimates that she has had at least 25 seizures. She was recently admitted to [facility] for the same, discharged yesterday. She does [...] started on Keppra 500mg BID at the [facility] this week. Of note, her had tried [...] No Urine or Bowel Incontinence: No Postictal Deficit (more content not included)... Normal [facility] Absolute lymphocyte countOrd ered By: Flori Lakesha on 02-05-2023 Lymphocytes Auto (Unsp spec) [#/Vol] 3.37 10*3/uL 0.83-4.51 [facility] Basophil percentageOrdered B y: Flori Crowder on 02-05-2023 Basophils/100 WBC (Bld) 0.7 % 0-1 [facility] Chloride [Moles/Vol] 112 mmol/L 98-107 [facility] Eosinophils/100 WBC (Bld) 2.1 % 0-5 [facility] Glucose [Mass/Vol] 79 mg/dL 74-106 [facility] Neutrophils (Bld) [#/Vol] 6.6 10*3/uL 2.0-7.7 [facility] Neutrophils/100 WBC (Bld) 59.8 % 47-70 [facility] Potassium [Moles/Vol] 3.6 mmol/L 3.5-5.1 [facility] Sodium [Moles/Vol] 143 mmol/L 136-145 [facility] WBC (Bld) [#/Vol] 11.0 10*3/uL 4.4-11.0 [facility] Blood erythrocytes count (nu mber/volume)Ordered By: Florichristopher Crowder on 02-05-2023 RBC (Bld) [#/Vol] 4.37 10*6/uL 4.2-5.4 [facility] Blood hemoglobin measurement (mass/volume)Ordered By: Flori Crowder on 02-05-2023 Hemoglobin (Bld) [Mass/Vol] 12.7 g/dL 12.0-15.0 [facility] Blood lymphocytes/100 leukoc ytesOrdered By: Flori Crowder on 02-05-2023 Lymphocytes/100 WBC (Bld) 30.7 % 19-41 [facility] Blood monocytes/100 leukocyt esOrdered By: Flori Crowder on 02-05-2023 Monocytes/100 WBC (Bld) 6.2 % 0-10 [facility] Blood platelet mean volumeOr dered By: Flori Crowder on 02-05-2023 Platelet mean volume (Bld) [Entitic vol] 9.9 fL 6.2-12.0 [facility] Determination of erythrocyte mean corpuscular volume (MCV)Ordered By: Flori Crowder on 02-05-2023 MCV (RBC) [Entitic vol] 88.8 fL 81-99 [facility] Hematocrit Auto (Bld) [Volum e fraction]Ordered By: Flori Crowder on 02-05-2023 Hematocrit (Bld) [Volume fraction] 38.8 % 37-47 [facility] Laboratory - Chemistry and C hemistry - challengeOrdered By: Flori Crowder on 02-05-2023 CO2 [Moles/Vol] 24.0 mmol/L 21.0-32.0 [facility] Urea nitrogen/Creatinine [Mass ratio] 9.9 mg/mg 10-20 [facility] Laboratory - Hematology and Cell countsOrdered By: Flori Crowder on 02-05-2023 Erythrocyte distribution width (RBC) [Entitic vol] 41.0 fL 35.1-43.9 [facility] Erythrocyte distribution width (RBC) [Ratio] 12.6 % 11.6-14.6 [facility] Immature granulocytes/100 WBC (Bld) 0.500 % 0.0-0.9 [facility] Comment on above: IG% - Immature Granu locytes (promyelocytes, myelocytes and metamyelocytes) > 1% indicates that a LEFT SHIFT is Present. MCH (RBC) [Entitic mass] 29.1 pg 27.0-32.0 [facility] Nucleated RBC/100 WBC (Bld) [Ratio] 0 % 0-5 [facility] MCHC Auto (RBC) [Mass/Vol]Or dered By: Flori Crowder on 02-05-2023 MCHC (RBC) [Mass/Vol] 32.7 g/dL 32-36 [facility] No Panel InformationOrdered By: Flori Crowder on 02-05-2023 Estimated Creatinine Clearance Calc 150.45 ml/min [facility] Estimated GFR (MDRD) Amer 148 mL/min >60 [facility] Comment on above: GFR Calc Estimated GFR (MDRD) Non-Af Amer 122 mL/min >60 [facility] Comment on above: Non- GFR Calc Platelets bldOrdered By: Sammie Crowder on 02-05-2023 Platelets (Bld) [#/Vol] 252 10*3/uL 150-450 [facility] Serum or plasma calcium buddy urement (mass/volume)Ordered By: Flori Crowder on 02-05-2023 Calcium [Mass/Vol] 8.7 mg/dL 8.5-10.1 [facility] Serum or plasma creatinine m easurement (mass/volume)Ordered By: Flori Crowder on 02-05-2023 Creatinine [Mass/Vol] 0.60 mg/dL 0.55-1.02 [facility] Comment on above: The validity of the calculated GFR & GFRAA in patients over 70 years has not been determined. Clinical correlation is essential. Serum or plasma urea nitroge n measurement (mass/volume)Ordered By: Flori Crowder on 02-05-2023 Urea nitrogen [Mass/Vol] 6 mg/dL 7-18 [facility] Thin prep Papanicolaou smear with manual screeningOrdered By: Flori Crowder on 02-05-2023 Thin prep Papanicolaou smear with manual screening 7 5-15 [facility] Glucose Glucometer (BldC) [M ass/Vol]Ordered By: Flori Crowder on 02-03-2023 Glucose [Mass/Vol] 99 mg/dL 74-106 [facility] Comment on above: MANAGEMENT OF PATIEN T CARE PER NURSING PROTOCOL No Panel InformationOrdered By: Flori Crowder on 02-03-2023 Thyroid Stimulating Hormone (TSH) 1.96 uIU/mL 0.358-3.74 [facility] Absolute lymphocyte countOrd ered By: Kendrick Hadley on 02-02-2023 Lymphocytes Auto (Unsp spec) [#/Vol] 2.49 10*3/uL 0.83-4.51 [facility] Basophil percentageOrdered B y: Kendrick Hadley on 02-02-2023 Basophil percentage 0 SEEN /hpf 0-5 [facility] Basophils/100 WBC (Bld) 0.8 % 0-1 [facility] Bilirubin [Mass/Vol] 0.30 mg/dL 0.20-1.00 [facility] Comment on above: For patients on eltr ombopag therapy, use of Dimension [place] TBIL is not recommended. Chloride [Moles/Vol] 111 mmol/L 98-107 [facility] Eosinophils/100 WBC (Bld) 2.6 % 0-5 [facility] Glucose [Mass/Vol] 120 mg/dL 74-106 [facility] Comment on above: Fasting Glucose resu lt from 100 to 125 mg/dL suggests IMPAIRED HOMEOSTASIS per A.D.A. criteria. Lactate [Moles/Vol] 2.3 mmol/L 0.4-2.0 [facility] Comment on above: Critical Result(s) C alled at: 03:19:05 02/02/2023 by: Alexis Branch ENVIRONMENTAL PROJECTS ADVISOR. Results read back by same. Neutrophils (Bld) [#/Vol] 6.4 10*3/uL 2.0-7.7 [facility] Neutrophils/100 WBC (Bld) 65.2 % 47-70 [facility] Potassium [Moles/Vol] 3.0 mmol/L 3.5-5.1 [facility] Protein [Mass/Vol] 6.5 g/dL 6.4-8.2 [facility] Sodium [Moles/Vol] 142 mmol/L 136-145 [facility] WBC (Bld) [#/Vol] 9.8 10*3/uL 4.4-11.0 [facility] Beta hCG serum qualOrdered B y: Kendrick Carlsonalejandrina on 02-02-2023 Beta HCG ( test) Ql Negative [facility] Bilirubin Test strip Ql (U)O rdered By: Kendrick Hadley on 02-02-2023 Bilirubin Ql (U) Negative Negative [facility] Blood erythrocytes count (nu mber/volume)Ordered By: Kendrick Hadley on 02-02-2023 RBC (Bld) [#/Vol] 4.16 10*6/uL 4.2-5.4 [facility] Blood hemoglobin measurement (mass/volume)Ordered By: Kendrick Hadley on 02-02-2023 Hemoglobin (Bld) [Mass/Vol] 12.3 g/dL 12.0-15.0 [facility] Blood lymphocytes/100 leukoc ytesOrdered By: Kendrick Hadley on 02-02-2023 Lymphocytes/100 WBC (Bld) 25.5 % 19-41 [facility] Blood monocytes/100 leukocyt esOrdered By: Kendrick Hadley on 02-02-2023 Monocytes/100 WBC (Bld) 5.5 % 0-10 [facility] Blood platelet mean volumeOr dered By: Kendrick Hadley on 02-02-2023 Platelet mean volume (Bld) [Entitic vol] 9.7 fL 6.2-12.0 [facility] Determination of erythrocyte mean corpuscular volume (MCV)Ordered By: Kendrick Hadley on 02-02-2023 MCV (RBC) [Entitic vol] 88.7 fL 81-99 [facility] Hematocrit Auto (Bld) [Volum e fraction]Ordered By: Kendrick Hadley on 02-02-2023 Hematocrit (Bld) [Volume fraction] 36.9 % 37-47 [facility] Ketones Test strip Ql (U)Ord ered By: Kendrick Hadley on 02-02-2023 Ketones Ql (U) Negative Negative [facility] Laboratory - Chemistry and C hemistry - challengeOrdered By: Kendrick Hadley on 02-02-2023 ALP [Catalytic activity/Vol] 56 U/L 45-117 [facility] ALT [Catalytic activity/Vol] 26 U/L 13-56 [facility] CO2 [Moles/Vol] 25.0 mmol/L 21.0-32.0 [facility] Globulin (S) [Mass/Vol] 2.7 g/dL 2.2-4.2 [facility] Urea nitrogen/Creatinine [Mass ratio] 11.3 mg/mg 10-20 [facility] Laboratory - Chemistry and C hemistry - challengeOrdered By: Dinesh Obregon on 02-02-2023 Magnesium [Mass/Vol] 2.3 mg/dL 1.6-2.6 [facility] - Drug toxicology Ordered By: Kendrick Hadley on 02-02-2023 Amphetamines Ql (U) Negative <1000 ng/mL [facility] Benzodiazepines Ql (U) Positive < 200 ng/mL [facility] Cannabinoids Screen Ql (U) Negative < 50 ng/mL [facility] Cocaine Ql (U) Negative < 300 ng/mL [facility] Opiates Ql (U) Negative < 300 ng/mL [facility] Laboratory - Hematology and Cell countsOrdered By: Kendrick Hadley on 02-02-2023 Erythrocyte distribution width (RBC) [Entitic vol] 41.2 fL 35.1-43.9 [facility] Erythrocyte distribution width (RBC) [Ratio] 12.7 % 11.6-14.6 [facility] Immature granulocytes/100 WBC (Bld) 0.400 % 0.0-0.9 [facility] Comment on above: IG% - Immature Granu locytes (promyelocytes, myelocytes and metamyelocytes) > 1% indicates that a LEFT SHIFT is Present. MCH (RBC) [Entitic mass] 29.6 pg 27.0-32.0 [facility] Nucleated RBC/100 WBC (Bld) [Ratio] 0 % 0-5 [facility] MCHC Auto (RBC) [Mass/Vol]Or dered By: Kendrick Hadley on 02-02-2023 MCHC (RBC) [Mass/Vol] 33.3 g/dL 32-36 [facility] Mucus LM Ql (Urine sed)Order ed By: Kendrick Hadley on 02-02-2023 Mucus Ql (Urine sed) 0 SEEN /hpf [facility] Nitrite Test strip Ql (U)Ord ered By: Kendrick Hadley on 02-02-2023 Nitrite Ql (U) Negative Negative [facility] No Panel InformationOrdered By: Kendrick Hadley on 02-02-2023 MDMA (Ecstasy) Screen Negative < 500 ng/mL [facility] Urine Barbiturates Screen Negative < 200 ng/mL [facility] Urine Drug Screen Comment [facility] Comment on above: CONFIRMATORY TESTING FOR ALL POSITIVE URINE DRUG SCREENRESULTS WILL ONLY BE SENT OUT UPON PHYSICIAN ORDER. VISTA Urine Drug Screen methods provide only preliminaryanalytical test results. A more specific alternate chemicalmethod must be used in order to obtain a confirmedanalytical result. Gas chromatography/mass spectrometery(GC/MS) is the preferred confirmatory method. Clinicalconsideration and professional judgement should be appliedto any drug of abuse test result, particularly whenpreliminary positive results are used. URINE TCA TESTING MUST BE ORDERED SEPARATELY. USE TESTMNEMONIC: [facility] Urine Methadone Screen Negative < 300 ng/mL [facility] Estimated Creatinine Clearance Calc 123.01 ml/min [facility] Estimated GFR (MDRD) Amer 122 mL/min >60 [facility] Comment on above: GFR Calc Estimated GFR (MDRD) Non-Af Amer 101 mL/min >60 [facility] Comment on above: Non- GFR Calc Platelets bldOrdered By: Gwen Hadley on 02-02-2023 Platelets (Bld) [#/Vol] 239 10*3/uL 150-450 [facility] Protein Test strip Ql (U)Ord ered By: Kendrick Hadley on 02-02-2023 Protein Ql (U) Negative Negative [facility] Serum or plasma albumin buddy urement (mass/volume)Ordered By: Kendrick Hadley on 02-02-2023 Albumin [Mass/Vol] 3.8 g/dL 3.2-5.0 [facility] Serum or plasma albumin/glob ulin mass ratioOrdered By: Kendrick Hadley on 02-02-2023 Albumin/Globulin [Mass ratio] 1.4 {ratio} 0.9-2.4 [facility] Serum or plasma calcium buddy urement (mass/volume)Ordered By: Kendrick Hadley on 02-02-2023 Calcium [Mass/Vol] 8.8 mg/dL 8.5-10.1 [facility] Serum or plasma creatinine m easurement (mass/volume)Ordered By: Kendrick Hadley on 02-02-2023 Creatinine [Mass/Vol] 0.71 mg/dL 0.55-1.02 [facility] Comment on above: The validity of the calculated GFR & GFRAA in patients over 70 years has not been determined. Clinical correlation is essential. Serum or plasma prolactin me asurement (mass/volume)Ordered By: Kendrick Hadley on 02-02-2023 Prolactin [Mass/Vol] 35.5 ng/mL [facility] Comment on above: NORMAL REFERENCE RAN GES FEMALE NON- 2.2 - 30.3 ng/mL 8.1 - 347.6 ng/mL POST-MENOPAUSAL 0.7 - 31.5 ng/mL MALE 2.5 - 17.4 ng/mL Serum or plasma urea nitroge n measurement (mass/volume)Ordered By: Kendrick Hadley on 02-02-2023 Urea nitrogen [Mass/Vol] 8 mg/dL 7-18 [facility] Squamous epithelial cells de tection in urine sediment by light microscopyOrdered By: Kendrick Hadley on 02-02-2023 Epithelial cells.squamous LM Ql (Urine sed) 0 SEEN /hpf 5-10 [facility] Thin prep Papanicolaou smear with manual screeningOrdered By: Kendrick Hadley on 02-02-2023 Thin prep Papanicolaou smear with manual screening 10 U/L 15-37 [facility] Thin prep Papanicolaou smear with manual screening 6 5-15 [facility] Urine blood detectionOrdered By: Kendrick Hadley on 02-02-2023 RBC Ql (U) Negative Negative [facility] RBC Ql (U) 0 SEEN /hpf 0-5 [facility] Urine clarityOrdered By: Gwen Hadley on 02-02-2023 Clarity (U) Clear Clear [facility] Urine color determinationOrd ered By: Kendrick Hadley on 02-02-2023 Color (U) Yellow Yellow [facility] Urine glucose detectionOrder ed By: Kendrick Hadley on 02-02-2023 Glucose Ql (U) Normal mg/dl Normal [facility] Urine leukocyte esterase det ection by dipstickOrdered By: Kendrick Hadley on 02-02-2023 Leukocyte esterase Test strip Ql (U) Negative Negative [facility] Urine pHOrdered By: Kendrick knutson on 02-02-2023 pH (U) 7.0 [pH] 5.0 - 8.0 [facility] Urine phencyclidine (PCP) de tectionOrdered By: Kendrick Hadley on 02-02-2023 Phencyclidine Ql (U) Negative < 25 ng/mL [facility] Urine sediment bacteria coun t by microscopy (number/high power field)Ordered By: Kendrick Hadley on 02-02-2023 Bacteria LM.HPF (Urine sed) [#/Area] 0 /[HPF] None Seen [facility] Urine specific gravity measu rementOrdered By: Kendrick Hadley on 02-02-2023 Specific gravity (U) [Rel density] 1.005 1.002-1.030 [facility] Urobilinogen Auto test strip Ql (U)Ordered By: Kendrick Hadley on 02-02-2023 Urobilinogen Ql (U) Normal mg/dl Normal [facility] EMERGENCY REPORTon EMERGENCY REPORT [facility] EMERGENCY ROOM REPORT NAME ACCOUNT SEX AGE ADMIT DISCHARGE PT MED. RECORD# NUMBER DATE DATE TYPE EKLIN [id number] F 29 05/05/20 05/05/20 3 GALE [id number] ROOM: ER DATE OF : 1990 DICTATING PHYSICIAN: John Jiménez HISTORY OF PRESENT ILLNESS: This is a 29-year-old female with no significant past medical history who presents with concerns for a toothache. She states it has been present over the past 1 day. The patient states that she has had these before in the past given her poor dentition. She denies any fever, chills, neck pain, difficulty swallowing. PAST MEDICAL HISTORY: None. PAST SURGICAL HISTORY: Partial hysterectomy. SOCIAL HISTORY: Current smoker. Denies any drugs or alcohol. REVIEW OF SYSTEMS: Ten systems reviewed and otherwise negative unless stated above. PHYSICAL EXAMINATION: The patient appears well and nontoxic. Vital signs within normal limits. Head: Normocephalic without signs of trauma. Eyes: Equal ocular motion intact. PERRLA. Mouth: Poor dentition throughout. No evidence of dental caries on the upper or lower without evidence of dental abscess. Neck: Trachea is midline. Supple. No tenderness to palpation. No swelling. Lungs: Clear to auscultation. Heart: S1, S2 appreciated without murmurs. Abdomen: Soft and nontender. Musculoskeletal: +5/5 muscle strength in the upper and lower extremities. Neurologic: Alert and oriented. Skin: Clear. Psychiatric: Mood and affect normal. EMERGENCY DEPARTMENT COURSE AND TREATMENT: The patient appears well and nontoxic. DIAGNOSIS: Dental pain. PLAN/DISPOSITION: The patient will be given penicillin, as well as naproxen for home. She was given Toradol injection in the emergency department. She was given followup with the dental clinic. She was asked to return for worsening swelling, fever or chills. The patient was agreeable and discharged home in stable condition. Dictated By: John Jiménez DO 05/05/20 07:41 Page 1 of 2 G[facility]ICK[facility] Emergency Room Report GALE DICKSON : 1990 JOB #: [id number] Transcribed By: am 05/05/20 12:48 Electronically signed by: E-SIGN: John Jiménez D.O. 05/18/20 07:29 Page 2 of 2 GALE DICKSON Emergency Room Report Normal [facility] PROGRESSon 11-19-2019 PROGRESS HNO ID: [id number] Author: Shelby Foote Service: ? 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 Dickson is a 29 year old right-handed female seen in [facility] for initial consultation. We had a visit using: [employer] I received consent from the patient to perform the visit using this platform. There is no one accompanying the patient during today's visit. Handedness: right-handed Age of onset: 29 years Seizure History and Evolution Interval Seizure History 29 year old woman evaluated for spells. [...] No positional orthostatic provocation of the symptoms. Total # of Current Anti-seizure Medications: 0 Side Effects to Current Anti-seizure Medications: Seizure Frequency at First Visit: 2 per week Longest Seizure-free Interval: Number of seizure types: Hx of generalized tonic-clonic seizures: Tongue bite: Urine or Bowel Incontinence: Triggers: Postictal Deficits: 1 No No No No Status Epilepticus or clusters: Postictal Agitation: Significant Injuries from Seizures: Seizure-related driving accidents: Driving: No No No No Lives Alone: ED Visits in Last 3 Months: Hospitalizations in Last 3 Months: Highest Level of Education: Current Vocation: No No No High school graduate (includes GED) 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 Current Outpatient AED Medications None Prior Anti-seizure Therapies: Dosage: Side Effects: Efficacy: Comment: Epilepsy-Related Comorbidities: Major: ? Minor: ? Episode Description: Patient Entered Data: EPILEPSY SCORE No Data PHQ-9 SCORE - ART 2 SCORE - ART 7 SCORE - QOLIE-10 SCORE (0=worst; 100=best QoL ? higher scores represent better function) - LSSS SCORE (0- no seizures 100- most severe possible seizures) - C-SSRS SCREEN - On average, how many hours of sleep do you get in a 24-hour period? - PROMIS Sleep Disturbance T-SCORE - Have you been diagnosed with Sleep Apnea? - Seizure risk factors: History question Answer Diagnosis Date Comment Brain Tumor No Brain tumor (HCC) 11/19/2019 [employer] Infections No [employer] infection 11/19/2019 Developmental Delay No Developmental delay 11/19/2019 Family history of epilepsy No Family history of epilepsy 11/19/2019 Febrile Seizure No Febrile seizure (HCC) 11/19/2019 Complications No disorder 11/19/2019 Stroke No Stroke (HCC) 11/19/2019 Traumatic Brain Injury No Traumatic brain injury (HCC) 11/19/2019 Previous Epilepsy Evaluations [facility] [facility] records: ECHO - normal CT-normal CTA head and neck- normal EEG- per report normal awake MRI brain wo- normal . Other caregivers: Primary Care Provider: No primary care provider on file. No current outpatient medications on file. No current facility-administered medications for this visit. ALLERGIES No Known Allergies PAST MEDICAL HISTORY Diagnosis Date - Anemia in 05/19/2014 - Asthma CILDHOOD ASTHMA PAST SURGICAL HISTORY Procedure Laterality Date - NONE - TUBAL LIGATION HX 2016 bilateral salpingectomy FAMILY HISTORY Problem Relation Age of Onset - Asthma Mother - Diabetes Mother prediabetic - Hypertension Father - Asthma Brother - Asthma Brother - Breast Cancer Maternal Grandmother - Cancer Paternal Grandfather skin cancer - Breast Cancer Paternal Aunt - Cancer Maternal Aunt LUNG CANCER SOCIAL HISTORY: -Lives in [facility]. -Patient lives alone? 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 -Education: High school graduate (includes GED) -Cigarette, alcohol, substance use: yes- tobacco abuse -Functional status: independent in activities of daily living not driving at this time. -Patient driving? No REVIEW OF SYSTEMS: Review of Systems Constitutional: Negative Eyes: Negative Hent: Negative Cardiovascular: Negative Respiratory: Negative GI: Negative : Negative Endocrine: Negative Musculoskeletal: Negative Integumentary: Negative Heme/Lymph: Negative Allergy/Immunologic: Negative Neurologic: Negative Psychiatric: Negative Patient's Review of Systems has been reviewed with the patient and updated as appropriate. VITAL SIGNS: LMP 11/11/2015 Neurological Examination: Neurological Exam Cranial Nerves Extraocular movements normal. No nystagmus, no ptosis, and pupils equal. Face symmetrical. Tongue normal. IMPRESSION: Impression: 29 year old woman with new onset of paroxysmal events of prolonged nature. These could be atypical epileptic seizures (sma, midline without STEPHANIE) versus PNES. Her work up including EEG (routine), MRI, CT, CTA are all negative. At this point priority is to clarify diagnosis for management moving forward as given the atypical symptoms makes it unclear if epileptic medication treatment will help. I discussed options of video EEG monitoring for diagnostic clarification. She is agreeable. Classification Summary Seizures: 1. Paroxysmal Event (without LOC) -> Paroxysmal Event PLAN: Data reviewed as above including: outside records Testing Ordered Testing ordered: Diagnostic epilepsy monitoring unit admission (see separate abstract on this date) Medical Management Future options- if epilepsy confirmed- lamotrigine goal titration to 150 mg bid Education Patient was advised to not drive until released by a physician. Patient was given my clinic contact information. I discussed the risks, benefits and alternatives of the medical plan with the patient. Questions were answered. The patient agreed with the plan as discussed. FOLLOW-UP: No follow-ups on file. Virtual visit Physician [id number] time was 30 minutes with > 50% devoted to counseling or co-ordination of care. Approximately 15 minutes were spent reviewing medical records. Shelby Foote MD PHD cc: Primary Care Physician: No primary care provider on file. No primary provider on file. Referring Physician: ER Staff [facility] [address] [facility] [id number] Patient: Ms. Gale Dickson [address] [facility] [id number] Does this patient have any major comorbidities? None Please route this encounter to the EMU Scheduling Pool (P EMU) or PMU Scheduling Pool (P PMU) through LOS AND Follow up PHASE 1.0 AND 1.5 ORDER SYNOPSIS Patient: Gale Dickson ([id number]) Best contact number: [facility] Best time to contact the patient: daytime Insurance: Payor: JEROD / Plan: BLUE ACCESS PPO /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 SOCIAL HISTORY: -Lives in [place], [place] -Patient lives alone? No -Vocation: -Education: High school graduate (includes GED) -Cigarette, alcohol, substance use: yes- tobacco abuse -Functional status: independent in activities of daily living not driving at this time. -Patient driving? No Review of Systems All other systems reviewed and are negative. VITAL SIGNS: LMP (LMP Unknown) General Examination: General Exam Neurological Exam Mental Status Alert, fully oriented, attentive, with normal cognition, memory, speech and affect. 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 Those resolved after diagnosis without CBT, however in summer 2022 she developed new episodes different than her previously diagnosed PNES. 2022: Now, she described convulsive episodes lasting several [...] continued on Keppra for potential seizure treatment. August 03, 2023: Ongoing episodes, unclear but likely PNES given history. Less clear on benefit of keppra at this point. Needs diagnostic clarification. PLAN: Data reviewed as above including: electronic medical record Testing Ordered Ambulatory EEG stratus to capture new events for diagnosis Education Patient was advised to not drive until released by a physician. Patient was given my clinic contact information. Medical Management Medication changes were discussed. increase keppra to 2000 mg bid pending stratus I discussed the risks, benefits and alternatives of the medical plan with the patient. Questions were answered. The patient agreed with the plan as discussed. FOLLOW-UP: Return in about 4 months (around 12/03/2023). I spent a total of 20 minutes on the date of the service which included: [id number] patient care preparing to see the patient obtaining and/or reviewing separately obtained history completing clinical documentation counseling and educating the patient/family/caregiver ordering medications, tests, or procedures independently interpreting results (not separately reported) communicating results to the patient/family/caregiver Shelby Foote MD, PhD cc: Primary Care Physician: No primary care provider on file. No primary provider on file. Referring: SELF Phone: N/A Fax: Patient: Ms. Gale Dickson [address] [facility] [id number] documented in this encounterAcmc Healthcare System12-15-2023 NoteHNO ID: [id number] Author: Hamzah Kaur PA Service: ? Author Type: Physician Circular Shear Operator Type: Progress Notes Filed: 04/27/2023 7:50 [...] which ER they are going to go to.[facility] 04-27-2023 History of Present illness Narrative* Hamzah Kaur PA - 04/27/2023 7:48 AM EST 32-year-old female with history of seizure disorder presents for seizure and some memory loss. Patient states she had a seizure at work 4 days ago. She fell and hit her head on the ground. She statesthat the next day during work, she forgot 6 hours of it and does not recall working for 6 hours. No numbness, tingling, weakness, vision changes or headache. Due to memory loss, head injury and seizure, recommended patient be evaluated in the emergency room. Discussed EMS, but patient's friend states she will drive her. Patient is neurologically intact here. Normal gait. Patient unsure which ERthey are going to go to. documented in this encounterAcmc Healthcare System11-13-2023 NoteHNO ID: [id number] Author: Gama Addison PA-C Service: ? Author Type: Physician Circular Shear Operator Type: Progress Notes Filed: 03/26/2023 8:54 AM Note Text: [facility] Patient Name: Gale Dickson Date of : 1990 ESTABLISHED EPILEPSY CLINIC NOTE 03/26/2023 8:30 AM Reason for Visit: Follow Up and Seizures Clinical Summary: Ms. Dickson is a 32 year old right-handed female seen in [facility]. 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 Shelby Foote I discussed the risks, benefits and alternatives of the medical plan with the patient. Questions were answered. The patient agreed with the plan as discussed. FOLLOW-UP: Return in about 3 months (around 06/26/2023). I spent a total of 25 minutes on the date of the service which included: prep (more content not included)...[facility] [facility] Instructions* Patient Instructions* Gama Addison PA-C - 03/26/2023 8:51 AM EST Please increase Keppra to 750mg twice daily: -You can use up your 500mg tabs by taking 1.5 tablets twice daily -A new prescription for 750mg tabs was sent to [facility] - once you pick those up you will take 1 pill twice daily Please stop into a [facility] lab to have your level drawn in ~1 week, around 04/02/2023 Let the office know if you have further seizures or issues with medication [facility] History of Present illness Narrative* Gama Addison PA-C - 03/26/2023 8:30 AM EST [facility] Patient Name: Gale Dickson Date of : 1990 ESTABLISHED EPILEPSY CLINIC NOTE 03/26/2023 8:30 AM Reason for Visit: Follow Up and Seizures Clinical Summary: Ms. Dickson is a 32 year old right-handed female [facility]. 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 Shelby Foote I discussed the risks, benefits and alternatives of the medical plan with the patient. Questions were answered. The patient agreed with the plan as discussed. FOLLOW-UP: Return in about 3 months (around 06/26/2023). I spent a total of 25 minutes on the date of the service which included: preparing to see the patient [id number] patient care completing clinical documentation ordering medications, tests, or procedures Gama Addison PA-C documented in this encounterA[facility]2023 NoteHNO ID: [id number] Author: Note, Interface Service: ? Author Type: ? Type: Progress Notes Filed: 02/24/2023 1:55 AM Note Text: Epic Scheduled Downtime: 02/24/2023 1:00:00 AM to 02/24/2023 1:28:00 [facility]10-08-2023 NoteHNO ID: [id number] Author: Karyn Varela MD Service: Neurology Adult [...] Remains standing. Seizure Detection Software on: Yes consulting nurse has been Notified: Yes binder cutter hand has been Notified: Yes EXAM: Mental Status: [...] two weeks ago. Was recently admitted to [facility] for these episodes and started on LEV [...] TIME: 8:47 AM EPILEPSY CENTER STAFF NOTE [facility] STAFF PHYSICIAN NOTE OF PERSONAL INVOLVEMENT IN CARE Patient seen on rounds this morning. I have reviewed the progress note obtained and documented by the physician assistant attorney general and I personally participated in the dougherty [...] with headache, prior diagnosis of PNES in 2019, here with new episodes which she has [...] before administering Ativan: call EEG reader on-call ([phone]) or EEG fellow on-call (pager [phone]). For clinical issues, call Epilepsy On-Call Pager [phone]. Karyn Varela MD Epilepsy Staff Date of Service: 02/18/2023[facility]10-07-2023 NoteHNO ID: [id number] Author: Kayrn Varela MD Service: Neurology Adult Epilepsy Author Type: Physician Type: Progress Notes Filed: 02/17/2023 8:41 PM Note Text: NEUROLOGY EPILEPSY MONITORING UNIT (EMU) PROGRESS NOTE SERVICE DATE: 02/17/2023 SERVICE TIME: 11:38 AM Subjective No complaints. No seizures overnight. New Problems Since Admission: None Home Anti-Epileptic Drugs: LEV 500 mg BID Anti Epileptic Drugs Here: NONE - Held 10/ PM Objective 02/17/23 0400 02/17/23 0747 02/17/23 [...] Remains standing. Seizure Detection Software on: Yes consulting nurse has been Notified: Yes binder cutter hand has been Notified: Yes EXAM: Mental Status: [...] Abs Lymph 1.00 - 4.00 k/uL 3.21 Yell% % 6.6 Abs Yell <0.87 k/uL 0.71 Eosin% % 1.5 Abs [...] two weeks ago. Was recently admitted to [facility] for these episodes and started on LEV [...] TIME: 11:39 AM EPILEPSY CENTER STAFF NOTE [facility] STAFF PHYSICIAN NOTE OF PERSONAL INVOLVEMENT IN CARE Patient seen on rounds this morning. I have reviewed the progress note obtained and documented by the physician assistant attorney general and I personally participated in the dougherty [...] normal Ictal findings: none (more content not included)...[facility]09-26-2023 NoteHNO ID: [id number] Author: Rylee Monae APRN.[employer]ER Service: ? Author Type: Nurse Practitioner Type: Progress Notes Filed: 02/06/2023 11:05 AM Note Text: Please route this encounter to the EMU Scheduling Pool (P EMU) or PMU Scheduling Pool (P PMU) through LOS AND Follow up PHASE 1.0 AND 1.5 ORDER SYNOPSIS Patient: Gale Dickson ([id number]) Best contact number: [phone] Insurance: Payor: JEROD / Plan: BLUE ACCESS PPO / Product Type: PPO / ----- Scheduling Team: Please call for adult patients: Vilma Alicea ([phone]) Teresa Quinn ([phone]) Geri Nova ([phone]) Nitza Tan([phone]) Georgiana Mtz([phone]) Please call for pediatric patients: Nitza Tan ([phone]) Vilma Alicea ([phone]) Teresa Quinn ([phone]) Geri Nova ([phone]),Georgiana Mtz([phone]) ----- 02/06/2023 Admission Type EMU Adult Number of Days requested 4 Location [facility] Admit Priority Routine PURPOSE 02/06/2023 Patient [...] this encounter to the EMU Scheduling pool (P EMU) or PMU Scheduling pool (P PMU) through LOS AND Follow up Scheduling coordinators: For all VNS patients being scheduled for CARMEN, please schedule VNS off/on office visits.[facility]09-26-2023 NoteHNO ID: [id number] Author: Rylee Monae APRN.[employer] Service: ? Author Type: Nurse Practitioner Type: Progress Notes Filed: 02/06/2023 10:50 AM Note Text: [facility] Patient Name: Gale Dickson Date of : 1990 ESTABLISHED EPILEPSY CLINIC NOTE 02/06/2023 10:00 AM Reason for Visit: Seizures Clinical Summary: Ms. Dickson is a 32 year old right-handed female seen in [facility]. At today's visit, the patient [...] extremity jerking and 2E on 11/22 at 2050: states different parts of her head fall asleep> vision vibrating> bilateral upper extremity jerking. After this evaluation, the diagnosis and follow up with Psychology was discussed. Today, Ms. Dickson states that over the past 4 weeks, she estimates that she has had at least 25 seizures. She was recently admitted to [facility] for the same, discharged yesterday. She does [...] started on Keppra 500mg BID at the [facility] this week. Of note, her had tried [...] SEIZURE TYPE 1: Paroxysma (more content not included)...[facility]09-25-2023 Discharge summary Author Cynthia Wheeler [facility] February 05, 2023 12:08pm Note Date/Time February 05, 2023 12:06pm [facility] Medical Records Department [address] [place] [address] Instructions for Home/Discharge Instructions 02/05/23 1204 MR#: [id number] Acct: [id number] Name: GALE DICKSON Rep #:[id number] : 1990 32 From: Cynthia Wheeler MD PCP: Care Physician,No Primary Status :ADM KAILA Discharge Instructions Diet Discharge Diet: No restrictions Activity Discharge Activity: - (Seizure precautions: included) Follow Up Care Test Results: Test results from this visit will be discussed in further detail at your follow- up appointment, if applicable. Discharge Plan Admission Admit Date/Time: 09/22/23 04:26 Primary Reason for Your Visit: Seizures Attending Provider: Cynthia Wheeler Primary Care Provider: Care Physician,No Primary Consulting Providers: Dinesh Obregon; Flori Crowder Instructions Patient Instructions: ED Seizure New Onset Unknown ... Additional Instructions / Restrictions: DISCHARGE INSTRUCTIONS PLEASE READ *Please take this with you to your next doctors appointment* -You will be discharged on [id number] mg twice daily -Please follow-up with neurology upon discharge, please call Dr. Greer's office upon discharge to schedule an establish care appointment for your seizures ) SEIZURE DISCHARGE INSTRUCTIONS: - Seizures are unpredictable. Do not do anything that might cause danger to youor other people if you have another seizure. Do not drive, ride a bike, climb ladders/heights, hold a baby or operate dangerous equipment etc. - Do not drive until you are cleared to do so by your doctor -Avoid unsupervised activities that may pose danger of sudden loss of consciousness including bathing, swimming alone, working at heights, and/or operating heavy machinery. - Do not take a bath alone. Take shower instead - Do not spend time alone until your healthcare provider says that you are no longer in danger of having another seizure - Tell your close friends and relatives about your seizure. Teach them what to do for you if it happens again - Take your medicine as prescribed, missing doses increases your risk of having repeat seizure -Follow regular sleep schedule such that you get at least 60 hours of restful sleep every night. This is especially important when you are sick or have a cold, flu, or another type of infection - Do not drink alcoholic beverages until your doctor says it is okay. Do not ever use recreational drugs -For future seizures if you are alone: If you feel a seizure coming on, lie downon a bed or the floor or with something soft under your head and lie on your left side, not in your back. Also make sure you are not near any objects that may injure you during seizure. Call 911 if you can. - For future seizures if someone is with you: Depression should help you get into a safe position and then they should call 911. They should not try to force anything into your mouth once the seizure begins. They should not put their fingers in your mouth. -After seizure you may be drowsy or confused. That person should stay with you until you are fully awake. That person should not offer you anything to eat or drink during that time. Call 911 or go to the emergency department. -Call your healthcare provider right away if you have any of these: Another seizure, a fever of 100.4 ?F or higher, abnormal irritability, drowsiness, or confusion, head or neck pain that gets worse -Please call your primary care provider's office upon discharge to schedule a hospital follow up within 1 week. -If you do not have a primary care physician of list of local primary care physicians can be provided for you upon discharge. Please ask for this list prior to discharge -For any concerning signs or symptoms please call 911 or proceed to the nearest emergency department Discharge Orders/Prescriptions Prescriptions: New levetiracetam [Keppra] 500 mg tablet 500 mg PO BID Qty: 30 1RF Referrals / Follow Up: Cain Greer MD [Non-Staff -Ordering Privileges] - ( -Please follow-up with neurology upon discharge, please call Dr. Greer's office upon discharge to schedule an establish care appointment for your seizures (ph [phone])) Care Physician,No Primary [Primary Care Provider] - ( -If you do not have a primary care physician of list of local primary care physicians can be provided for you upon discharge. Please ask for this list prior to discharge ) Disposition Disposition (needs filled in before D/C Order can be placed): Home, Self Care 02/05/23 1208<Electronically signed by Cynthia Wheeler MD>Cynthia Wheeler MD CC: Dr. Dinesh Obregon, DO; Dr. Flori Crowder MD; No Primary Care Physician ~ Signed [facility] Work Phone: 1(125) 346-194309-24-2023 Progress note Author Flori [facility] February 04, 2023 3:14pm Note Date/Time February 04, 2023 3:12pm [facility] Medical Records Department [address] [place] [address] Progress Note 02/04/23 1510 MR#: [id number] Acct: [id number] Name: GALE DICKSON Rep #:[id number] : 1990 32 From: Flori Crowder MD PCP: Care Physician,No Primary Status :ADM KAILA Location: [place] [address] Subjective Subjective Patient seen and examined. She had no active complaints. Nurse tells me there was concern that she had a seizure overnight, as she was found down on the floorin the bathroom. Review of systems is otherwise negative. I did speak to patient and let her know that I spoke to the neurologist yesterday who still recommended that she should be on Keppra due to the reduced side effects profile. Patient however still insisting that she will not take it because her took Keppra and had a change in his personality and she really does not want to take Keppra. We will consult neurology to review patient to give alternate recommendations. Objective Data Objective Data Vital Signs: Vital Signs Temp Pulse Resp BP Pulse Ox O2 Del Method 97.5 F L 69 16 140/83 H 100 Room Air 02/04/23 10:30 02/04/23 10:30 02/04/23 10:30 02/04/23 10:30 02/04/23 10:30 02/04/23 10:30 Oxygen Delivery Method Room Air Weight: 220 lb 7.396 oz Body Mass Index (BMI) 30.7 Intake & Output: Intake and Output for Last 24 Hours 02/02/23 02/03/23 02/04/23 23:59 23:59 23:59 Intake Total 2965 / 2965 465 / 465 Balance 2965 / 2965 465 / 465 Lab / Micro Data 02/04/23 04:35 02/04/23 04:35 Labs: Laboratory Results - last 24 hr 02/03/23 23:40: POC Glucose 99 02/04/23 04:35: WBC 11.1 H, RBC 4.18 L, Hgb 12.3, Hct 37.1, MCV 88.8, MCH 29.4, MCHC 33.2, RDW Std Deviation 41.8, RDW Coeff of Elizabeth 12.7, Plt Count 238, MPV 9.7, Immature Gran % (Auto) 0.400, Neut % (Auto) 59.4, Lymph % (Auto) 31.1, Yell% (Auto) 6.1, Eos % (Auto) 2.2, Baso % (Auto) 0.8, Absolute Neuts (auto) 6.6, Absolute Lymphs (auto) 3.44, Nucleated RBC % 0, Sodium 142, Potassium 3.7, Chloride 114 H, Carbon Dioxide 24.0, Anion Gap 4 L, BUN 7, Creatinine 0.61, Estim Creat Clear Calc 147.98, Est GFR (MDRD) Af Amer 147, Est GFR (MDRD) Non-Af121, BUN/Creatinine Ratio 11.5, Glucose 89, Calcium 8.5 Radiography Diagnostic Testing: Radiology Impression Brain CT 02/03/23 23:31 IMPRESSION: No acute abnormality. Electronically Signed: Dina Corona MD at 0:16 EDT , Physical Exam Const alert, oriented x3 and no apparent distress General Appearance: cooperative, comfortable and well developed HEENT normocephalic, head/scalp atraumatic, hearing grossly normal bilaterally, nasal mucous membranes and turbinates normal, moist oral mucous membranes and oropharynx normal Eyes PERRL, EOMs intact bilaterally and conjunctivae normal Neck full ROM, no lymphadenopathy, supple and no JVD Lymph Lymphatic: no lymphadenopathy noted and no lymphedema noted Chest inspection of chest normal Resp normal respiratory effort, normal air movement, no use of accessory muscles and clear to auscultation bilaterally Cardio regular rate, regular rhythm, S1 normal heart sound, S2 normal heart sound, no murmurs and peripheral pulses 2+ throughout Palpation: normal PMI GI normal to inspection, nondistended, normoactive bowel sounds, soft to palpation,non-tender and non-distended Back/Spine normal ROM Extremity normal to inspection, full ROM, normal capillary refill, no clubbing, cyanosis or edema, no calf tenderness and no pedal edema Skin no rashes or lesions noted General Skin Exam: no breakdown and turgor normal Neuro CN's II-XII intact bilaterally, no focal motor deficits, no sensory deficits noted and deep tendon reflexes 2+ bilaterally Motor Exam: strength 5/5 throughout and general weakness Psych mental status grossly normal, thought process normal, cooperative and affect normal Appearance: appropriate Assessment & Plan Assessment/Plan (1) Seizure-like activity: PLAN: #Seizure like activity * Had seizure-like activity at work. Patient has no recollection of this. * Seems she had similar episodes back in 2027 and saw a neurologist. Seizures were ruled out and she had not been started on any seizure-like medications. * Placed on IV Keppra 500 mg twice daily. * CT of the brain shows no acute intracranial pathology. Neurology consulted. Await recs. * EEG showed no evidence of seizures. * MRI of brain showed no acute pathology * Fall precautions. Seizure precautions * neurology consulted again to give rec's about meds. I spoke to the neurolog ist on the phone yesterday and he still recommended that patient should be on Keppra. I spoke to patient about this but she is adamant that she does not want to take Keppra. In light of her having a questionable seizure again overnight. And patient's absolute refusal to take Keppra on outpatient basis, neurology consulted to review patient and discussed with her about the seizure medications. * #Hypokalemia: resolved. #Lactic acidosis: likely due to seizure like activity. Respolved DVT prophylaxis; SCDs Disposition: for likely dc today once neurology gives rec's about medication. Charges/Coding Visit Charges Inpatient E&M: 83617 Subs Hosp L2 02/04/23 1514 <Electronically signed by Flori Crowder MD> Flori Crowder MD Cosigner Signature (if applicable): CC: ~ Signed [facility] Work Phone: 1(942) 580-258009-23-[address] [facility] February 03, 2023 2:11pm Note Date/Time February 03, 2023 2:09pm [facility] Medical Records Department [address] [place] [address] Progress Note 02/03/23 1400 MR#: [id number] Acct: [id number] Name: GALE DICKSON Rep #:[id number] : 1990 32 From: Flori Crowder MD PCP: Care Physician,No Primary Status :ADM KAILA Location: [place] [address] Subjective Subjective Patient seen and examined. She had no complaints and had an uneventful night. Review of systems is otherwise negative. She was reviewed by neurology yesterdayand recommendation was for her to be on Keppra. Patient however refusing to take keppra because she says she has read about the side effects and doesnt wantto take it. She wants an alternative medication. Objective Data Objective Data Vital Signs: Vital Signs Temp Pulse Resp BP Pulse Ox O2 Del Method 96.8 F L 65 16 127/78 H 97 Room Air 02/03/23 09:20 02/03/23 09:20 02/03/23 09:20 02/03/23 09:20 02/03/23 09:20 02/03/23 09:20 Oxygen Delivery Method Room Air Weight: 220 lb 7.396 oz Body Mass Index (BMI) 30.7 Intake & Output: Intake and Output for Last 24 Hours 02/01/23 02/02/23 02/03/23 23:59 23:59 23:59 Intake Total 2965 / 2965 120 / 120 Balance 2965 / 2965 120 / 120 Lab / Micro Data 02/03/23 07:23 02/03/23 07:23 Labs: Laboratory Results - last 24 hr 02/03/23 07:23: WBC 9.4, RBC 4.21, Hgb 12.3, Hct 38.4, MCV 91.2, MCH 29.2, MCHC 32.0, RDW Std Deviation 43.5, RDW Coeff of Elizabeth 13.1, Plt Count 220, MPV 10.0, Immature Gran % (Auto) 0.400, Neut % (Auto) 52.1, Lymph % (Auto) 38.4, Yell % (Auto) 5.1, Eos % (Auto) 3.0, Baso % (Auto) 1.0, Absolute Neuts (auto) 4.9, Absolute Lymphs (auto) 3.59, Nucleated RBC % 0, Sodium 143, Potassium 3.8, Chloride 115 H, Carbon Dioxide 24.0, Anion Gap 4 L, BUN 6 L, Creatinine 0.61, Estim Creat Clear Calc 147.98, Est GFR (MDRD) Af Amer 145, Est GFR (MDRD) Non-Af120, BUN/Creatinine Ratio 9.8 L, Glucose 89, Calcium 8.6, TSH 1.96 Physical Exam Const alert, oriented x3 and no apparent distress General Appearance: cooperative HEENT normocephalic, head/scalp atraumatic, hearing grossly normal bilaterally, nasal mucous membranes and turbinates normal, moist oral mucous membranes and oropharynx normal Eyes PERRL, EOMs intact bilaterally and conjunctivae normal Neck full ROM, no lymphadenopathy, supple and no JVD Lymph Lymphatic: no lymphadenopathy noted and no lymphedema noted Chest inspection of chest normal Resp normal respiratory effort, normal air movement, no use of accessory muscles and clear to auscultation bilaterally Cardio regular rate, regular rhythm, S1 normal heart sound, S2 normal heart sound, no murmurs and peripheral pulses 2+ throughout Palpation: normal PMI GI normal to inspection, nondistended, normoactive bowel sounds, soft to palpation,non-tender and non-distended Back/Spine normal ROM Extremity normal to inspection, full ROM, normal capillary refill, no clubbing, cyanosis or edema, no calf tenderness and no pedal edema Skin no rashes or lesions noted General Skin Exam: no breakdown and turgor normal Neuro CN's II-XII intact bilaterally, no focal motor deficits, no sensory deficits noted and deep tendon reflexes 2+ bilaterally Motor Exam: strength 5/5 throughout and general weakness Psych mental status grossly normal, thought process normal, cooperative and affect normal Appearance: appropriate Assessment & Plan Assessment/Plan (1) Seizure-like activity: PLAN: #Seizure like activity * Had seizure-like activity at work. Patient has no recollection of this. * Seems she had similar episodes back in 2027 and saw a neurologist. Seizures were ruled out and she had not been started on any seizure-like medications. * Placed on IV Keppra 5 5 mg twice daily. * CT of the brain shows no acute intracranial pathology. Neurology consulted. Await recs. * EEG showed no evidence of seizures. * MRI of brain ordered and pending * Fall precautions. Seizure precautions * neurology consulted again to give rec's about meds. * #Hypokalemia: resolved. K is 3.8 today #Lactic acidosis: likely due to seizure like activity. Should resolve with hydration with IVF. DVT prophylaxis; SCDs Disposition: for likely dc today once neurology gives rec's about medication. Charges/Coding Visit Charges Inpatient E&M: 80556 Subs Hosp L2 02/03/23 1411 <Electronically signed by Flori Crowder MD> Flori Crowder MD Cosigner Signature (if applicable): CC: ~ Signed [facility] Work Phone: 1(207) 797-630609-22-2023 Progress note Author [facility]i [facility] February 02, 2023 4:40pm Note Date/Time February 02, 2023 2:11pm [facility] Medical Records Department [address] [place] [address] Progress Note 02/02/23 1408 MR#: [id number] Acct: [id number] Name: GALE DICKSON Rep #:[id number] : 1990 32 From: Flori Crowder MD PCP: Care Physician,No Primary Status :ADM KAILA Location: [place] [address] Subjective Subjective Patient seen and examined. She had no active complaints. She was admitted with acomplaint of seizure like activity. Patient doesnt have much recollection of what happened. She hasnt had any such seizure activity since admission. She is awaiting neurology evaluation. Objective Data Objective Data Vital Signs: Vital Signs Temp Pulse Resp BP Pulse Ox O2 Del Method 98.3 F 55 L 18 127/76 H 99 Room Air 02/02/23 07:56 02/02/23 07:56 02/02/23 07:56 02/02/23 07:56 02/02/23 07:56 02/02/23 07:56 Oxygen Delivery Method Room Air Weight: 225 lb 12.054 oz Body Mass Index (BMI) 32.3 Intake & Output: Intake and Output for Last 24 Hours 01/31/23 02/01/23 02/02/23 23:59 23:59 23:59 Intake Total 1999 Balance 1999 Lab / Micro Data 02/02/23 02:39 02/02/23 02:39 Labs: Laboratory Results - last 24 hr 02/02/23 02:39: WBC 9.8, RBC 4.16 L, Hgb 12.3, Hct 36.9 L, MCV 88.7, MCH 29.6, MCHC 33.3, RDW Std Deviation 41.2, RDW Coeff of Elizabeth 12.7, Plt Count 239, MPV 9.7, Immature Gran % (Auto) 0.400, Neut % (Auto) 65.2, Lymph % (Auto) 25.5, Yell% (Auto) 5.5, Eos % (Auto) 2.6, Baso % (Auto) 0.8, Absolute Neuts (auto) 6.4, Absolute Lymphs (auto) 2.49, Nucleated RBC % 0, Sodium 142, Potassium 3.0 L, Chloride 111 H, Carbon Dioxide 25.0, Anion Gap 6, BUN 8, Creatinine 0.71, Estim Creat Clear Calc 123.01, Est GFR (MDRD) Af Amer 122, Est GFR (MDRD) Non-Af 101, BUN/Creatinine Ratio 11.3, Glucose 120 H, Lactic Acid 2.3 H*, Calcium 8.8, Magnesium 2.3, Total Bilirubin 0.30, AST 10 L, ALT 26, Alkaline Phosphatase 56, Total Protein 6.5, Albumin 3.8, Globulin 2.7, Albumin/Globulin Ratio 1.4, Prolactin 35.5, Serum , Qual NEGATIVE 02/02/23 03:35: Urine Color Yellow, Urine Clarity Clear, Urine pH 7.0, Ur Specific [place] 1.005, Urine Protein Negative, Urine Glucose (UA) Normal, UrineKetones Negative, Urine Occult Blood Negative, Urine Nitrite Negative, Urine Bilirubin Negative, Urine Urobilinogen Normal, Ur Leukocyte Esterase Negative, Urine RBC 0 SEEN, Urine WBC 0 SEEN, Ur Squamous Epith Cells 0 SEEN, Urine Bacteria 0 SEEN, Urine Mucus 0 SEEN, Urine Opiates Screen NEGATIVE, Urine Methadone Screen NEGATIVE, Ur Barbiturates Screen NEGATIVE, Ur Phencyclidine Scrn NEGATIVE, Ur Amphetamines Screen NEGATIVE, MDMA (Ecstasy) Screen NEGATIVE, U Benzodiazepines Scrn POSITIVE H, Urine Cocaine Screen NEGATIVE, U CannabinoidsScreen NEGATIVE, Ur Drug Screen Comment Radiography Diagnostic Testing: Radiology Impression Brain CT 02/02/23 02:43 IMPRESSION: No acute abnormality. Electronically Signed: Dina Corona MD at 3:22 EDT , Physical Exam Const alert, oriented x3 and no apparent distress General Appearance: cooperative and well developed HEENT normocephalic, head/scalp atraumatic, moist oral mucous membranes and oropharynxnormal Eyes PERRL and EOMs intact bilaterally Neck no lymphadenopathy, supple and no JVD Lymph Lymphatic: no lymphadenopathy noted and no lymphedema noted Resp normal respiratory effort, normal air movement and clear to auscultation bilaterally Cardio regular rate, regular rhythm, S1 normal heart sound, S2 normal heart sound and no murmurs Palpation: normal PMI GI normal to inspection, nondistended, normoactive bowel sounds, soft to palpation,non-tender and non-distended Extremity normal capillary refill, no clubbing, cyanosis or edema and no calf tenderness Skin General Skin Exam: no breakdown and turgor normal Neuro CN's II-XII intact bilaterally, no focal motor deficits, no sensory deficits noted and deep tendon reflexes 2+ bilaterally Motor Exam: strength 5/5 throughout and general weakness Psych thought process normal, cooperative and affect normal Appearance: appropriate Assessment & Plan Assessment/Plan (1) Seizure-like activity: PLAN: #Seizure like activity * Had seizure-like activity at work. Patient has no recollection of this. * Seems she had similar episodes back in 2027 and saw a neurologist. Seizures were ruled out and she had not been started on any seizure-like medications. * Placed on IV Keppra 5 5 mg twice daily. * CT of the brain shows no acute intracranial pathology. Neurology consulted. Await recs. * EEG ordered and pending. * Fall precautions. Seizure precautions * * #Hypokalemia: K is 3. Was replaced in the ED. Will trend. #Lactic acidosis: likely due to seizure like activity. Should resolve with hydration with IVF. DVT prophylaxis; SCDs Charges/Coding Visit Charges Inpatient E&M: 54288 Subs Hosp L2 02/02/23 1640 <Electronically signed by Flori Crowder MD> Flori Crowder MD Cosigner Signature (if applicable): CC: ~ Signed [facility] Work Phone: 1(907) 257-614809-22-2023 History and physical note Author [facility] February 02, 2023 5:57am Note Date/Time February 02, 2023 4:26am [facility] Medical Records Department [address] [place] [id number] H&P Exam - Hospitalist 02/02/23 0418 MR#: [id number] Acct: [id number] Name: GALE DICKSON Rep #:[id number] : 1990 32 From: Dinesh damon DO PCP: Care Physician,No Primary Status :REG ER Location: ED HPI - General General Date of Admission: 02/02/23 Date of Service: 02/02/23 Chief Complaint: Seizure-like activity HPI Narrative GALE DICKSON, is a 32 F with no significant past medical history who presented to [facility] ED on 10/02/2022 with concern for seizure-like activity. Patient seen at bedside, present. Patient sitting up in bed, alert but appears fatigued. Mildly slow responses with apparent decreased concentration, but patient notably was just given Versed for possible seizure activity. Patient was able to discuss with me some of her pastmedical history with regard to her seizure- like activity. Otherwise, most history was obtained from patient's . Patient had episodes like this back in 2019. Work-up for true seizure disorder at that time was negative. He does not think he was ever put on antiepileptic medications. Had minimal concerns for few years, but now has a recurrence of what appears to be seizure activity over the last several weeks to a few months. states that she will close her eyes tightly, have significant twitching of her arms followed by what appears to be poor muscle tone. She then seems to be foggy and fatigued after this for some time. He is concerned about the increased frequency of these events that she is having. He otherwise denies any acute concerns for thepatient. States she has no history of drug use. Does not take any medications. No other acute concerns at this time. Vitals in ED unremarkable. Labs with mild hypokalemia 3.0, lactate 2.3, otherwise benign. UA was negative. CT head without contrast with no acute abnormalities. [facility] Medical History Abnormal bruising Chronic neck and back pain Limb weakness Home Medications NK 02/02/23 [History Last Taken Unknown] Allergy/AdvReac Type Severity Reaction Status Date / Time No Known Allergies Allergy Verified 02/02/23 03:43 Surgical History History of hysterectomy History of tubal ligation Social History Smoking Status: Never smoker alcohol intake: current ROS Review of Systems ROS Unobtainable: due to mental status Vital Signs Vital Signs Vital Signs: 02/02/23 02:21 02/02/23 03:43 Temperature 97.1 F L Temperature Source Temporal Pulse Rate 90 59 L Respiratory Rate 17 15 Blood Pressure 128/79 H 113/80 Blood Pressure Mean 95 91 Pulse Ox 98 100 Oxygen Delivery Method Room Air Weight Weight: 102.4 kg Body Mass Index (BMI) 32.3 Physical Exam Const alert Constitutional Narrative: Alert but fatigued appearing, short answers to questions, sitting comfortably inbed, no acute distress. General Appearance: cooperative and comfortable HEENT normocephalic, head/scalp atraumatic, hearing grossly normal bilaterally, nasal mucous membranes and turbinates normal and moist oral mucous membranes Eyes PERRL, EOMs intact bilaterally and conjunctivae normal Neck full ROM, no lymphadenopathy and supple Lymph Lymphatic: no lymphadenopathy noted Chest inspection of chest normal Resp normal respiratory effort, normal air movement, no use of accessory muscles and clear to auscultation bilaterally Cardio regular rate, regular rhythm, no murmurs and peripheral pulses 2+ throughout GI normal to inspection, nondistended, normoactive bowel sounds, soft to palpation,non-tender and non-distended Back/Spine normal ROM Extremity normal to inspection, full ROM and no pedal edema Skin no rashes or lesions noted Psych mental status grossly normal Results Lab / Micro Data 02/02/23 02:39 02/02/23 02:39 Labs: Laboratory Results - last 24 hr 02/02/23 02:39: WBC 9.8, RBC 4.16 L, Hgb 12.3, Hct 36.9 L, MCV 88.7, MCH 29.6, MCHC 33.3, RDW Std Deviation 41.2, RDW Coeff of Elizabeth 12.7, Plt Count 239, MPV 9.7, Immature Gran % (Auto) 0.400, Neut % (Auto) 65.2, Lymph % (Auto) 25.5, Yell% (Auto) 5.5, Eos % (Auto) 2.6, Baso % (Auto) 0.8, Absolute Neuts (auto) 6.4, Absolute Lymphs (auto) 2.49, Nucleated RBC % 0, Sodium 142, Potassium 3.0 L, Chloride 111 H, Carbon Dioxide 25.0, Anion Gap 6, BUN 8, Creatinine 0.71, Estim Creat Clear Calc 123.01, Est GFR (MDRD) Af Amer 122, Est GFR (MDRD) Non-Af 101, BUN/Creatinine Ratio 11.3, Glucose 120 H, Lactic Acid 2.3 H*, Calcium 8.8, TotalBilirubin 0.30, AST 10 L, ALT 26, Alkaline Phosphatase 56, Total Protein 6.5, Albumin 3.8, Globulin 2.7, Albumin/Globulin Ratio 1.4, Prolactin 35.5, Serum , Qual NEGATIVE 02/02/23 03:35: Urine Color Yellow, Urine Clarity Clear, Urine pH 7.0, Ur Specific [place] 1.005, Urine Protein Negative, Urine Glucose (UA) Normal, UrineKetones Negative, Urine Occult Blood Negative, Urine Nitrite Negative, Urine Bilirubin Negative, Urine Urobilinogen Normal, Ur Leukocyte Esterase Negative, Urine RBC 0 SEEN, Urine WBC 0 SEEN, Ur Squamous Epith Cells 0 SEEN, Urine Bacteria 0 SEEN, Urine Mucus 0 SEEN, Ur Drug Screen Comment Radiology Impression Brain CT 02/02/23 02:43 IMPRESSION: No acute abnormality. Electronically Signed: Dina Corona MD at 3:22 EDT , Assessment & Plan Assessment/Plan (1) Seizure-like activity: PLAN: Plan Patient is a 32-year-old female with no significant past medical history who presented to [facility] ED on 10/02/2022 with concern for seizure-like activity. 1. Concern for seizure-like activity Patient able to answer most questions appropriately on my interview but was somewhat slowed responses. helped for gathering history. Patient had history of what appeared to be a multiple episodes of seizures back in 2019. Saw a neurologist at that time, true seizures were ruled out, was not started onany antiepileptic medication. now states that patient has had about 12 episodes of possible seizure activity in the last week. Patient will close her eyes tightly and has significant twitching, followed by abating of twitching with apparent significant fatigue and possible postictal state. Last episode was this evening while she was working. Labs notable for lactate 2.3. Brain CTshowed no acute abnormalities. ? Admit under observation status to [facility]. Neurology consulted. Spot EEG ordered. PT/OT/case management consulted. DVT prophylaxis: Ambulation CODE STATUS: Full code, verified Expected disposition: Home, 1 to 2 days Total clinical time spent by myself addressing the patient's medical issues, reviewing all the data, and collaborating with patient's care team: 40 minutes. Charges/Coding Visit Charges Inpatient E&M: 72699 Init Hosp L1 02/02/23 0557 <Electronically signed by Dinesh Obregon DO> Cosigner Signature (if applicable): CC: Dr. Dinesh Obregon DO; No Primary Care Physician~ Signed [facility] Work Phone: 1([phone]) 709-186709-22-2023 History and physical note Author Dinesh Obregon [facility] February 02, 2023 5:57am Note Date/Time February 02, 2023 4:26am [facility] Medical Records Department [address] [facility] [place] [address] H&P Exam - Hospitalist 02/02/23 0418 MR#: [id number] Acct: [id number] Name: GALE DICKSON Rep #:[id number] : 1990 32 From: Dinesh damon DO PCP: Care Physician,No Primary Status :REG ER Location: ED HPI - General General Date of Admission: 02/02/23 Date of Service: 02/02/23 Chief Complaint: Seizure-like activity HPI Narrative GALE DICKSON, is a 32 F with no significant past medical history who presented to [facility] ED on 10/02/2022 with concern for seizure-like activity. Patient seen at bedside, present. Patient sitting up in bed, alert but appears fatigued. Mildly slow responses with apparent decreased concentration, but patient notably was just given Versed for possible seizure activity. Patient was able to discuss with me some of her pastmedical history with regard to her seizure- like activity. Otherwise, most history was obtained from patient's . Patient had episodes like this back in 2019. Work-up for true seizure disorder at that time was negative. He does not think he was ever put on antiepileptic medications. Had minimal concerns for few years, but now has a recurrence of what appears to be seizure activity over the last several weeks to a few months. states that she will close her eyes tightly, have significant twitching of her arms followed by what appears to be poor muscle tone. She then seems to be foggy and fatigued after this for some time. He is concerned about the increased frequency of these events that she is having. He otherwise denies any acute concerns for thepatient. States she has no history of drug use. Does not take any medications. No other acute concerns at this time. Vitals in ED unremarkable. Labs with mild hypokalemia 3.0, lactate 2.3, otherwise benign. UA was negative. CT head without contrast with no acute abnormalities. [facility] Medical History Abnormal bruising Chronic neck and back pain Limb weakness Home Medications NK 02/02/23 [History Last Taken Unknown] Allergy/AdvReac Type Severity Reaction Status Date / Time No Known Allergies Allergy Verified 02/02/23 03:43 Surgical History History of hysterectomy History of tubal ligation Social History Smoking Status: Never smoker alcohol intake: current ROS Review of Systems ROS Unobtainable: due to mental status Vital Signs Vital Signs Vital Signs: 02/02/23 02:21 02/02/23 03:43 Temperature 97.1 F L Temperature Source Temporal Pulse Rate 90 59 L Respiratory Rate 17 15 Blood Pressure 128/79 H 113/80 Blood Pressure Mean 95 91 Pulse Ox 98 100 Oxygen Delivery Method Room Air Weight Weight: 102.4 kg Body Mass Index (BMI) 32.3 Physical Exam Const alert Constitutional Narrative: Alert but fatigued appearing, short answers to questions, sitting comfortably inbed, no acute distress. General Appearance: cooperative and comfortable HEENT normocephalic, head/scalp atraumatic, hearing grossly normal bilaterally, nasal mucous membranes and turbinates normal and moist oral mucous membranes Eyes PERRL, EOMs intact bilaterally and conjunctivae normal Neck full ROM, no lymphadenopathy and supple Lymph Lymphatic: no lymphadenopathy noted Chest inspection of chest normal Resp normal respiratory effort, normal air movement, no use of accessory muscles and clear to auscultation bilaterally Cardio regular rate, regular rhythm, no murmurs and peripheral pulses 2+ throughout GI normal to inspection, nondistended, normoactive bowel sounds, soft to palpation,non-tender and non-distended Back/Spine normal ROM Extremity normal to inspection, full ROM and no pedal edema Skin no rashes or lesions noted Psych mental status grossly normal Results Lab / Micro Data 02/02/23 02:39 02/02/23 02:39 Labs: Laboratory Results - last 24 hr 02/02/23 02:39: WBC 9.8, RBC 4.16 L, Hgb 12.3, Hct 36.9 L, MCV 88.7, MCH 29.6, MCHC 33.3, RDW Std Deviation 41.2, RDW Coeff of Elizabeth 12.7, Plt Count 239, MPV 9.7, Immature Gran % (Auto) 0.400, Neut % (Auto) 65.2, Lymph % (Auto) 25.5, Yell% (Auto) 5.5, Eos % (Auto) 2.6, Baso % (Auto) 0.8, Absolute Neuts (auto) 6.4, Absolute Lymphs (auto) 2.49, Nucleated RBC % 0, Sodium 142, Potassium 3.0 L, Chloride 111 H, Carbon Dioxide 25.0, Anion Gap 6, BUN 8, Creatinine 0.71, Estim Creat Clear Calc 123.01, Est GFR (MDRD) Af Amer 122, Est GFR (MDRD) Non-Af 101, BUN/Creatinine Ratio 11.3, Glucose 120 H, Lactic Acid 2.3 H*, Calcium 8.8, TotalBilirubin 0.30, AST 10 L, ALT 26, Alkaline Phosphatase 56, Total Protein 6.5, Albumin 3.8, Globulin 2.7, Albumin/Globulin Ratio 1.4, Prolactin 35.5, Serum , Qual NEGATIVE 02/02/23 03:35: Urine Color Yellow, Urine Clarity Clear, Urine pH 7.0, Ur Specific [place] 1.005, Urine Protein Negative, Urine Glucose (UA) Normal, UrineKetones Negative, Urine Occult Blood Negative, Urine Nitrite Negative, Urine Bilirubin Negative, Urine Urobilinogen Normal, Ur Leukocyte Esterase Negative, Urine RBC 0 SEEN, Urine WBC 0 SEEN, Ur Squamous Epith Cells 0 SEEN, Urine Bacteria 0 SEEN, Urine Mucus 0 SEEN, Ur Drug Screen Comment Radiology Impression Brain CT 02/02/23 02:43 IMPRESSION: No acute abnormality. Electronically Signed: Dina Corona MD at 3:22 EDT , Assessment & Plan Assessment/Plan (1) Seizure-like activity: PLAN: Plan Patient is a 32-year-old female with no significant past medical history who presented to [facility] ED on 10/02/2022 with concern for seizure-like activity. 1. Concern for seizure-like activity Patient able to answer most questions appropriately on my interview but was somewhat slowed responses. helped for gathering history. Patient had history of what appeared to be a multiple episodes of seizures back in 2019. Saw a neurologist at that time, true seizures were ruled out, was not started onany antiepileptic medication. now states that patient has had about 12 episodes of possible seizure activity in the last week. Patient will close her eyes tightly and has significant twitching, followed by abating of twitching with apparent significant fatigue and possible postictal state. Last episode was this evening while she was working. Labs notable for lactate 2.3. Brain CTshowed no acute abnormalities. ? Admit under observation status to [facility]. Neurology consulted. Spot EEG ordered. PT/OT/case management consulted. DVT prophylaxis: Ambulation CODE STATUS: Full code, verified Expected disposition: Home, 1 to 2 days Total clinical time spent by myself addressing the patient's medical issues, reviewing all the data, and collaborating with patient's care team: 40 minutes. Charges/Coding Visit Charges Inpatient E&M: 48973 Init Hosp L1 02/02/23 0557 <Electronically signed by Dinesh Obregon DO> Cosigner Signature (if applicable): CC: Dr. Dinesh Obregon DO; No Primary Care Physician~ Signed [facility] Work Phone: 1(196) 579-750009-22-2023 Discharge summary Author Kendrick Hadley [facility] February 02, 2023 4:24am Note Date/Time February 02, 2023 2:48am [facility] Medical Records Department [address] [place] [address] Emergency Department Summary 02/02/23 MR#: [id number] Acct: [id number] Name: GALE DICKSON Rep #:[id number] : 1990 32 From: Kendrick Hadley MD PCP: Care Physician,No Primary Status :REG ER Location: ED HPI History of Present Illness Chief Complaint: Seizure Narrative Narrative: 32-year-old female presents via EMS with questionable seizure activity. Her history and physical is limited secondary to postictal state and the fact that she received 5 of Versed. Her is at the bedside currently. He states that she has had history of these seizure-like activities. She has had at least12 in the last week. There are periods of time where she goes without having them, but they come back. He states that she had work-up including EEG and sleep study as she sometimes twitches in her sleep, which did not show any irregularities. EMS states that they were called for seizure activity. She wassitting in a chair, but was found on the ground. She had her eyes forced closed, but was twitching so she was administered Versed. While in the emergency department during examination she will open her eyes and she uttered an obscenity. PFSH PFS Medical History Abnormal bruising Chronic neck and back pain Limb weakness Home Medications NK 02/02/23 [History Last Taken Unknown] Allergy/AdvReac Type Severity Reaction Status Date / Time No Known Allergies Allergy Verified 02/02/23 03:43 Surgical History History of hysterectomy History of tubal ligation Social History Smoking Status: Never smoker alcohol intake: current ROS ROS ED ROS Narrative Limited secondary to drowsiness and possible postictal state. Constitutional: No fever, no chills. HEENT: No sore throat. No neck pain. No loss of vision. No rhinorrhea. Cardiovascular: No chest pain. No palpitations. No pedal edema. Respiratory: No cough, no shortness of breath. Abdominal: No abdominal pain. No nausea. No vomiting. Genitourinary: No dysuria. No hematuria. Musculoskeletal: No myalgias. No arthralgias. Neurologic: No headaches. No dizziness. No lightheadedness. Reported seizure activity. Skin: No rash. No change in color. Psychiatric: No depression. No anxiety. EXAM Physical Exam Narrative Exam Narrative: Afebrile. Vital signs noted. HEENT: Normocephalic. Atraumatic. PERRL, EOMI. Neck soft and supple. No pointtenderness or step off. Cardiovascular: Regular rate and rhythm. No murmurs, rubs, or gallops appreciated. Respiratory: No tachypnea. Lungs clear to auscultation bilaterally. Gastrointestinal: Abdomen soft, nontender, with normoactive bowel sounds. No rebound or guarding. Neurological: Drowsy. Will open eyes. Possibly postictal. Nonfocal, nonlateralizing. Skin: No rash. Normal color. No pallor. Musculoskeletal: No pedal edema. Full range of motion extremities. Const Vital Signs: 02/02/23 02:21 02/02/23 03:43 Temperature 97.1 F L Temperature Source Temporal Pulse Rate 90 59 L Respiratory Rate 17 15 Blood Pressure 128/79 H 113/80 Blood Pressure Mean 95 91 Pulse Ox 98 100 Oxygen Delivery Method Room Air MDM MDM MDM Narrative Medical decision making narrative: I reviewed the patient's prior records. She was admitted back in 2019 for twitching episodes and syncopal episode while at work. I did review her EEG at that time which was unremarkable although she did have twitching episodes duringit. In the differential diagnosis is seizure activity versus syncope versus pseudoseizure/psychogenic seizures. I reviewed her laboratory work from today and she has normal white count of 9.8, hemoglobin normal at 12.3, platelet countnormal at 239. Her electrolyte panel shows sodium normal at 142 and hypokalemiaof 3.0 which was replaced orally. Chloride is slightly elevated at 111 which I think is nonspecific, BUN normal at 8, creatinine 0.71, lactic acid is elevated 2.3 but prolactin is normal at 35.5. AST low at 10 which I also think is nonspecific. Upon repeat examination, around 3:15 in the morning, RN informed me that patient is awake and talking. EKG was obtained and interpreted by myself independently as normal sinus rhythm with sinus arrhythmia at 66 bpm without ectopy or acute ST changes. No STEMI. I reviewed the radiology report of the CT of her brain which shows no evidence of acute hemorrhage or fracture. No mass. Her urinalysis is pending, but microanalysis shows no evidence of infection. Urine for drugs of abuse is also pending, but it has been negative in the past. In discussion with the patient and her , she states that she was told that it is all in my head but given her increasing seizure like activity over the past week, I do feel that since she has not had an EEG since 2019 that she needs to be observed with probable neurological consultation. I discussed patient with Dr. Obregon for assignment to observation on [facility]. Patient isin stable condition. History & Record Review Discussion w/independent historian: Patient and Family Additional record(s) reviewed:: Prior ED visit and Prior labs Lab Data Attestation: I reviewed the patient's lab results. Labs: Laboratory Results - last 24 hr 02/02/23 02/02/23 02:39 03:35 WBC 9.8 RBC 4.16 L Hgb 12.3 Hct 36.9 L MCV 88.7 MCH 29.6 MCHC 33.3 RDW Std Deviation 41.2 RDW Coeff of Elizabeth 12.7 Plt Count 239 MPV 9.7 Immature Gran % (Auto) 0.400 Neut % (Auto) 65.2 Lymph % (Auto) 25.5 Yell % (Auto) 5.5 Eos % (Auto) 2.6 Baso % (Auto) 0.8 Absolute Neuts (auto) 6.4 Absolute Lymphs (auto) 2.49 Nucleated RBC % 0 Sodium 142 Potassium 3.0 L Chloride 111 H Carbon Dioxide 25.0 Anion Gap 6 BUN 8 Creatinine 0.71 Estim Creat Clear Calc 123.01 Est GFR (MDRD) Af Amer 122 Est GFR (MDRD) Non-Af 101 BUN/Creatinine Ratio 11.3 Glucose 120 H Lactic Acid 2.3 H* Calcium 8.8 Total Bilirubin 0.30 AST 10 L ALT 26 Alkaline Phosphatase 56 Total Protein 6.5 Albumin 3.8 Globulin 2.7 Albumin/Globulin Ratio 1.4 Prolactin 35.5 Serum , Qual NEGATIVE Urine Color Yellow Urine Clarity Clear Urine pH 7.0 Ur Specific [place] 1.005 Urine Protein Negative Urine Glucose (UA) Normal Urine Ketones Negative Urine Occult Blood Negative Urine Nitrite Negative Urine Bilirubin Negative Urine Urobilinogen Normal Ur Leukocyte Esterase Negative Urine RBC 0 SEEN Urine WBC 0 SEEN Ur Squamous Epith Cells 0 SEEN Urine Bacteria 0 SEEN Urine Mucus 0 SEEN Ur Drug Screen Comment Radiography Diagnostic Testing: Clinical Impression(s) from Imaging Studies Brain CT 02/02/23 02:43 IMPRESSION: No acute abnormality. Electronically Signed: Dina Corona MD at 3:22 EDT , Management Discussion w/another healthcare provider: Hospitalist (Dr. Obregon) Discharge Plan Dx/Rx/DC Orders Clinical Impression: Seizure-like activity, Hypokalemia, Lactic acidosis Disposition Disposition: Acute Care Hospital [facility] What to do if you have Problems For any increased pain, shortness of breath, bleeding, nausea or vomiting, chestpain, or any unexpected problems, contact your Primary Care Provider. Call [facility] ([phone]) or report to the closest Emergency Room. Call 911 if necessary. 02/02/23 0424 <Electronically signed by Kendrick Hadley MD> Cosigner Signature (if applicable): CC: No Primary Care Physician ~ Signed [facility] Work Phone: 1(870) 995-706409-22-2023 Discharge summary Author Kendrick Carlsonph[facility] institutechristopher [facility] February 02, 2023 4:24am Note Date/Time February 02, 2023 2:48am [facility] Medical Records Department [address] [place] [address] Emergency Department Summary 02/02/23 MR#: [id number] Acct: [id number] Name: GALE DICKSON Rep #:[id number] 1 : 1990 32 From: Kendrick Hadley MD PCP: Care Physician,No Primary Status :REG ER Location: ED HPI History of Present Illness Chief Complaint: Seizure Narrative Narrative: 32-year-old female presents via EMS with questionable seizure activity. Her history and physical is limited secondary to postictal state and the fact that she received 5 of Versed. Her is at the bedside currently. He states that she has had history of these seizure-like activities. She has had at least12 in the last week. There are periods of time where she goes without having them, but they come back. He states that she had work-up including EEG and sleep study as she sometimes twitches in her sleep, which did not show any irregularities. EMS states that they were called for seizure activity. She wassitting in a chair, but was found on the ground. She had her eyes forced closed, but was twitching so she was administered Versed. While in the emergency department during examination she will open her eyes and she uttered an obscenity. [facility] Medical History Abnormal bruising Chronic neck and back pain Limb weakness Home Medications NK 02/02/23 [History Last Taken Unknown] Allergy/AdvReac Type Severity Reaction Status Date / Time No Known Allergies Allergy Verified 02/02/23 03:43 Surgical History History of hysterectomy History of tubal ligation Social History Smoking Status: Never smoker alcohol intake: current ROS ROS ED ROS Narrative Limited secondary to drowsiness and possible postictal state. Constitutional: No fever, no chills. HEENT: No sore throat. No neck pain. No loss of vision. No rhinorrhea. Cardiovascular: No chest pain. No palpitations. No pedal edema. Respiratory: No cough, no shortness of breath. Abdominal: No abdominal pain. No nausea. No vomiting. Genitourinary: No dysuria. No hematuria. Musculoskeletal: No myalgias. No arthralgias. Neurologic: No headaches. No dizziness. No lightheadedness. Reported seizure activity. Skin: No rash. No change in color. Psychiatric: No depression. No anxiety. EXAM Physical Exam Narrative Exam Narrative: Afebrile. Vital signs noted. HEENT: Normocephalic. Atraumatic. PERRL, EOMI. Neck soft and supple. No pointtenderness or step off. Cardiovascular: Regular rate and rhythm. No murmurs, rubs, or gallops appreciated. Respiratory: No tachypnea. Lungs clear to auscultation bilaterally. Gastrointestinal: Abdomen soft, nontender, with normoactive bowel sounds. No rebound or guarding. Neurological: Drowsy. Will open eyes. Possibly postictal. Nonfocal, nonlateralizing. Skin: No rash. Normal color. No pallor. Musculoskeletal: No pedal edema. Full range of motion extremities. Const Vital Signs: 02/02/23 02:21 02/02/23 03:43 Temperature 97.1 F L Temperature Source Temporal Pulse Rate 90 59 L Respiratory Rate 17 15 Blood Pressure 128/79 H 113/80 Blood Pressure Mean 95 91 Pulse Ox 98 100 Oxygen Delivery Method Room Air MDM MDM MDM Narrative Medical decision making narrative: I reviewed the patient's prior records. She was admitted back in 2019 for twitching episodes and syncopal episode while at work. I did review her EEG at that time which was unremarkable although she did have twitching episodes duringit. In the differential diagnosis is seizure activity versus syncope versus pseudoseizure/psychogenic seizures. I reviewed her laboratory work from today and she has normal white count of 9.8, hemoglobin normal at 12.3, platelet countnormal at 239. Her electrolyte panel shows sodium normal at 142 and hypokalemiaof 3.0 which was replaced orally. Chloride is slightly elevated at 111 which I think is nonspecific, BUN normal at 8, creatinine 0.71, lactic acid is elevated 2.3 but prolactin is normal at 35.5. AST low at 10 which I also think is nonspecific. Upon repeat examination, around 3:15 in the morning, RN informed me that patient is awake and talking. EKG was obtained and interpreted by myself independently as normal sinus rhythm with sinus arrhythmia at 66 bpm without ectopy or acute ST changes. No STEMI. I reviewed the radiology report of the CT of her brain which shows no evidence of acute hemorrhage or fracture. No mass. Her urinalysis is pending, but microanalysis shows no evidence of infection. Urine for drugs of abuse is also pending, but it has been negative in the past. In discussion with the patient and her , she states that she was told that it is all in my head but given her increasing seizure like activity over the past week, I do feel that since she has not had an EEG since 2019 that she needs to be observed with probable neurological consultation. I discussed patient with Dr. Obregon for assignment to observation on [facility]. Patient isin stable condition. History & Record Review Discussion w/independent historian: Patient and Family Additional record(s) reviewed:: Prior ED visit and Prior labs Lab Data Attestation: I reviewed the patient's lab results. Labs: Laboratory Results - last 24 hr 02/02/23 02/02/23 02:39 03:35 WBC 9.8 RBC 4.16 L Hgb 12.3 Hct 36.9 L MCV 88.7 MCH 29.6 MCHC 33.3 RDW Std Deviation 41.2 RDW Coeff of Elizabeth 12.7 Plt Count 239 MPV 9.7 Immature Gran % (Auto) 0.400 Neut % (Auto) 65.2 Lymph % (Auto) 25.5 Yell % (Auto) 5.5 Eos % (Auto) 2.6 Baso % (Auto) 0.8 Absolute Neuts (auto) 6.4 Absolute Lymphs (auto) 2.49 Nucleated RBC % 0 Sodium 142 Potassium 3.0 L Chloride 111 H Carbon Dioxide 25.0 Anion Gap 6 BUN 8 Creatinine 0.71 Estim Creat Clear Calc 123.01 Est GFR (MDRD) Af Amer 122 Est GFR (MDRD) Non-Af 101 BUN/Creatinine Ratio 11.3 Glucose 120 H Lactic Acid 2.3 H* Calcium 8.8 Total Bilirubin 0.30 AST 10 L ALT 26 Alkaline Phosphatase 56 Total Protein 6.5 Albumin 3.8 Globulin 2.7 Albumin/Globulin Ratio 1.4 Prolactin 35.5 Serum , Qual NEGATIVE Urine Color Yellow Urine Clarity Clear Urine pH 7.0 Ur Specific [place] 1.005 Urine Protein Negative Urine Glucose (UA) Normal Urine Ketones Negative Urine Occult Blood Negative Urine Nitrite Negative Urine Bilirubin Negative Urine Urobilinogen Normal Ur Leukocyte Esterase Negative Urine RBC 0 SEEN Urine WBC 0 SEEN Ur Squamous Epith Cells 0 SEEN Urine Bacteria 0 SEEN Urine Mucus 0 SEEN Ur Drug Screen Comment Radiography Diagnostic Testing: Clinical Impression(s) from Imaging Studies Brain CT 02/02/23 02:43 IMPRESSION: No acute abnormality. Electronically Signed: Dina Corona MD at 3:22 EDT , Management Discussion w/another healthcare provider: Hospitalist (Dr. Obregon) Discharge Plan Dx/Rx/DC Orders Clinical Impression: Seizure-like activity, Hypokalemia, Lactic acidosis Disposition Disposition: Acute Care [facility] What to do if you have Problems For any increased pain, shortness of breath, bleeding, nausea or vomiting, chestpain, or any unexpected problems, contact your Primary Care Provider. Call [facility] ([phone]) or report to the closest Emergency Room. Call 911 if necessary. 02/02/23 0424 <Electronically signed by Kendrick Hadley MD> Cosigner Signature (if applicable): CC: No Primary Care Physician ~ Signed [facility] Work Phone: [phone] 584-601509-25-2015 History of Past illness Narrative* Problem Noted [...] of this encounter (statuses as of 03/26/2023) [facility] History of Past illness Narrative* Problem Noted [...] of this encounter (statuses as of 04/17/2023) [facility] History of Past illness Narrative* Problem Noted [...] of this encounter (statuses as of 04/27/2023) [facility] History of Past illness Narrative* Problem Noted [...] as of this encounter (statuses as of 08/03/2023) [facility] History of Past illness Narrative* Problem Noted [...] as of this encounter (statuses as of 08/16/2023) [facility] History of Past illness Narrative* Problem Noted [...] as of this encounter (statuses as of 08/28/2023) [facility] note Author Harjit Robison [facility] February 05, 2023 1:39pm Note Date/Time February 05, 2023 1:40pm [facility] Medical Records Department [address] [place] [address] Counseling Note - Pharmacy 02/05/23 1339 MR#: [id number] Acct: [id number] Name: GALE DICKSON Rep #:[id number] 2 : 1990 32 From: Harjit Robison PCP: Care Physician,No Primary Status :ADM KAILA Y Location: [place] [address] Pharmacy [facility] has performed discharge medication reconciliation and counseling for this patient. The patient's discharge medication list was reviewed for discrepancies and discrepancies were resolved. The patient was counseled on the following discharge medications and changes in medications for homegoing were reviewed. The Reason for Use, instructions for use, and potential side effects were reviewed for all new medications. The patient's questions regarding all of their medications were answered. 1. Levetiracetam 500 mg PO BID The patient and patient's were able to verbally demonstrate an understanding of their discharge medications. Medications at Discharge Home Medications levetiracetam 500 mg tablet (Keppra) 500 mg PO BID #30 tabs 02/05/23 02/05/23 9927 <Electronically signed by Harjit beth> Date _ Harjit Robison Cosigner Signature (if applicable): Date CC: ~ Signed [facility] Work Phone: Evaluation note* Diagnosis Onset Date Resolution Status Hypokalemia acute Lactic acidosis acute Seizure-like activity acute [facility] Work Phone: Evaluation note* Diagnosis Convulsions, unspecified convulsion type (HCC)- Primary documented in this encounter [facility] note* Diagnosis Seizures (HCC)- Primary Other convulsions Memory loss documented in this encounter [facility] noteNo assessment information availableWSamaritan [facility] Work Phone: Evaluation note* Diagnosis Psychogenic nonepileptic seizure- Primary Seizure-like activity (HCC) Other convulsions Convulsions, unspecified convulsion type (HCC) documented in this encounter [facility] note* Diagnosis Seizure-like activity (HCC)- Primary Other [facility] Additional Instructions Please continue your Keppra as directed by your doctor and follow-up with neurology for repeat evaluation. If you have any further concerns or worsening of symptoms please return for repeat evaluationWSamaritan [facility] Work Phone: Reason for referral (narrative)* Outpatient Procedure (Routine) - Pending Review Specialty Diagnoses / Procedures Referred By Contac t Referred To Contact [facility] Diagnoses Psychogenic nonepileptic seizure Seizure-like activity (HCC) Procedures EPIL AMBULATORY EEG EEG COMPLETE STD PHYS/QHP&GT;84 HR W/O Shelby Bowman MD, PhD [id number] [place] [address] Referral ID Status Reason Start Date Expiration Date Visits Requested Visits Authorized [id number] Pending Review Auto-Generat ed Referral 08/03/2023 08/02/2024 1 1 [facility] for referral (narrative)* Outpatient Procedure (Routine) - Pending Review Specialty Diagnoses / Procedures Referred By Contac t Referred To [facility] Diagnoses Seizure-like activity (HCC) Procedures EPIL AMBULATORY EEG EEG COMPLETE STD PHYS/QHP&GT;84 HR W/O Shelby Bowman MD, PhD [address] [place] [address] [facility] [address] [place] [address] Referral ID Status Reason Start Date Expiration Date Visits Requested Visits Authorized [id number] Pending Review Auto-Generat ed Referral 08/24/2023 08/23/2024 1 1 [facility] for referral (narrative)No reason for referral information availableWSamaritan North Health Center Work Phone: Summary Purpose Family History No Family History Records Found Relationship Condition Age at Onset Recorded Date/T shruti Unknown Family History?- Unknown December 12, 2018 2:04am Family History?- Unknown November 16 1:55am Relationship Condition Age at Onset Recorded Date/T shruti Unknown Family History?- Unknown December 12, 2018 1:04am Family History?- Unknown November 16 12:55am Relationship Condition Age at Onset Recorded Date/T shruti grandmother Malignant neoplasm Unknown aunt Malignant neoplasm Unknown mother Asthma Unknown Diabetes mellitus Unknown father Asthma Unknown brother Asthma Unknown Advance Directives No Advanced Directives Records Found Advance Directive Response Recorded Date/ Time Living Will No February 02, 2023 3:42am Power of Sports Management Intern No January 3:42am Advance Directive Response Recorded Date/ Time Living Will No February 02, 2023 7:54am Power of Sports Management Intern No January 7:54am Advance Directive Response Recorded Date/ Time Living Will No February 02, 2023 6:54am Power of Sports Management Intern No January 6:54am Chief Complaint and Reason for Visit Chief Complaint seizure SEIZURE LIKE ACTIVITY Reason for Visit Hypokalemia Lactic acidosis Seizure-like activity Chief Complaint seizure SEIZURE LIKE ACTIVITY SEIZURE LIKE ACTIVITY SEIZURE LIKE ACTIVITY Reason for Visit Hypokalemia Lactic acidosis Seizure-like activity Chief Complaint SEIZURE Chief Complaint Admit Date Syncope and Collapse (Ungerer) May 152024 9:39am SYNCOPE June 26, 2024 6:42am Syncope June 26, 2024 12:39pm Syncope July 29, 2024 12: 00am SYNCOPE July 29, 2024 8:5 0am Syncope July 30, 2024 7:3 6am Reason for Visit Admit Date History of hypokalemia June 05 9:39am Palpitations June 05, 2024 9 :39am Syncope June 05, 2024 9 :39am Additional Source Comments INFORMATION SOURCE (unrecogn ized section and content) DATE CREATED AUTHOR 06/06/2018 [facility] DATE CREATED AUTHOR AUTHOR'S ORGANIZ ATION 12/05/2019 [facility] DATE CREATED AUTHOR AUTHOR'S ORGANIZ ATION 05/18/2020 [facility] DATE CREATED AUTHOR AUTHOR'S ORGANIZ ATION 04/29/2023 [facility] DATE CREATED AUTHOR AUTHOR'S ORGANIZ ATION 08/29/[address] [facility] DATE CREATED AUTHOR AUTHOR'S ORGANIZ ATION 04/03/2024 [facility] DATE CREATED AUTHOR AUTHOR'S ORGANIZ ATION 04/10/2024 [facility] DATE CREATED AUTHOR AUTHOR'S ORGANIZ ATION 10/13/2024 [facility] Care Teams (unrecognized sec tion and content) Team Status: Active Member Role Status Dates No Primary Care Physician Family Provider Active No Primary Care Physician Primary Care Provider Active Team Status: Active Member Role Status Dates No Primary Care Physician Primary Care Provider Active Kendrick Hadley MD Emergency Provider Active Dr. Dinesh Obregon DO Attending Provider Active Team Status: Active Member Role Status Dates No Primary Care Physician Primary Care Provider Active Kendrick Hadley MD Emergency Provider Active Dr. Dinesh Obregon DO Admit Provider, Other Pro vider Active Dr. Flori Crowder MD Attending Provider Active Team Status: Active Member Role Status Dates No Primary Care Physician Primary Care Provider Active Kendrick Hadley MD Emergency Provider Active Dr. Dinesh Obregon DO Admit Provider, Other Pro vider Active Dr. Flori Crowder MD Attending Provider, Other Prov ider Active Team Status: Inactive Member Role Status Dates No Primary Care Physician Primary Care Provider Active Kendrick Hadley MD Emergency Provider Active Dr. Dinesh Obregon DO Admit Provider, Other Pro vider Active Dr. Cynthia Wheeler MD Attending Provider Active Dr. Flori Crowder MD Other Provider Active Team Status: Inactive Member Role Status Dates No Primary Care Physician Primary Care Provider Active Dr. Carlos Duarte DO Emergency Provider Active Team Status: Active Member Role Status Dates MICROWAVE TECHNICIAN. Linnette Lopez , MICROWAVE TECHNICIAN-C Primary Care Provider Activ e Team Status: Inactive Member Role Status Dates MICROWAVE TECHNICIAN. Linnette Maryerer , MICROWAVE TECHNICIAN-C Primary Care Provider Activ e Start: June 05, 2024 End: June 05, 2024 MICROWAVE TECHNICIANRobby Lopez , MICROWAVE TECHNICIAN-C Referring Provider Active Start: June 05, 2024 End: June 05, 2024 Dr. Levy Adorno MD Attending Provider Active Start: June 05, 2024 End: June 05, 2024 Team Status: Inactive Member Role Status Dates MICROWAVE TECHNICIAN. Linnette Castr , MICROWAVE TECHNICIAN-C Primary Care Provider Activ e Start: June 09, 2024 End: June 09, 2024 Dr. Levy Adorno MD Attending Provider Active Start: June 09, 2024 End: June 09, 2024 Dr. Levy Adorno MD Referring Provider Active Start: June 09, 2024 End: June 09, 2024 Team Status: Inactive Member Role Status Dates MICROWAVE TECHNICIAN. Linnette Castr , MICROWAVE TECHNICIAN-C Primary Care Provider Activ e Start: June 26, 2024 End: June 26, 2024 Dr. Levy Adorno MD Attending Provider Active Start: June 26, 2024 End: June 26, 2024 Dr. Levy Adorno MD Referring Provider Active Start: June 26, 2024 End: June 26, 2024 Team Status: Active Member Role Status Dates MICROWAVE TECHNICIANRobby Lopez , MICROWAVE TECHNICIAN-C Primary Care Provider Activ e Start: June 26, 2024 Dr. Levy Adorno MD Attending Provider Active Start: June 26, 2024 Dr. Levy Adorno MD Referring Provider Active Start: June 26, 2024 Dr. Levy Adorno MD Other Provider Active Star t: June 26, 2024 Team Status: Active Member Role Status Dates MICROWAVE TECHNICIAN. Linnette Castr , MICROWAVE TECHNICIAN-C Primary Care Provider Activ e Start: July 29, 2024 Dr. Juan Gallego MD Attending Provider Active S tart: July 29, 2024 Dr. Levy Adorno MD Referring Provider Active Start: July 29, 2024 Team Status: Inactive Member Role Status Dates NP. Linnette Lopez NP-C Primary Care Provider Activ e Start: July 29, 2024 End: July 29, 2024 Dr. Levy Adorno MD Attending Provider Active Start: July 29, 2024 End: July 29, 2024 Dr. Levy Adorno MD Referring Provider Active Start: July 29, 2024 End: July 29, 2024 Team Status: Active Member Role Status Dates ASHOK Gorman Primary Care Provider Activ e Start: July 30, 2024 Dr. Levy Adorno MD Referring Provider Active Start: July 30, 2024 Dr. Levy Adorno MD Other Provider Active Star t: July 30, 2024 Dr. Juan Gallego MD Attending Provider Active S tart: July 30, 2024 Goals (unrecognized section and content) Goals may be documented in a n alternate sectionGoals may be documented in an alternate sectionGoals may be documented in an alternate section Source Comments (unrecognize d section and content) In the event this informatio n is protected by the Federal Confidentiality of Alcohol and Drug Abuse Patient Records regulations: The Federal rules restrict any use of the information to criminally investigate or prosecute any alcohol or drug abuse patient.[facility] the event this information is protected by the Federal Confidentiality of Alcohol and Drug Abuse Patient Records regulations: The Federal rules restrict any use of the information to criminally investigate or prosecute any alcohol or drug abuse patient.[facility] System[facility] the event this information is protected by the Federal Confidentiality of Alcohol and Drug Abuse Patient Records regulations: The Federal rules restrict any use of the information to criminally investigate or prosecute any alcohol or drug abuse patient.[facility] System[facility] the event this information is protected by the Federal Confidentiality of Alcohol and Drug Abuse Patient Records regulations: The Federal rules restrict any use of the information to criminally investigate or prosecute any alcohol or drug abuse patient.[facility] System[facility] the event this information is protected by the Federal Confidentiality of Alcohol and Drug Abuse Patient Records regulations: The Federal rules restrict any use of the information to criminally investigate or prosecute any alcohol or drug abuse patient.[facility] System[facility] the event this information is protected by the Federal Confidentiality of Alcohol and Drug Abuse Patient Records regulations: The Federal rules restrict any use of the information to criminally investigate or prosecute any alcohol or drug abuse patient.[facility] System[facility] the event this information is protected by the Federal Confidentiality of Alcohol and Drug Abuse Patient Records regulations: The Federal rules restrict any use of the information to criminally investigate or prosecute any alcohol or drug abuse patient.[facility] Reason for Visit (unrecogniz ed section and content) Reason Comments Follow Up Seizures Reason Comments Follow Up Seizures Reason Comments Orders Reason Onset Date Comments Appointment Request 02/21/2024 FOR RECORDS PERTAINING TO PATIENTS WHO ARE [...] BE BASED ON THE PRIMARY CLINICAL RECORDS. [employer] [facility]. provides no warranty or guarantee of the accuracy or completeness of information in this document.
[2024-10-27] MEDS: 0.9% Normal Saline (1000mL) 1,000 ML 999 ML IV (02:46)
--- NOTE | 2024-10-27 04:42 | EX.ED.DYSGE1 ---
HPI History of Present Illness Chief Complaint: Syncope Informant: patient Onset/Context/Timing Onset: Today Context: Sudden Onset Current Severity: Gone Maximum Severity: Mild Narrative Narrative: 34-year-old female history of syncopal episodes. She tells me she has had 20-30 events in the last 2 to 3 years. Currently undergoing evaluation with cardiology with Dr. Adorno. She was at work tonight. Was on break. Became bradycardic and had a syncopal episode. Said she laid down prior to the event so she did not fall or get injured. This has happened numerous times before. Is not new or different. She denies any recent illness. No chest pain. She says has been evaluated numerous times and the labs are typically normal. Denies any recent illness. Prior similar symptoms: Yes Recent Illness/Hospitalization: No PFSH PFS Medical History Unspecified convulsions Short interval between pregnancies affecting in first trimester, antepartum Psychogenic nonepileptic seizure Dizziness Asthma Anemia in Tobacco use Dependent edema Tachycardia Overweight (BMI 25.0-29.9) BMI 26.0-26.9,adult Lactic acidosis Chronic neck and back pain Limb weakness Abnormal bruising Home Medications ?Medication ?Instructions ?Recorded ?Last Taken ?Type NK 08/12/24 Unknown History Allergy/AdvReac Type Severity Reaction Status Date / Time levetiracetam Allergy Intermediate Rash Verified 10/27/24 00:02 Family History Grandmother Cancer Aunt Cancer Mother Asthma Diabetes prediabetic Father Asthma Brother Asthma Surgical History History of dental surgery History of hysterectomy History of tubal ligation Social History Smoking Status: Former smoker alcohol intake: current caffeine: Yes Type: coffee ROS ROS ED ROS Narrative Denies recent illness. Constitutional Constitutional ED: Denies chills or fever(s) Eyes Eyes: Denies blurry vision Cardiovascular Cardiovascular: Denies chest pain Respiratory/Chest Respiratory/Chest: Denies cough or dyspnea Gastrointestinal Gastrointestinal: Denies abdominal pain Genitourinary Genitourinary ED: Denies dysuria or hematuria Musculoskeletal Musculoskeletal: Denies arthralgias or back pain Integumentary Denies abscess or Abrasions Neurologic Neurologic: Denies headache(s) Psychiatric Psychiatric: Denies anxiety or depression Hematologic/Lymphatic Hematologic/Lymphatic: Reports none Allergic/Immunologic Allergic/Immunologic ED: Denies mouth swelling, tongue swelling or urticaria EXAM Physical Exam Narrative Exam Narrative: 34-year-old female initial blood pressure 106/58. Heart rate is 40. Pulse ox 90% on room air no hypoxia. Initially as I entered the room her heart rate was in the 40s as I talked to her her heart rate moved up to the 50s and even low 60s. H EENT exam pupils round reactive light. Moist pink members. Neck nontender no JVD. No lymphadenopathy. Lungs clear to auscultation bilaterally. Heart regular rhythm rate about 55 no murmur. Chest wall ribs nontender. Abdomen soft nontender. Moving all 4 extremities. Calves are nontender without edema or cords. 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 Normal dorsi plantarflexion. Neurologically she is awake alert. Answering questions following commands. Back nontender. Const Vital Signs: 10/27/24 00:01 10/27/24 00:01 10/27/24 01:33 Temperature 97.7 F L Temperature Source Oral Pulse Rate 40 L 41 L Respiratory Rate 16 14 Respiratory Effort Normal Non-Labored Respiratory Pattern Normal Blood Pressure 106/58 L Blood Pressure Mean 74 Pulse Ox 98 100 Oxygen Delivery Method Room Air 10/27/24 02:02 10/27/24 02:43 10/27/24 03:10 Temperature Temperature Source Pulse Rate 43 L 41 L Respiratory Rate 18 Respiratory Effort Respiratory Pattern Blood Pressure 91/52 L 91/56 L 93/57 L Blood Pressure Mean 65 67 69 Pulse Ox 100 Oxygen Delivery Method Room Air 10/27/24 04:18 10/27/24 04:34 10/27/24 04:41 Temperature Temperature Source Pulse Rate 42 L 46 L 52 L Respiratory Rate 16 16 Respiratory Effort Respiratory Pattern Blood Pressure 94/55 L 86/39 L 98/64 Blood Pressure Mean 68 54 75 Pulse Ox 100 100 Oxygen Delivery Method Room Air Room Air 10/27/24 04:41 Temperature 98.1 F Temperature Source Pulse Rate 52 L Respiratory Rate 16 Respiratory Effort Respiratory Pattern Blood Pressure 98/64 Blood Pressure Mean 75 Pulse Ox 100 Oxygen Delivery Method Positive well nourished and well developed; Negative for cachectic, contractures or unkempt General Appearance ED: well developed and NAD; Negative for unkempt, cachectic, contractures, cyanotic, diaphoretic or pallor Nutritional Appearance: Negative for cachectic HEENT Reports moist mucous membranes Eyes EOMs intact bilaterally Neck no lymphadenopathy, supple and no JVD Chest Wall inspection of chest normal and palpation of chest normal Resp normal respiratory effort and clear to auscultation bilaterally Cardio regular rhythm, S1 normal heart sound, S2 normal heart sound and no murmurs; Negative for regular rate Rate: bradycardia GI normal to inspection, nondistended, normoactive bowel sounds, non-tender, non-distended and no masses Auscultation: normoactive bowel sounds Palpation: soft; Negative for tender or guarding Back/Spine no CVA tenderness General Back: Negative for CVA tenderness Cervical Spine: Negative for cervical spine tenderness Thoracic Spine / Upper Back: Negative for thoracic spinal tenderness or paraspinal muscle tenderness Lumbar Spine / Lower Back: Negative for lumbar spinal tenderness Extremity normal to inspection General Extremety ED: Negative for edema or tenderness General Extremity: Negative for edema Neuro oriented x3 and CN's II-XII intact bilaterally Sensorium / Orientation: alert; Negative for orientation impaired, lethargic or stuporous Motor Exam: strength 5/5 throughout Psych mental status grossly normal Appearance: Negative for unkempt Skin no rashes or lesions noted and no wounds General Skin Exam: Negative for jaundice or pallor Lesions: No lesion noted Rashes: No rashes noted MDM MDM MDM Narrative Medical decision making narrative: 34-year-old female with multiple episodes of prior syncopal events. 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 Other than the bradycardia and borderline blood pressure her exam is benign. Patient has been up ambulating on the restroom. She says she did not feel lightheaded or dizzy. She feels comfortable being discharged home. She was watched here for several hours. Her heart rate is between 45 and 65. Her blood pressures between 85 and 110 systolically. She is going to follow-up with her drop count associate. History & Record Review Discussion w/independent historian: Patient Additional record(s) reviewed:: Prior inpatient record, Prior outpatient record, Prior ED visit and Prior labs Rhythm Strip Rhythm Strip: Sinus bradycardia Rate: 42 Ectopy: None EKG Initial EKG: Attestation: I personally reviewed and interpreted this EKG as follows: Interpretation: No Acute Injury Pattern and Sinus Bradycardia Comments: Sinus bradycardia rate of 42. No acute signs of [place] or ischemia. Discharge Plan Triage Chief Complaint: Syncope ED Provider: Cm Jimenez Dx/Rx/DC Orders Clinical Impression: Syncope, Bradycardia Instructions: ED Bradycardia Prescriptions: No Action NK Primary Care Provider: Kayli Machado Referrals: Levy Adorno MD [Med Staff - Active Staff] - As soon as possible Kayli Machado, NUT PROCESSING SUPERVISOR-[employer] [Primary Care Provider] - Activity Restrictions/Additional Instructions: Follow-up with your drop count associate. Need to discuss with them if they would consider a pacemaker. I am not saying you need 1 but he cannot keep passing out. This seems to be secondary to your heart rate dropping which caused your blood pressure to drop and you pass out. I would not drive for the time being in case this would happen while you are driving nor when I swim. Print Language: Romanian Disposition Disposition: Home, Self Care
== END 2024-10-27 05:21 | disposition home or self-care (01) ==
PROVIDERS: Emergency Provider Emergency Medicine; PCP Nurse Practitioner Family; Visit Provider Emergency Medicine
DX: R55 Syncope and collapse (principal); R00.1 Bradycardia, unspecified; Z87.891 Personal history of nicotine dependence
CPT/HCPCS: 93005; 96360; 96361; 99285